=== PATIENT | male | born 1950 | race Caucasian/White ===

== ENCOUNTER → 2020-08-13 15:15 | Outpatient (BNVA) | payer MEDICARE, OTHER, SELFPAY | PROVIDERS: PCP Physician Assistant; Visit Provider Internal Medicine Cardiovascular Disease | DX: Z95.2 Presence of prosthetic heart valve (principal); Z79.01 Long term (current) use of anticoagulants; Z51.81 Encounter for therapeutic drug level monitoring | CPT/HCPCS: 85610; 99211 ==

== ENCOUNTER → 2020-08-27 15:54 | Outpatient (BNVA) | payer MEDICARE, OTHER, SELFPAY | PROVIDERS: PCP Physician Assistant; Referring Provider Physician Assistant; Visit Provider Internal Medicine | DX: Z95.2 Presence of prosthetic heart valve (principal); Z51.81 Encounter for therapeutic drug level monitoring; Z79.01 Long term (current) use of anticoagulants | CPT/HCPCS: 85610; 99211 ==

== ENCOUNTER → 2020-09-03 13:24 | Outpatient (BNVA) | payer MEDICARE, OTHER, SELFPAY | PROVIDERS: PCP Physician Assistant; Referring Provider Physician Assistant; Visit Provider Internal Medicine Cardiovascular Disease | DX: R06.02 Shortness of breath (principal); I25.10 Atherosclerotic heart disease of native coronary artery without angina pectoris; I10 Essential (primary) hypertension; E78.5 Hyperlipidemia, unspecified; E11.9 Type 2 diabetes mellitus without complications; Z95.1 Presence of aortocoronary bypass graft; Z95.2 Presence of prosthetic heart valve; F17.200 Nicotine dependence, unspecified, uncomplicated; Z79.82 Long term (current) use of aspirin; Z79.899 Other long term (current) drug therapy; Z71.6 Tobacco abuse counseling | CPT/HCPCS: 85610; 93005; 99214 ==

== ENCOUNTER → 2020-09-17 14:44 | Outpatient (BNVA) | payer MEDICARE, OTHER, SELFPAY | PROVIDERS: PCP Physician Assistant; Visit Provider Internal Medicine | DX: Z95.2 Presence of prosthetic heart valve (principal); Z51.81 Encounter for therapeutic drug level monitoring; Z79.01 Long term (current) use of anticoagulants | CPT/HCPCS: 85610; 99211 ==

== ENCOUNTER → 2020-09-18 14:37 | Outpatient (BNVA) | payer MEDICARE, OTHER, SELFPAY | PROVIDERS: PCP Physician Assistant; Referring Provider Physician Assistant; Visit Provider Family Medicine Adult Medicine | DX: M54.16 Radiculopathy, lumbar region (principal); Z79.891 Long term (current) use of opiate analgesic | CPT/HCPCS: 99212 ==

== ENCOUNTER → 2020-09-19 13:43 | Outpatient (BNVA) | payer MEDICARE, OTHER, SELFPAY | PROVIDERS: PCP Physician Assistant; Visit Provider Internal Medicine | DX: Z95.2 Presence of prosthetic heart valve (principal); Z51.81 Encounter for therapeutic drug level monitoring; Z79.01 Long term (current) use of anticoagulants | CPT/HCPCS: 85610; 99211 ==

== ENCOUNTER → 2020-10-03 13:50 | Outpatient (BNVA) | payer MEDICARE, OTHER, SELFPAY | PROVIDERS: PCP Physician Assistant; Referring Provider Physician Assistant; Visit Provider Internal Medicine | DX: Z95.2 Presence of prosthetic heart valve (principal); Z51.81 Encounter for therapeutic drug level monitoring; Z79.01 Long term (current) use of anticoagulants | CPT/HCPCS: 85610; 99211 ==

== ENCOUNTER → 2020-10-12 14:24 | Outpatient (BNVA) | payer MEDICARE, OTHER, SELFPAY | PROVIDERS: PCP Physician Assistant; Visit Provider Internal Medicine | DX: Z95.2 Presence of prosthetic heart valve (principal); Z51.81 Encounter for therapeutic drug level monitoring; Z79.01 Long term (current) use of anticoagulants | CPT/HCPCS: 85610; 99211 ==

== ENCOUNTER → 2020-10-16 13:46 | Outpatient (BNVA) | payer MEDICARE, OTHER, SELFPAY | PROVIDERS: PCP Physician Assistant; Visit Provider Family Medicine Adult Medicine | DX: M54.16 Radiculopathy, lumbar region (principal) | CPT/HCPCS: 99212 ==

== ENCOUNTER → 2020-10-22 13:42 | Outpatient (BNVA) | payer MEDICARE, OTHER, SELFPAY | PROVIDERS: PCP Physician Assistant; Visit Provider Internal Medicine | DX: Z95.2 Presence of prosthetic heart valve (principal); Z51.81 Encounter for therapeutic drug level monitoring; Z79.01 Long term (current) use of anticoagulants | CPT/HCPCS: 85610; 99211 ==

== ENCOUNTER → 2020-10-26 13:40 | Outpatient (BNVA) | payer MEDICARE, OTHER, SELFPAY | PROVIDERS: PCP Physician Assistant; Visit Provider Internal Medicine | DX: Z95.2 Presence of prosthetic heart valve (principal); Z51.81 Encounter for therapeutic drug level monitoring; Z79.01 Long term (current) use of anticoagulants | CPT/HCPCS: 85610; 99211 ==

== ENCOUNTER → 2020-11-12 14:32 | Outpatient (BNVA) | payer MEDICARE, OTHER, SELFPAY | PROVIDERS: PCP Physician Assistant; Visit Provider Internal Medicine | DX: Z95.2 Presence of prosthetic heart valve (principal); Z51.81 Encounter for therapeutic drug level monitoring; Z79.01 Long term (current) use of anticoagulants | CPT/HCPCS: 85610; 99211 ==

== ENCOUNTER → 2020-11-15 14:54 | Outpatient (BNVA) | payer MEDICARE, OTHER, SELFPAY | PROVIDERS: PCP Physician Assistant; Referring Provider Physician Assistant; Visit Provider Family Medicine Adult Medicine | DX: Z51.81 Encounter for therapeutic drug level monitoring (principal) | CPT/HCPCS: 99212 ==

== ENCOUNTER → 2020-12-03 14:41 | Outpatient (BNVA) | payer MEDICARE, OTHER, SELFPAY | PROVIDERS: PCP Physician Assistant; Visit Provider Internal Medicine | DX: Z95.2 Presence of prosthetic heart valve (principal); Z51.81 Encounter for therapeutic drug level monitoring; Z79.01 Long term (current) use of anticoagulants | CPT/HCPCS: 85610; 99211 ==

== ENCOUNTER → 2020-12-07 14:34 | Outpatient (BNVA) | payer MEDICARE, OTHER, SELFPAY | PROVIDERS: PCP Physician Assistant; Visit Provider Internal Medicine | DX: Z95.2 Presence of prosthetic heart valve (principal); Z51.81 Encounter for therapeutic drug level monitoring; Z79.01 Long term (current) use of anticoagulants | CPT/HCPCS: 85610; 99211 ==

== ENCOUNTER → 2020-12-12 15:47 | Outpatient (BNVA) | payer MEDICARE, OTHER, SELFPAY | PROVIDERS: PCP Physician Assistant; Visit Provider Anesthesiology | DX: M54.16 Radiculopathy, lumbar region (principal) | CPT/HCPCS: 99212 ==

== ENCOUNTER → 2020-12-21 13:51 | Outpatient (BNVA) | payer MEDICARE, OTHER, SELFPAY | PROVIDERS: PCP Physician Assistant; Visit Provider Internal Medicine | DX: Z95.2 Presence of prosthetic heart valve (principal); Z51.81 Encounter for therapeutic drug level monitoring; Z79.01 Long term (current) use of anticoagulants | CPT/HCPCS: 85610; 99211 ==

== ENCOUNTER → 2021-01-10 10:25 | Outpatient (BNVA) | payer MEDICARE, OTHER, SELFPAY | PROVIDERS: PCP Physician Assistant; Visit Provider Family Medicine Adult Medicine | DX: M54.16 Radiculopathy, lumbar region (principal); Z79.899 Other long term (current) drug therapy | CPT/HCPCS: Q3014 ==

== ENCOUNTER → 2021-01-11 13:47 | Outpatient (BNVA) | payer MEDICARE, OTHER, SELFPAY | PROVIDERS: PCP Physician Assistant; Visit Provider Internal Medicine | DX: Z95.2 Presence of prosthetic heart valve (principal); Z51.81 Encounter for therapeutic drug level monitoring; Z79.01 Long term (current) use of anticoagulants | CPT/HCPCS: 85610; 99211 ==

== ENCOUNTER → 2021-02-01 14:19 | Outpatient (BNVA) | payer MEDICARE, OTHER, SELFPAY | PROVIDERS: PCP Physician Assistant; Visit Provider Internal Medicine | DX: Z95.2 Presence of prosthetic heart valve (principal); Z51.81 Encounter for therapeutic drug level monitoring; Z79.01 Long term (current) use of anticoagulants | CPT/HCPCS: 85610; 99211 ==

== ENCOUNTER → 2021-02-07 13:17 | Outpatient (BNVA) | payer MEDICARE, OTHER, SELFPAY | PROVIDERS: PCP Physician Assistant; Visit Provider Family Medicine Adult Medicine | DX: Z13.89 Encounter for screening for other disorder (principal) | CPT/HCPCS: 99212 ==

== ENCOUNTER → 2021-02-12 08:01 | Outpatient (BNVA) | payer MEDICARE, OTHER, SELFPAY | PROVIDERS: PCP Physician Assistant; Visit Provider Family Medicine Adult Medicine | DX: Z51.81 Encounter for therapeutic drug level monitoring (principal) | CPT/HCPCS: 99212 ==

== ENCOUNTER → 2021-02-15 14:13 | Outpatient (BNVA) | payer MEDICARE, OTHER, SELFPAY | PROVIDERS: PCP Physician Assistant; Visit Provider Internal Medicine | DX: Z95.2 Presence of prosthetic heart valve (principal); Z79.01 Long term (current) use of anticoagulants; Z51.81 Encounter for therapeutic drug level monitoring | CPT/HCPCS: 85610; 99211 ==

== ENCOUNTER → 2021-02-26 11:21 | Outpatient (BNVA) | payer MEDICARE, OTHER, SELFPAY | PROVIDERS: PCP Physician Assistant; Visit Provider Family Medicine Adult Medicine | DX: M54.16 Radiculopathy, lumbar region (principal) | CPT/HCPCS: 99212 ==

== ENCOUNTER → 2021-03-07 10:45 | Outpatient (BNVA) | payer MEDICARE, OTHER, SELFPAY | PROVIDERS: PCP Physician Assistant; Visit Provider Family Medicine Adult Medicine | DX: M54.16 Radiculopathy, lumbar region (principal) | CPT/HCPCS: 99212 ==

== ENCOUNTER → 2021-03-15 14:26 | Outpatient (BNVA) | payer MEDICARE, OTHER, SELFPAY | PROVIDERS: PCP Physician Assistant; Visit Provider Internal Medicine | DX: Z95.2 Presence of prosthetic heart valve (principal); Z79.01 Long term (current) use of anticoagulants; Z51.81 Encounter for therapeutic drug level monitoring | CPT/HCPCS: 85610; 99211 ==

== ENCOUNTER → 2021-03-26 09:39 | Outpatient (BNVA) | payer MEDICARE, OTHER, SELFPAY | PROVIDERS: PCP Physician Assistant; Visit Provider Family Medicine Adult Medicine | DX: M54.16 Radiculopathy, lumbar region (principal) | CPT/HCPCS: Q3014 ==

== ENCOUNTER → 2021-04-23 10:14 | Outpatient (BNVA) | payer MEDICARE, OTHER, SELFPAY | PROVIDERS: PCP Physician Assistant; Visit Provider Internal Medicine | DX: M54.16 Radiculopathy, lumbar region (principal); E11.40 Type 2 diabetes mellitus with diabetic neuropathy, unspecified; Z95.2 Presence of prosthetic heart valve; Z51.81 Encounter for therapeutic drug level monitoring; Z79.01 Long term (current) use of anticoagulants | CPT/HCPCS: 85610; 99211; 99212 ==

== ENCOUNTER → 2021-05-14 14:21 | Outpatient (BNVA) | payer MEDICARE, OTHER, SELFPAY | PROVIDERS: PCP Physician Assistant; Visit Provider Internal Medicine | DX: Z95.2 Presence of prosthetic heart valve (principal); Z51.81 Encounter for therapeutic drug level monitoring; Z79.01 Long term (current) use of anticoagulants | CPT/HCPCS: 85610; 99211 ==

== ENCOUNTER → 2021-05-21 13:46 | Outpatient (BNVA) | payer MEDICARE, OTHER, SELFPAY | PROVIDERS: PCP Physician Assistant; Visit Provider Family Medicine Adult Medicine | DX: M54.16 Radiculopathy, lumbar region (principal); Z79.899 Other long term (current) drug therapy | CPT/HCPCS: 99212 ==

== ENCOUNTER → 2021-05-22 14:29 | Outpatient (BNVA) | payer MEDICARE, OTHER, SELFPAY | PROVIDERS: PCP Physician Assistant; Visit Provider Internal Medicine | DX: Z95.2 Presence of prosthetic heart valve (principal); Z51.81 Encounter for therapeutic drug level monitoring; Z79.01 Long term (current) use of anticoagulants | CPT/HCPCS: 85610; 99211 ==

== ENCOUNTER → 2021-06-18 13:45 | Outpatient (BNVA) | payer MEDICARE, OTHER, SELFPAY | PROVIDERS: PCP Physician Assistant; Visit Provider Family Medicine Adult Medicine | DX: M54.16 Radiculopathy, lumbar region (principal) | CPT/HCPCS: 99212 ==

== ENCOUNTER → 2021-07-16 15:20 | Outpatient (BNVA) | payer MEDICARE, OTHER, SELFPAY | PROVIDERS: PCP Physician Assistant; Visit Provider Nurse Practitioner Family | DX: Z51.81 Encounter for therapeutic drug level monitoring (principal); M54.16 Radiculopathy, lumbar region | CPT/HCPCS: 99212 ==

== ENCOUNTER → 2021-07-17 14:55 | Outpatient (BNVA) | payer MEDICARE, OTHER, SELFPAY | PROVIDERS: PCP Physician Assistant; Visit Provider Internal Medicine | DX: Z95.2 Presence of prosthetic heart valve (principal); Z51.81 Encounter for therapeutic drug level monitoring; Z79.01 Long term (current) use of anticoagulants | CPT/HCPCS: 85610; 99211 ==

== ENCOUNTER → 2021-08-07 14:42 | Outpatient (BNVA) | payer MEDICARE, OTHER, SELFPAY | PROVIDERS: PCP Physician Assistant; Visit Provider Internal Medicine | DX: Z95.2 Presence of prosthetic heart valve (principal); Z51.81 Encounter for therapeutic drug level monitoring; Z79.01 Long term (current) use of anticoagulants | CPT/HCPCS: 85610; 99211 ==

== ENCOUNTER → 2021-08-13 15:16 | Outpatient (BNVA) | payer MEDICARE, OTHER, SELFPAY | PROVIDERS: PCP Physician Assistant; Visit Provider Family Medicine Adult Medicine | DX: Z51.81 Encounter for therapeutic drug level monitoring (principal); M54.16 Radiculopathy, lumbar region | CPT/HCPCS: Q3014 ==

== ENCOUNTER → 2021-08-28 13:35 | Outpatient (BNVA) | payer MEDICARE, OTHER, SELFPAY | PROVIDERS: PCP Physician Assistant; Visit Provider Internal Medicine | DX: Z95.2 Presence of prosthetic heart valve (principal); Z51.81 Encounter for therapeutic drug level monitoring; Z79.01 Long term (current) use of anticoagulants | CPT/HCPCS: 85610; 99211 ==

== ENCOUNTER → 2021-09-12 11:03 | Outpatient (BNVA) | payer MEDICARE, OTHER, SELFPAY | PROVIDERS: PCP Physician Assistant; Visit Provider Family Medicine Adult Medicine | DX: Z51.81 Encounter for therapeutic drug level monitoring (principal); M54.16 Radiculopathy, lumbar region; E11.40 Type 2 diabetes mellitus with diabetic neuropathy, unspecified | CPT/HCPCS: 99212 ==

== ENCOUNTER → 2021-09-25 13:33 | Outpatient (BNVA) | payer MEDICARE, OTHER, SELFPAY | PROVIDERS: PCP Physician Assistant; Visit Provider Internal Medicine | DX: Z95.2 Presence of prosthetic heart valve (principal); Z51.81 Encounter for therapeutic drug level monitoring; Z79.01 Long term (current) use of anticoagulants | CPT/HCPCS: 85610 ==

== ENCOUNTER → 2021-10-17 13:08 | Outpatient (BNVA) | payer MEDICARE, OTHER, SELFPAY | PROVIDERS: PCP Physician Assistant; Visit Provider Family Medicine Adult Medicine | DX: Z51.81 Encounter for therapeutic drug level monitoring (principal); F11.20 Opioid dependence, uncomplicated | CPT/HCPCS: 99211 ==

== ENCOUNTER → 2021-11-18 13:36 | Outpatient (BNVA) | payer MEDICARE, OTHER, SELFPAY | PROVIDERS: PCP Physician Assistant; Visit Provider Anesthesiology | DX: Z51.81 Encounter for therapeutic drug level monitoring (principal); F11.20 Opioid dependence, uncomplicated; M54.16 Radiculopathy, lumbar region | CPT/HCPCS: 99212 ==

== ENCOUNTER → 2021-12-16 13:56 | Outpatient (BNVA) | payer MEDICARE, OTHER, SELFPAY | PROVIDERS: PCP Physician Assistant; Visit Provider Anesthesiology | DX: Z51.81 Encounter for therapeutic drug level monitoring (principal); F11.20 Opioid dependence, uncomplicated | CPT/HCPCS: 99212 ==

== ENCOUNTER → 2022-01-13 13:30 | Outpatient (BNVA) | payer MEDICARE, OTHER, SELFPAY | PROVIDERS: PCP Physician Assistant; Visit Provider Anesthesiology | DX: Z51.81 Encounter for therapeutic drug level monitoring (principal); F11.20 Opioid dependence, uncomplicated; M54.16 Radiculopathy, lumbar region; M47.816 Spondylosis without myelopathy or radiculopathy, lumbar region | CPT/HCPCS: 99212 ==

== ENCOUNTER 2022-01-17 15:43 | Outpatient (REF) | payer MEDICARE, OTHER, SELFPAY ==
--- NOTE | ~2022-01-17 | MR_ITS ---
EXAMINATION: MR LUMBAR SPINE WITHOUT CONTRAST CLINICAL INFORMATION: 71-year-old with radiculopathy, lumbar region. Complaints of low back pain and bilateral lower extremity symptoms. COMPARISON: 10/27/2019 x-rays. TECHNIQUE: MRI of the lumbar spine was obtained using routine sequences without contrast. FINDINGS: Coronal Alignment: Slight lower lumbar levocurvature noted. Sagittal Alignment: There is 4 to 5 mm of grade 1 degenerative spondylolisthesis at L4-L5, stable from previous x-rays. There is 2 mm of retrolisthesis at L3-L4, stable from previous x-rays and there is 3 mm of grade 1 degenerative spondylolisthesis at L5-S1, also unchanged. Lumbosacral Junction: Normal. 5 oyp-vna-bcjolfs lumbar vertebra. Vertebral Bodies: There is moderate loss of height of the T12 vertebral body asymmetric to the right which has progressed from the previous x-ray with a large Schmorl's node along its superior endplate consistent with a chronic compression fracture with progression of height loss since previous exam. Minimal marrow edema is noted within the T12 vertebral body, some of which may be related to type I degenerative marrow signal changes along the inferior end plate of T12 but it is difficult to exclude some degree of incomplete healing of this compression fracture. Additionally, there is band-like low T1 signal extending across the superior aspect of the L1 vertebral body with associated marrow edema suggesting a mild, nondisplaced superior endplate fracture of L1 without significant loss of height. No significant retropulsion. Remaining vertebral bodies are unremarkable. Disc Spaces and Endplates: Moderate loss of the intervertebral disc space height at L2-L3 and L3-L4 similar to previous x-rays with mild loss of height at L4-L5 and L5-S1. Severe loss of height of the T12-L1 intervertebral disc space is noted, probably progressed from previous x-ray. Schmorl's nodes at T11-T12 and T12-L1 are noted with probable intradiscal vacuum disc phenomenon at T12-L1. Anterior marginal spondylosis also noted at multiple levels throughout the thoracolumbar spine. Spinal Canal: Multilevel prominent dorsal epidural fat pads are noted. Bone Marrow: Type I degenerative marrow signal changes along the endplates at T12-L1 are suspected. Mild type I degenerative marrow signal changes along the endplates at L2-L3 and L3-L4. See above for discussion of T12 and L1. No suspicious marrow replacing process. Conus Medullaris: Terminates at L1-L2. Morphology and signal is normal. Intradural Nerve Roots: Crowding of the intradural nerve roots at L2-L3 consistent with spinal stenosis. L5-S1: Slight unroofing of the posterior disc margin with superimposed mild disc bulging and paravertebral disc osteophyte complex bilaterally with pnizmcve-lx-lhdfah bilateral facet arthropathy. No significant central spinal canal stenosis. There is mild bilateral subarticular and lateral recess stenosis with slight encroachment on the left S1 nerve root in the subarticular zone. There is moderate left-sided and severe right-sided neural foraminal stenosis, with bilateral L5 nerve root impingement, right more than left. L4-L5: Unroofing of the posterior disc margin noted consistent with spondylolisthesis. Superimposed left subarticular to foraminal disc herniation noted with severe bilateral facet arthrosis. Ligamentum flavum thickening noted with moderate central spinal canal stenosis. There is moderate left-sided and wwlxiuyd-fs-ywbfga right-sided neural foraminal stenosis, with bilateral L4 nerve root impingement, right more than left. L3-L4: Retrolisthesis is noted with diffuse disc bulging and flattening of the ventral dural sac with a prominent dorsal epidural fat pad. Superimposed right-sided foraminal/extra foraminal disc herniation. Ligamentum flavum thickening is noted with moderate bilateral facet arthrosis. There is moderate central spinal canal stenosis and there is marked bilateral subarticular recess stenosis with possible encroachment on the traversing L4 nerve roots. Bupygvyn-yz-yazzln right-sided and wjsm-id-pdynruri left-sided neural foraminal stenosis is noted with impingement on the exiting L3 nerve roots, right more than left. L2-L3: Diffuse disc bulging is noted, with a prominent dorsal epidural fat pad with flattening of the dural sac, ligamentum flavum thickening and mild facet arthrosis bilaterally. There is severe spinal canal stenosis with marked crowding of the intradural nerve roots and there is moderate right-sided and severe left-sided subarticular recess stenosis with probable encroachment on the traversing L3 nerve roots, left more than right. Mild right and udovzxkl-cj-gpkygc left-sided neural foraminal stenosis is noted, with impingement on the exiting left L2 nerve root. L1-L2: Minor posterolateral foraminal disc protrusion, left more than right, with minor facet arthrosis without significant canal stenosis. Mild foraminal narrowing bilaterally without neural impingement. T12-L1: Disc bulging, posterolateral disc osteophyte complex and a superimposed left paramedian to subarticular disc herniation with vxbtfexq-sb-scnrhy flattening of the dural sac asymmetric to the left and a prominent dorsal epidural fat pad. Ligamentum flavum thickening and mild facet arthropathy bilaterally noted with moderate central spinal canal stenosis and moderate left lateral recess stenosis. Severe right-sided and xjglwjwx-nd-tymsjm left-sided neural foraminal stenosis are also noted with impingement on the exiting right T12 nerve root. T11-T12: Small left and right paramedian disc protrusions are noted with mild indentation of the ventral thecal sac without cord impingement or canal stenosis. Minor facet arthrosis is noted with mild foraminal narrowing bilaterally without neural impingement. Paraspinal/Retroperitoneal: The paravertebral soft tissues are grossly unremarkable. Note is made of a 1.5 cm exophytic structure arising from the posterior cortex of the right kidney which is hyperintense on T1 and hypointense on T2, likely reflecting a hemorrhagic cyst. A similar sized and located structure is seen on a previous CT of the abdomen of 12/24/2013 and appears unchanged in size. However, this did not appear hemorrhagic on the previous study and therefore renal ultrasound may be of additional value. There is a 1.1 cm left adrenal nodule which is stable from previous CT. MR/MR lumbar spine wo con IMPRESSION: 1. Grade 1 degenerative spondylolisthesis at L4-L5 and L5-S1 and retrolisthesis at L3-L4 similar to previous x-rays. 2. Progression of height loss of the T12 compression fracture as described above which may not be completely healed and suspicion for a new superior endplate compression fracture of the L1 vertebral body without significant height loss at this point. 3. Extensive multilevel discogenic degenerative changes most severe at T12-L1 with multilevel spondylosis, disc bulging, disc osteophyte complexes and disc herniations as described by level above. Multilevel bilateral facet arthropathy and ligamentum flavum thickening also noted with multilevel prominent dorsal epidural fat pads. 4. Multilevel spinal canal stenosis at L4-L5, L3-L4, L2-L3 and T12-L1, most significant at T12-L1 and L2-L3 as described above. 5. Multilevel bilateral neural foraminal stenosis, with multilevel exiting nerve root impingement as detailed by level above. 6. Suggestion of hemorrhagic cyst in the right kidney since previous CT abdomen. Suggest follow-up ultrasound.
== END 2022-01-17 15:44 | disposition home or self-care (01) ==
LOC: HO.MRI 15:43
PROVIDERS: PCP Physician Assistant; Visit Provider Anesthesiology
DX: Z95.2 Presence of prosthetic heart valve (principal); M54.16 Radiculopathy, lumbar region; M47.816 Spondylosis without myelopathy or radiculopathy, lumbar region; Z51.81 Encounter for therapeutic drug level monitoring; Z79.01 Long term (current) use of anticoagulants
CPT/HCPCS: 72148; 85610; 99211

== ENCOUNTER → 2022-02-10 13:36 | Outpatient (BNVA) | payer MEDICARE, OTHER, SELFPAY | PROVIDERS: PCP Physician Assistant; Visit Provider Anesthesiology | DX: Z51.81 Encounter for therapeutic drug level monitoring (principal); F11.20 Opioid dependence, uncomplicated; Z79.01 Long term (current) use of anticoagulants; Z95.2 Presence of prosthetic heart valve | CPT/HCPCS: 85610; 99211 ==

== ENCOUNTER → 2022-02-17 13:34 | Outpatient (BNVA) | payer MEDICARE, OTHER, SELFPAY | PROVIDERS: PCP Physician Assistant; Visit Provider Internal Medicine | DX: Z95.2 Presence of prosthetic heart valve (principal); Z79.01 Long term (current) use of anticoagulants; Z51.81 Encounter for therapeutic drug level monitoring | CPT/HCPCS: 85610; 99211 ==

== ENCOUNTER → 2022-02-28 14:03 | Outpatient (BNVA) | payer MEDICARE, OTHER, SELFPAY | PROVIDERS: PCP Physician Assistant; Visit Provider Internal Medicine | DX: Z95.2 Presence of prosthetic heart valve (principal); Z79.01 Long term (current) use of anticoagulants; Z51.81 Encounter for therapeutic drug level monitoring | CPT/HCPCS: 85610; 99211 ==

== ENCOUNTER → 2022-03-12 15:17 | Outpatient (BNVA) | payer MEDICARE, OTHER, SELFPAY | PROVIDERS: PCP Physician Assistant; Visit Provider Nurse Practitioner Family | DX: Z51.81 Encounter for therapeutic drug level monitoring (principal); F11.20 Opioid dependence, uncomplicated; M54.16 Radiculopathy, lumbar region; M47.816 Spondylosis without myelopathy or radiculopathy, lumbar region | CPT/HCPCS: 99212 ==

== ENCOUNTER → 2022-03-21 13:48 | Outpatient (BNVA) | payer MEDICARE, OTHER, SELFPAY | PROVIDERS: PCP Physician Assistant; Visit Provider Internal Medicine | DX: Z95.2 Presence of prosthetic heart valve (principal); Z79.01 Long term (current) use of anticoagulants; Z51.81 Encounter for therapeutic drug level monitoring | CPT/HCPCS: 85610; 99211 ==

== ENCOUNTER → 2022-03-25 14:14 | Outpatient (BNVA) | payer MEDICARE, OTHER, SELFPAY | PROVIDERS: PCP Physician Assistant; Visit Provider Internal Medicine | DX: Z95.2 Presence of prosthetic heart valve (principal); Z79.01 Long term (current) use of anticoagulants; Z51.81 Encounter for therapeutic drug level monitoring | CPT/HCPCS: 85610; 99211 ==

== ENCOUNTER → 2022-04-09 12:38 | Outpatient (BNVA) | payer MEDICARE, OTHER, SELFPAY | PROVIDERS: PCP Physician Assistant; Visit Provider Nurse Practitioner Family | DX: M47.26 Other spondylosis with radiculopathy, lumbar region (principal); M48.061 Spinal stenosis, lumbar region without neurogenic claudication; Z79.891 Long term (current) use of opiate analgesic; Z95.2 Presence of prosthetic heart valve; Z51.81 Encounter for therapeutic drug level monitoring; Z79.01 Long term (current) use of anticoagulants | CPT/HCPCS: 85610; 99211; 99212 ==

== ENCOUNTER → 2022-04-30 13:56 | Outpatient (BNVA) | payer MEDICARE, OTHER, SELFPAY | PROVIDERS: PCP Physician Assistant; Visit Provider Internal Medicine | DX: Z95.2 Presence of prosthetic heart valve (principal); Z79.01 Long term (current) use of anticoagulants; Z51.81 Encounter for therapeutic drug level monitoring | CPT/HCPCS: 85610; 99211 ==

== ENCOUNTER → 2022-05-07 14:09 | Outpatient (BNVA) | payer MEDICARE, OTHER, SELFPAY | PROVIDERS: PCP Physician Assistant; Visit Provider Anesthesiology | DX: M47.26 Other spondylosis with radiculopathy, lumbar region (principal); M48.061 Spinal stenosis, lumbar region without neurogenic claudication; Z79.891 Long term (current) use of opiate analgesic; Z87.81 Personal history of (healed) traumatic fracture | CPT/HCPCS: 99212 ==

== ENCOUNTER → 2022-05-27 14:14 | Outpatient (BNVA) | payer MEDICARE, OTHER, SELFPAY | PROVIDERS: PCP Physician Assistant; Visit Provider Internal Medicine | DX: Z95.2 Presence of prosthetic heart valve (principal); Z79.01 Long term (current) use of anticoagulants; Z51.81 Encounter for therapeutic drug level monitoring | CPT/HCPCS: 85610; 99211 ==

== ENCOUNTER → 2022-06-04 14:43 | Outpatient (BNVA) | payer MEDICARE, OTHER, SELFPAY | PROVIDERS: PCP Physician Assistant; Visit Provider Anesthesiology | DX: Z51.81 Encounter for therapeutic drug level monitoring (principal); F11.20 Opioid dependence, uncomplicated; M54.16 Radiculopathy, lumbar region; M47.816 Spondylosis without myelopathy or radiculopathy, lumbar region; M48.061 Spinal stenosis, lumbar region without neurogenic claudication; Z87.81 Personal history of (healed) traumatic fracture | CPT/HCPCS: 99212 ==

== ENCOUNTER → 2022-06-24 14:15 | Outpatient (BNVA) | payer MEDICARE, OTHER, SELFPAY | PROVIDERS: PCP Physician Assistant; Visit Provider Internal Medicine | DX: Z95.2 Presence of prosthetic heart valve (principal); Z79.01 Long term (current) use of anticoagulants; Z51.81 Encounter for therapeutic drug level monitoring | CPT/HCPCS: 85610; 99211 ==

== ENCOUNTER → 2022-07-02 14:27 | Outpatient (BNVA) | payer MEDICARE, OTHER, SELFPAY | PROVIDERS: PCP Physician Assistant; Visit Provider Nurse Practitioner Family | DX: Z79.891 Long term (current) use of opiate analgesic (principal) | CPT/HCPCS: 99211 ==

== ENCOUNTER → 2022-07-22 14:14 | Outpatient (BNVA) | payer MEDICARE, OTHER, SELFPAY | PROVIDERS: PCP Physician Assistant; Visit Provider Internal Medicine | DX: Z95.2 Presence of prosthetic heart valve (principal); Z79.01 Long term (current) use of anticoagulants; Z51.81 Encounter for therapeutic drug level monitoring | CPT/HCPCS: 85610; 99211 ==

== ENCOUNTER → 2022-07-30 09:41 | Outpatient (BNVA) | payer MEDICARE, OTHER, SELFPAY | PROVIDERS: PCP Physician Assistant; Visit Provider Anesthesiology | DX: Z51.81 Encounter for therapeutic drug level monitoring (principal); F11.20 Opioid dependence, uncomplicated; M54.16 Radiculopathy, lumbar region; M47.816 Spondylosis without myelopathy or radiculopathy, lumbar region; M48.061 Spinal stenosis, lumbar region without neurogenic claudication; Z87.81 Personal history of (healed) traumatic fracture | CPT/HCPCS: 99212 ==

== ENCOUNTER → 2022-08-06 12:59 | Outpatient (BNVA) | payer MEDICARE, OTHER, SELFPAY | PROVIDERS: PCP Physician Assistant; Visit Provider Internal Medicine | DX: I25.10 Atherosclerotic heart disease of native coronary artery without angina pectoris (principal); Z95.2 Presence of prosthetic heart valve; Z51.81 Encounter for therapeutic drug level monitoring; Z79.01 Long term (current) use of anticoagulants | CPT/HCPCS: 85610; 93005; 99211; 99212 ==

== ENCOUNTER → 2022-08-19 09:16 | Outpatient (REF) | payer MEDICARE, OTHER, SELFPAY ==
--- NOTE | ~2022-08-19 | NM_ITS ---
Lexiscan Myocardial perfusion study Indication: Coronary artery disease, assess for ischemia Technique: The patient was brought in for a Lexiscan perfusion study on 08/19/2022 and was injected 0.4 mg of Lexiscan intravenously. Within a minute of this injection 30 mCi of sestamibi was given intravenously. Images were obtained using the SPECT gamma camera interlaced with the gating device. Images were obtained in supine position. Resting perfusion study was performed on 08/21/2022. Patient was administered 30 mCi of sestamibi intravenously at rest. Images were then obtained in supine position. Total DLP 129mGy-cm. Images were processed with the software and compared side to side in short axis, horizontal long axis and vertical long axis views. Findings: Raw acquisition reviewed. Arms by the patient's side. The stress perfusion study showed minimally reduced tracer uptake in the lateral wall. With CT attenuation corrected, there is improvement suggestive of soft tissue attenuation artifact. The gated study shows normal LV systolic function with calculated LVEF of 69%. LV cavity is normal in size. The gated study shows normal wall thickening and contraction of segments. Resting study shows diminished tracer uptake in the lateral wall more prominent than the stress acquisition and hence probably artifactual. There is also improvement with CT attenuation correction. Gating at rest reveals normal wall motion with ejection fraction at 73%. The findings are consistent with no clear reversible defects. Possible mild lateral fixed defect but could also be artifactual. NM/NM trevor perf SPECT rest & str Impression: 1. Myocardial perfusion imaging study shows no clear evidence of any ischemia. Mild lateral fixed defect, possibly artifactual but cannot exclude nontransmural infarct. 2. Gated LVEF is 69% during stress and 73% during rest. 3. Transient ischemic dilatation not present. EKG component of the test reported separately.
--- NOTE | 2022-08-19 09:18 | CA_ITS ---
Acquisition Time: 2022-08-19 09:32:13 Total Exercise Time: 00:02:00 Test Indications: AORTIC VALVE REPLACEMENT Medications: SEE CHART Protocol: LEXISCAN Max HR: 080 BPM 53% of Pred: 150 BPM Max BP: 112/066 mmHG Max Work Load: 1.0 METS Pharmacological stress test with Lexiscan injection, while sitting and kicking his legs, without anginal symptoms, with junctional beats noted in early recovery, with normotensive response to injection, with nondiagnostic EKG for ischemia. In recovery he was treated with Aminophylline 75mg IVP to reverse Lexiscan. Nuclear images pending. Test reviewed with Dr Stephen. Holter monitor ordered for further rhythm evaluation. Referred By: Nick Miller Overread By: THIERRY APONTE
== END ==
LOC: HO.CARD 09:16
PROVIDERS: PCP Physician Assistant; Visit Provider Internal Medicine Cardiovascular Disease
DX: I25.10 Atherosclerotic heart disease of native coronary artery without angina pectoris (principal)
CPT/HCPCS: 78452; 93017; A9500; A9503; J0280; J2785

== ENCOUNTER → 2022-08-21 14:05 | Outpatient (REF) | payer MEDICARE, OTHER, SELFPAY ==
--- NOTE | 2022-08-21 14:09 | HM_ITS ---
* Total monitoring time 3 days. * Underlying rhythm is sinus. Average rate 45/Min. Range 28 to 122/Min. * About 69% the time, rate less than 60/Min. * There were 4 pauses greater than 2.5 seconds. Longest 2.6 seconds at 08:48. * Evidence of Mobitz type 1 second-degree heart block noted. Additional areas where difficult to assess the degree of atrioventricular block but ventricular rate of 32/Min-during awake hours. Per automated calculation, second-degree heart block to a rate of 27/Min for over 17 minutes. * No relevant events in diary. MTDD
== END ==
LOC: HO.CARD 14:05
PROVIDERS: PCP Physician Assistant; Visit Provider Nurse Practitioner Family
DX: I44.0 Atrioventricular block, first degree (principal); I49.49 Other premature depolarization
CPT/HCPCS: 93242

== ENCOUNTER → 2022-09-17 13:34 | Outpatient (BNVA) | payer MEDICARE, OTHER, SELFPAY | PROVIDERS: PCP Physician Assistant; Visit Provider Internal Medicine | DX: Z95.2 Presence of prosthetic heart valve (principal); Z79.01 Long term (current) use of anticoagulants; Z51.81 Encounter for therapeutic drug level monitoring | CPT/HCPCS: 85610; 99211 ==

== ENCOUNTER → 2022-09-19 13:34 | Outpatient (BNVA) | payer MEDICARE, OTHER, SELFPAY | PROVIDERS: PCP Physician Assistant; Visit Provider Internal Medicine | DX: Z95.2 Presence of prosthetic heart valve (principal); Z79.01 Long term (current) use of anticoagulants; Z51.81 Encounter for therapeutic drug level monitoring | CPT/HCPCS: 85610; 99211 ==

== ENCOUNTER 2022-09-26 13:46 | Outpatient (REF) | payer MEDICARE, OTHER, SELFPAY | END 2022-09-26 13:47 | disposition home or self-care (01) | LOC: HO.LAB 13:46 | PROVIDERS: Visit Provider Internal Medicine | DX: Z95.2 Presence of prosthetic heart valve (principal); Z51.81 Encounter for therapeutic drug level monitoring; Z79.01 Long term (current) use of anticoagulants; I10 Essential (primary) hypertension; E11.65 Type 2 diabetes mellitus with hyperglycemia; Z79.4 Long term (current) use of insulin; Z12.5 Encounter for screening for malignant neoplasm of prostate | CPT/HCPCS: 36415; 80053; 80061; 82043; 83036; 84153; 85027; 85610; 99211 ==

== ENCOUNTER 2022-09-26 13:55 | Outpatient (REF) | payer MEDICARE, OTHER, SELFPAY ==
[2022-09-26 14:20] LABS: Hematocrit 36.5 % (42.0-52.0); Hemoglobin 12.4 g/dl (14.0-18.0); Mean Corpuscular Hemoglobin 31.2 pg (27.0-33.0); Mean Corpuscular Volume 91.9 fL (80.0-98.0); Mean Platelet Volume 9.7 fL (9.4-12.4); Platelet Count 187 X10*3/uL (160-400); Red Blood Count 3.97 X10*6/uL (4.60-5.80); Red Cell Distribution Width 12.7 % (11.0-16.0); White Blood Count 7.1 X10*3/uL (4.8-10.8)
[2022-09-26 14:26] LABS: INTERNATIONAL NORM RATIO 1.6 (0.9-1.1); Prothrombin Time 18.8 SEC (10.0-13.1)
[2022-09-26 14:38] LABS: Estimated Average Glucose 180 mg/dL; Hemoglobin A1c % 7.9 %
[2022-09-26 14:44] LABS: Creatinine Urine 133.99 mg/dL
[2022-09-26 14:55] LABS: Microalbum/Creatinine Ratio Ur 416.4 ug/mg cr
[2022-09-26 15:03] LABS: Alanine Aminotransferase 13 U/L (0-40); Albumin Level 3.9 g/dL (3.5-5.0); Alkaline Phosphatase 90 U/L (39-117); Anion Gap 13 (12-20); Aspartate Amino Transferase 15 U/L (5-37); Bilirubin Total 0.7 mg/dL (0.0-1.0); Blood Urea Nitrogen 16 mg/dL (9-16); Calcium 8.7 mg/dL (8.4-10.2); Carbon Dioxide 29 mmol/L (22-29); Chloride 107 mmol/L (96-108); Cholesterol 119 mg/dL; Estimated Glomerular Filt Rate > 60; Glucose Fasting 113 mg/dL (60-99); HDL Cholesterol 34 mg/dL; LDL Cholesterol Calculated 67 mg/dl; Sodium 145 mmol/L (135-145); Total Protein 6.3 g/dL (6.5-8.0); Triglycerides 93 mg/dL
== END 2022-09-26 13:56 | disposition home or self-care (01) ==
LOC: HO.LAB 13:55
PROVIDERS: Physician Assistant; Visit Provider Internal Medicine
DX: Z13.89 Encounter for screening for other disorder (principal)
CPT/HCPCS: 36415; 80053; 80061; 82043; 83036; 84153; 85027; 85610

== ENCOUNTER → 2022-09-29 14:28 | Outpatient (BNVA) | payer MEDICARE, OTHER, SELFPAY | PROVIDERS: PCP Physician Assistant; Visit Provider Internal Medicine | DX: Z95.2 Presence of prosthetic heart valve (principal); Z79.01 Long term (current) use of anticoagulants; Z51.81 Encounter for therapeutic drug level monitoring | CPT/HCPCS: 85610; 99211 ==

== ENCOUNTER → 2022-10-06 15:18 | Outpatient (BNVA) | payer MEDICARE, OTHER, SELFPAY | PROVIDERS: PCP Physician Assistant; Referring Provider Physician Assistant; Visit Provider Internal Medicine Cardiovascular Disease | DX: I44.1 Atrioventricular block, second degree (principal); I25.10 Atherosclerotic heart disease of native coronary artery without angina pectoris; Z95.2 Presence of prosthetic heart valve | CPT/HCPCS: 99212 ==

== ENCOUNTER → 2022-10-13 14:18 | Outpatient (BNVA) | payer MEDICARE, OTHER, SELFPAY | PROVIDERS: PCP Physician Assistant; Visit Provider Internal Medicine | DX: Z95.2 Presence of prosthetic heart valve (principal); Z79.01 Long term (current) use of anticoagulants; Z51.81 Encounter for therapeutic drug level monitoring | CPT/HCPCS: 85610; 99211 ==

== ENCOUNTER → 2022-10-29 14:24 | Outpatient (REF) | payer MEDICARE, OTHER, SELFPAY ==
--- NOTE | 2022-10-29 14:27 | HM_ITS ---
* Total monitoring time 3 days. * Underlying rhythm is sinus. Average ventricular rate 82/Min. Range 47 to 127/min. About 8% of the time, rate > 100/min. * There is evidence of Mobitz 1 Wenckebach type heart block. Seen during awake hours. * Frequent supraventricular ectopy. [place] of 5%. * Narrow complex tachycardia at 120/Min for about 3 minutes. Appears regular. Could be atrial tachycardia. Possible junctional origin.. Less likely atrial flutter/fibrillation. * Frequent PVCs with a burden of 1.3%. * Patient diary not submitted. MTDD
== END ==
LOC: HO.CARD 14:24
PROVIDERS: PCP Physician Assistant; Visit Provider Internal Medicine Cardiovascular Disease
DX: I44.1 Atrioventricular block, second degree (principal)
CPT/HCPCS: 85610; 93242; 99211

== ENCOUNTER → 2022-11-19 14:29 | Outpatient (BNVA) | payer MEDICARE, OTHER, SELFPAY | PROVIDERS: PCP Physician Assistant; Visit Provider Internal Medicine | DX: Z95.2 Presence of prosthetic heart valve (principal); Z79.01 Long term (current) use of anticoagulants; Z51.81 Encounter for therapeutic drug level monitoring | CPT/HCPCS: 85610; 99211 ==

== ENCOUNTER → 2022-12-03 14:25 | Outpatient (BNVA) | payer MEDICARE, OTHER, SELFPAY | PROVIDERS: PCP Physician Assistant; Visit Provider Internal Medicine | DX: Z95.2 Presence of prosthetic heart valve (principal); Z79.01 Long term (current) use of anticoagulants; Z51.81 Encounter for therapeutic drug level monitoring | CPT/HCPCS: 85610; 99211 ==

== ENCOUNTER 2022-12-23 15:43 | Outpatient (REF) | payer MEDICARE, OTHER, SELFPAY ==
--- NOTE | ~2022-12-23 | MR_ITS ---
EXAMINATION: MR LUMBAR SPINE WITHOUT CONTRAST CLINICAL INFORMATION: 72-year-old with radiculopathy, lumbar region. Self-reported low back and right leg pain. COMPARISON: 01/17/2022 MRI. TECHNIQUE: MRI of the lumbar spine was obtained using routine sequences without contrast. FINDINGS: Coronal Alignment: Trace lower lumbar levocurvature stable in appearance. Sagittal Alignment: Grade 1 spondylolisthesis at L4-L5 is minimally progressed and grade 1 spondylolisthesis at L5-S1 is stable in appearance. Grade 1 retrolisthesis at L3-L4 stable. Lordotic curvature is unchanged. Trace retrolisthesis at L2-L3 is also stable. Lumbosacral Junction: Normal. There are 5 pas-ozh-wbarsqd lumbar-type vertebral bodies. Vertebral Bodies: Redemonstrated is a chronic anterior wedge compression fracture deformity of T12, stable in appearance. Previously noted marrow edema within the T12 and T11 vertebral bodies has mostly resolved with some residual type I marrow signal changes noted adjacent to the endplates. Redemonstrated are T1 signal changes in the superior aspect of the L1 vertebral body which are stable from previous exam consistent with sequelae of a previous mild compression fracture with stable height at this level. Remaining vertebral body heights are well maintained stable in appearance. Disc Spaces and Endplates: Redemonstrated is multilevel DDD and spondylosis as described on the previous report largely unchanged in appearance with multilevel disc space height loss, disc desiccation, Schmorl's nodes and spondylosis largely unchanged and most severe at T12-L1. Probable intradiscal vacuum disc phenomenon at multiple levels is similar to previous study. Spinal Canal: No abnormal developmental findings. Mildly prominent epidural fat is again noted in the dorsal aspect of the canal unchanged. Bone Marrow: Type I degenerative marrow signal changes along the endplates at T12-L1, as described above. Improved marrow edema at T12 and L1 since previous exam. Minor type I degenerative marrow signal change again noted at the L2-L3 and L3-L4. No suspicious marrow replacing process. Heterogeneous marrow signal intensity noted throughout the osseous structures is largely similar to the previous study and is nonspecific. Conus Medullaris: Terminates at L1-L2. Morphology and signal is normal. Intradural Nerve Roots: Crowding of the intradural nerve roots again noted at L2-L3 consistent with spinal stenosis. Lesser crowding of the intradural nerve roots at L3-L4 consistent with spinal stenosis. Also some crowding of the intradural nerve roots at L4-L5 consistent with spinal stenosis is stable in appearance. L5-S1: Unroofing of the posterior disc margin again noted with superimposed minor disc bulging with bilateral paravertebral spondylosis stable in appearance. Marked bilateral facet arthropathy is largely unchanged with no significant central spinal canal stenosis. There is some crowding of the subarticular zones, left more than right stable in appearance with slight encroachment on the traversing left S1 nerve root unchanged in appearance. Moderate left-sided and severe right-sided neural foraminal stenosis are stable, with bilateral L5 nerve root impingement, right more than left unchanged in appearance. L4-L5: Unroofing of the posterior disc margin again noted consistent with spondylolisthesis with a superimposed left subarticular to foraminal disc herniation also again noted, with minimal progression of anterolisthesis. Marked bilateral facet arthropathy with ligamentum flavum thickening again noted, now with hfvjlmjv-vo-azjyhs central spinal canal stenosis and marked crowding of the intradural nerve roots slightly progressed. There is crowding of the subarticular zones, progressed, with probable encroachment on the traversing L5 nerve roots bilaterally on current study. Moderate left-sided and wjbpsrjn-gf-rcmnzr right-sided neural foraminal stenosis is again noted, stable in appearance, with impingement on the L4 nerve roots, right more than left, unchanged. L3-L4: Grade 1 retrolisthesis with the concentric disc bulging and flattening the ventral dural sac with a prominent dorsal epidural fat pad similar to previous exam. Ligamentum flavum thickening and bilateral facet arthropathy stable in appearance with drph-ka-lwehagua central spinal canal stenosis, stable in appearance and mild crowding of the intradural nerve roots. There is marked bilateral subarticular recess stenosis again noted with encroachment on the traversing L4 nerve roots bilaterally unchanged. Pizqhamz-yy-chikcm right-sided and kgvz-rm-vdctthgc left-sided neural foraminal stenosis is stable with impingement on the exiting L3 nerve roots, right more than left unchanged. L2-L3: Diffuse disc bulging again noted with flattening of the ventral dural sac and a prominent dorsal epidural fat pad similar to previous study. Ligamentum flavum thickening and bilateral facet arthropathy is largely unchanged. Severe central spinal canal stenosis and crowding of the intradural nerve roots is largely unchanged d. Bilateral subarticular recess stenosis, left more than right is stable with probable encroachment on the traversing L3 nerve roots bilaterally. Achwyfio-tw-ohxcka left-sided and mild right-sided neural foraminal stenosis, stable in appearance with impingement on the exiting left L2 nerve root, unchanged. L1-L2: Small left foraminal disc protrusion stable in appearance without neural impingement and mild facet arthropathy bilaterally, stable in appearance, with no significant canal stenosis. Mild neural foraminal narrowing noted on the left, unchanged. T12-L1: Disc bulging and bilateral posterolateral disc osteophyte complex with a superimposed central to left paramedian disc protrusion stable in appearance with flattening of the ventral dural sac without conus impingement. Prominent dorsal epidural fat pad with ligamentum flavum thickening and mild facet arthropathy is stable with moderate spinal canal stenosis, stable in appearance and vytg-qa-mrhryuyc left lateral recess stenosis unchanged. Moderate left-sided and severe right-sided neural foraminal stenosis is unchanged with impingement on the exiting right T12 nerve root unchanged. T11-T12: Small left and right paramedian disc protrusions with mild indentation of the ventral thecal sac without cord impingement stable in appearance and no significant spinal canal stenosis. Mild facet arthropathy is noted left more than right with mild foraminal narrowing on the left, unchanged. Paravertebral and Included Extraspinal Soft Tissues: There is multilevel interspinous ligament degeneration, stable in appearance. The paravertebral soft tissue structures are similar in appearance. Previously noted the high T1, low T2 exophytic structure arising from the posterior cortex of the right kidney is again noted measuring 1.5 cm mid maximum size, stable in appearance, likely hemorrhagic cyst. 1.1 cm left adrenal nodule is stable. MR/MR lumbar spine wo con IMPRESSION: 1. Stable grade 1 spondylolisthesis at L5-S1 and stable retrolisthesis at L3-L4 and L2-L3, with slight progression of spondylolisthesis at L4-L5. 2. Extensive multilevel DDD and spondylosis, with multilevel disc bulging, disc osteophyte complexes and disc herniations largely unchanged in appearance with multilevel bilateral facet arthropathy and ligamentum flavum thickening largely unchanged. There has been some progression of spondylolisthesis at L4-L5, now with moderate to severe spinal canal stenosis at this level, slightly progressed, stable severe spinal canal stenosis at L2-L3 and stable moderate spinal canal stenosis at T12-L1. 3. Multilevel bilateral neural foraminal stenosis largely stable in appearance with multilevel exiting nerve root impingement as detailed by level above. Progression of bilateral subarticular zone narrowing at L4-L5 with otherwise stable multilevel bilateral subarticular recess stenosis with corresponding encroachment on the traversing nerve roots. 4. Stable mild compression fracture deformities of L1 and T12. Improved marrow edema at T12 and L1 since previous exam, consistent with healing. 5. Stable probable hemorrhagic cyst right kidney and stable left adrenal nodule.
== END 2022-12-23 15:44 | disposition home or self-care (01) ==
LOC: HO.MRI 15:43
PROVIDERS: Visit Provider Internal Medicine
DX: Z95.2 Presence of prosthetic heart valve (principal); M54.16 Radiculopathy, lumbar region; Z51.81 Encounter for therapeutic drug level monitoring; Z79.01 Long term (current) use of anticoagulants
CPT/HCPCS: 72148; 85610; 99211

== ENCOUNTER → 2022-12-30 15:20 | Outpatient (BNVA) | payer MEDICARE, OTHER, SELFPAY | PROVIDERS: PCP Physician Assistant; Visit Provider Internal Medicine | DX: Z95.2 Presence of prosthetic heart valve (principal); Z79.01 Long term (current) use of anticoagulants; Z51.81 Encounter for therapeutic drug level monitoring | CPT/HCPCS: 85610; 99211 ==

== ENCOUNTER → 2023-01-07 14:54 | Outpatient (BNVA) | payer MEDICARE, OTHER, SELFPAY | PROVIDERS: PCP Physician Assistant; Visit Provider Internal Medicine | DX: Z95.2 Presence of prosthetic heart valve (principal); Z79.01 Long term (current) use of anticoagulants; Z51.81 Encounter for therapeutic drug level monitoring | CPT/HCPCS: 85610; 99211 ==

== ENCOUNTER → 2023-01-21 13:58 | Outpatient (BNVA) | payer MEDICARE, OTHER, SELFPAY | PROVIDERS: PCP Physician Assistant; Visit Provider Internal Medicine | DX: Z95.2 Presence of prosthetic heart valve (principal); Z79.01 Long term (current) use of anticoagulants; Z51.81 Encounter for therapeutic drug level monitoring | CPT/HCPCS: 85610; 99211 ==

== ENCOUNTER → 2023-02-06 14:05 | Outpatient (BNVA) | payer MEDICARE, OTHER, SELFPAY | PROVIDERS: PCP Physician Assistant; Visit Provider Internal Medicine | DX: Z95.2 Presence of prosthetic heart valve (principal); Z79.01 Long term (current) use of anticoagulants; Z51.81 Encounter for therapeutic drug level monitoring | CPT/HCPCS: 85610; 99211 ==

== ENCOUNTER → 2023-02-12 13:38 | Outpatient (BNVA) | payer MEDICARE, OTHER, SELFPAY | PROVIDERS: PCP Physician Assistant; Referring Provider Physician Assistant; Visit Provider Internal Medicine Cardiovascular Disease | DX: Z01.810 Encounter for preprocedural cardiovascular examination (principal); I25.10 Atherosclerotic heart disease of native coronary artery without angina pectoris; I44.0 Atrioventricular block, first degree; Z95.2 Presence of prosthetic heart valve | CPT/HCPCS: 93005; 99212 ==

== ENCOUNTER → 2023-02-20 13:46 | Outpatient (BNVA) | payer MEDICARE, OTHER, SELFPAY | PROVIDERS: PCP Physician Assistant; Visit Provider Internal Medicine | DX: Z95.2 Presence of prosthetic heart valve (principal); Z79.01 Long term (current) use of anticoagulants; Z51.81 Encounter for therapeutic drug level monitoring | CPT/HCPCS: 85610; 99211 ==

== ENCOUNTER 2023-02-24 13:38 | Outpatient (REF) | payer MEDICARE, OTHER, SELFPAY ==
[2023-02-24 14:52] LABS: Hemoglobin 14.6 g/dl (14.0-18.0); Mean Corpuscular HGB Conc 33.2 g/dl (31.0-36.0); Mean Corpuscular Hemoglobin 29.5 pg (27.0-33.0); Mean Corpuscular Volume 88.9 fL (80.0-98.0); Mean Platelet Volume 10.2 fL (9.4-12.4); Platelet Count 215 X10*3/uL (160-400); Red Blood Count 4.95 X10*6/uL (4.60-5.80); Red Cell Distribution Width 12.6 % (11.0-16.0); White Blood Count 7.7 X10*3/uL (4.8-10.8)
[2023-02-24 15:19] LABS: Estimated Average Glucose 249 mg/dL; Hemoglobin A1c % 10.3 %
[2023-02-24 15:24] LABS: Alanine Aminotransferase 22 U/L (0-40); Albumin Level 4.1 g/dL (3.5-5.0); Alkaline Phosphatase 143 U/L (39-117); Anion Gap 13 (12-20); Aspartate Amino Transferase 39 U/L (5-37); Bilirubin Total 0.4 mg/dL (0.0-1.0); Blood Urea Nitrogen 29 mg/dL (9-16); Calcium 9.4 mg/dL (8.4-10.2); Carbon Dioxide 24 mmol/L (22-29); Chloride 107 mmol/L (96-108); Cholesterol 143 mg/dL; Estimated Glomerular Filt Rate 53; Glucose Fasting 233 mg/dL (60-99); HDL Cholesterol 35 mg/dL; LDL Cholesterol Calculated 50 mg/dl; Potassium 4.4 mmol/L (3.3-5.1); Sodium 140 mmol/L (135-145); Total Protein 6.9 g/dL (6.5-8.0); Triglycerides 291 mg/dL
== END 2023-02-24 13:39 | disposition home or self-care (01) ==
LOC: HO.LAB 13:38
PROVIDERS: PCP Physician Assistant; Visit Provider Physician Assistant
DX: I10 Essential (primary) hypertension (principal); E11.65 Type 2 diabetes mellitus with hyperglycemia; Z79.4 Long term (current) use of insulin
CPT/HCPCS: 36415; 80053; 80061; 82043; 83036; 85027

== ENCOUNTER → 2023-03-20 15:02 | Outpatient (BNVA) | payer MEDICARE, OTHER, SELFPAY | PROVIDERS: PCP Physician Assistant; Visit Provider Internal Medicine | DX: Z95.2 Presence of prosthetic heart valve (principal); Z79.01 Long term (current) use of anticoagulants; Z51.81 Encounter for therapeutic drug level monitoring | CPT/HCPCS: 85610; 99211 ==

== ENCOUNTER → 2023-03-24 15:12 | Outpatient (BNVA) | payer MEDICARE, OTHER, SELFPAY | PROVIDERS: PCP Physician Assistant; Visit Provider Internal Medicine | DX: Z95.2 Presence of prosthetic heart valve (principal); Z79.01 Long term (current) use of anticoagulants; Z51.81 Encounter for therapeutic drug level monitoring | CPT/HCPCS: 85610; 99211 ==

== ENCOUNTER → 2023-04-07 14:22 | Outpatient (BNVA) | payer MEDICARE, OTHER, SELFPAY | PROVIDERS: PCP Physician Assistant; Visit Provider Internal Medicine | DX: Z95.2 Presence of prosthetic heart valve (principal); Z79.01 Long term (current) use of anticoagulants; Z51.81 Encounter for therapeutic drug level monitoring | CPT/HCPCS: 85610; 99211 ==

== ENCOUNTER → 2023-05-01 14:10 | Outpatient (BNVA) | payer MEDICARE, OTHER, SELFPAY | PROVIDERS: PCP Physician Assistant; Visit Provider Internal Medicine | DX: Z95.2 Presence of prosthetic heart valve (principal); Z79.01 Long term (current) use of anticoagulants; Z51.81 Encounter for therapeutic drug level monitoring | CPT/HCPCS: 85610; 99211 ==

== ENCOUNTER → 2023-05-15 14:14 | Outpatient (BNVA) | payer MEDICARE, OTHER, SELFPAY | PROVIDERS: PCP Physician Assistant; Visit Provider Internal Medicine | DX: Z95.2 Presence of prosthetic heart valve (principal); Z79.01 Long term (current) use of anticoagulants; Z51.81 Encounter for therapeutic drug level monitoring | CPT/HCPCS: 85610; 99211 ==

== ENCOUNTER 2023-06-05 14:13 | Outpatient (AMB) | payer MEDICARE, OTHER, SELFPAY ==
[2023-06-05 14:39] LABS: Prothrombin Time Whole Bld POC 40.4 sec (11.1-13.5); ~PT, ~INR - Anti Coag Clinic 3.4 (0.9-1.1)
--- NOTE | 2023-06-05 14:43 | MHC.OFFVISCO ---
Intake Intake Visit Reasons: Anticoagulation Allergies penicillin V Allergy (Unknown, Verified 06/05/23 14:33) hives, rash/tounge edema Vicodin Allergy (Unknown, Uncoded 06/05/23 14:33) dizziness Medication List - Last Reconciled 06/05/23 by Yaneth Montilla, RN albuterol sulfate 90 mcg/actuation 2 puffs inhalation Q6H PRN atorvastatin 40 mg PO DAILY back brace As directed blood sugar diagnostic (Molecular Imprintsuch Ultra Test strips) TEST 3 TIMES DAILY cetirizine 10 mg PO DAILY cyclobenzaprine 5 mg PO TID 7 days duloxetine 60 mg PO DAILY flash glucose scanning reader (OilAndGasRecruiterStyle [place] 2 [place]) 4 times per day flash glucose sensor (FreeStyle Reid 2 Sensor kit) test 4 times per day fluticasone propionate 50 mcg/actuation (Flonase Allergy Relief) 1 spray intranasal DAILY 30 days furosemide 20 mg PO BID 90 days hydrochlorothiazide 12.5 mg PO DAILY insulin aspart U-100 (Novolog FlexPen U-100 Insulin aspart) 7 units (0.07 mL) subcut TID 30 days insulin aspart U-100 subcut insulin degludec (Tresiba FlexTouch U-200 insulin) 120 units (0.6 mL) subcut DAILY 30 days losartan 100 mg PO DAILY 90 days miscellaneous medical supply (Blood Pressure Cuff) As directed omeprazole 20 mg PO DAILY potassium chloride ER 20 mEq PO DAILY 90 days warfarin 2 - 4 mg See Protocol PO DAILY Nursing Note Amb to ACS using cane, feeling ok Medications and supplements reviewed No changes in health, diet, medications, or supplements Denies any unusual signs and symptoms of bruising, bleeding Denies any new Chest pain, SOB, or clotting INR: 3.4 above therapeutic range, sts had a couple beers the other night Nutritional guidance given: ok for greens today then balance greens and reds in diet, be consistent Dose: decrease dose today to 2mg then resume usual dosing on Thursday; 4mg daily F/U INR: 2 weeks Patient verbalizes understanding of instructions given with accurate read back/ teach back of dosing Anti-Coag Initial Assessment Social Hx Patient Tobacco Use Status: Current everyday Tobacco user Coding Level of Care Code Est Patient Level 1 Diagnoses Current use of anticoagulant therapy Z79.01 Time Spent (min) 15 Assessment & Plan Assessment & Plan (1) Current use of anticoagulant therapy: Code(s): Z79.01 - shelter (current) use of anticoagulants Category: Medical
== END 2023-06-05 14:48 | disposition home or self-care (01) ==
LOC: HO.ACS 14:13
PROVIDERS: PCP Physician Assistant; Visit Provider Internal Medicine
DX: Z79.01 Long term (current) use of anticoagulants (principal)

== ENCOUNTER → 2023-06-05 14:13 | Outpatient (BNVA) | payer MEDICARE, OTHER, SELFPAY | PROVIDERS: PCP Physician Assistant; Visit Provider Internal Medicine | DX: Z95.2 Presence of prosthetic heart valve (principal); Z79.01 Long term (current) use of anticoagulants; Z51.81 Encounter for therapeutic drug level monitoring | CPT/HCPCS: 85610; 99211 ==

== ENCOUNTER 2023-06-22 14:26 | Outpatient (AMB) | payer MEDICARE, OTHER, SELFPAY ==
--- NOTE | 2023-06-22 14:42 | MHC.OFFVISCO ---
Intake Intake Visit Reasons: Anticoagulation Allergies penicillin V Allergy (Unknown, Verified 06/22/23 14:37) hives, rash/tounge edema Vicodin Allergy (Unknown, Uncoded 06/22/23 14:37) dizziness Medication List - Last Reconciled 06/22/23 by Veronica Fabian, RN albuterol sulfate 90 mcg/actuation 2 puffs inhalation Q6H PRN atorvastatin 40 mg PO DAILY back brace As directed blood sugar diagnostic (copygramuch Ultra Test strips) TEST 3 TIMES DAILY cetirizine 10 mg PO DAILY cyclobenzaprine 5 mg PO TID 7 days duloxetine 60 mg PO DAILY flash glucose scanning reader (Compliance ControlStyle Reid 2 [place]) 4 times per day flash glucose sensor (FreeStyle Reid 2 Sensor kit) test 4 times per day fluticasone propionate 50 mcg/actuation (Flonase Allergy Relief) 1 spray intranasal DAILY 30 days furosemide 20 mg PO BID 90 days hydrochlorothiazide 12.5 mg PO DAILY insulin aspart U-100 (Novolog FlexPen U-100 Insulin aspart) 7 units (0.07 mL) subcut TID 30 days insulin aspart U-100 subcut insulin degludec (Tresiba FlexTouch U-200 insulin) 120 units (0.6 mL) subcut DAILY 30 days losartan 100 mg PO DAILY 90 days miscellaneous medical supply (Blood Pressure Cuff) As directed omeprazole 20 mg PO DAILY potassium chloride ER 20 mEq PO DAILY 90 days warfarin 2 - 4 mg See Protocol PO DAILY Nursing Note INR 3.3-?? out of therapeutic range Medications and supplements reviewed Patient status: amb with cane, denies etoh Medications or supplements: no changes Diet: same Denies any signs and symptoms of bleeding or clotting or unusual bruising Bleeding, bruising, clotting discussed Nutritional guidance given: pt states does not eat many greens, no reds for 2 days Dose: 2mg today then reduce weekly dosing sl- 4mg x 6, 2mg x 1 per pt req F/U INR Date : 2 weeks?? Patient verbalizing understanding of instructions given. Anti-Coag Initial Assessment Social Hx Patient Tobacco Use Status: Current everyday Tobacco user Coding Level of Care Code Est Patient Level 1 Diagnoses Current use of anticoagulant therapy Z79.01 Assessment & Plan Assessment & Plan (1) Current use of anticoagulant therapy: Code(s): Z79.01 - residential (current) use of anticoagulants Category: Medical
[2023-06-22 14:43] LABS: Prothrombin Time Whole Bld POC 39.2 sec (11.1-13.5); ~PT, ~INR - Anti Coag Clinic 3.3 (0.9-1.1)
== END 2023-06-22 14:50 | disposition home or self-care (01) ==
LOC: HO.ACS 14:26
PROVIDERS: PCP Physician Assistant; Visit Provider Internal Medicine
DX: Z79.01 Long term (current) use of anticoagulants (principal)

== ENCOUNTER → 2023-06-22 14:26 | Outpatient (BNVA) | payer MEDICARE, OTHER, SELFPAY | PROVIDERS: PCP Physician Assistant; Visit Provider Internal Medicine | DX: Z95.2 Presence of prosthetic heart valve (principal); Z79.01 Long term (current) use of anticoagulants; Z51.81 Encounter for therapeutic drug level monitoring | CPT/HCPCS: 85610; 99211 ==

== ENCOUNTER 2023-07-06 14:15 | Outpatient (AMB) | payer MEDICARE, OTHER, SELFPAY ==
--- NOTE | 2023-07-06 14:23 | MHC.OFFVISCO ---
Intake Intake Visit Reasons: Anticoagulation Allergies penicillin V Allergy (Unknown, Verified 07/06/23 14:18) hives, rash/tounge edema Vicodin Allergy (Unknown, Uncoded 07/06/23 14:18) dizziness Medication List - Last Reconciled 07/06/23 by Veronica Fabian, RN albuterol sulfate 90 mcg/actuation 2 puffs inhalation Q6H PRN atorvastatin 40 mg PO DAILY back brace As directed blood sugar diagnostic (SenSageuch Ultra Test strips) TEST 3 TIMES DAILY cetirizine 10 mg PO DAILY cyclobenzaprine 5 mg PO TID 7 days duloxetine 60 mg PO DAILY flash glucose scanning reader (AnsiraStyle Reid 2 [place]) 4 times per day flash glucose sensor (FreeStyle Reid 2 Sensor kit) test 4 times per day fluticasone propionate 50 mcg/actuation (Flonase Allergy Relief) 1 spray intranasal DAILY 30 days furosemide 20 mg PO BID 90 days hydrochlorothiazide 12.5 mg PO DAILY insulin aspart U-100 (Novolog FlexPen U-100 Insulin aspart) 7 units (0.07 mL) subcut TID 30 days insulin aspart U-100 subcut insulin degludec (Tresiba FlexTouch U-200 insulin) 120 units (0.6 mL) subcut DAILY 30 days losartan 100 mg PO DAILY 90 days miscellaneous medical supply (Blood Pressure Cuff) As directed omeprazole 20 mg PO DAILY potassium chloride ER 20 mEq PO DAILY 90 days warfarin 2 - 4 mg See Protocol PO DAILY Nursing Note INR 1.9-? out of therapeutic range- denies missed dose Medications and supplements reviewed Patient status: pt with URI, going to urgent care, also c.o scattered rash right forearm- c.o itch Medications or supplements: no changes Diet: good Denies any signs and symptoms of bleeding or clotting or unusual bruising Bleeding, bruising, clotting discussed Nutritional guidance given: no greens for 2 days, eat a red today Dose: pt insists he has been taking 4mg daily F/U INR Date : 2 weeks Patient verbalizing understanding of instructions given. Anti-Coag Initial Assessment Social Hx Patient Tobacco Use Status: Current everyday Tobacco user Coding Level of Care Code Est Patient Level 1 Diagnoses Current use of anticoagulant therapy Z79.01 Assessment & Plan Assessment & Plan (1) Current use of anticoagulant therapy: Code(s): Z79.01 - residential (current) use of anticoagulants Category: Medical
[2023-07-06 14:25] LABS: Prothrombin Time Whole Bld POC 23.3 sec (11.1-13.5); ~PT, ~INR - Anti Coag Clinic 1.9 (0.9-1.1)
== END 2023-07-06 14:29 | disposition home or self-care (01) ==
LOC: HO.ACS 14:15
PROVIDERS: PCP Physician Assistant; Visit Provider Internal Medicine
DX: Z79.01 Long term (current) use of anticoagulants (principal)

== ENCOUNTER → 2023-07-06 14:15 | Outpatient (BNVA) | payer MEDICARE, OTHER, SELFPAY | PROVIDERS: PCP Physician Assistant; Visit Provider Internal Medicine | DX: Z95.2 Presence of prosthetic heart valve (principal); Z79.01 Long term (current) use of anticoagulants; Z51.81 Encounter for therapeutic drug level monitoring | CPT/HCPCS: 85610; 99211 ==

== ENCOUNTER 2023-07-20 13:57 | Outpatient (AMB) | payer MEDICARE, OTHER, SELFPAY ==
[2023-07-20 14:05] LABS: Prothrombin Time Whole Bld POC 32.1 sec (11.1-13.5); ~PT, ~INR - Anti Coag Clinic 2.7 (0.9-1.1)
--- NOTE | 2023-07-20 14:06 | MHC.OFFVISCO ---
Intake Intake Visit Reasons: Anticoagulation Allergies penicillin V Allergy (Unknown, Verified 07/20/23 14:00) hives, rash/tounge edema Vicodin Allergy (Unknown, Uncoded 07/20/23 14:00) dizziness Medication List - Last Reconciled 07/20/23 by Veronica Fabian, RN albuterol sulfate 90 mcg/actuation 2 puffs inhalation Q6H PRN atorvastatin 40 mg PO DAILY back brace As directed blood sugar diagnostic ([place] Ultra Test strips) TEST 3 TIMES DAILY cetirizine 10 mg PO DAILY cyclobenzaprine 5 mg PO TID 7 days duloxetine 60 mg PO DAILY flash glucose scanning reader (Raser TechnologiesStyle Reid 2 [place]) 4 times per day flash glucose sensor (FreeStyle Reid 2 Sensor kit) test 4 times per day fluticasone propionate 50 mcg/actuation (Flonase Allergy Relief) 1 spray intranasal DAILY 30 days furosemide 20 mg PO BID 90 days hydrochlorothiazide 12.5 mg PO DAILY insulin aspart U-100 (Novolog FlexPen U-100 Insulin aspart) 7 units (0.07 mL) subcut TID 30 days insulin aspart U-100 subcut insulin degludec (Tresiba FlexTouch U-200 insulin) 120 units (0.6 mL) subcut DAILY 30 days losartan 100 mg PO DAILY 90 days miscellaneous medical supply (Blood Pressure Cuff) As directed omeprazole 20 mg PO DAILY potassium chloride ER 20 mEq PO DAILY 90 days warfarin 2 - 4 mg See Protocol PO DAILY Nursing Note INR: 2.7- in therapeutic range Medications and supplements reviewed- no changes occ cannabis usage at - [facility] to increase greens. No changes in health, diet, medications, or supplements, Denies any signs and symptoms of bleeding or bruising or clotting. 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
== END 2023-07-20 14:18 | disposition home or self-care (01) ==
LOC: HO.ACS 13:57
PROVIDERS: PCP Physician Assistant; Visit Provider Internal Medicine
DX: Z79.01 Long term (current) use of anticoagulants (principal)

== ENCOUNTER → 2023-07-20 13:57 | Outpatient (BNVA) | payer MEDICARE, OTHER, SELFPAY | PROVIDERS: PCP Physician Assistant; Visit Provider Internal Medicine | DX: Z95.2 Presence of prosthetic heart valve (principal); Z79.01 Long term (current) use of anticoagulants; Z51.81 Encounter for therapeutic drug level monitoring | CPT/HCPCS: 85610; 99211 ==

== ENCOUNTER → 2023-08-03 13:35 | Outpatient (REF) | payer MEDICARE, OTHER, SELFPAY ==
--- NOTE | 2023-08-03 13:39 | CA_ITS ---
Transthoracic Echocardiogram Patient (Last, First, Middle): Benigno Adames C Gender: Male Date of : 1950 Age: 72 Procedure Date: 08/03/2023 Procedure Type: Transthoracic Echocardiogram Location: OP Height: 175.26 cm Weight: 117.94 kg BSA: 2.31 m2 Heart Rate: bpm BP: 168 / 82 mmHg Department Clerk: JULIO CÉSAR Referring MD: Nick Miller MD Account Review Specialist: Nick Miller MD Symptoms: Z95.2 - Presence of prosthetic heart valve Study Quality: Fair ECG Rhythm: Sinus Conclusions: - 1. Technically limited study despite use of contrast agent 2. Normal LV ejection fraction 60 65% with impaired relaxation filling pattern 3. Mechanical aortic valve present with mean gradient of 30 mmHg, within normal limits 4. 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 The quality of the study was technically difficult. The study quality is limited by patients body habitus. Left Ventricle Normal left ventricular size and systolic function. The visually estimated ejection fraction is between 60-65%. Spectral Doppler is indicative of an impaired relaxation filling pattern. Right Ventricle The right ventricle was not well visualized. Atria The left atrium was not well visualized. Interatrial shunt cannot be excluded. The right atrium was not well visualized. Aortic Valve A mechanical prosthetic aortic valve is present. The prosthetic aortic valve appears to be functioning normally. The mean gradient is 13 mmHg. Mitral Valve The mitral valve was not well visualized. There is trace mitral valve regurgitation. Pulmonic Valve The pulmonic valve was not well visualized. Tricuspid Valve The tricuspid valve was not well visualized. Tricuspid regurgitation envelope is inadequate for calculation of right ventricular systolic pressure. Normal right atrial pressure. Great Vessels The pulmonary artery was not well visualized. There is mild dilatation of the ascending aorta measuring 4.00 cm. Venous The inferior vena cava is normal in size and collapses greater than 50% with inspiration. Pericardium/Pleural The pericardium was not well visualized. Prior Study Comparison Changes noted compared to prior study dated: 07/12/2019. Ascending aorta is mildly dilated Measurements 2D Linear Measurements IVSd: 1.07 0.6-0.9/0.6-1.0 cm LA Diam: 3.60 2.7-3.8/3.0-4.0 cm LAIDs Index: 1.56 1.5-2.3 cm/m2 LVOT Diam: 2.20 3.0+(-)1.3 cm 2D Systolic Function EF 4C: 62.50 >55% Mitral Valve MV Pk E: 0.84 MV PK A: 1.08 MV Decel Time: 171.00 E/A: 0.80 PHT: 50.00 MVA PHT: 4.40 Decel [place]: 4.91 Aortic Valve AoV Pk Abhinav: 2.39 AoV Mn Abhinav: 1.67 AoV VTI: 0.37 AoV Pk Grad: 23.00 Aov Mn Grad: 13.00 JULIETA Cont.VTI: 2.21 LVOT LVOT Pk Abhinav: 1.10 LVOT Mn Abhinav: 0.86 LVOT VTI: 0.22 LVOT Pk Grad: 5.00 LVOT Mn Grad: 3.00 LVOT Diam: 2.20 LVOT Area: 3.80 Diastolic Function MV Pk E: 0.84 MV Pk A: 1.08 E/A: 0.80 Right Ventricle TVS' Abhinav: 5.00 Great Vessels Aorta Ao Asc: 4.00 2.1-3.4 cm Pulmonary Valve PV Pk Abhinav: 0.94 Peak PV Grad: 4.00 Updated in Other Vendor System with Status of Final Nick Miller MD electronically signed on 08/04/2023 11:46:49 AM with status of Final
--- NOTE | 2023-08-03 13:39 | HM_ITS ---
Conclusion: 1. Patient was monitored for total period of 1 day 2. Baseline was normal sinus rhythm with first-degree AV block with average heart of 82 beats per minute 3. No significant pauses noted but 1 episode of Mobitz type 1 second-degree AV block noted 4. Frequent PACs noted with total burden of 4% 5. No patient reported events MTDD
== END ==
LOC: HO.CARD 13:35
PROVIDERS: PCP Physician Assistant; Visit Provider Internal Medicine Cardiovascular Disease
DX: I44.0 Atrioventricular block, first degree (principal); Z95.2 Presence of prosthetic heart valve
CPT/HCPCS: 93242; 93306; Q9957

== ENCOUNTER → 2023-08-03 13:39 | Outpatient (BNV) | payer MEDICARE, OTHER, SELFPAY | PROVIDERS: PCP Physician Assistant; Visit Provider Internal Medicine Cardiovascular Disease | DX: I44.0 Atrioventricular block, first degree (principal) | CPT/HCPCS: 93227; 93306 ==

== ENCOUNTER 2023-08-06 13:28 | Outpatient (AMB) | payer MEDICARE, OTHER, SELFPAY ==
[2023-08-06 13:45] VITALS: BP 160/100; PULSE 105; RESP 17; O2SAT 98; BMI 37.4
--- NOTE | 2023-08-06 13:45 | A.OFFPC_ITS ---
Vital Signs 08/06/23 13:45 08/06/23 14:17 Height 5 ft 11 in Weight 268 lb 2 oz BMI 37.4 BP 160/100 H 130/84 Blood Pressure Location Lt brachial Position Sitting Respiration 17 Pulse 105 H Pulse Source Pulse Oximeter Pulse Oximetry (%) 98 Oxygen Delivery Method Room Air Intake Visit Reasons: Follow-up diabetes Intake Note: Pt is here for F/U on DM. Pt has been experience chest congestion and SOB for one month and pt feel he;s not getting better. Recent COVID test was negative. 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 Consumer Lending Manager Required: No Accompanied by: Self / Same As Patient Allergies penicillin V Allergy (Unknown, Verified 08/06/23 13:52) hives, rash/tounge edema Vicodin Allergy (Unknown, Uncoded 08/06/23 13:51) dizziness Medication List - Last Reconciled 08/06/23 by Connor Tesfaye PA-C albuterol sulfate 90 mcg/actuation 2 puffs inhalation Q6H PRN atorvastatin 40 mg PO DAILY back brace As directed blood sugar diagnostic (IPPLEXTouch Ultra Test strips) TEST 3 TIMES DAILY cetirizine 10 mg PO DAILY cyclobenzaprine 5 mg PO TID 7 days duloxetine 60 mg PO DAILY flash glucose scanning reader (iCabbiStyle Reid 2 [place]) 4 times per day flash glucose sensor (FreeStyle Reid 2 Sensor kit) test 4 times per day fluticasone propionate 50 mcg/actuation (Flonase Allergy Relief) 1 spray intranasal DAILY 30 days furosemide 20 mg PO BID 90 days hydrochlorothiazide 12.5 mg PO DAILY insulin aspart U-100 (Novolog FlexPen U-100 Insulin aspart) 7 units (0.07 mL) subcut TID 30 days insulin aspart U-100 subcut insulin degludec (Tresiba FlexTouch U-200 insulin) 120 units (0.6 mL) subcut DAILY 30 days losartan 100 mg PO DAILY 90 days miscellaneous medical supply (Blood Pressure Cuff) As directed omeprazole 20 mg PO DAILY potassium chloride ER 20 mEq PO DAILY 90 days warfarin 2 - 4 mg See Protocol PO DAILY Tobacco use date assessed: 12/04/22 Fall risk assessment: No Falls in past year Last assessed Fall Risk: 08/06/23 Dental Screening Dental Screen Date: 08/06/23 Did you have a dental visit in the last 12 months?: No Did you have a dental problem in the last 6 months where you did not have access to dental care?: No Was dental information given to patient?: Patient declined HPI Follow-up diabetes HPI Details Patient is a 72-year-old male here today for a follow-up visit. Patient's past medical history significant for type 2 diabetes, coronary artery disease, smoker, hypertension, chronic lumbar spine pain. --> concerns--> has multiple complaints today reports he has an upper respiratory infection and has been having a lot of joint pains. Also has been experiencing urinary frequency and odor to his urine. Lumbar disc disease: Report having worsening siatica? down right side.? Denies any acute injuries to his lower back.? Denies any falls.? He has recently got MRI showing severe lumbar disc disease and spinal stenosis, he is followed by neurosurgeon and anticipates getting surgery. He has been started on gabapentin 300 b.i.d. to which he has only been taking q.d. with minimal relief. He would like to stay on this medication as it does help somewhat of his pain. . HTN: Recently we have increased his dose of losartan to 100 mg and blood pressures have been much better controlled. He denies any chest discomfort, headaches, dizziness or shortness of breath as of late. .. 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 Was thought to need a pacemaker though since stopping his beta salma heart rates have been better.? .. ? Congestive heart failure/history of replaced heart valve: Patient continues on warfarin has been is stable with his INRs, no overt signs of bleeding. He continues on furosemide and supplemental potassium. He reports no further swelling in his lower extremities or shortness of breath. His recent echocardiogram essentially normal, ejection fraction acceptable ,did show some filling impairment ? .. ? DMII:? Today's A1c at 11 . He does admit to dietary indiscretion. He has been taking his insulin as prescribed. Needs to have his A1c below 8 to be candidate for back surgery. PLAN: Will start GLP1- for better blood sugar control and added benefit of weight loss. ? Unfortunately patient does have microalbuminuria. Also found to have slight anemia likely due to chronic disease. He is interested in starting to use to freestyle Reid her manage his blood sugars. Laboratory Tests 09/26/22 02/24/23 14:16 13:58 Hemoglobin A1c % 7.9 10.3 [facility] Medical History Spondylosis of lumbar spine Diabetic neuropathy Lumbar radiculopathy Obesity Hyperlipidemia LDL goal <70 Diabetes mellitus HTN (hypertension) CAD (coronary artery disease) Surgical History Hx of spinal surgery History of arthroscopy of knee Hx of coronary artery bypass graft History of mechanical aortic valve replacement Family History Father CVD (cardiovascular disease) Mother Diabetes Social History Housing: House Patient Tobacco Use Status: Current everyday Tobacco user Cigarettes Per Day: 8 e-Cigarette/Vaping Use: Never Used Current occupational status: retired Cognitive needs: Yes Hearing needs: No Vision needs: No Questionnaire Thrive Questionnaire Date Thrive assessed: 12/04/22 RACHEL-7 AMB Questionnaire RACHEL-7 Date RACHEL - 7 assessed: 02/02/23 Source: Developed by Drs. Julian Alatorre, Sully Healy, Nitish Moscoso and colleagues, with an educational paula from [employer]. Review of Systems Const Denies headache(s) Eyes Denies loss of vision ENT Denies vertigo, Denies dizziness, Denies headache(s) and Denies sore throat Card Denies chest pain, Denies leg edema and Denies lightheadedness Resp Denies cough, Denies hemoptysis and Denies wheezing GI Denies abdominal pain, Denies melena, Denies constipation, Denies diarrhea and Denies vomiting Denies dysuria, Denies urinary frequency and Denies urinary urgency Musc Denies arthralgias, Denies joint swelling, Denies numbness and Denies tingling Neuro Denies Abnormal speech present, Denies behavioral changes, Denies vertigo, Denies dizziness, Denies headache(s), Denies loss of vision, Denies memory loss, Denies numbness and Denies tingling Psych Denies anxiety, Denies behavioral changes, Denies depression, Denies memory loss and Denies panic attacks Jose/Lymph Denies easy bleeding and Denies easy bruising Aller/Immun Denies wheezing Physical exam (Primary Care) Vital Signs: Last Vital Signs Pulse 105 H 08/06/23 13:45 Resp 17 08/06/23 13:45 BP 160/100 H 08/06/23 13:45 Pulse Ox 98 08/06/23 13:45 Oxygen Delivery Method Room Air 08/06/23 13:45 BMI result Body Mass Index 37.4 Tobacco/Smoking Status: Tobacco use Status Tobacco use date assessed 12/04/22 08/06/23 13:52 Patient Tobacco Use Status Current everyday Tobacco 08/06/23 13:52 e-Cigarette/Vaping Use Never Used 08/06/23 13:52 Thrive Assessment: Date of Thrive Assessment Date Thrive assessed 12/04/22 08/06/23 13:52 Const General: healthy appearing, no acute distress, alert and awake Nutritional Appearance: well nourished Orientation/consciousness: oriented to person, oriented to place and oriented to time HENMT Ears: TM's normal bilaterally General nose exam: Normal nasal mucous membranes and turbinates present Eyes Conjunctivae: conjunctivae normal Sclerae: sclerae normal Pupils: Equal, round and reactive pupils present Neck Neck: Yes no lymphadenopathy and Yes no JVD Thyroid: Thyroid normal Carotids: no bruits Resp Effort & Inspection: normal respiratory effort and not tachypneic Auscultation: no crackles, no rales, no rhonchi and no wheezes Cardio Rate: regular rate Rhythm: regular rhythm Heart sounds: no murmurs and normal S1 and S2 GI Palpation (GI): Soft to palpation, nontender, no hepatomegaly and no splenomegaly Auscultation: normal bowel sounds Skin General skin exam: no rashes or lesions noted and dry skin Neuro General: oriented to person, oriented to place and oriented to time Cranial nerves: Yes Equal, round and reactive pupils present Speech: No Abnormal speech present Gait exam (Neuro): Normal gait present Motor exam (neuro): no tremor noted Extrem Right upper extremity: full ROM Left upper extremity: full ROM Right lower extremity: full ROM; no edema Left lower extremity: full ROM; no edema Psych Mental Status: mental status grossly normal Speech and movement: Normal speech and movement present Affect: normal affect Attitude: cooperative Thought process: Normal thought process present Results AMB Hemoglobin A1c AMB Hemoglobin A1c 11.0 % Last Edit by LUH Lemos on 08/06/23 13:54 Assessment and Plan Assessment & Plan (1) HTN (hypertension): Comment: See above. Continue current medical treatment. Code(s): I10 - Essential (primary) hypertension Qualifiers: Hypertension type: essential hypertension Qualified Code(s): I10 - Essential (primary) hypertension Plan: Blood pressure elevated today in office. Heart rate slightly elevated as well. Currently not feeling well. Will treat possible upper respiratory infection Will continue his current dose of antihypertensive medication with goal blood pressure to be below 140/90 (2) Diabetes mellitus: Comment: Under your care. Target goal hemoglobin A1c less than 7%. Code(s): E11.9 - Type 2 diabetes mellitus without complications Qualifiers: Diabetes mellitus type: type 2 Diabetes mellitus terminal make up operator insulin use: with terminal make up operator use Diabetes mellitus complication status: with hyperglycemia Qualified Code(s): E11.65 - Type 2 diabetes mellitus with hyperglycemia; Z79.4 - [facility] (current) use of insulin Plan: Patient continues daily use short-acting and long-acting insulins. Today's A1c at 11. He does admit to some dietary indiscretion. Will add on a G LP 1 to his diabetic regime Will get A1c at next lab draw with goal A1c to be below 7. (3) Tobacco dependence: Code(s): F17.200 - Nicotine dependence, unspecified, uncomplicated Plan: Patient does understand he needs to quit smoking, he refuses to use nicotine patches/ gum or medications. He will try to wean down and stop on his own. (4) Stenosis, spinal, lumbar: Code(s): M48.061 - Spinal stenosis, lumbar region without neurogenic claudication Qualifiers: Neurogenic claudication status: with neurogenic claudication Qualified Code(s): M48.062 - Spinal stenosis, lumbar region with neurogenic claudication Plan: As per HPI he is now followed by a neurosurgeon and recently got MRI of his lumbar spine showing severe disc disease and lumbar stenosis. He continues to be in pain in his lower back with radiculopathy down his lower extremities. He was formally on narcotic pain medication for his ADAN though now just managed with Tylenol / gabapentin, and duloxetine. He is looking for to having spinal surgery (5) CAD (coronary artery disease): Comment: Underwent 2 vessel coronary bypass grafting at the time of aortic valve replacement. No symptoms of angina at current time. Continue lifelong aspirin therapy as above. Blood pressure is well optimized on current therapy. Continue the same. Continue high-intensity statin therapy with target goal LDL less than 70 mg/dL. Advised lipid panel in near future. Complete smoking cessation was advised. Also recommend to continue to participate in aggressive lifestyle modification with weight loss as well as increase activity level. He understands and agrees. Will follow up in 1 year's time. Code(s): I25.10 - Atherosclerotic heart disease of [place] coronary artery without angina pectoris Qualifiers: Coronary Disease-Associated Artery/Lesion type: [place] artery [place] vs. transplanted heart: [place] heart Associated angina: without angina Qualified Code(s): I25.10 - Atherosclerotic heart disease of [place] coronary artery without angina pectoris Plan: Patient followed by Cardiology. Continues on aspirin and moderate-dose statin therapy. Advised on the need to quit smoking and patient does understand though has not willing to do so at this time. (6) Obesity: Code(s): E66.9 - Obesity, unspecified Qualifiers: Obesity type: due to excess calories Obesity classification: adult class 1 (BMI 30 - 34.9) Serious obesity comorbidity presence: with serious comorbidity Body mass index: BMI 33.0-33.9 Qualified Code(s): E66.09 - Other obesity due to excess calories; Z68.33 - Body mass index [BMI] 33.0-33.9, adult Plan: Patient does understand his BMI is well over 30, has difficulty with being physically active due to his back pain and multiple health issues. Advised on better eating habits to reduce his weight. (7) URI (upper respiratory infection): Code(s): J06.9 - Acute upper respiratory infection, unspecified Qualifiers: URI type: unspecified viral URI Qualified Code(s): J06.9 - Acute upper respiratory infection, unspecified Plan: Over the last several weeks having signs and symptoms upper respiratory infection. Could be related to his COPD as he is still smoking. Will send for chest x-ray to evaluate for pulmonary infiltrate. (8) Dysuria: Code(s): R30.0 - Dysuria Orders: Orders AMB Hemoglobin A1c Today E11.9 - Type 2 diabetes mellitus without complications UA CC w/rflx Micro + Cult Today R30.0 - Dysuria XR chest 2V Today J06.9 - Acute upper respiratory infection, unspecified Medications: New levofloxacin 500 mg PO DAILY 5 days 5 tabs 0RF J06.9 - Acute upper respiratory infection, unspecified semaglutide (Ozempic) 0.25 mg (0.368 mL) subcut QWEEK 6 weeks 3 mL 1RF E11.65 - Type 2 diabetes mellitus with hyperglycemia, Z79.4 - terminologist (current) use of insulin Coding Level of Care Code Est Pt Level 4 (48141) Diagnoses Essential hypertension I10 Hypertension type: essential hypertension Type 2 diabetes mellitus with hyperglycemia, with long-term current use of insulin E11.65; Z79.4 Diabetes mellitus type: type 2 Diabetes mellitus retirement insulin use: with retirement use Diabetes mellitus complication status: with hyperglycemia Tobacco dependence F17.200 Spinal stenosis of lumbar region with neurogenic claudication M48.062 Neurogenic claudication status: with neurogenic claudication Coronary artery disease involving [place] coronary artery of [place] heart without angina pectoris I25.10 Coronary Disease-Associated Artery/Lesion type: [place] artery [place] vs. transplanted heart: [place] heart Associated angina: without angina Class 1 obesity due to excess calories with serious comorbidity and body mass index (BMI) of 33.0 to 33.9 in adult E66.09; Z68.33 Obesity type: due to excess calories Obesity classification: adult class 1 (BMI 30 - 34.9) Serious obesity comorbidity presence: with serious comorbidity Body mass index: BMI 33.0-33.9 Viral upper respiratory tract infection J06.9 URI type: unspecified viral URI Dysuria R30.0
[2023-08-06 14:17] VITALS: BP 130/84
== END 2023-08-06 14:21 | disposition home or self-care (01) ==
PROVIDERS: PCP Physician Assistant; Visit Provider Physician Assistant
DX: E11.65 Type 2 diabetes mellitus with hyperglycemia (principal); Z79.4 Long term (current) use of insulin; I10 Essential (primary) hypertension; F17.210 Nicotine dependence, cigarettes, uncomplicated; M48.062 Spinal stenosis, lumbar region with neurogenic claudication; I25.10 Atherosclerotic heart disease of native coronary artery without angina pectoris; E66.09 Other obesity due to excess calories; Z68.33 Body mass index [BMI] 33.0-33.9, adult; J06.9 Acute upper respiratory infection, unspecified; R30.0 Dysuria
CPT/HCPCS: 83036; 99214

== ENCOUNTER 2023-08-06 14:36 | Outpatient (AMB) | payer MEDICARE, OTHER, SELFPAY ==
[2023-08-06 14:38] VITALS: BP 120/80; PULSE 112; BMI 37.5
--- NOTE | 2023-08-06 14:38 | A.OFFVIS_ITS ---
Intake Vital Signs 08/06/23 14:38 Height 5 ft 11 in Weight 268 lb 15.423 oz BMI 37.5 BP 120/80 Blood Pressure Location Lt brachial Position Sitting Pulse 112 H Intake Visit Reasons: 1 year follow up Intake Note: Follow-up echo but is still has holter on c/o fatigue Flavor Room Worker Required: No Allergies penicillin V Allergy (Unknown, Verified 08/06/23 13:52) hives, rash/tounge edema Vicodin Allergy (Unknown, Uncoded 08/06/23 13:51) dizziness Medication List - Last Reconciled 08/06/23 by Nick Miller MD albuterol sulfate 90 mcg/actuation 2 puffs inhalation Q6H PRN atorvastatin 40 mg PO DAILY back brace As directed blood sugar diagnostic (Mapiliary Ultra Test strips) TEST 3 TIMES DAILY cetirizine 10 mg PO DAILY cyclobenzaprine 5 mg PO TID 7 days duloxetine 60 mg PO DAILY flash glucose scanning reader (Kuaidi DacheStyle Reid 2 [place]) 4 times per day flash glucose sensor (Kuaidi DacheStyle Reid 2 Sensor kit) test 4 times per day fluticasone propionate 50 mcg/actuation (Flonase Allergy Relief) 1 spray intranasal DAILY 30 days furosemide 20 mg PO BID 90 days hydrochlorothiazide 12.5 mg PO DAILY insulin aspart U-100 (Novolog FlexPen U-100 Insulin aspart) 7 units (0.07 mL) subcut TID 30 days insulin aspart U-100 subcut insulin degludec (Tresiba FlexTouch U-200 insulin) 120 units (0.6 mL) subcut DAILY 30 days levofloxacin 500 mg PO DAILY losartan 100 mg PO DAILY 90 days miscellaneous medical supply (Blood Pressure Cuff) As directed omeprazole 20 mg PO DAILY potassium chloride ER 20 mEq PO DAILY 90 days semaglutide (Ozempic) 0.25 mg (0.368 mL) subcut QWEEK 6 weeks warfarin 2 - 4 mg See Protocol PO DAILY HPI HPI Comments History of Present Illness Details Benigno comes for follow-up. He is currently suffering from upper respiratory tract infection. His heart rate going fast, EKG consistent with sinus tachycardia with first-degree AV block. Patient denies any orthopnea, PND. Recent echocardiogram shows normally functioning mechanical aortic prosthesis with normal LV systolic function. No anginal symptoms. Has not been able to get lumbar spine surgery due to his Coumadin levels as well as uncontrolled diabetes. Denies any palpitations. Denies any lightheadedness, syncope. [facility] Medical History Spondylosis of lumbar spine Diabetic neuropathy Lumbar radiculopathy Obesity Hyperlipidemia LDL goal <70 Diabetes mellitus HTN (hypertension) CAD (coronary artery disease) Surgical History Hx of spinal surgery History of arthroscopy of knee Hx of coronary artery bypass graft History of mechanical aortic valve replacement Family History Father CVD (cardiovascular disease) Mother Diabetes Social History Housing: House Patient Tobacco Use Status: Current everyday Tobacco user Cigarettes Per Day: 8 e-Cigarette/Vaping Use: Never Used Current occupational status: retired Cognitive needs: Yes Hearing needs: No Vision needs: No Review of Systems Const Denies chills, Denies fatigue, Denies fever(s), Denies frequent falls, Denies weakness, Denies weight gain and Denies weight loss ENT Denies dizziness Card Denies chest pain, Denies leg edema, Denies lightheadedness, Denies palpitations, Denies dyspnea, Denies dyspnea on exertion, Denies orthopnea and Denies other (loss of consciousness) Resp Denies cough, Denies dyspnea and Denies dyspnea on exertion GI Denies hematochezia and Denies change in stool character Musc Denies abnormal gait, Denies muscle weakness, Denies numbness, Denies radiating pain into limb and Denies tingling Neuro Denies abnormal gait, Denies dizziness, Denies frequent falls, Denies numbness, Denies tingling and Denies weakness Endo Denies fatigue and Denies palpitations Physical Exam Vital Signs: Last Vital Signs Pulse 112 H 08/06/23 14:38 BP 120/80 08/06/23 14:38 BMI result Body Mass Index 37.5 Const General: cooperative, no acute distress, alert, awake and tired appearing Nutritional Appearance: overweight Orientation/consciousness: patient oriented x3 HEENT Head: Yes normal to inspection, Yes normocephalic and Yes atraumatic Eyes General: appearance normal, both eyes and all related structures Neck Neck: Yes full ROM, Yes trachea midline and Yes no JVD Chest Chest palpation & inspection: normal inspection of the chest Resp Auscultation: wheezes expiratory wheezes and throughout Cardio Jugular venous distension: no JVD Palpation: normal PMI Rate: tachycardic Rhythm: regular rhythm Heart sounds: S1 normal heart sound present and Other heart sounds present ( [place] closing click of [place] aortic valve) Peripheral pulses: Peripheral pulses 2+ throughout GI Inspection: Yes normal to inspection Auscultation: normal bowel sounds Skin General skin exam: no rashes or lesions noted and turgor normal Neuro General: patient oriented x3 and no focal motor deficits Extrem General: Yes no clubbing, cyanosis or edema Psych Appearance: disheveled Mental Status: mental status grossly normal Affect: Sad affect present Insight: Good insight present (Psych) Office Procedures EKG Details: EKG shows sinus tachycardia with first-degree AV block with right bundle-branch block with suggestion of LVH with Q-waves in inferior leads [id number], Complete Results AMB Hemoglobin A1c AMB Hemoglobin A1c 11.0 % Last Edit by LUH Lemos on 08/06/23 13:54 Assessment & Plan Assessment & Plan (1) History of mechanical aortic valve replacement: Comment: 23 mm [place] aortic valve. 2010. for critical aortic stenosis, symptomatic Code(s): Z95.2 - Presence of prosthetic heart valve Plan: Status post [place] aortic valve replacement with 23 mm valve with recent echocardiogram showing normal function. Continue warfarin therapy with target INR between 2 and 3. Continue aggressive vascular risk factor modification. SBE prophylaxis as per ACC/[place] guidelines. (2) CAD (coronary artery disease): Comment: Underwent 2 vessel coronary bypass grafting at the time of aortic valve replacement. No symptoms of angina at current time. Continue lifelong aspirin therapy as above. Blood pressure is well optimized on current therapy. Continue the same. Continue high-intensity statin therapy with target goal LDL less than 70 mg/dL. Advised lipid panel in near future. Complete smoking cessation was advised. Also recommend to continue to participate in aggressive lifestyle modification with weight loss as well as increase activity level. He understands and agrees. Will follow up in 1 year's time. Code(s): I25.10 - Atherosclerotic heart disease of [place] coronary artery without angina pectoris Qualifiers: Coronary Disease-Associated Artery/Lesion type: [place] artery [place] vs. transplanted heart: [place] heart Associated angina: without angina Qualified Code(s): I25.10 - Atherosclerotic heart disease of [place] coronary artery without angina pectoris Plan: CAD status post 2 vessel coronary bypass grafting. No symptoms of angina. Con tinue aggressive medical therapy. No need for concomitant aspirin therapy. This is to reduce bleeding risk. Continue warfarin therapy. Blood pressure is currently well optimized continue the same. Continue aggressive management diabetes goal hemoglobin A1c less than 7%. Continue high-intensity statin therapy with target goal LDL less than 70 mg/dL. Continue participate in physical activity as tolerated. Follow up in the clinic in 1 year's time, sooner p.r.n.. Thank you for allowing me to partake in his care Medications: Changed From cetirizine 10 mg PO DAILY 90 tabs 2RF To cetirizine 10 mg PO DAILY From levofloxacin 500 mg PO DAILY 5 days 5 tabs 0RF J06.9 - Acute upper respiratory infection, unspecified To levofloxacin 500 mg PO DAILY J06.9 - Acute upper respiratory infection, unspecified Coding Level of Care Code Est Pt Level 4 (34283) Diagnoses History of mechanical aortic valve replacement Z95.2 Coronary artery disease involving [place] coronary artery of [place] heart without angina pectoris I25.10 Coronary Disease-Associated Artery/Lesion type: [place] artery [place] vs. transplanted heart: [place] heart Associated angina: without angina CPT Codes EKG - CPT: 61800-[id number], Complete ([id number])
== END 2023-08-06 15:10 | disposition home or self-care (01) ==
PROVIDERS: PCP Physician Assistant; Visit Provider Internal Medicine Cardiovascular Disease
DX: Z95.2 Presence of prosthetic heart valve (principal); I25.10 Atherosclerotic heart disease of native coronary artery without angina pectoris
CPT/HCPCS: 93010; 99214

== ENCOUNTER → 2023-08-06 14:36 | Outpatient (BNVA) | payer MEDICARE, OTHER, SELFPAY | PROVIDERS: PCP Physician Assistant; Visit Provider Internal Medicine Cardiovascular Disease | DX: I25.10 Atherosclerotic heart disease of native coronary artery without angina pectoris (principal); Z95.2 Presence of prosthetic heart valve; Z79.01 Long term (current) use of anticoagulants; Z79.82 Long term (current) use of aspirin; Z79.899 Other long term (current) drug therapy | CPT/HCPCS: 93005; 99212 ==

== ENCOUNTER 2023-08-10 13:56 | Outpatient (REF) | payer MEDICARE, OTHER, SELFPAY ==
--- NOTE | ~2023-08-10 | XR_ITS ---
EXAMINATION: XR CHEST CLINICAL INFORMATION: Acute upper respiratory tract infection COMPARISON: None available. TECHNIQUE: 2 views of the chest were obtained. FINDINGS: The cardiac silhouette does not appear enlarged. Postsurgical changes with mediastinal clips and question of heart valve ring. The thoracic aorta is slightly tortuous. The lungs are clear. No pleural effusion or pneumothorax. Degenerative changes of the thoracic spine. Median sternotomy wires. Postsurgical changes to the lower cervical spine. XR/XR chest 2V IMPRESSION: Postsurgical changes. No evidence for acute disease in the chest.
[2023-08-10 16:38] LABS: Appearance Urine Clear; Color Urine Yellow; Glucose Urine UA 500 mg/dL (Negative); Leukocyte Esterase Urine Negative (Negative); Nitrite Urine Negative (Negative); UMIC TRIGGER UACC YES; Urine Blood Negative (Negative); Urine Ketones Negative (Negative); Urine Protein 30 (1+) mg/dL (Neg-Trace)
[2023-08-10 16:46] LABS: Bacteria Urine None Seen (None Seen); Hyaline Casts Urine 0-2 /LPF (0-2); RBC Urine 0-2 /HPF (0-2); Squamous Epithelial Cell Urine 0-2 /HPF (0-2); WBC Urine 0-5 /HPF (0-5)
== END 2023-08-10 13:57 | disposition home or self-care (01) ==
LOC: HO.XRAY 13:56
PROVIDERS: PCP Physician Assistant; Visit Provider Physician Assistant
DX: J06.9 Acute upper respiratory infection, unspecified (principal); R30.0 Dysuria; Z95.2 Presence of prosthetic heart valve; Z51.81 Encounter for therapeutic drug level monitoring; Z79.01 Long term (current) use of anticoagulants
CPT/HCPCS: 71046; 81001; 85610; 99211

== ENCOUNTER 2023-08-10 14:01 | Outpatient (AMB) | payer MEDICARE, OTHER, SELFPAY ==
[2023-08-10 14:18] LABS: Prothrombin Time Whole Bld POC 43.4 sec (11.1-13.5); ~PT, ~INR - Anti Coag Clinic 3.6 (0.9-1.1)
--- NOTE | 2023-08-10 14:29 | MHC.OFFVISCO ---
Intake Intake Visit Reasons: Anticoagulation Allergies penicillin V Allergy (Unknown, Verified 08/10/23 14:02) hives, rash/tounge edema Vicodin Allergy (Unknown, Uncoded 08/10/23 14:02) dizziness Medication List - Last Reconciled 08/10/23 by Carol Obrien RN albuterol sulfate 90 mcg/actuation 2 puffs inhalation Q6H PRN atorvastatin 40 mg PO DAILY back brace As directed blood sugar diagnostic ([employer] Ultra Test strips) TEST 3 TIMES DAILY cetirizine 10 mg PO DAILY cyclobenzaprine 5 mg PO TID 7 days duloxetine 60 mg PO DAILY flash glucose scanning reader ([employer]Style Reid 2 [place]) 4 times per day flash glucose sensor ([employer]ur[employer]Style Reid 2 Sensor kit) test 4 times per day fluticasone propionate 50 mcg/actuation (Flonase Allergy Relief) 1 spray intranasal DAILY 30 days furosemide 20 mg PO BID 90 days hydrochlorothiazide 12.5 mg PO DAILY insulin aspart U-100 (Novolog FlexPen U-100 Insulin aspart) 7 units (0.07 mL) subcut TID 30 days insulin aspart U-100 subcut insulin degludec (Tresiba FlexTouch U-200 insulin) 120 units (0.6 mL) subcut DAILY 30 days levofloxacin 500 mg PO DAILY losartan 100 mg PO DAILY 90 days losartan-hydrochlorothiazide 100-25 mg 1 tab PO DAILY miscellaneous medical supply (Blood Pressure Cuff) As directed omeprazole 20 mg PO DAILY potassium chloride ER 20 mEq PO DAILY 90 days semaglutide (Ozempic) 0.25 mg (0.368 mL) subcut QWEEK 6 weeks warfarin 2 - 4 mg See Protocol PO DAILY Nursing Note INR 3.6?Out of therapeutic range Medications and supplements reviewed Patient status: PT ON ANTBX FOR PNEUMONIA AND UTI, STATES HE IS STARTING TO FEEL BETTER, HAS 2 MORE DAYS ON ANTBX Medications or supplements: ALSO TO START OZEMPIC IN 2 DAYS, IT IS UNCLEAR IF IT COULD RAISE OR LOWER HIS INR Diet: GOOD Denies any signs and symptoms of bleeding or clotting or unusual bruising Bleeding, bruising, clotting discussed Nutritional guidance given: MAY START EATING [place]URKRAUT FEW DAYS WEEK FOR VITK AND PROBIOTIC EFFECTS AFTER COMPLETING THE ANTBX Dose: DECREASE 2MG TODAY AND TOMORROW THEN DECREASE WEEKLY DOSE TO 2MG X 1 DAY/ 4MG X 6 DAYS F/U INR Date : 11 08/21/23?? Patient verbalizing understanding of instructions given. 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
== END 2023-08-10 14:41 | disposition home or self-care (01) ==
LOC: HO.ACS 14:01
PROVIDERS: PCP Physician Assistant; Visit Provider Internal Medicine
DX: Z79.01 Long term (current) use of anticoagulants (principal)

== ENCOUNTER 2023-08-20 14:02 | Outpatient (AMB) | payer MEDICARE, OTHER, SELFPAY ==
[2023-08-20 14:11] LABS: Prothrombin Time Whole Bld POC 30.5 sec (11.1-13.5); ~PT, ~INR - Anti Coag Clinic 2.5 (0.9-1.1)
--- NOTE | 2023-08-20 14:17 | MHC.OFFVISCO ---
Intake Intake Visit Reasons: Anticoagulation Allergies penicillin V Allergy (Unknown, Verified 08/20/23 14:03) hives, rash/tounge edema Vicodin Allergy (Unknown, Uncoded 08/20/23 14:03) dizziness Medication List - Last Reconciled 08/20/23 by Carol Obrien, RN albuterol sulfate 90 mcg/actuation 2 puffs inhalation Q6H PRN atorvastatin 40 mg PO DAILY back brace As directed blood sugar diagnostic ([employer] Ultra Test strips) TEST 3 TIMES DAILY cetirizine 10 mg PO DAILY cyclobenzaprine 5 mg PO TID 7 days duloxetine 60 mg PO DAILY flash glucose scanning reader ([employer]tyle Reid 2 [place]) 4 times per day flash glucose sensor ([employer]tyle Reid 2 Sensor kit) test 4 times per day fluticasone propionate 50 mcg/actuation (Flonase Allergy Relief) 1 spray intranasal DAILY 30 days furosemide 20 mg PO BID 90 days hydrochlorothiazide 12.5 mg PO DAILY insulin aspart U-100 (Novolog FlexPen U-100 Insulin aspart) 7 units (0.07 mL) subcut TID 30 days insulin aspart U-100 subcut insulin degludec (Tresiba FlexTouch U-200 insulin) 120 units (0.6 mL) subcut DAILY 30 days levofloxacin 500 mg PO DAILY losartan 100 mg PO DAILY 90 days losartan-hydrochlorothiazide 100-25 mg 1 tab PO DAILY miscellaneous medical supply (Blood Pressure Cuff) As directed omeprazole 20 mg PO DAILY potassium chloride ER 20 mEq PO DAILY 90 days semaglutide (Ozempic) 0.25 mg (0.368 mL) subcut QWEEK 6 weeks warfarin 2 - 4 mg See Protocol PO DAILY Nursing Note INR: 2.5 in therapeutic range Medications and supplements reviewed completed antbx 08/12/23 - feeling better - still has a cough - which is lessening No changes in health, diet, medications, or supplements, Denies any signs and symptoms of bleeding or bruising or clotting. 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
== END 2023-08-20 14:20 | disposition home or self-care (01) ==
LOC: HO.ACS 14:02
PROVIDERS: PCP Physician Assistant; Visit Provider Internal Medicine
DX: Z79.01 Long term (current) use of anticoagulants (principal)

== ENCOUNTER → 2023-08-20 14:02 | Outpatient (BNVA) | payer MEDICARE, OTHER, SELFPAY | PROVIDERS: PCP Physician Assistant; Visit Provider Internal Medicine | DX: Z95.2 Presence of prosthetic heart valve (principal); Z79.01 Long term (current) use of anticoagulants; Z51.81 Encounter for therapeutic drug level monitoring | CPT/HCPCS: 85610; 99211 ==

== ENCOUNTER 2023-09-14 11:08 | Outpatient (AMB) | payer MEDICARE, OTHER, SELFPAY ==
--- NOTE | 2023-09-14 11:48 | MHC.OFFVISCO ---
Intake Intake Visit Reasons: Anticoagulation Allergies penicillin V Allergy (Unknown, Verified 09/14/23 11:28) hives, rash/tounge edema Vicodin Allergy (Unknown, Uncoded 09/14/23 11:28) dizziness Medication List - Last Reconciled 09/14/23 by Carol Obrien RN albuterol sulfate 90 mcg/actuation 2 puffs inhalation Q6H PRN atorvastatin 40 mg PO DAILY back brace As directed blood sugar diagnostic ([employer] Ultra Test strips) TEST 3 TIMES DAILY cetirizine 10 mg PO DAILY cyclobenzaprine 5 mg PO TID 7 days duloxetine 60 mg PO DAILY flash glucose scanning reader ([employer] Services[employer] Reid 2 [place]) 4 times per day flash glucose sensor ([employer] Health ServicesStyle Reid 2 Sensor kit) test 4 times per day fluticasone propionate 50 mcg/actuation (Flonase Allergy Relief) 1 spray intranasal DAILY 30 days furosemide 20 mg PO BID 90 days gabapentin 300 mg PO DAILY PRN 90 days hydrochlorothiazide 12.5 mg PO DAILY insulin aspart U-100 (Novolog FlexPen U-100 Insulin aspart) 7 units (0.07 mL) subcut TID 30 days insulin aspart U-100 subcut insulin degludec (Tresiba FlexTouch U-200 insulin) 120 units (0.6 mL) subcut DAILY 30 days losartan 100 mg PO DAILY 90 days losartan-hydrochlorothiazide 100-25 mg 1 tab PO DAILY miscellaneous medical supply (Blood Pressure Cuff) As directed omeprazole 20 mg PO DAILY potassium chloride ER 20 mEq PO DAILY 90 days semaglutide (Ozempic) 0.25 mg (0.368 mL) subcut QWEEK 6 weeks warfarin 2 - 4 mg See Protocol PO DAILY Nursing Note INR: 2.8 in therapeutic range Medications and supplements reviewed PT STARTED OZEMPIC ABOUT 3 WEEKS AGO- HAS NOT LOST WEIGHT OF YET , NO EFFECT ON INR OF YET, PT TAKING GABAPENTIN FOR SCIATIC PAIN - HE STATES IT TAKES THE EDGE OFF Denies any signs and symptoms of bleeding or bruising or clotting. Bleeding, bruising, clotting discussed Nutritional guidance given - PT LIKES CABBAGE ENC TO HAVE SOME WEEKLY Dose: KEEP SAME DOSE 2MG X 1 DAY/ 4MG X 6 DAYS F/U INR: 3 WEEKS PER PT REQUEST Patient verbalizes understanding of instructions given Anti-Coag Initial Assessment Social Hx Patient Tobacco Use Status: Current everyday Tobacco user Coding Level of Care Code Est Patient Level 1 Diagnoses Current use of anticoagulant therapy Z79.01 Results AMB INR Fingerstick AMB INR Fingerstick 2.8 Last Edit by Carol Obrien RN on 09/14/23 11:43 MANUAL ENTRY Assessment & Plan Assessment & Plan (1) Current use of anticoagulant therapy: Code(s): Z79.01 - long-term (current) use of anticoagulants Category: Medical
[2023-09-14 20:37] LABS: Prothrombin Time Whole Bld POC 33.7 sec (11.1-13.5); ~PT, ~INR - Anti Coag Clinic 2.8 (0.9-1.1)
== END 2023-09-14 11:54 | disposition home or self-care (01) ==
LOC: HO.ACS 11:08
PROVIDERS: PCP Physician Assistant; Visit Provider Internal Medicine
DX: Z79.01 Long term (current) use of anticoagulants (principal)

== ENCOUNTER → 2023-09-14 11:08 | Outpatient (BNVA) | payer MEDICARE, OTHER, SELFPAY | PROVIDERS: PCP Physician Assistant; Visit Provider Internal Medicine | DX: Z95.2 Presence of prosthetic heart valve (principal); Z79.01 Long term (current) use of anticoagulants; Z51.81 Encounter for therapeutic drug level monitoring | CPT/HCPCS: 85610; 99211 ==

== ENCOUNTER 2023-10-13 13:25 | Outpatient (AMB) | payer MEDICARE, OTHER, SELFPAY ==
--- NOTE | 2023-10-13 13:54 | MHC.OFFVISCO ---
Intake Intake Visit Reasons: Anticoagulation Allergies penicillin V Allergy (Unknown, Verified 10/13/23 13:37) hives, rash/tounge edema Vicodin Allergy (Unknown, Uncoded 10/13/23 13:37) dizziness Medication List - Last Reconciled 10/13/23 by Carol Obrien RN albuterol sulfate 90 mcg/actuation 2 puffs inhalation Q6H PRN atorvastatin 40 mg PO DAILY back brace As directed blood sugar diagnostic ([employer]uch Ultra Test strips) TEST 3 TIMES DAILY cetirizine 10 mg PO DAILY cyclobenzaprine 5 mg PO TID 7 days duloxetine 60 mg PO DAILY flash glucose scanning reader ([employer]tyle Reid 2 [place]) 4 times per day flash glucose sensor ([employer]tyle Reid 2 Sensor kit) test 4 times per day fluticasone propionate 50 mcg/actuation (Flonase Allergy Relief) 1 spray intranasal DAILY 30 days furosemide 20 mg PO BID 90 days gabapentin 300 mg PO DAILY PRN 90 days hydrochlorothiazide 12.5 mg PO DAILY insulin aspart U-100 (Novolog FlexPen U-100 Insulin aspart) 7 units (0.07 mL) subcut TID 30 days insulin aspart U-100 subcut insulin degludec (Tresiba FlexTouch U-200 insulin) 120 units (0.6 mL) subcut DAILY 30 days losartan 100 mg PO DAILY 90 days losartan-hydrochlorothiazide 100-25 mg 1 tab PO DAILY miscellaneous medical supply (Blood Pressure Cuff) As directed omeprazole 20 mg PO DAILY potassium chloride ER 20 mEq PO DAILY 90 days semaglutide (Ozempic) 0.25 mg (0.368 mL) subcut QWEEK 6 weeks warfarin 2 - 4 mg See Protocol PO DAILY Nursing Note INR: 3.0 in therapeutic range- TAKING MORE TYLENOL FOR ARTHRALGIAS Medications and supplements reviewed No changes in health, diet, medications, or supplements, Denies any signs and symptoms of bleeding or bruising or clotting. 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
[2023-10-14 11:05] LABS: Prothrombin Time Whole Bld POC 36.3 sec (11.1-13.5)
== END 2023-10-13 14:03 | disposition home or self-care (01) ==
LOC: HO.ACS 13:25
PROVIDERS: PCP Physician Assistant; Visit Provider Internal Medicine
DX: Z79.01 Long term (current) use of anticoagulants (principal)

== ENCOUNTER → 2023-10-13 13:25 | Outpatient (BNVA) | payer MEDICARE, OTHER, SELFPAY | PROVIDERS: PCP Physician Assistant; Visit Provider Internal Medicine | DX: Z95.2 Presence of prosthetic heart valve (principal); Z79.01 Long term (current) use of anticoagulants; Z51.81 Encounter for therapeutic drug level monitoring | CPT/HCPCS: 85610; 99211 ==

== ENCOUNTER 2023-10-23 13:56 | Outpatient (AMB) | payer MEDICARE, OTHER, SELFPAY ==
[2023-10-23 14:04] LABS: Prothrombin Time Whole Bld POC 35.2 sec (11.1-13.5); ~PT, ~INR - Anti Coag Clinic 2.9 (0.9-1.1)
--- NOTE | 2023-10-23 14:06 | MHC.OFFVISCO ---
Intake Intake Visit Reasons: Anticoagulation Allergies penicillin V Allergy (Unknown, Verified 10/23/23 13:56) hives, rash/tounge edema Vicodin Allergy (Unknown, Uncoded 10/23/23 13:56) dizziness Medication List - Last Reconciled 10/23/23 by Yaneth Montilla, RN albuterol sulfate 90 mcg/actuation 2 puffs inhalation Q6H PRN atorvastatin 40 mg PO DAILY back brace As directed blood sugar diagnostic ([employer]uch Ultra Test strips) TEST 3 TIMES DAILY cetirizine 10 mg PO DAILY cyclobenzaprine 5 mg PO TID 7 days duloxetine 60 mg PO DAILY flash glucose scanning reader ([employer] Reid 2 [place]) 4 times per day flash glucose sensor (FreeStyle Reid 2 Sensor kit) test 4 times per day fluticasone propionate 50 mcg/actuation (Flonase Allergy Relief) 1 spray intranasal DAILY 30 days furosemide 20 mg PO BID 90 days gabapentin 300 mg PO DAILY PRN 90 days hydrochlorothiazide 12.5 mg PO DAILY insulin aspart U-100 (Novolog FlexPen U-100 Insulin aspart) 7 units (0.07 mL) subcut TID 30 days insulin aspart U-100 subcut insulin degludec (Tresiba FlexTouch U-200 insulin) 120 units (0.6 mL) subcut DAILY 30 days losartan 100 mg PO DAILY 90 days losartan-hydrochlorothiazide 100-25 mg 1 tab PO DAILY miscellaneous medical supply (Blood Pressure Cuff) As directed omeprazole 20 mg PO DAILY potassium chloride ER 20 mEq PO DAILY 90 days warfarin 2 - 4 mg See Protocol PO DAILY Nursing Note Amb to [facility] using cane feeling ok Medications and supplements reviewed, sts he only took the Ozempic for a few weeks didn't like the way I felt so I stopped it has not told PCP will compose note re Ozempic No other changes in health, diet, medications, or supplements Denies any unusual signs and symptoms of bruising, bleeding Denies any new Chest pain, SOB, or clotting INR: 2.4 in therapeutic range Nutritional guidance given: balance greens and reds in diet Dose: continue usual dosing; 2mg x 1 day and 4mg x 6 days F/U INR: 3 weeks Patient verbalizes understanding of instructions given with accurate read back/ teach back of dosing Anti-Coag Initial Assessment Social Hx Patient Tobacco Use Status: Current everyday Tobacco user Questionnaires HAS-BLED Does the patient had uncontrolled Hypertension?: No Does the patient have renal disease?: No Does the patient have liver disease?: No Does the patient have a history of stroke?: No Has the patient had major bleeding or predisposition to bleeding?: No Does the patient have labile INRs?: Yes Is the patient over 65 years of age?: Yes Is the patient on medications that gives them a predisposition to bleeding?: Yes Does the patient use alcohol?: No HAS-BLED Score: 3 CHADSVASC Age: 66-74 Gender: Male Does the patient have a history of CHF?: No Does the patient have a history of Hypertension?: Yes Does the patient have a history of Stroke/TIA/Thromboembolism?: No Does the patient have a history of Vascular Disease (prior HI, PAD or aortic plaque)?: Yes Does the patient have a history of Diabetes?: Yes CHADS VACS Score: 4 Madelaine Prediction Score Rsk VTE Active Cancer: No Previous VTE, excluding superficial vein thrombosis: No Reduced mobility: No Already known Thrombophilic Condition: Yes With-in last month Trauma and/or Surgery: No Elderly 70 year or older: Yes Heart and/or Respiratory Failure: Yes Acute Myocardial infarction and/or Ischemic Stroke: No Acute Infection and/or Rheumatologic Disorder: No Obesity (BMI 30 or greater): Yes Ongoing Hormonal Treatment: No Score: 6 Madelaine Score less than 4; Low Risk of VTE Madelaine Score 4 or greater; High Risk of VTE Coding Level of Care Code Est Patient Level 1 Diagnoses Current use of anticoagulant therapy Z79.01 Time Spent (min) 15 Assessment & Plan Assessment & Plan (1) Current use of anticoagulant therapy: Code(s): Z79.01 - custodial (current) use of anticoagulants Category: Medical
== END 2023-10-23 14:18 | disposition home or self-care (01) ==
LOC: HO.ACS 13:56
PROVIDERS: PCP Physician Assistant; Visit Provider Internal Medicine
DX: Z79.01 Long term (current) use of anticoagulants (principal)

== ENCOUNTER → 2023-10-23 13:56 | Outpatient (BNVA) | payer MEDICARE, OTHER, SELFPAY | PROVIDERS: PCP Physician Assistant; Visit Provider Internal Medicine | DX: Z95.2 Presence of prosthetic heart valve (principal); Z79.01 Long term (current) use of anticoagulants; Z51.81 Encounter for therapeutic drug level monitoring | CPT/HCPCS: 85610; 99211 ==

== ENCOUNTER 2023-12-03 13:45 | Outpatient (AMB) | payer MEDICARE, OTHER, SELFPAY ==
--- NOTE | 2023-12-03 14:01 | MHC.OFFVISCO ---
Intake Intake Visit Reasons: Anticoagulation Allergies penicillin V Allergy (Unknown, Verified 12/03/23 13:58) hives, rash/tounge edema Vicodin Allergy (Unknown, Uncoded 12/03/23 13:58) dizziness Medication List - Last Reconciled 12/03/23 by Veronica Fabian, RN albuterol sulfate 90 mcg/actuation 2 puffs inhalation Q6H PRN atorvastatin 40 mg PO DAILY back brace As directed benzonatate 200 mg PO TID 5 days blood sugar diagnostic ([employer] Ultra Test strips) TEST 3 TIMES DAILY cetirizine 10 mg PO DAILY cyclobenzaprine 5 mg PO TID 7 days duloxetine 60 mg PO DAILY flash glucose scanning reader ([employer] Reid 2 [place]) 4 times per day flash glucose sensor ([employer] Reid 2 Sensor kit) test 4 times per day fluticasone propionate 50 mcg/actuation (Flonase Allergy Relief) 1 spray intranasal DAILY 30 days furosemide 20 mg PO BID 90 days gabapentin 300 mg PO DAILY PRN 90 days hydrochlorothiazide 12.5 mg PO DAILY insulin aspart U-100 (Novolog FlexPen U-100 Insulin aspart) 7 units (0.07 mL) subcut TID 30 days insulin aspart U-100 subcut insulin degludec (Tresiba FlexTouch U-200 insulin) 120 units (0.6 mL) subcut DAILY 30 days losartan 100 mg PO DAILY 90 days losartan-hydrochlorothiazide 100-25 mg 1 tab PO DAILY miscellaneous medical supply (Blood Pressure Cuff) As directed omeprazole 20 mg PO DAILY potassium chloride ER 20 mEq PO DAILY 90 days warfarin 2 - 4 mg See Protocol PO DAILY Nursing Note INR: 2.3- in therapeutic range of 2-3 Medications and supplements reviewed- no changes No changes in health, diet, medications, or supplements, Denies any signs and symptoms of bleeding or bruising or clotting. Bleeding, bruising, clotting discussed Nutritional guidance given Dose: 4mg x 6, 2mg x 1 F/U INR: 4 weeks Patient verbalizes understanding of instructions given pt states he fell on thursday- denies hit head, aware of risks with hitting head, denies bruising or injuries enc to notify pcp Anti-Coag Initial Assessment Social Hx Patient Tobacco Use Status: Current everyday Tobacco user Coding Level of Care Code Est Patient Level 1 Diagnoses Current use of anticoagulant therapy Z79.01 Results AMB INR Fingerstick AMB INR Fingerstick 2.3 Last Edit by Veronica Fabian RN on 12/03/23 14:03 Assessment & Plan Assessment & Plan (1) Current use of anticoagulant therapy: Code(s): 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
[2023-12-03 14:02] LABS: Prothrombin Time Whole Bld POC 27.6 sec (11.1-13.5); ~PT, ~INR - Anti Coag Clinic 2.3 (0.9-1.1)
== END 2023-12-03 14:13 | disposition home or self-care (01) ==
LOC: HO.ACS 13:45
PROVIDERS: PCP Physician Assistant; Visit Provider Internal Medicine
DX: Z79.01 Long term (current) use of anticoagulants (principal)

== ENCOUNTER → 2023-12-03 13:45 | Outpatient (BNVA) | payer MEDICARE, OTHER, SELFPAY | PROVIDERS: PCP Physician Assistant; Visit Provider Internal Medicine | DX: Z95.2 Presence of prosthetic heart valve (principal); Z79.01 Long term (current) use of anticoagulants; Z51.81 Encounter for therapeutic drug level monitoring | CPT/HCPCS: 85610; 99211 ==

== ENCOUNTER 2024-01-07 14:22 | Emergency (ER) | payer MEDICARE, OTHER, SELFPAY ==
--- NOTE | ~2024-01-07 | CT_ITS ---
EXAMINATION: CT HEAD WITHOUT CONTRAST CT FACE WITHOUT CONTRAST CT CERVICAL SPINE WITHOUT CONTRAST CLINICAL INFORMATION: Fall. Head strike. Pain. COMPARISON: CT cervical spine 02/24/2008. TECHNIQUE: Student Financial Services Counselor images were obtained. CT imaging of the head, face, and cervical spine was performed without contrast. Data was reformatted into multiplanar images at the acquisition workstation. This CT examination was performed using dose optimization techniques as appropriate, including one or more of the following: Automated exposure control, iterative reconstruction, and adjustment of technique factors (mA and/or kVp) according to patient size (this includes techniques or standardized protocols for targeted exams where dose is matched to indication/reason for exam). Fleischner Society criteria for the followup of incidental pulmonary nodules was implemented if appropriate. DLP: 2147 mGy-cm. FINDINGS: Head: There is swelling of the left frontal scalp. The underlying calvarium is intact. No acute intracranial hemorrhage or abnormal extra-axial collection. No intracranial mass effect or midline shift. Lateral and third ventricles are normal. No hydrocephalus. There are scattered nonspecific foci of hypoattenuation within the periventricular white matter. Zhang-white matter differentiation is otherwise preserved and there is no evidence of acute territorial infarct. No acute skull base fracture. Mastoid air cells and middle ear cavities are well aerated. Face: Nasal bones, zygomatic arches, and pterygoid processes are intact. There is no acute mandibular fracture. There are multiple missing or carious teeth. Globes and extraocular muscles are symmetric. No abnormal retrobulbar inflammation or hematoma. Lamina papyracea and orbital floors are intact and there is no evidence of acute orbital blowout fracture. Orbital apices are unremarkable. There is no active paranasal sinus disease. All of the major paranasal sinus regions pathways are patent. The nasal septum deviates to the right and there is a prominent rightward projecting nasal septal spur. Cervical spine: There is an acute type II fracture of the odontoid process with approximately 0.2 cm retrosubluxation of the odontoid fragment. There is associated prevertebral soft tissue swelling at the site of the fracture. Slight anterolisthesis of C3 on C4 related to advanced facet degenerative changes at this level. Canal patency is not well assessed on this examination due to inherent limitations of CT without intrathecal contrast and due to the extent of streak artifact related to an anterior plate and screw hardware construct extending from C5 to C7. Visualized lung apices are clear. Heavily calcified atheromatous plaque involves both carotid bifurcations. CT/CT head/brain wo IV con IMPRESSION: Head and face: There is swelling of the left frontal scalp. The underlying calvarium is intact. No acute intracranial hemorrhage. No acute facial fracture. Cervical spine: There is an acute type II odontoid fracture with approximately 0.2 cm retrosubluxation of the odontoid fragment. Canal patency is not well assessed on this examination due to inherent limitations of CT without intrathecal contrast and due to the extent of streak artifact related to an anterior plate and screw hardware construct extending from C5 to C7.
[2024-01-07 14:29] VITALS: BP 139/69; PULSE 96; O2SAT 95
[2024-01-07 14:30] VITALS: BP 133/71; PULSE 85; RESP 19; TEMP 36.6; O2SAT 95; BMI 37.3
[2024-01-07 14:38] VITALS: PULSE 82; RESP 17; O2SAT 97
--- NOTE | 2024-01-07 15:54 | ED_ITS ---
HPI - Fall General Chief Complaint: Fall Stated Complaint: FALL NO LOC ON BLOOD THINNER CSPINE PREC Time Seen by Provider: 01/07/24 15:53 Source: patient Mode of arrival: EMS Limitations: no limitations History of Present Illness HPI Narrative: 73-year-old male with a history of spondylosis of the lumbar spine, diabetes, diabetic neuropathy, lumbar radiculopathy, CD, hyperlipidemia, hypertension, coronary artery disease, CABG x2 vessels 2010, mechanical aortic valve 2010 secondary to stenosis on warfarin who presents emergency department for evaluation of injuries from a fall. Patient states that he was caring his groceries into his house when he tripped and fell on his asphalt driveway, landing face 1st. He denied any loss of consciousness. He states that had difficulty getting off the ground. Ambulance transported the patient to the emergency department and C-collar. Patient is currently complaining of pain in his face, nose, hands bilaterally and knees secondary to abrasions. He also states he is having pain in his neck and upper back. He denied any numbness or weakness. Surveying Crew Stake Runner point of care glucose was 503. Patient does not know when his last tetanus shot was given. Patient denied being ill prior to falling. He denied fever, chills, rhinorrhea, sore throat, cough, chest pain, shortness of breath. Related Data Home Medications Medication Instructions Recorded Confirmed insulin aspart U-100 100 unit/mL subcut 12/21/20 10/13/23 subcutaneous solution cetirizine 10 mg tablet 10 mg PO DAILY 08/06/23 10/13/23 losartan 100 1 tab PO DAILY 08/10/23 10/13/23 mg-hydrochlorothiazide 25 mg tablet Previous Rx's Medication Instructions Recorded back brace #1 ea 04/09/22 insulin aspart U-100 100 unit/mL 7 unit (0.07 mL) subcut TID 30 09/22/22 (3 mL) subcutaneous pen (NovoTestObject days #15 mL FlexPen U-100 Insulin aspart) miscellaneous medical supply #1 ea 09/22/22 (Blood Pressure Cuff) duloxetine 60 mg capsule,delayed 60 mg PO DAILY #90 caps 02/02/23 release flash glucose scanning reader #1 ea 03/02/23 (FreeStyle Reid 2 Remington) flash glucose sensor (FreeStyle #1 ea 03/02/23 Reid 2 Sensor kit) atorvastatin 40 mg tablet 40 mg PO DAILY #90 tabs 04/07/23 hydrochlorothiazide 12.5 mg tablet 12.5 mg PO DAILY #90 tabs 07/09/23 losartan 100 mg tablet 100 mg PO DAILY 90 days #90 tabs 07/29/23 potassium chloride 20 mEq 20 meq PO DAILY 90 days #90 tabs 08/12/23 tablet,extended release(part/cryst) insulin degludec 200 unit/mL (3 120 unit (0.6 mL) subcut DAILY 30 08/31/23 mL) subcutaneous pen (Tresi days #9 mL FlexTouch U-200 insulin) gabapentin 300 mg capsule 300 mg PO DAILY PRN pain 90 days 09/03/23 #90 caps fluticasone propionate 50 1 spray intranasal DAILY 30 days 09/24/23 mcg/actuation nasal #16 grams spray,suspension (Flonase Allergy Relief) blood sugar diagnostic (Connect Media InteractiveTouch #100 strips 10/04/23 Ultra Test strips) omeprazole 20 mg capsule,delayed 20 mg PO DAILY #90 caps 10/04/23 release furosemide 20 mg tablet 20 mg PO BID 90 days #180 tabs 11/03/23 warfarin 2 mg tablet 2 - 4 mg PO DAILY #180 tabs 11/03/23 albuterol sulfate 90 mcg/actuation 2 puff inhalation Q6H PRN for 11/05/23 aerosol inhaler wheezing #8.5 ea benzonatate 200 mg capsule 200 mg PO TID 5 days #15 caps 11/10/23 cyclobenzaprine 5 mg tablet 5 mg PO TID 7 days #21 tabs 11/10/23 Allergies Allergy/AdvReac Type Severity Reaction Status Date / Time penicillin V Allergy Unknown hives, Verified 01/07/24 14:30 rash/tounge edema Vicodin Allergy Unknown dizziness Uncoded 01/07/24 14:30 Review of Systems 2 Review of Systems: Yes all other systems are reviewed and are negative [facility] Past Medical History [facility] Narrative: Cigarettes. He denies tobacco and alcohol use. Medical History Spondylosis of lumbar spine Diabetic neuropathy Lumbar radiculopathy Obesity Hyperlipidemia LDL goal <70 Diabetes mellitus HTN (hypertension) CAD (coronary artery disease) Surgical History Hx of spinal surgery History of arthroscopy of knee Hx of coronary artery bypass graft History of mechanical aortic valve replacement Family History Family History Father CVD (cardiovascular disease) Mother Diabetes Social History Social History Housing: House Patient Tobacco Use Status: Current everyday Tobacco user Cigarettes Per Day: 8 Smoked in Last 30 Days: Yes e-Cigarette/Vaping Use: Never Used Use of substances other than those prescribed or required for medical reasons: No Advance Directives: No Advance Directives Information Provided: No Current occupational status: retired Cognitive needs: Yes Hearing needs: No Vision needs: No Physical Exam 2 Vital Signs: Vital Signs: Last Vital Signs Temp 98 F 01/07/24 14:30 Pulse 82 01/07/24 14:38 Resp 17 01/07/24 14:38 BP 133/71 01/07/24 14:30 Pulse Ox 97 01/07/24 14:38 O2 Del Method Room Air 01/07/24 14:30 BMI result Body Mass Index 37.3 Vital signs were normal Exam: General: Awake, alert in no distress, weight 218 kg, BMI 37.3 kg per m2 Head: Patient has an abrasion with a 1 cm laceration to his left forehead with no hematoma, the area is tender to palpation. Patient also has an abrasion to his nose EENT: PERRL, Lids normal, sclera normal, conjunctiva normal, nose-abrasion to the bridge otherwise normal , ears normal, throat without erythema or exudates Neck: C-spine tender Lung: breath sounds symmetric, no wheezing, rales or rhonchi Chest: symmetric movement, nontender Heart: regular rate and rhythm, normal S1, S2 no murmurs or rubs Abdomen: soft, obese non-tender, nondistended, normal bowel sounds Back: no vertebral tenderness, no CVAT Extremities: Abrasions to the patient's hands, elbows and knees bilateral Neuro: Awake, alert, oriented, normal speech, cranial nerves intact, moves all extremities symmetrically Psych: Pleasant, cooperative Medications Administered Discontinued Medications Generic Name Dose Route Start Last Admin Trade Name Freq PRN Reason Stop Dose Admin Diphtheria/Tetanus/Acell Pertussis 0.5 ml 01/07/24 16:44 01/07/24 17:10 Diphth,Pertus(Acell),Tet Adult 0.5 Ml Syringe IM 01/07/24 16:45 0.5 ml .ONCE ONE Administration Morphine Sulfate 4 mg 01/07/24 16:13 01/07/24 17:11 Morphine Sulfate 4 Mg/Ml Cartridge IVPUSH 01/07/24 16:14 4 mg ONCE STA Administration Protocol Medical Decision Making Medical Decision Making MDM Narrative: 73-year-old male with a history of spondylosis of the lumbar spine, diabetes, diabetic neuropathy, lumbar radiculopathy, CD, hyperlipidemia, hypertension, coronary artery disease, CABG x2 vessels 2010, mechanical aortic valve 2010 secondary to stenosis on warfarin who presents emergency department for evaluation of injuries from trip and fall on his asphalt fall driveway while carrying groceries into his house. Patient transported to emergency department by EMS and rigid cervical collar. Patient complained pain in his forehead, nose, neck and upper back, laterally. Vital signs were normal. Exam did reveal abrasions on his forehead with a small less than 1 cm laceration, bridge of his nose, hands and knees bilaterally. Patient did have cervical spine tenderness with a normal neurologic exam. Point of care glucose by paramedics was 103. Differential diagnosis: ?Includes but is not limited to small fracture, intracranial bleed, cervical fracture, cervical sprain, multiple abrasions, electrolyte abnormalities, anemia Following evaluation was ordered: Patient was initially treated with the following:Tdap IM, morphine 4 mg IV, lactated Ringer's 1000 L IV Course: CBC, CMP, PT/INR, PTT, ethanol, COVID-19, CT scan of the head and cervical spine, facial bones without contrast 17:[address] scan of the cervical spine revealed following abnormality: There is an acute type II fracture of the odontoid process with approximately 0.2 cm retrosubluxation of the odontoid fragment. No other acute findings on the CT scans Patient was in a cervical collar placed by EMS which was changed out for larger collar in the emergency department I did discuss transfer with the [facility] transfer line. My interpretation patient's laboratory evaluation is as follows: WBC elevated 11,100, H&H was normal 14.9 and 40.7, platelet count was normal 192,000./INR were therapeutic at 26.4 and 2.2. PTT was normal 35.3. Sodium low 129, bicarb low 20 this is most likely delusional secondary to elevated glucose of 566. BUN and creatinine were elevated 34 and 1.74 or of 39. Alkaline phosphatase was elevated 138. Ethanol was below detectable limits. COVID-19 was negative Given the patient's elevated glucose he was ordered to get insulin 5 units IV, will repeat a point of care glucose 1 hour the patient is still in the emergency department. I did discuss the patient with the emergency department attending physician at [facility], Dr. Pedro Landry and he did accept the patient is an ED to ED transfer pain. Lab Data 01/07/24 16:51 01/07/24 16:51 Labs: Lab Results 01/07/24 Range/Units 16:51 WBC 11.1 H (4.8-10.8) X10*3/uL RBC 4.96 (4.60-5.80) X10*6/uL Hgb 14.9 (14.0-18.0) g/dl Hct 40.7 L (42.0-52.0) % MCV 82.1 (80.0-98.0) fL MCH 30.0 (27.0-33.0) pg MCHC 36.6 H (31.0-36.0) g/dl RDW 12.2 (11.0-16.0) % Plt Count 192 (160-400) X10*3/uL MPV 10.3 (9.4-12.4) fL Immature Gran % (Auto) 0.5 H (0.0-0.4) % Neut % (Auto) 80.4 H (45-73) % Lymph % (Auto) 12.4 L (20-40) % [place] % (Auto) 6.1 (2-11) % Eos % (Auto) 0.3 (0-4) % Baso % (Auto) 0.3 (0-2) % Lymph # (Auto) 1.4 (1.2-4.9) X10*3/uL [place] # (Auto) 0.7 (0.1-1.2) X10*3/uL Eos # (Auto) 0.0 (0.0-0.4) X10*3/uL Baso # (Auto) 0.0 (0.0-0.2) X10*3/uL Abs Immat Gran (auto) 0.06 H (0.00-0.03) X10*3/uL Absolute Neuts (auto) 8.9 H (2.0-8.3) x10*3/uL Absolute Nucleated RBC 0.000 (0.0-0.012) X10*3/uL Nucleated RBC % (auto) 0.0 (0.0-0.2) /100WBC PT 26.4 H (11.1-13.3) SEC INR 2.2 H (0.9-1.1) APTT 35.3 (26.0-36.8) SEC Sodium 129 L (135-145) mmol/L Potassium 4.8 (3.3-5.1) mmol/L Chloride 96 (96-108) mmol/L Carbon Dioxide 20 L (22-29) mmol/L Anion Gap 18 (12-20) BUN 34 H (9-16) mg/dL Creatinine 1.74 H (0.5-1.4) mg/dL Estim Creat Clear Calc 49.3 Estimated GFR 39 Random Glucose 566 H* (60-115) mg/dL Calcium 9.2 (8.4-10.2) mg/dL Total Bilirubin 0.5 (0.0-1.0) mg/dL AST 21 (5-37) U/L ALT 16 (0-40) U/L Alkaline Phosphatase 138 H (39-117) U/L Total Protein 7.0 (6.5-8.0) g/dL Albumin 3.8 (3.5-5.0) g/dL Ethyl Alcohol < 10 mg/dL COVID-19 ([facility]) Negative (Negative) COVID-19 Clin Com See Note Radiology Impression Discussion of test interpretation with radiology: I have reviewed the radiologist's reading. Radiologist Impression: EXAMINATION: CT HEAD WITHOUT CONTRAST CT FACE WITHOUT CONTRAST CT CERVICAL SPINE WITHOUT CONTRAST CLINICAL INFORMATION: Fall. Head strike. Pain. COMPARISON: CT cervical spine 02/24/2008. FINDINGS: Head: There is swelling of the left frontal scalp. The underlying calvarium is intact. No acute intracranial hemorrhage or abnormal extra-axial collection. No intracranial mass effect or midline shift. Lateral and third ventricles are normal. No hydrocephalus. There are scattered nonspecific foci of hypoattenuation within the periventricular white matter. Zhang-white matter differentiation is otherwise preserved and there is no evidence of acute territorial infarct. No acute skull base fracture. Mastoid air cells and middle ear cavities are well aerated. Face: Nasal bones, zygomatic arches, and pterygoid processes are intact. There is no acute mandibular fracture. There are multiple missing or carious teeth. Globes and extraocular muscles are symmetric. No abnormal retrobulbar inflammation or hematoma. Lamina papyracea and orbital floors are intact and there is no evidence of acute orbital blowout fracture. Orbital apices are unremarkable. There is no active paranasal sinus disease. All of the major paranasal sinus regions pathways are patent. The nasal septum deviates to the right and there is a prominent rightward projecting nasal septal spur. Cervical spine: There is an acute type II fracture of the odontoid process with approximately 0.2 cm retrosubluxation of the odontoid fragment. There is associated prevertebral soft tissue swelling at the site of the fracture. Slight anterolisthesis of C3 on C4 related to advanced facet degenerative changes at this level. Canal patency is not well assessed on this examination due to inherent limitations of CT without intrathecal contrast and due to the extent of streak artifact related to an anterior plate and screw hardware construct extending from C5 to C7. Visualized lung apices are clear. Heavily calcified atheromatous plaque involves both carotid bifurcations. CT/CT cervical spine wo IV con IMPRESSION: Head and face: There is swelling of the left frontal scalp. The underlying calvarium is intact. No acute intracranial hemorrhage. No acute facial fracture. Cervical spine: There is an acute type II odontoid fracture with approximately 0.2 cm retrosubluxation of the odontoid fragment. Canal patency is not well assessed on this examination due to inherent limitations of CT without intrathecal contrast and due to the extent of streak artifact related to an anterior plate and screw hardware construct extending from C5 to C7. Dictated By: Julian Frances MD Critical Care Time Critical Care Time Critical Care Time: Yes Total Critical Care Time: 45 Attestation: Critical Care: The patient was critically ill with a high probability of imminent or life threatening deterioration. I spent greater than 30 minutes of discontinuous time evaluating the patient,delivering critical care at the bedside, discussing and evaluating pertinent data with consultants. Critical care time does not include time spent performing separately billable procedures or teaching. Total time spent performing critical care was 45 minutes. Discharge Plan Discharge Clinical Impression: Abrasion, multiple sites, Acute hyperglycemia Fall Qualifiers: Encounter type: initial encounter Qualified Code(s): W19.XXXA - Unspecified fall, initial encounter Odontoid fracture with type II morphology Qualifiers: Encounter type: initial encounter Fracture type: closed Fracture alignment: p osteriorly displaced Qualified Code(s): S12.111A - Posterior displaced Type II dens fracture, initial encounter for closed fracture Patient Disposition: [facility] Transfer Details: [facility] ED to ED transfer Prescriptions: No Action (DME) FreeStyle Reid 2 Remington Misc See Rx Instructions .Route Qty: 1 0RF Rx Instructions: 4 times per day (DME) FreeStyle Reid 2 Sensor Kit See Rx Instructions .Route Qty: 1 0RF Rx Instructions: test 4 times per day atorvastatin 40 mg tablet 40 mg PO DAILY Qty: 90 2RF hydrochlorothiazide 12.5 mg tablet 12.5 mg PO DAILY Qty: 90 1RF losartan 100 mg tablet 100 mg PO DAILY 90 Days Qty: 90 1RF potassium chloride 20 mEq tablet,ER particles/crystals 20 meq PO DAILY 90 Days Qty: 90 1RF Tresiba FlexTouch U-200 200 unit/mL (3 mL) insulin pen 120 unit subcut DAILY 30 Days Qty: 9 5RF gabapentin 300 mg capsule 300 mg PO DAILY PRN (Reason: pain) 90 Days Qty: 90 1RF fluticasone propionate [Flonase Allergy Relief] 50 mcg/actuation spray,suspension 1 spray intranasal DAILY 30 Days Qty: 16 3RF Rx Instructions: administer into each nostril omeprazole 20 mg capsule,delayed release(DR/EC) 20 mg PO DAILY Qty: 90 2RF (DME) OneTouch Ultra Test Strip See Rx Instructions .ROUTE .COMPLEX Qty: 100 3RF Dose Instruction: TEST 3 TIMES DAILY Rx Instructions: TEST 3 TIMES DAILY furosemide 20 mg tablet 20 mg PO BID 90 Days Qty: 180 1RF warfarin 2 mg tablet 2 - 4 mg PO DAILY Qty: 180 3RF Protocol: Dose Management Condition: Thursday (Week One) Dose/Route: 4 mg Instruction: 2 x 2 mg tablets Condition: Thursday Dose/Route: 2 mg Instruction: 1 x 2 mg tablet Condition: Thursday Dose/Route: 4 mg Instruction: 2 x 2 mg tablets Condition: Thursday Dose/Route: 4 mg Instruction: 2 x 2 mg tablets Condition: Dose/Route: 4 mg Instruction: 2 x 2 mg tablets Condition: Thursday Dose/Route: 4 mg Instruction: 2 x 2 mg tablets Condition: Thursday Dose/Route: 4 mg Instruction: 2 x 2 mg tablets Condition: Thursday (Week Two) Dose/Route: 4 mg Instruction: 2 x 2 mg tablets Condition: Thursday Dose/Route: 2 mg Instruction: 1 x 2 mg tablet Condition: Thursday Dose/Route: 4 mg Instruction: 2 x 2 mg tablets Condition: Thursday Dose/Route: 4 mg Instruction: 2 x 2 mg tablets Condition: Dose/Route: 4 mg Instruction: 2 x 2 mg tablets Condition: Thursday Dose/Route: 4 mg Instruction: 2 x 2 mg tablets Condition: Thursday Dose/Route: 4 mg Instruction: 2 x 2 mg tablets Protocol Text: Adjustment Start Date: 12/03/23 INR Value: 2.3 INR Date: 12/03/23 Recheck Date: 12/31/23 Additional Instructions: cont same dosing call with any changes in medications albuterol sulfate 90 mcg/actuation HFA aerosol inhaler 2 puff inhalation Q6H PRN (Reason: for wheezing) Qty: 8.5 3RF cyclobenzaprine 5 mg tablet 5 mg PO TID 7 Days Qty: 21 1RF benzonatate 200 mg capsule 200 mg PO TID 5 Days Qty: 15 0RF duloxetine 60 mg capsule,delayed release(DR/EC) 60 mg PO DAILY Qty: 90 3RF (DME) Blood Pressure Cuff Misc See Rx Instructions .ROUTE .MEDSUPPLY Qty: 1 0RF Rx Instructions: As directed insulin aspart U-100 [Novolog FlexPen U-100 Insulin] 100 unit/mL (3 mL) insulin pen 7 unit subcut TID 30 Days Qty: 15 6RF insulin aspart U-100 100 unit/mL solution subcut (DME) back brace Misc See Rx Instructions .Route Qty: 1 0RF Rx Instructions: As directed cetirizine 10 mg tablet 10 mg PO DAILY losartan-hydrochlorothiazide 100-25 mg tablet 1 tab PO DAILY
[2024-01-07 16:55] LABS: MANUAL DIFF FLAG NO
[2024-01-07 16:57] LABS: Basophils Percent Auto 0.3 % (0-2); Eosinophils Percent Auto 0.3 % (0-4); Hematocrit 40.7 % (42.0-52.0); Hemoglobin 14.9 g/dl (14.0-18.0); Imm Gran Abs Auto 0.06 X10*3/uL (0.00-0.03); Imm Gran Pct Auto 0.5 % (0.0-0.4); Lymphocytes Absolute Auto 1.4 X10*3/uL (1.2-4.9); Lymphocytes Percent Auto 12.4 % (20-40); Mean Corpuscular HGB Conc 36.6 g/dl (31.0-36.0); Mean Corpuscular Volume 82.1 fL (80.0-98.0); Mean Platelet Volume 10.3 fL (9.4-12.4); Monocytes Absolute Auto 0.7 X10*3/uL (0.1-1.2); Monocytes Percent Auto 6.1 % (2-11); Neutrophils Absolute Auto 8.9 x10*3/uL (2.0-8.3); Neutrophils Percent Auto 80.4 % (45-73); Platelet Count 192 X10*3/uL (160-400); Red Blood Count 4.96 X10*6/uL (4.60-5.80); Red Cell Distribution Width 12.2 % (11.0-16.0); White Blood Count 11.1 X10*3/uL (4.8-10.8)
[2024-01-07] MEDS: Diphth,Pertus(ACell),Tet Adult 0.5 ML SYRINGE IM (17:10)
[2024-01-07] MEDS: Morphine Sulfate 4 MG/ML CARTRIDGE IVPUSH (17:11)
[2024-01-07 17:13] LABS: Ethanol < 10 mg/dL
[2024-01-07 17:14] LABS: INTERNATIONAL NORM RATIO 2.2 (0.9-1.1); Prothrombin Time 26.4 SEC (11.1-13.3)
[2024-01-07 17:16] LABS: COVID-19 Test Negative (Negative); IDNOW Serial# 55D5AD1C
[2024-01-07 17:17] LABS: Partial Thromboplastin Time 35.3 SEC (26.0-36.8)
[2024-01-07 17:20] LABS: Alanine Aminotransferase 16 U/L (0-40); Albumin Level 3.8 g/dL (3.5-5.0); Alkaline Phosphatase 138 U/L (39-117); Anion Gap 18 (12-20); Aspartate Amino Transferase 21 U/L (5-37); Bilirubin Total 0.5 mg/dL (0.0-1.0); Blood Urea Nitrogen 34 mg/dL (9-16); Calcium 9.2 mg/dL (8.4-10.2); Carbon Dioxide 20 mmol/L (22-29); Chloride 96 mmol/L (96-108); Creatinine Clr Calc Pharmacy 49.3; Estimated Glomerular Filt Rate 39; Glucose Random 566 mg/dL (60-115); Potassium 4.8 mmol/L (3.3-5.1); Sodium 129 mmol/L (135-145)
[2024-01-07] MEDS: Insulin Regular, Human 100 UNIT/ML 3 ML VIAL IVPUSH (17:45)
[2024-01-07] MEDS: Lactated Ringers 1,000 ML 999 ML IV (17:46)
[2024-01-07] MEDS: Morphine Sulfate Immed Release 15 MG TABLET PO (18:01)
--- NOTE | 2024-01-07 18:23 | PC.NURSE ---
nurse to nurse given to CALEB Costa at [facility]
== END 2024-01-07 18:24 | disposition short-term general hospital (02) ==
PROVIDERS: Emergency Provider Emergency Medicine Emergency Medical Services; PCP Physician Assistant
DX: S80.211A Abrasion, right knee, initial encounter (principal); S80.212A Abrasion, left knee, initial encounter; I25.10 Atherosclerotic heart disease of native coronary artery without angina pectoris; M54.2 Cervicalgia; R51.9 Headache, unspecified; W01.0XXA Fall on same level from slipping, tripping and stumbling without subsequent striking against object, initial encounter; Y93.9 Activity, unspecified; Y92.9 Unspecified place or not applicable; Y99.8 Other external cause status; Z79.01 Long term (current) use of anticoagulants; Z23 Encounter for immunization; Z11.52 Encounter for screening for COVID-19; Z79.899 Other long term (current) drug therapy
CPT/HCPCS: 36415; 70450; 70486; 72125; 80053; 80307; 85025; 85610; 85730; 87635; 90471; 90715; 96374; 96375; 99284; 99285; J2270; J7120

== ENCOUNTER 2024-02-02 08:18 | Outpatient (AMB) | payer MEDICARE, OTHER, SELFPAY ==
[2024-02-02 08:40] VITALS: BP 136/60; PULSE 68; O2SAT 98; BMI 37.9
--- NOTE | 2024-02-02 08:40 | MHC.PC.OV ---
Vital Signs 02/02/24 08:40 Height 5 ft 10 in Weight 264 lb BMI 37.9 BP 136/60 Blood Pressure Location Lt brachial Position Sitting Pulse 68 Pulse Source Pulse Oximeter Pulse Oximetry (%) 98 Oxygen Delivery Method Room Air Intake Visit Reasons: [facility]/C2 fracture C.O.D. Clerk Required: No Javascript Programmer: Not Required per policy Accompanied by: Self / Same As Patient Allergies penicillin V Allergy (Unknown, Verified 02/02/24 09:59) hives, rash/tounge edema Vicodin Allergy (Unknown, Uncoded 02/02/24 09:59) dizziness Medication List - Last Reconciled 02/02/24 by Connor Tesfaye PA-C albuterol sulfate 90 mcg/actuation 2 puffs inhalation Q6H PRN atorvastatin 40 mg PO DAILY back brace As directed blood sugar diagnostic (Companion Canine Ultra Test strips) TEST 3 TIMES DAILY wmvtaebqjq-lfmhwhakbajhh-kugk 50-325-40 mg 2 tabs PO Q6H PRN cetirizine 10 mg PO DAILY clonidine HCl 0.1 mg PO BID cyclobenzaprine 5 mg PO TID 7 days duloxetine 60 mg PO DAILY flash glucose scanning reader ([employer] Reid 2 [place]) 4 times per day flash glucose sensor (ThreatTrack SecurityStyle Reid 2 Sensor kit) test 4 times per day fluticasone propionate 50 mcg/actuation (Flonase Allergy Relief) 1 spray intranasal DAILY 30 days furosemide 20 mg PO BID 90 days gabapentin 300 mg PO DAILY PRN 90 days hydrochlorothiazide 12.5 mg PO DAILY insulin aspart U-100 (Novolog FlexPen U-100 Insulin aspart) 7 units (0.07 mL) subcut TID 30 days insulin aspart U-100 subcut insulin degludec (Tresiba FlexTouch U-200 insulin) 120 units (0.6 mL) subcut DAILY 30 days insulin glargine (Lantus U-100 Insulin) units subcut insulin lispro (Admelog SoloStar U-100 Insulin lispro) subcut losartan 100 mg PO DAILY 90 days losartan 25 mg PO DAILY miscellaneous medical supply (Blood Pressure Cuff) As directed omeprazole 20 mg PO DAILY oxycodone mg PO potassium chloride ER 20 mEq PO DAILY 90 days warfarin 2 - 4 mg See Protocol PO DAILY Tobacco use date assessed: 02/02/24 Fall risk assessment: No Falls in past year Last assessed Fall Risk: 02/02/24 Dental Screening Dental Screen Date: 02/02/24 Did you have a dental visit in the last 12 months?: Yes Did you have a dental problem in the last 6 months where you did not have access to dental care?: No Was dental information given to patient?: Patient has dentist HPI [facility]/C2 fracture HPI Details Patient is a 73-year-old male here today for a rehab discharge follow-up. Patient has a past medical history significant for coronary artery disease, hypertension, hyperlipidemia, aortic stenosis status post valve replacement on warfarin and type 2 diabetes. He unfortunately suffered a fall in December in his driveway. He was diagnosed with a C2 fracture and was transferred to [facility]. He did have some lower extremity swelling and pain though no fracture noted. He was seen by neurosurgery who recommended the use of an [place] collar at all times for 8 weeks. He spent a few weeks and short-term rehab which she enjoyed and has regained some strength. He has not interested in any home physical therapy or nursing at this time. He is still does have quite a bit of pain as he has been having to sleep in a recliner due to needing to wear his [place] cervical collar. He does report feeling somewhat out of it at times and attributes this to a postconcussion syndrome as he did suffer head trauma during his fall. CT after the fall without any evidence of intracranial hemorrhage. [facility] Medical History Spondylosis of lumbar spine Diabetic neuropathy Lumbar radiculopathy Obesity Hyperlipidemia LDL goal <70 Diabetes mellitus HTN (hypertension) CAD (coronary artery disease) Surgical History Hx of spinal surgery History of arthroscopy of knee Hx of coronary artery bypass graft History of mechanical aortic valve replacement Family History Father CVD (cardiovascular disease) Mother Diabetes Social History Housing: House Patient Tobacco Use Status: Current everyday Tobacco user Cigarettes Per Day: 8 e-Cigarette/Vaping Use: Never Used Current occupational status: retired Cognitive needs: Yes Hearing needs: No Vision needs: No Questionnaire PHQ-9 Over the last 2 weeks, how often have you been bothered by any of the following problems? 1. Little interest or pleasure in doing things: not at all 2. Feeling down, depressed, or hopeless: not at all 3. Trouble falling or staying asleep, or sleeping too much: nearly every day 4. Feeling tired or having little energy: nearly every day 5. Poor appetite or overeating: nearly every day 6. Feeling bad about yourself - or that you are a failure or have let yourself or your family down: nearly every day 7. Trouble concentrating on things, such as reading the newspaper or watching television: several days 8. Moving or speaking so slowly that other people could have noticed. Or the opposite - being so fidgety or restless that you have been moving around a lot more than usual: not at all 9. Thoughts that you would be better off or of hurting yourself in some way: not at all Total score: 13 Depression Screening Interpretation: Positive Depression Screening Done: Yes [id number] - PHQ-9 Billing: Yes Source: Developed by Drs. Julian Alatorre, Sully Healy, Nitish Moscoso and colleagues, with an educational paula from [employer]. Thrive Questionnaire Date Thrive assessed: 02/02/24 I am a: Patient What is your living situation today?: I have a steady place to live Within the past 12 months, did the food you bought not last and you didn't have the money to get more?: Never true Within the past 12 months, did you worry whether your food would run out before you got money to buy more?: Never true Do you have trouble paying for medicines?: No Do you have trouble getting transportation to medical appointments?: No Do you have trouble paying your heating and electricity bill?: No Do you have trouble taking care of your child, family member or friend?: No Do you have trouble with day-to-day activities such as bathing, preparing meals, shopping, managing finances, etc.?: No Are you currently unemployed and looking for a job?: No Are you interested in more education?: No Please select the resources that you would like help with: None THRIVE Score: 0 AUDIT C Alcohol Use Questionnaire (AUDIT-C) 1. How often do you have a drink containing alcohol?: Never 3. How often do you have six or more drinks on one occasion?: Never Total Score: 0 RACHEL-7 AMB Questionnaire RACHEL-7 Date RACHEL - 7 assessed: 02/02/24 Feeling nervous, anxious, or on edge: 0 = Not at all Not being able to stop or control worryin = Not at all Worrying too much about different things: 0 = Not at all Trouble relaxin = Not at all Being so restless that it is hard to sit still: 0 = Not at all Becoming easily annoyed or irritable: 0 = Not at all Feeling afraid as if something awful might happen: 0 = Not at all Total RACHEL-7 score (0-4 normal; 5-9 mild; 10-14 moderate; 15-21 severe): 0 Source: Developed by Drs. Julian Alatorre, Sully Healy, Nitish Moscoso and colleagues, with an educational paula from [employer]. Review of Systems Const Denies headache(s) Eyes Denies loss of vision ENT Denies vertigo, Denies dizziness, Denies headache(s) and Denies sore throat Card Denies chest pain, Denies leg edema and Denies lightheadedness Resp Denies cough, Denies hemoptysis and Denies wheezing GI Denies abdominal pain, Denies melena, Denies constipation, Denies diarrhea and Denies vomiting Denies dysuria, Denies urinary frequency and Denies urinary urgency Musc Denies arthralgias, Denies joint swelling, Denies numbness and Denies tingling Neuro Denies Abnormal speech present, Denies behavioral changes, Denies vertigo, Denies dizziness, Denies headache(s), Denies loss of vision, Denies memory loss, Denies numbness and Denies tingling Psych Denies anxiety, Denies behavioral changes, Denies depression, Denies memory loss and Denies panic attacks Jose/Lymph Denies easy bleeding and Denies easy bruising Aller/Immun Denies wheezing Physical exam (Primary Care) Vital Signs: Last Vital Signs Pulse 68 02/02/24 08:40 BP 136/60 02/02/24 08:40 Pulse Ox 98 02/02/24 08:40 Oxygen Delivery Method Room Air 03/26/24 08:40 BMI result Body Mass Index 37.9 Tobacco/Smoking Status: Tobacco use Status Tobacco use date assessed 02/02/24 02/02/24 08:45 Patient Tobacco Use Status Current everyday Tobacco 02/02/24 08:45 e-Cigarette/Vaping Use Never Used 02/02/24 08:45 PHQ-9: PHQ-9 Score PHQ-9: Total score 13 02/02/24 09:08 Depression Screening Interpretation: Positive Thrive Assessment: Date of Thrive Assessment Date Thrive assessed 02/02/24 02/02/24 08:45 Const General: healthy appearing, no acute distress, alert and awake Nutritional Appearance: well nourished Orientation/consciousness: oriented to person, oriented to place and oriented to time HENMT Ears: TM's normal bilaterally General nose exam: Normal nasal mucous membranes and turbinates present Eyes Conjunctivae: conjunctivae normal Sclerae: sclerae normal Pupils: Equal, round and reactive pupils present Neck Other: CURRENTLY IN CERVICAL SPINE COLLAR Neck: Yes no lymphadenopathy and Yes no JVD Thyroid: Thyroid normal Carotids: no bruits Resp Effort & Inspection: normal respiratory effort and not tachypneic Auscultation: no crackles, no rales, no rhonchi and no wheezes Cardio Rate: regular rate Rhythm: regular rhythm Heart sounds: no murmurs and normal S1 and S2 GI Palpation (GI): Soft to palpation, nontender, no hepatomegaly and no splenomegaly Auscultation: normal bowel sounds Skin General skin exam: no rashes or lesions noted and dry skin Neuro General: oriented to person, oriented to place and oriented to time Cranial nerves: Yes Equal, round and reactive pupils present Speech: No Abnormal speech present Gait exam (Neuro): Normal gait present Motor exam (neuro): no tremor noted Extrem Right upper extremity: full ROM Left upper extremity: full ROM Right lower extremity: full ROM; no edema Left lower extremity: full ROM; no edema Psych Mental Status: mental status grossly normal Speech and movement: Normal speech and movement present Affect: normal affect Attitude: cooperative Thought process: Normal thought process present Assessment and Plan Assessment & Plan (1) Hospital discharge follow-up: Code(s): Z09 - Encounter for follow-up examination after completed treatment for conditions other than malignant neoplasm (2) Closed C2 fracture: Code(s): S12.100A - Unspecified displaced fracture of second cervical vertebra, initial encounter for closed fracture Qualifiers: Encounter type: subsequent encounter Fracture alignment: nondisplaced Fracture healing: with routine healing Fracture morphology: unspecified fracture morphology Qualified Code(s): S12.101D - Unspecified nondisplaced fracture of second cervical vertebra, subsequent encounter for fracture with routine healing Plan: As per HPI patient currently in cervical spine collar. Will be following up with neurosurgeon on March 08. Continues to be in some fair amount of pain having to sleep in a recliner and having limited motion of his neck. Does have comorbid lumbar spine stenosis. Will supply patient with short-term script oxycodone to use on a p.r.n. basis for his pain (3) Post concussion syndrome: Code(s): F07.81 - Postconcussional syndrome Plan: Patient likely suffering with a postconcussion syndrome. Advised on cognitive rest. Does report using Fioricet which has helped him with his frontal headache. It did discuss with him the rebound headache phenomena that can happen with his medication and patient does understand and agrees to use this on a p.r.n. basis. Orders: Orders Lipid Panel Today I25.10 - Atherosclerotic heart disease of [place] coronary artery without angina pectoris Comprehensive Joy. Panel Fast Today I25.10 - Atherosclerotic heart disease of [place] coronary artery without angina pectoris Microalbumin, Random (w Creat) Today I10 - Essential (primary) hypertension Complete Blood Count no Diff Today E11.65 - Type 2 diabetes mellitus with hyperglycemia, Z79.4 - half-way (current) use of insulin Medications: New insulin lispro (Admelog SoloStar U-100 Insulin lispro) 15 units (0.15 mL) subcut TID 30 days 15 mL 3RF E11.9 - Type 2 diabetes mellitus without complications nqpgfyglzl-yphiuvgkcyqus-mjsa 50-325-40 mg 2 caps PO BEDTIME 5 days PRN 10 caps 0RF pain F07.81 - Postconcussional syndrome oxycodone 5 mg PO Q6H 7 days PRN 28 tabs 0RF pain S12.101D - Unspecified nondisplaced fracture of second cervical vertebra, subsequent encounter for fracture with routine healing Discontinued insulin aspart U-100 (Novolog FlexPen U-100 Insulin aspart) Discontinued Reason: Doctor's Order 7 units (0.07 mL) subcut TID 30 days 15 mL 6RF E11.65 - Type 2 diabetes mellitus with hyperglycemia, Z79.4 - half-way (current) use of insulin Coding Level of Care Code Est Pt Level 4 (35109) Diagnoses Hospital discharge follow-up Z09 Closed nondisplaced fracture of second cervical vertebra with routine healing, unspecified fracture morphology, subsequent encounter S12.101D Encounter type: subsequent encounter Fracture alignment: nondisplaced Fracture healing: with routine healing Fracture morphology: unspecified fracture morphology Post concussion syndrome F07.81
== END 2024-02-02 09:38 | disposition home or self-care (01) ==
PROVIDERS: PCP Physician Assistant; Visit Provider Physician Assistant
DX: S12.101A Unspecified nondisplaced fracture of second cervical vertebra, initial encounter for closed fracture (principal); F07.81 Postconcussional syndrome; Z09 Encounter for follow-up examination after completed treatment for conditions other than malignant neoplasm
CPT/HCPCS: 99214

== ENCOUNTER 2024-02-02 09:49 | Outpatient (AMB) | payer MEDICARE, OTHER, SELFPAY ==
[2024-02-02 10:04] LABS: Prothrombin Time Whole Bld POC 20.2 sec (11.1-13.5); ~PT, ~INR - Anti Coag Clinic 1.7 (0.9-1.1)
--- NOTE | 2024-02-02 10:11 | MHC.OFFVISCO ---
Intake Intake Visit Reasons: Anticoagulation Allergies penicillin V Allergy (Unknown, Verified 02/02/24 09:59) hives, rash/tounge edema Vicodin Allergy (Unknown, Uncoded 02/02/24 09:59) dizziness Medication List - Last Reconciled 02/02/24 by Yaneth Baugh, RN albuterol sulfate 90 mcg/actuation 2 puffs inhalation Q6H PRN atorvastatin 40 mg PO DAILY back brace As directed blood sugar diagnostic ([employer]ouch Ultra Test strips) TEST 3 TIMES DAILY boysrofswi-nzuzpaapzdhxu-wkdh 50-325-40 mg 2 caps PO BEDTIME PRN 5 days cetirizine 10 mg PO DAILY clonidine HCl 0.1 mg PO BID cyclobenzaprine 5 mg PO TID 7 days duloxetine 60 mg PO DAILY flash glucose scanning reader ([employer]. [employer] Reid 2 [place]) 4 times per day flash glucose sensor (FreeStyle Reid 2 Sensor kit) test 4 times per day fluticasone propionate 50 mcg/actuation (Flonase Allergy Relief) 1 spray intranasal DAILY 30 days furosemide 20 mg PO BID 90 days gabapentin 300 mg PO DAILY PRN 90 days hydrochlorothiazide 12.5 mg PO DAILY insulin aspart U-100 subcut insulin degludec (Tresiba FlexTouch U-200 insulin) 120 units (0.6 mL) subcut DAILY 30 days insulin glargine (Lantus U-100 Insulin) units subcut insulin lispro (Admelog SoloStar U-100 Insulin lispro) 15 units (0.15 mL) subcut TID 30 days losartan 100 mg PO DAILY 90 days losartan 25 mg PO DAILY miscellaneous medical supply (Blood Pressure Cuff) As directed omeprazole 20 mg PO DAILY oxycodone 5 mg PO Q6H PRN 7 days potassium chloride ER 20 mEq PO DAILY 90 days warfarin 2 - 4 mg See Protocol PO DAILY Nursing Note INR: 1.7 out of therapeutic range of 2-3 Has not been to ACS since 12/03/23. Pt wearing cervical collar S/P fall on with facial lacs and bruises and fx of C2. States he was at [facility] then to rehab. Medications and supplements reviewed. Taking oxycodone and fioricet for pain. No changes in health, diet, medications, or supplements, Denies any signs and symptoms of bleeding or bruising or clotting. Bleeding, bruising, clotting discussed. Facial injuries healed. Nutritional guidance given to balance reds and greens. Dose: increase today's dose to 6 mg and 4 mg all other days. Pt states in rehab he was getting 4 mg daily F/U INR: 2 weeks Patient verbalizes understanding of instructions given Anti-Coag Initial Assessment Social Hx Patient Tobacco Use Status: Current everyday Tobacco user Coding Level of Care Code Est Patient Level 1 Diagnoses Current use of anticoagulant therapy Z79.01 Assessment & Plan Assessment & Plan (1) Current use of anticoagulant therapy: Code(s): Z79.01 - manager terminal (current) use of anticoagulants Category: Medical
== END 2024-02-02 10:28 | disposition home or self-care (01) ==
LOC: HO.ACS 09:49
PROVIDERS: PCP Physician Assistant; Visit Provider Internal Medicine
DX: Z79.01 Long term (current) use of anticoagulants (principal)

== ENCOUNTER → 2024-02-02 09:49 | Outpatient (BNVA) | payer MEDICARE, OTHER, SELFPAY | PROVIDERS: PCP Physician Assistant; Visit Provider Internal Medicine | DX: Z95.2 Presence of prosthetic heart valve (principal); Z79.01 Long term (current) use of anticoagulants; Z51.81 Encounter for therapeutic drug level monitoring | CPT/HCPCS: 85610; 99211 ==

== ENCOUNTER 2024-02-17 12:24 | Outpatient (AMB) | payer MEDICARE, OTHER, SELFPAY ==
[2024-02-17 12:29] LABS: Prothrombin Time Whole Bld POC 18.2 sec (11.1-13.5); ~PT, ~INR - Anti Coag Clinic 1.5 (0.9-1.1)
--- NOTE | 2024-02-17 13:16 | MHC.OFFVISCO ---
Intake Intake Visit Reasons: Anticoagulation Allergies penicillin V Allergy (Unknown, Verified 02/17/24 12:25) hives, rash/tounge edema Vicodin Allergy (Unknown, Uncoded 02/17/24 12:25) dizziness Medication List - Last Reconciled 02/17/24 by Carol Obrien RN albuterol sulfate 90 mcg/actuation 2 puffs inhalation Q6H PRN atorvastatin 40 mg PO DAILY back brace As directed blood sugar diagnostic (Dog Digitaluch Ultra Test strips) TEST 3 TIMES DAILY vduhmafoeb-irszwmxcdzixr-qhmi 50-325-40 mg 2 caps PO BEDTIME PRN 5 days cetirizine 10 mg PO DAILY clonidine HCl 0.1 mg PO BID cyclobenzaprine 5 mg PO TID 7 days duloxetine 60 mg PO DAILY flash glucose scanning reader (Magneto-Inertial Fusion [employer]yle Reid 2 [place]) 4 times per day flash glucose sensor (FreeStyle Reid 2 Sensor kit) test 4 times per day fluticasone propionate 50 mcg/actuation (Flonase Allergy Relief) 1 spray intranasal DAILY 30 days furosemide 20 mg PO BID 90 days hydrochlorothiazide 12.5 mg PO DAILY insulin aspart U-100 subcut insulin degludec (Tresiba FlexTouch U-200 insulin) 120 units (0.6 mL) subcut DAILY 30 days insulin glargine (Lantus U-100 Insulin) units subcut insulin lispro (Admelog SoloStar U-100 Insulin lispro) 15 units (0.15 mL) subcut TID 30 days losartan 100 mg PO DAILY 90 days losartan 25 mg PO DAILY miscellaneous medical supply (Blood Pressure Cuff) As directed omeprazole 20 mg PO DAILY oxycodone 5 mg PO Q6H PRN 7 days potassium chloride ER 20 mEq PO DAILY 90 days warfarin 2 - 4 mg See Protocol PO DAILY Nursing Note INR 1.5 out of therapeutic range Medications and supplements reviewed Patient status: Recovering from neck fracture, wearing neck brace and ambulating with walker, he missed part of a dose on thursday took 2mg instead of 4mg may need increase in warfarin weekly dose Medications or supplements: he stopped gabapentin because it was making him too tiered Diet: good Denies any signs and symptoms of bleeding or clotting or unusual bruising Bleeding, bruising, clotting discussed Nutritional guidance given: avoid greens x 3 days, eat foods to help raise the INR Dose: 6mg today and tomorrow then 4mg daily F/U INR Date: 02/23/24 ?? Patient verbalizing understanding of instructions given. t/c to PCP to report low INR spoke with Henry Walters to convey msg to PCP - this msg will also be sent to PCP Anti-Coag Initial Assessment Social Hx Patient Tobacco Use Status: Current everyday Tobacco user Coding Level of Care Code Est Patient Level 1 Diagnoses Current use of anticoagulant therapy Z79.01 Results AMB INR Fingerstick AMB INR Fingerstick 1.5 Last Edit by Carol Obrien RN on 02/17/24 12:30 MANUAL ENTRY Assessment & Plan Assessment & Plan (1) Current use of anticoagulant therapy: Code(s): Z79.01 - director long term care (current) use of anticoagulants Category: Medical
== END 2024-02-17 13:25 | disposition home or self-care (01) ==
LOC: HO.ACS 12:24
PROVIDERS: PCP Physician Assistant; Visit Provider Internal Medicine
DX: Z79.01 Long term (current) use of anticoagulants (principal)

== ENCOUNTER → 2024-02-17 12:24 | Outpatient (BNVA) | payer MEDICARE, OTHER, SELFPAY | PROVIDERS: PCP Physician Assistant; Visit Provider Internal Medicine | DX: Z95.2 Presence of prosthetic heart valve (principal); Z79.01 Long term (current) use of anticoagulants; Z51.81 Encounter for therapeutic drug level monitoring | CPT/HCPCS: 85610; 99211 ==

== ENCOUNTER 2024-02-23 13:31 | Outpatient (AMB) | payer MEDICARE, OTHER, SELFPAY ==
[2024-02-23 13:55] LABS: Prothrombin Time Whole Bld POC 36.4 sec (11.1-13.5)
--- NOTE | 2024-02-23 14:00 | MHC.OFFVISCO ---
Intake Intake Visit Reasons: Anticoagulation Allergies penicillin V Allergy (Unknown, Verified 02/23/24 13:48) hives, rash/tounge edema Vicodin Allergy (Unknown, Uncoded 02/23/24 13:48) dizziness Medication List - Last Reconciled 02/23/24 by Yaneth Baugh, RN albuterol sulfate 90 mcg/actuation 2 puffs inhalation Q6H PRN atorvastatin 40 mg PO DAILY back brace As directed blood sugar diagnostic (Debteyeuch Ultra Test strips) TEST 3 TIMES DAILY dnyoyjgtch-wfqozwyeosmfb-dmec 50-325-40 mg 2 caps PO BEDTIME PRN 5 days cetirizine 10 mg PO DAILY clonidine HCl 0.1 mg PO BID cyclobenzaprine 5 mg PO TID 7 days duloxetine 60 mg PO DAILY flash glucose scanning reader (SwayStyle Reid 2 [place]) 4 times per day flash glucose sensor (FreeStyle Reid 2 Sensor kit) test 4 times per day fluticasone propionate 50 mcg/actuation (Flonase Allergy Relief) 1 spray intranasal DAILY 30 days furosemide 20 mg PO BID 90 days hydrochlorothiazide 12.5 mg PO DAILY insulin aspart U-100 subcut insulin degludec (Tresiba FlexTouch U-200 insulin) 120 units (0.6 mL) subcut DAILY 30 days insulin glargine (Lantus U-100 Insulin) units subcut insulin lispro (Admelog SoloStar U-100 Insulin lispro) 15 units (0.15 mL) subcut TID 30 days losartan 100 mg PO DAILY 90 days losartan 25 mg PO DAILY miscellaneous medical supply (Blood Pressure Cuff) As directed omeprazole 20 mg PO DAILY oxycodone 5 mg PO Q6H PRN 7 days potassium chloride ER 20 mEq PO DAILY 90 days warfarin 2 - 4 mg See Protocol PO DAILY Nursing Note Pt to [facility] with use of walker and wearing a neck brace States he takes tylenol 2X/day INR: 3.0 in therapeutic range of 2-3 Medications and supplements reviewed: Tylenol No changes in health, diet, medications, or supplements, Denies any signs and symptoms of bleeding or bruising or clotting. Bleeding, bruising, clotting discussed Nutritional guidance given to increase greens while taking tylenol daily Dose: 4mg daily F/U INR: recommended 1 week but pt wants 3 weeks Patient verbalizes understanding of instructions given Anti-Coag Initial Assessment Social Hx Patient Tobacco Use Status: Current everyday Tobacco user Coding Level of Care Code Est Patient Level 1 Diagnoses Current use of anticoagulant therapy Z79.01 Assessment & Plan Assessment & Plan (1) Current use of anticoagulant therapy: Code(s): Z79.01 - manager terminal (current) use of anticoagulants Category: Medical
== END 2024-02-23 14:05 | disposition home or self-care (01) ==
LOC: HO.ACS 13:31
PROVIDERS: PCP Physician Assistant; Visit Provider Internal Medicine
DX: Z79.01 Long term (current) use of anticoagulants (principal)

== ENCOUNTER → 2024-02-23 13:31 | Outpatient (BNVA) | payer MEDICARE, OTHER, SELFPAY | PROVIDERS: PCP Physician Assistant; Visit Provider Internal Medicine | DX: Z95.2 Presence of prosthetic heart valve (principal); Z79.01 Long term (current) use of anticoagulants; Z51.81 Encounter for therapeutic drug level monitoring | CPT/HCPCS: 85610; 99211 ==

== ENCOUNTER 2024-05-20 13:55 | Outpatient (AMB) | payer MEDICARE, OTHER, SELFPAY ==
--- NOTE | 2024-05-20 14:18 | MHC.OFFVISCO ---
Intake Intake Visit Reasons: Anticoagulation Allergies penicillin V Allergy (Unknown, Verified 05/20/24 13:58) hives, rash/tounge edema Vicodin Allergy (Unknown, Uncoded 05/20/24 13:58) dizziness Medication List - Last Reconciled 05/20/24 by Carol Obrien RN albuterol sulfate 90 mcg/actuation 2 puffs inhalation Q6H PRN atorvastatin 40 mg PO DAILY back brace As directed blood sugar diagnostic (CalastoneTouch Ultra Test strips) TEST 3 TIMES DAILY cetirizine 10 mg PO DAILY duloxetine 60 mg PO DAILY flash glucose scanning reader ([employer] Reid 2 [place]) 4 times per day flash glucose sensor (FreeStyle Reid 2 Sensor kit) test 4 times per day fluticasone propionate 50 mcg/actuation (Flonase Allergy Relief) 1 spray intranasal DAILY 30 days furosemide 20 mg PO BID 90 days hydrochlorothiazide 12.5 mg PO DAILY insulin aspart U-100 subcut insulin degludec (Tresiba FlexTouch U-200 insulin) 120 units (0.6 mL) subcut DAILY 30 days insulin glargine (Lantus U-100 Insulin) units subcut insulin lispro (Admelog SoloStar U-100 Insulin lispro) 15 units (0.15 mL) subcut TID 30 days losartan 25 mg PO DAILY 90 days miscellaneous medical supply (Blood Pressure Cuff) As directed omeprazole 20 mg PO DAILY oxycodone 5 mg PO Q6H PRN 7 days potassium chloride ER 20 mEq PO DAILY 90 days warfarin 2 - 4 mg See Protocol PO DAILY Nursing Note INR: 3.5 almost therapeutic range Medications and supplements reviewed taking tylenol BID for neck and back pain which can raise the INR, gait steady with walker, pt states I feel like my memory is going, he also stated that he wishes his time has come to go ( to ) - he states he has been through so much, he also talks positively about grandchildren doing well Denies any signs and symptoms of bleeding or bruising or clotting. Bleeding, bruising, clotting discussed Nutritional guidance given- eat a mix of fruits and vegetables Dose: 2mg x 1 day/ 4mg x 6 days F/U INR: 3 weeks per pt request due to decreased mobility Patient verbalizes understanding of instructions given Anti-Coag Initial Assessment Social Hx Patient Tobacco Use Status: Current everyday Tobacco user Coding Level of Care Code Est Patient Level 1 Diagnoses Current use of anticoagulant therapy Z79.01 Results AMB INR Fingerstick AMB INR Fingerstick 3.5 Last Edit by Carol Obrien RN on 05/20/24 14:10 MANUAL ENTRY Assessment & Plan Assessment & Plan (1) Current use of anticoagulant therapy: Code(s): Z79.01 - skilled nursing (current) use of anticoagulants Category: Medical
[2024-05-20 14:20] LABS: Prothrombin Time Whole Bld POC 41.8 sec (11.1-13.5); ~PT, ~INR - Anti Coag Clinic 3.5 (0.9-1.1)
== END 2024-05-20 14:27 | disposition home or self-care (01) ==
LOC: HO.ACS 13:55
PROVIDERS: PCP Physician Assistant; Visit Provider Internal Medicine
DX: Z79.01 Long term (current) use of anticoagulants (principal)

== ENCOUNTER → 2024-05-20 13:55 | Outpatient (BNVA) | payer MEDICARE, OTHER, SELFPAY | PROVIDERS: PCP Physician Assistant; Visit Provider Internal Medicine | DX: Z95.2 Presence of prosthetic heart valve (principal); Z79.01 Long term (current) use of anticoagulants; Z51.81 Encounter for therapeutic drug level monitoring | CPT/HCPCS: 85610; 99211 ==

== ENCOUNTER 2024-06-14 14:05 | Outpatient (AMB) | payer MEDICARE, OTHER, SELFPAY ==
--- NOTE | 2024-06-14 14:22 | MHC.PC.OV ---
Vital Signs 06/14/24 14:23 Height 5 ft 10 in Weight 261 lb 2 oz BMI 37.5 BP 158/90 H Blood Pressure Location Lt brachial Position Sitting Pulse 104 H Pulse Source Pulse Oximeter Pulse Oximetry (%) 97 Oxygen Delivery Method Room Air Intake Visit Reasons: f/u DMII Intake Note: Pt is here for DMII F/U, pt requesting two referrals ENT and inclusion specialist. Hand Turner Required: No Accompanied by: Self / Same As Patient Allergies penicillin V Allergy (Unknown, Verified 06/14/24 15:21) hives, rash/tounge edema Vicodin Allergy (Unknown, Uncoded 06/14/24 15:21) dizziness Medication List - Last Reconciled 06/14/24 by Connor Tesfaye PA-C albuterol sulfate 90 mcg/actuation 2 puffs inhalation Q6H PRN atorvastatin 40 mg PO DAILY back brace As directed blood sugar diagnostic (Sava TransmediaTouch Ultra Test strips) TEST 3 TIMES DAILY cetirizine 10 mg PO DAILY duloxetine 60 mg PO DAILY flash glucose scanning reader (Hitsbookyle Reid 2 [place]) 4 times per day flash glucose sensor (CloudFactoryStyle Reid 2 Sensor kit) test 4 times per day fluticasone propionate 50 mcg/actuation (Flonase Allergy Relief) 1 spray intranasal DAILY 30 days furosemide 20 mg PO BID 90 days hydrochlorothiazide 12.5 mg PO DAILY insulin aspart U-100 subcut insulin degludec (Tresiba FlexTouch U-200 insulin) 120 units (0.6 mL) subcut DAILY 30 days insulin glargine (Lantus U-100 Insulin) units subcut insulin lispro (Admelog SoloStar U-100 Insulin lispro) 15 units (0.15 mL) subcut TID 30 days losartan 25 mg PO DAILY 90 days miscellaneous medical supply (Blood Pressure Cuff) As directed omeprazole 20 mg PO DAILY oxycodone 5 mg PO Q6H PRN 7 days potassium chloride ER 20 mEq PO DAILY 90 days warfarin 2 - 4 mg See Protocol PO DAILY Tobacco use date assessed: 02/02/24 Dental Screening Dental Screen Date: 02/02/24 HPI f/u DMII HPI Details Patient is a 73-year-old male here today for a follow-up visit. Patient's past medical history significant for type 2 diabetes, coronary artery disease, smoker, hypertension, chronic lumbar spine pain. --> concerns--> reports having a cough and some chest congestion over the last several weeks. He is interested in antibiotic to help him clear the congestion. Unfortunately still smoking cigarettes on a daily basis. Lumbar disc disease: Report having worsening siatica? down right side.? Denies any acute injuries to his lower back.? Denies any falls.? He has recently got MRI showing severe lumbar disc disease and spinal stenosis, he is followed by neurosurgeon and anticipates getting surgery. He has been started on gabapentin 300 b.i.d. to which he has only been taking q.d. with minimal relief. He would like to stay on this medication as it does help somewhat of his pain. . HTN: Blood pressure slightly elevated today in office. He reports his losartan was decreased to 25 mg for some reason. Unclear if this was done at recent hospitalization. PLAN: Will return his losartan dose to 100 mg .. Major depressive disorder: Reports he has been very depressed lately, not wanting to leave home or due any activity sees to like to do. He continues on duloxetine which helps a bit though still has breakthrough depression. He is willing to add on Wellbutrin to help his depression. He is not interested in cognitive behavioral therapy at this time. .. ? .. ? Congestive heart failure/history of replaced heart valve: Patient continues on warfarin has been is stable with his INRs, no overt signs of bleeding. He continues on furosemide and supplemental potassium. He continues to have bilateral edema in his lower extremities. Admits to dietary indiscretion and has not been taking care of his diabetes at all because of his depression. His recent echocardiogram essentially normal, ejection fraction acceptable ,did show some filling impairment ? .. ? DMII:? Today's A1c at 14 from 11 . He does admit to dietary indiscretion. He reports being noncompliant with his long-acting and short-acting insulins. Again reports he has not been taking care of his diabetes because of his depression. PLAN: Will start GLP1- for better blood sugar control and added benefit of weight loss. ? Unfortunately patient does have microalbuminuria. Also found to have slight anemia likely due to chronic disease. He is interested in starting to use to [email or web address] her manage his blood sugars [facility] Medical History Spondylosis of lumbar spine Diabetic neuropathy Lumbar radiculopathy Obesity Hyperlipidemia LDL goal <70 Diabetes mellitus HTN (hypertension) CAD (coronary artery disease) Surgical History Hx of spinal surgery History of arthroscopy of knee Hx of coronary artery bypass graft History of mechanical aortic valve replacement Family History Father CVD (cardiovascular disease) Mother Diabetes Social History Housing: House Patient Tobacco Use Status: Current everyday Tobacco user Cigarettes Per Day: 8 e-Cigarette/Vaping Use: Never Used Current occupational status: retired Cognitive needs: Yes Hearing needs: No Vision needs: No Questionnaire Thrive Questionnaire Date Thrive assessed: 02/02/24 RACHEL-7 AMB Questionnaire RACHEL-7 Date RACHEL - 7 assessed: 02/02/24 Source: Developed by Drs. Julian Alatorre, Sully Healy, Nitish Moscoso and colleagues, with an educational paula from [employer]. Review of Systems Const Denies headache(s) Eyes Denies loss of vision ENT Denies vertigo, Denies dizziness, Denies headache(s) and Denies sore throat Card Denies chest pain, Denies leg edema and Denies lightheadedness Resp Denies cough, Denies hemoptysis and Denies wheezing GI Denies abdominal pain, Denies melena, Denies constipation, Denies diarrhea and Denies vomiting Denies dysuria, Denies urinary frequency and Denies urinary urgency Musc Denies arthralgias, Denies joint swelling, Denies numbness and Denies tingling Neuro Denies Abnormal speech present, Denies behavioral changes, Denies vertigo, Denies dizziness, Denies headache(s), Denies loss of vision, Denies memory loss, Denies numbness and Denies tingling Psych Denies anxiety, Denies behavioral changes, Denies depression, Denies memory loss and Denies panic attacks Jose/Lymph Denies easy bleeding and Denies easy bruising Aller/Immun Denies wheezing Physical exam (Primary Care) Vital Signs: Last Vital Signs Pulse 104 H 06/14/24 14:23 BP 158/90 H 06/14/24 14:23 Pulse Ox 97 06/14/24 14:23 Oxygen Delivery Method Room Air 06/14/24 14:23 BMI result Body Mass Index 37.5 Tobacco/Smoking Status: Tobacco use Status Tobacco use date assessed 02/02/24 06/14/24 14:25 Patient Tobacco Use Status Current everyday Tobacco 06/14/24 14:25 e-Cigarette/Vaping Use Never Used 06/14/24 14:25 Thrive Assessment: Date of Thrive Assessment Date Thrive assessed 02/02/24 06/14/24 14:25 Const General: healthy appearing, no acute distress, alert and awake Nutritional Appearance: well nourished Orientation/consciousness: oriented to person, oriented to place and oriented to time HENMT Ears: TM's normal bilaterally General nose exam: Normal nasal mucous membranes and turbinates present Eyes Conjunctivae: conjunctivae normal Sclerae: sclerae normal Pupils: Equal, round and reactive pupils present Neck Neck: Yes no lymphadenopathy and Yes no JVD Thyroid: Thyroid normal Carotids: no bruits Resp Effort & Inspection: normal respiratory effort and not tachypneic Auscultation: no crackles, no rales, no rhonchi and no wheezes Cardio Rate: regular rate Rhythm: regular rhythm Heart sounds: no murmurs and normal S1 and S2 GI Palpation (GI): Soft to palpation, nontender, no hepatomegaly and no splenomegaly Auscultation: normal bowel sounds Skin General skin exam: no rashes or lesions noted and dry skin Neuro General: oriented to person, oriented to place and oriented to time Cranial nerves: Yes Equal, round and reactive pupils present Speech: No Abnormal speech present Gait exam (Neuro): Normal gait present Motor exam (neuro): no tremor noted Extrem Right upper extremity: full ROM Left upper extremity: full ROM Right lower extremity: full ROM; no edema Left lower extremity: full ROM; no edema Psych Mental Status: mental status grossly normal Speech and movement: Normal speech and movement present Affect: normal affect Attitude: cooperative Thought process: Normal thought process present Results AMB Hemoglobin A1c AMB Hemoglobin A1c 14.0 % Last Edit by LUH Lemos on 06/14/24 14:30 Results Reviewed Results Reviewed: Laboratory Last Values Hgb A1c (Clinic) 14.0 % (4.0-6.0) H 06/14/24 14:15 Assessment and Plan Assessment & Plan (1) Diabetes mellitus: Comment: Under your care. Target goal hemoglobin A1c less than 7%. Code(s): E11.9 - Type 2 diabetes mellitus without complications Qualifiers: Diabetes mellitus complication status: with hyperglycemia Diabetes mellitus custodial insulin use: with custodial use Diabetes mellitus type: type 2 Qualified Code(s): E11.65 - Type 2 diabetes mellitus with hyperglycemia; Z79.4 - ad terminal makeup operator (current) use of insulin Plan: Patient continues daily use short-acting and long-acting insulins. Today's A1c at 14 from 11. He admits not taking his insulin or short-acting insulin or Ozempic. He has been depressed which has been barrier to him. He does admit to some dietary indiscretion. He is interested in starting Ozempic and restarting his insulin for better control of his sugars. Will get A1c at next lab draw with goal A1c to be below 7. (2) Closed C2 fracture: Code(s): S12.100A - Unspecified displaced fracture of second cervical vertebra, initial encounter for closed fracture Qualifiers: Encounter type: subsequent encounter Fracture alignment: nondisplaced Fracture healing: with routine healing Fracture morphology: unspecified fracture morphology Qualified Code(s): S12.101D - Unspecified nondisplaced fracture of second cervical vertebra, subsequent encounter for fracture with routine healing Plan: Has followed up with neurosurgeon now has been able to take off his C-collar. He still has stiffness in his neck that he uses Tylenol for though still reports pain. Will supply patient with tramadol 50 mg to use on a p.r.n. basis for his pain. (3) HTN (hypertension): Comment: See above. Continue current medical treatment. Code(s): I10 - Essential (primary) hypertension Qualifiers: Hypertension type: essential hypertension Qualified Code(s): I10 - Essential (primary) hypertension Plan: Blood pressure elevated today in office. He was previously on losartan 100 mg though has been reduced to 25 mg for some unclear reason. Will return to using losartan 100 mg for better blood pressure control. Goal blood pressures to be below 140/90 (4) Tobacco dependence: Code(s): F17.200 - Nicotine dependence, unspecified, uncomplicated Plan: Patient does understand he needs to quit smoking, he refuses to use nicotine patches/ gum or medications. He will try to wean down and stop on his own. Will try Wellbutrin in hopes to help him cut down smoking. (5) Stenosis, spinal, lumbar: Code(s): M48.061 - Spinal stenosis, lumbar region without neurogenic claudication Qualifiers: Neurogenic claudication status: with neurogenic claudication Qualified Code(s): M48.062 - Spinal stenosis, lumbar region with neurogenic claudication Plan: As per HPI he is now followed by a neurosurgeon and recently got MRI of his lumbar spine showing severe disc disease and lumbar stenosis. He continues to be in pain in his lower back with radiculopathy down his lower extremities. He was formally on narcotic pain medication for his ADAN though now just managed with Tylenol / gabapentin, and duloxetine. Will add on the tramadol 50 mg as needed for his back pain. At this point he is not a candidate for back surgery due to his uncontrolled type 2 diabetes (6) CAD (coronary artery disease): Comment: Underwent 2 vessel coronary bypass grafting at the time of aortic valve replacement. No symptoms of angina at current time. Continue lifelong aspirin therapy as above. Blood pressure is well optimized on current therapy. Continue the same. Continue high-intensity statin therapy with target goal LDL less than 70 mg/dL. Advised lipid panel in near future. Complete smoking cessation was advised. Also recommend to continue to participate in aggressive lifestyle modification with weight loss as well as increase activity level. He understands and agrees. Will follow up in 1 year's time. Code(s): I25.10 - Atherosclerotic heart disease of [place] coronary artery without angina pectoris Qualifiers: Associated angina: without angina Coronary Disease-Associated Artery/Lesion type: [place] artery [place] vs. transplanted heart: [place] heart Qualified Code(s): I25.10 - Atherosclerotic heart disease of [place] coronary artery without angina pectoris Plan: Patient followed by Cardiology. Continues on aspirin and moderate-dose statin therapy. Advised on the need to quit smoking and patient does understand though has not willing to do so at this time. Orders: Orders AMB Hemoglobin A1c 06/14/24 E11.65 - Type 2 diabetes mellitus with hyperglycemia, Z79.4 - half-way (current) use of insulin Referrals Podiatry Referral E11.65 - Type 2 diabetes mellitus with hyperglycemia, Z79.4 - half-way (current) use of insulin Medications: New doxycycline monohydrate 100 mg PO BID 7 days 14 caps 0RF J06.9 - Acute upper respiratory infection, unspecified tramadol 50 mg PO BID 7 days PRN 14 tabs 0RF pain M47.816 - Spondylosis without myelopathy or radiculopathy, lumbar region bupropion HCl SR (Wellbutrin SR) 100 mg PO DAILY 30 days 30 tabs 1RF F33.1 - Major depressive disorder, recurrent, moderate losartan 100 mg PO DAILY 90 days 90 tabs 1RF I10 - Essential (primary) hypertension Refilled duloxetine 60 mg PO DAILY 90 caps 3RF Discontinued losartan Discontinued Reason: Doctor's Order 25 mg PO DAILY 90 days 90 tabs 1RF I10 - Essential (primary) hypertension oxycodone Discontinued Reason: Doctor's Order 5 mg PO Q6H 7 days PRN 28 tabs 0RF pain S12.101D - Unspecified nondisplaced fracture of second cervical vertebra, subsequent encounter for fracture with routine healing Patient Instructions: Goal: A1c to be below 7.0, LDL to be below 100 will blood pressure to be below 140/90 Barriers: Adherence to medication, and healthy eating habits Coding Level of Care Code Est Pt Level 4 (72346) Diagnoses Type 2 diabetes mellitus with hyperglycemia, with long-term current use of insulin E11.65; Z79.4 Diabetes mellitus complication status: with hyperglycemia Diabetes mellitus terminal worker insulin use: with terminal worker use Diabetes mellitus type: type 2 Closed nondisplaced fracture of second cervical vertebra with routine healing, unspecified fracture morphology, subsequent encounter S12.101D Encounter type: subsequent encounter Fracture alignment: nondisplaced Fracture healing: with routine healing Fracture morphology: unspecified fracture morphology Essential hypertension I10 Hypertension type: essential hypertension Tobacco dependence F17.200 Spinal stenosis of lumbar region with neurogenic claudication M48.062 Neurogenic claudication status: with neurogenic claudication Coronary artery disease involving [place] coronary artery of [place] heart without angina pectoris I25.10 Associated angina: without angina Coronary Disease-Associated Artery/Lesion type: [place] artery [place] vs. transplanted heart: [place] heart
[2024-06-14 14:23] VITALS: BP 158/90; PULSE 104; O2SAT 97; BMI 37.5
== END 2024-06-14 15:02 | disposition home or self-care (01) ==
PROVIDERS: PCP Physician Assistant; Visit Provider Physician Assistant
DX: E11.65 Type 2 diabetes mellitus with hyperglycemia (principal); Z79.4 Long term (current) use of insulin
CPT/HCPCS: 83036; 99214

== ENCOUNTER 2024-06-14 15:20 | Outpatient (AMB) | payer MEDICARE, OTHER, SELFPAY ==
--- NOTE | 2024-06-14 15:31 | MHC.OFFVISCO ---
Intake Intake Visit Reasons: Anticoagulation Allergies penicillin V Allergy (Unknown, Verified 06/14/24 15:21) hives, rash/tounge edema Vicodin Allergy (Unknown, Uncoded 06/14/24 15:21) dizziness Medication List - Last Reconciled 06/14/24 by Veronica Fabian, RN albuterol sulfate 90 mcg/actuation 2 puffs inhalation Q6H PRN atorvastatin 40 mg PO DAILY back brace As directed blood sugar diagnostic (American Civics ExchangeTouch Ultra Test strips) TEST 3 TIMES DAILY bupropion HCl SR (Wellbutrin SR) 100 mg PO DAILY 30 days cetirizine 10 mg PO DAILY doxycycline monohydrate 100 mg PO BID 7 days duloxetine 60 mg PO DAILY flash glucose scanning reader (Inverted EdgeStyle Reid 2 [place]) 4 times per day flash glucose sensor (FreeStyle Reid 2 Sensor kit) test 4 times per day fluticasone propionate 50 mcg/actuation (Flonase Allergy Relief) 1 spray intranasal DAILY 30 days furosemide 20 mg PO BID 90 days hydrochlorothiazide 12.5 mg PO DAILY insulin aspart U-100 subcut insulin degludec (Tresiba FlexTouch U-200 insulin) 120 units (0.6 mL) subcut DAILY 30 days insulin glargine (Lantus U-100 Insulin) units subcut insulin lispro (Admelog SoloStar U-100 Insulin lispro) 15 units (0.15 mL) subcut TID 30 days losartan 25 mg PO DAILY 90 days miscellaneous medical supply (Blood Pressure Cuff) As directed omeprazole 20 mg PO DAILY potassium chloride ER 20 mEq PO DAILY 90 days tramadol 50 mg PO BID PRN 7 days warfarin 2 - 4 mg See Protocol PO DAILY Nursing Note INR: 2.0- in therapeutic range of 2-3 Medications and supplements reviewed- wellbutrinin SR, doxycycline and tramadol No changes in health, diet, medications, or supplements, Denies any signs and symptoms of bleeding or bruising or clotting. Bleeding, bruising, clotting discussed Nutritional guidance given Dose: 2mg x 1. 4mg x 6- pt insists taking 2mg on mondays F/U INR: 2 weeks Patient verbalizes understanding of instructions given pt saw pcp today- started on wellbutrinin SR- no interaction with warfarin per micromedex, also to start doxycycline for resp issues, pt states not sure when he will start this- aware it will raise inr and instructed to let acs know when he is starting also, tramadol prn for pain- cont to c.o neck pain as well as back pain- amb with walker Anti-Coag Initial Assessment Social Hx Patient Tobacco Use Status: Current everyday Tobacco user Coding Level of Care Code Est Patient Level 1 Diagnoses Current use of anticoagulant therapy Z79.01 Results AMB Hemoglobin A1c AMB Hemoglobin A1c 14.0 % Last Edit by LUH Lemos on 06/14/24 14:30 Assessment & Plan Assessment & Plan (1) Current use of anticoagulant therapy: Code(s): Z79.01 - ocean transportation intermediary (current) use of anticoagulants Category: Medical
[2024-06-14 15:33] LABS: Prothrombin Time Whole Bld POC 24.1 sec (11.1-13.5)
== END 2024-06-14 15:40 | disposition home or self-care (01) ==
LOC: HO.ACS 15:20
PROVIDERS: PCP Physician Assistant; Visit Provider Internal Medicine
DX: Z79.01 Long term (current) use of anticoagulants (principal)

== ENCOUNTER → 2024-06-14 15:20 | Outpatient (BNVA) | payer MEDICARE, OTHER, SELFPAY | PROVIDERS: PCP Physician Assistant; Visit Provider Internal Medicine | DX: Z95.2 Presence of prosthetic heart valve (principal); Z79.01 Long term (current) use of anticoagulants; Z51.81 Encounter for therapeutic drug level monitoring | CPT/HCPCS: 85610; 99211 ==

== ENCOUNTER 2024-06-28 14:17 | Outpatient (AMB) | payer MEDICARE, OTHER, SELFPAY ==
--- NOTE | 2024-06-28 14:47 | MHC.OFFVISCO ---
Intake Intake Visit Reasons: Anticoagulation Allergies penicillin V Allergy (Unknown, Verified 06/28/24 14:42) hives, rash/tounge edema Vicodin Allergy (Unknown, Uncoded 06/28/24 14:42) dizziness Medication List - Last Reconciled 06/28/24 by Veronica Fabian RN albuterol sulfate 90 mcg/actuation 2 puffs inhalation Q6H PRN atorvastatin 40 mg PO DAILY back brace As directed blood sugar diagnostic (Blue Gold [employer] Ultra Test strips) TEST 3 TIMES DAILY bupropion HCl SR (Wellbutrin SR) 100 mg PO DAILY 30 days cetirizine 10 mg PO DAILY duloxetine 60 mg PO DAILY flash glucose scanning reader ([employer] Reid 2 [place]) 4 times per day flash glucose sensor (BahouiStyle Reid 2 Sensor kit) test 4 times per day fluticasone propionate 50 mcg/actuation (Flonase Allergy Relief) 1 spray intranasal DAILY 30 days furosemide 20 mg PO BID 90 days hydrochlorothiazide 12.5 mg PO DAILY insulin aspart U-100 subcut insulin degludec (Tresiba FlexTouch U-200 insulin) 120 units (0.6 mL) subcut DAILY 30 days insulin glargine (Lantus U-100 Insulin) units subcut insulin lispro (Admelog SoloStar U-100 Insulin lispro) 15 units (0.15 mL) subcut TID 30 days losartan 100 mg PO DAILY 90 days miscellaneous medical supply (Blood Pressure Cuff) As directed omeprazole 20 mg PO DAILY potassium chloride ER 20 mEq PO DAILY 90 days tramadol 50 mg PO BID PRN 7 days warfarin 2 - 4 mg See Protocol PO DAILY Nursing Note INR 1.8-?? out of therapeutic range of 2-3 Medications and supplements reviewed Patient status: pt states completed doxycycline bid for 5 days one week ago pt denies missed dose Medications or supplements: no changes Diet: good Denies any signs and symptoms of bleeding or clotting or unusual bruising Bleeding, bruising, clotting discussed Nutritional guidance given: no greens for 2 days, eat a red today Dose: 6mg today then 4mg x 6, 2mg x 1 F/U INR Date : 10days Patient verbalizing understanding of instructions given. Anti-Coag Initial Assessment Social Hx Patient Tobacco Use Status: Current everyday Tobacco user Coding Level of Care Code Est Patient Level 1 Diagnoses Current use of anticoagulant therapy Z79.01 Results AMB INR Fingerstick AMB INR Fingerstick 1.8 Last Edit by Veronica Fabian RN on 06/28/24 14:48 interface delay Assessment & Plan Assessment & Plan (1) Current use of anticoagulant therapy: Code(s): Z79.01 - correction (current) use of anticoagulants Category: Medical
[2024-06-28 14:49] LABS: Prothrombin Time Whole Bld POC 22.1 sec (11.1-13.5); ~PT, ~INR - Anti Coag Clinic 1.8 (0.9-1.1)
== END 2024-06-28 15:12 | disposition home or self-care (01) ==
LOC: HO.ACS 14:17
PROVIDERS: PCP Physician Assistant; Visit Provider Internal Medicine
DX: Z79.01 Long term (current) use of anticoagulants (principal)

== ENCOUNTER → 2024-06-28 14:17 | Outpatient (BNVA) | payer MEDICARE, OTHER, SELFPAY | PROVIDERS: PCP Physician Assistant; Visit Provider Internal Medicine | DX: Z95.2 Presence of prosthetic heart valve (principal); Z79.01 Long term (current) use of anticoagulants; Z51.81 Encounter for therapeutic drug level monitoring | CPT/HCPCS: 85610; 99211 ==

== ENCOUNTER 2024-07-08 14:00 | Outpatient (AMB) | payer MEDICARE, OTHER, SELFPAY ==
--- NOTE | 2024-07-08 14:45 | MHC.OFFVISCO ---
Intake Intake Visit Reasons: Anticoagulation Allergies penicillin V Allergy (Unknown, Verified 07/08/24 14:27) hives, rash/tounge edema Vicodin Allergy (Unknown, Uncoded 07/08/24 14:27) dizziness Medication List - Last Reconciled 07/08/24 by Carol Obrien RN acetaminophen 1,000 mg PO .q hs PRN albuterol sulfate 90 mcg/actuation 2 puffs inhalation Q6H PRN atorvastatin 40 mg PO DAILY back brace As directed blood sugar diagnostic (Digital OceanTouch Ultra Test strips) TEST 3 TIMES DAILY bupropion HCl SR (Wellbutrin SR) 100 mg PO DAILY 30 days cetirizine 10 mg PO DAILY duloxetine 60 mg PO DAILY flash glucose scanning reader (SportyBirdStyle Reid 2 [place]) 4 times per day flash glucose sensor (SportyBirdStyle Reid 2 Sensor kit) test 4 times per day fluticasone propionate 50 mcg/actuation (Flonase Allergy Relief) 1 spray intranasal DAILY 30 days furosemide 20 mg PO BID 90 days hydrochlorothiazide 12.5 mg PO DAILY insulin aspart U-100 subcut insulin degludec (Tresiba FlexTouch U-200 insulin) 120 units (0.6 mL) subcut DAILY 30 days insulin glargine (Lantus U-100 Insulin) units subcut insulin lispro (Admelog SoloStar U-100 Insulin lispro) 15 units (0.15 mL) subcut TID 30 days losartan 100 mg PO DAILY 90 days miscellaneous medical supply (Blood Pressure Cuff) As directed omeprazole 20 mg PO DAILY potassium chloride ER 20 mEq PO DAILY 90 days warfarin 2 - 4 mg See Protocol PO DAILY Nursing Note INR: 2.0 in therapeutic range Medications and supplements reviewed- completed antbx over 2 weeks ago, not taking tramadol, using tyelnol at hs No changes in health, diet, medications, or supplements, Denies any signs and symptoms of bleeding or bruising or clotting. Bleeding, bruising, clotting discussed Nutritional guidance given Dose: increase 4 mg daily F/U INR:3 weeks Patient verbalizes understanding of instructions given Anti-Coag Initial Assessment Social Hx Patient Tobacco Use Status: Current everyday Tobacco user Coding Level of Care Code Est Patient Level 1 Diagnoses Current use of anticoagulant therapy Z79.01 Results AMB INR Fingerstick AMB INR Fingerstick 2.0 Last Edit by Carol Obrien RN on 07/08/24 14:37 manual entry Assessment & Plan Assessment & Plan (1) Current use of anticoagulant therapy: Code(s): Z79.01 - half-way (current) use of anticoagulants Category: Medical Medications: New acetaminophen 1,000 mg PO .q hs PRN
== END 2024-07-08 14:48 | disposition home or self-care (01) ==
LOC: HO.ACS 14:00
PROVIDERS: PCP Physician Assistant; Visit Provider Internal Medicine
DX: Z79.01 Long term (current) use of anticoagulants (principal)

== ENCOUNTER → 2024-07-08 14:00 | Outpatient (BNVA) | payer MEDICARE, OTHER, SELFPAY | PROVIDERS: PCP Physician Assistant; Visit Provider Internal Medicine | DX: Z95.2 Presence of prosthetic heart valve (principal); Z79.01 Long term (current) use of anticoagulants; Z51.81 Encounter for therapeutic drug level monitoring | CPT/HCPCS: 85610; 99211 ==

== ENCOUNTER 2024-07-11 11:36 | Emergency (ER) | payer MEDICARE, OTHER, SELFPAY ==
--- NOTE | ~2024-07-11 | XR_ITS ---
EXAMINATION: XR TOES, RIGHT CLINICAL INFORMATION: Retained foreign body in right great toe COMPARISON: None available. TECHNIQUE: 3 views of the right toes were obtained. FINDINGS: No retained radiopaque foreign body as clinically queried. Diffuse degenerative changes, most pronounced at the first metatarsophalangeal joint. XR/XR toe RT min 2V IMPRESSION: No retained radiopaque foreign body as clinically queried. Electronically signed by: Hay Chavez MD 07/11/2024 01:13 PM EDT
[2024-07-11 12:11] VITALS: BP 116/63; PULSE 91; RESP 18; TEMP 36.3; O2SAT 97; BMI 38.1
--- NOTE | 2024-07-11 12:47 | ED.WOUNDLAC ---
HPI - Wound/Laceration General Chief Complaint: Wound/Laceration Stated Complaint: R foot wound plastic still in foot Time Seen by Provider: 07/11/24 15:02 Source: patient Mode of arrival: ambulatory Limitations: no limitations History of Present Illness ED Provider: Thom ZELAYA HPI narrative: 73 year old M with pmh second degree AV block, first degree AV block, spinal stenosis, r. renal cyst, COPD, aortic valve replacement, CAD, HTN, Diabetes mellitus presenting with concerns after cutting the plantar pad of his right hallux on a small piece of plastic. He has been having numbness and tingling to the area. Patient states he visited urgent care this morning where they removed the foreign material, gave a tetanus shot, and performed x-rays. They recommended that the pt goes to the ED because they were unable to r/o FB material that was left behind. Pt does take blood thinners. Denies chest pain, shortness of breath, fatigue, fevers, chills. Related Data Home Medications ?Medication ?Instructions ?Recorded ?Confirmed insulin aspart U-100 100 unit/mL subcut 12/21/20 07/08/24 subcutaneous solution insulin glargine 100 unit/mL unit subcut 02/02/24 07/08/24 subcutaneous solution (Lantus U-100 Insulin) acetaminophen 500 mg capsule 1,000 mg PO .q hs PRN 07/08/24 07/08/24 Previous Rx's ?Medication ?Instructions ?Recorded back brace #1 ea 04/09/22 miscellaneous medical supply #1 ea 09/22/22 (Blood Pressure Cuff) flash glucose scanning reader #1 ea 03/02/23 (FreeStyle Reid 2 [place]) flash glucose sensor (FreeStyle #1 ea 03/02/23 Reid 2 Sensor kit) blood sugar diagnostic (OneTouch #100 strips 10/04/23 Ultra Test strips) omeprazole 20 mg capsule,delayed 20 mg PO DAILY #90 caps 10/04/23 release warfarin 2 mg tablet 2 - 4 mg PO DAILY #180 tabs 11/03/23 albuterol sulfate 90 mcg/actuation 2 puff inhalation Q6H PRN for 11/05/23 aerosol inhaler wheezing #8.5 ea atorvastatin 40 mg tablet 40 mg PO DAILY #90 tabs 01/22/24 cetirizine 10 mg tablet 10 mg PO DAILY #90 tabs 02/01/24 hydrochlorothiazide 12.5 mg tablet 12.5 mg PO DAILY #90 tabs 02/01/24 potassium chloride 20 mEq 20 meq PO DAILY 90 days #90 tabs 02/01/24 tablet,extended release(part/cryst) fluticasone propionate 50 1 spray intranasal DAILY 30 days 02/02/24 mcg/actuation nasal #16 grams spray,suspension (Flonase Allergy Relief) insulin lispro 100 unit/mL 15 unit (0.15 mL) subcut TID 30 02/02/24 subcutaneous pen (Admelog SoloStar days #15 mL U-100 Insulin lispro) insulin degludec 200 unit/mL (3 120 unit (0.6 mL) subcut DAILY 30 02/15/24 mL) subcutaneous pen (Tresiba days #9 mL FlexTouch U-200 insulin) furosemide 20 mg tablet 20 mg PO BID 90 days #180 tabs 04/30/24 bupropion HCl 100 mg tablet,12 hr 100 mg PO DAILY 30 days #30 tabs 06/14/24 sustained-release (Wellbutrin SR) duloxetine 60 mg capsule,delayed 60 mg PO DAILY #90 caps 06/14/24 release losartan 100 mg tablet 100 mg PO DAILY 90 days #90 tabs 06/15/24 doxycycline hyclate 100 mg capsule 100 mg PO BID 10 days #20 caps 07/11/24 Allergies Allergy/AdvReac Type Severity Reaction Status Date / Time penicillin V Allergy Unknown hives, Verified 07/11/24 12:18 rash/tounge edema Vicodin Allergy Unknown dizziness Uncoded 07/08/24 14:27 Review of Systems Review of Systems: Yes all other systems are reviewed and are negative [facility] Past Medical History Attestation statement: The following information was validated with the patient. Medical History Spondylosis of lumbar spine Diabetic neuropathy Lumbar radiculopathy Obesity Hyperlipidemia LDL goal <70 Diabetes mellitus HTN (hypertension) CAD (coronary artery disease) Surgical History Hx of spinal surgery History of arthroscopy of knee Hx of coronary artery bypass graft History of mechanical aortic valve replacement Family History Family History Father CVD (cardiovascular disease) Mother Diabetes Social History Social History Housing: House Patient Tobacco Use Status: Current everyday Tobacco user Cigarettes Per Day: 8 e-Cigarette/Vaping Use: Never Used Advance Directives: No Advance Directives Information Provided: No Do you have a plan to hurt others: No Plan Current occupational status: retired Cognitive needs: Yes Hearing needs: No Vision needs: No Physical Exam Vital Signs: Vital Signs: Last Vital Signs Temp 97.3 F 07/11/24 12:11 Pulse 91 07/11/24 12:11 Resp 18 07/11/24 12:11 BP 116/63 07/11/24 12:11 Pulse Ox 97 07/11/24 12:11 O2 Del Method Room Air 07/11/24 12:11 BMI result Body Mass Index 38.1 VSS Appearance: Alert.? Oriented X3.? No acute distress.? Head: Normocephalic, atraumatic, no step-offs or deformities Eyes: Pupils equal, round and reactive to light.? Neck: Normal inspection.? Neck supple.? CVS: Normal heart rate and rhythm.? Pulses normal.? Respiratory: No respiratory distress.? Breath sounds normal.? Abdomen: Soft and nontender.? Skin: Skin warm and dry.? Normal skin color.? Normal skin turgor.? Extremities: No lower extremity edema.? No calf ttp. 5/5 strength to bilateral upper and lower extremities; + small 2 cm laceration to plantar pad of R. hallux Neuro: Oriented X 3.? No motor deficit.? No sensory deficit. CN 2-12 intact Course Course Course Narrative: This is a Rapid Medical Examination (RME) performed by Jeramy Stephens PA-C in triage. Full HPI, ROS, assessment and treatment plan per primary provider in the Main ED. 73 yo male hx CAD, HTN, T2DM, HDL, neuropathy here from for suspected retained foreign body in right great toe. Reports stepping on something in his home on Thursday. Noted laceration with bleeding that he was able to control. Woke up today with increased bleeding to the toe. Patient is anticoagulated with warfarin. Presenting to urgent care. Had x-rays done. They were able to remove plastic from the pad of the his right great toe however was advised to come to the ED for further evaluation, question retained foreign body. + area not examined in triage Plan: Repeat x-ray, lac evaluation in ED bed Reevaluation(s) Reevaluation #1: CBC unremarkable appears to be around patient's baseline. Chemistry with IRASEMA again around patient's baseline, ordered IV fluids for hydration to help improve this however patient refusing. Patient's blood glucose 465, repeat 443 then 512 after insulin. I explained to patient he may need more insulin and saline however he is refusing he states he will drink fluids and take care of himself at home. I explained to him that high glucose levels lead to poor wound healing. I also explained to him that because he is a diabetic I will not open up his foot to look for a possible retained foreign body as urgent care already took out the majority of it. I educated on warm water soaks to help this plastic come out. He did get a tetanus shot earlier today. Will have him follow up with General surgery if this becomes an issue. Patient will be leaving against medical advice as he is refusing fluids, further insulin, possible admission and/or further treatment if needed. I do not suspect acute DKA at this time. Patient to his sign out against medical advice. Patient has anaphylactic reaction to penicillins will start on doxycycline for wound. Time: 16:44 Medications Administered Generic Name Dose Route Start Last Admin Trade Name Freq PRN Reason Stop Dose Admin Sodium Chloride 1,000 mls @ 999 mls/hr 07/11/24 16:00 07/11/24 16:24 Ns IV 07/11/24 17:00 Not Given .Q1H1M KALEY Discontinued Medications Generic Name Dose Route Start Last Admin Trade Name Freq PRN Reason Stop Dose Admin Insulin Human Lispro 10 unit 07/11/24 15:02 07/11/24 15:17 Insulin Lispro 100 Unit/Ml 3 Ml Vial SUBCUT 07/11/24 15:03 10 unit ONCE ONE Administration Medical Decision Making Medical Decision Making [facility] Narrative: 73 year old M presenting with concerns after cutting the plantar pad of his right hallux on a small piece of plastic. PE - R. plantar pad of hallux small 2 cm laceration with hemostasis achieved Hx and pe concerning for retained FB material vs infection vs laceration. Unlikely fracture, osteomyelitis, diabetic ulcer. Plan - imaging, labs Differential Diagnosis Differential Diagnoses: The differential diagnosis associated with the presentation includes Hx and pe concerning for retained FB material vs infection vs laceration. Unlikely fracture, osteomyelitis, diabetic ulcer. Lab Data 07/11/24 13:07 07/11/24 13:07 Labs: Lab Results 07/11/24 07/11/24 07/11/24 Range/Units 13:07 15:04 15:41 WBC 9.1 (4.8-10.8) X10*3/uL RBC 4.41 L (4.60-5.80) X10*6/uL Hgb 12.9 L (14.0-18.0) g/dl Hct 38.0 L (42.0-52.0) % MCV 86.2 (80.0-98.0) fL MCH 29.3 (27.0-33.0) pg MCHC 33.9 (31.0-36.0) g/dl RDW 12.4 (11.0-16.0) % Plt Count 176 (160-400) X10*3/uL MPV 10.3 (9.4-12.4) fL Immature Gran % (Auto) 0.3 (0.0-0.4) % Neut % (Auto) 72.9 (45-73) % Lymph % (Auto) 18.1 L (20-40) % Barnes % (Auto) 7.5 (2-11) % Eos % (Auto) 0.8 (0-4) % Baso % (Auto) 0.4 (0-2) % Lymph # (Auto) 1.6 (1.2-4.9) X10*3/uL Barnes # (Auto) 0.7 (0.1-1.2) X10*3/uL Eos # (Auto) 0.1 (0.0-0.4) X10*3/uL Baso # (Auto) 0.0 (0.0-0.2) X10*3/uL Abs Immat Gran (auto) 0.03 (0.00-0.03) X10*3/uL Absolute Neuts (auto) 6.6 (2.0-8.3) x10*3/uL Absolute Nucleated RBC 0.000 (0.0-0.012) X10*3/uL Nucleated RBC % (auto) 0.0 (0.0-0.2) /100WBC PT 29.9 H (11.1-13.3) SEC INR 2.5 H (0.9-1.1) Sodium 136 (135-145) mmol/L Potassium 4.1 (3.3-5.1) mmol/L Chloride 106 (96-108) mmol/L Carbon Dioxide 22 (22-29) mmol/L Anion Gap 12 (12-20) BUN 25 H (9-16) mg/dL Creatinine 1.66 H (0.5-1.4) mg/dL Estim Creat Clear Calc 52.3 Estimated GFR 41 POC Glucose 443 H* 512 H* (60-115) mg/dL Random Glucose 465 H* (60-115) mg/dL Calcium 9.4 (8.4-10.2) mg/dL Total Bilirubin 0.4 (0.0-1.0) mg/dL AST 10 (5-37) U/L ALT 12 (0-40) U/L Alkaline Phosphatase 128 H (39-117) U/L Total Protein 6.9 (6.5-8.0) g/dL Albumin 3.8 (3.5-5.0) g/dL Discharge Plan Discharge Clinical Impression: Retained foreign body, Hyperglycemia, Left against medical advice, IRASEMA (acute kidney injury) Patient Disposition: Home, Self-Care Instructions: Against Medical Advice (ED), Diabetic Hyperglycemia (ED) Additional Instructions: Take your medications as prescribed. If you were prescribed antibiotics today, it is important that you take your medication to their entirety, do not skip any doses, do not finish them early. Follow-up with your primary care provider this week. Return to the emergency department with new or worsening symptoms. Such as fevers, chills, chest pain, shortness of breath, nausea, vomiting, dizziness, headache, vision changes, lethargy In case of emergency call 911 Patient decided to leave against medical advice. I took the time to go over risks of leaving against medical advice including . Patient verbalizes understanding of this. Advised them to come back if they change their mind. XR/XR toe RT min 2V IMPRESSION: No retained radiopaque foreign body as clinically queried. You can soak her foot in warm water or Epsom salt bath. Prescriptions: New doxycycline hyclate 100 mg capsule 100 mg PO BID 10 Days Qty: 20 0RF No Action (DME) FreeStyle Reid 2 Brimson Misc See Rx Instructions .Route Qty: 1 0RF Rx Instructions: 4 times per day (DME) FreeStyle Reid 2 Sensor Kit See Rx Instructions .Route Qty: 1 0RF Rx Instructions: test 4 times per day omeprazole 20 mg capsule,delayed release(DR/EC) 20 mg PO DAILY Qty: 90 2RF (DME) OneTouch Ultra Test Strip See Rx Instructions .ROUTE .COMPLEX Qty: 100 3RF Dose Instruction: TEST 3 TIMES DAILY Rx Instructions: TEST 3 TIMES DAILY warfarin 2 mg tablet 2 - 4 mg PO DAILY Qty: 180 3RF Protocol: Dose Management Condition: Thursday (Week One) Dose/Route: 4 mg Instruction: 2 x 2 mg tablets Condition: Thursday Dose/Route: 2 mg Instruction: 1 x 2 mg tablet Condition: Thursday Dose/Route: 4 mg Instruction: 2 x 2 mg tablets Condition: Thursday Dose/Route: 4 mg Instruction: 2 x 2 mg tablets Condition: Dose/Route: 4 mg Instruction: 2 x 2 mg tablets Condition: Thursday Dose/Route: 4 mg Instruction: 2 x 2 mg tablets Condition: Thursday Dose/Route: 4 mg Instruction: 2 x 2 mg tablets Condition: Thursday (Week Two) Dose/Route: 4 mg Instruction: 2 x 2 mg tablets Condition: Thursday Dose/Route: 4 mg Instruction: 2 x 2 mg tablets Condition: Thursday Dose/Route: 4 mg Instruction: 2 x 2 mg tablets Condition: Thursday Dose/Route: 4 mg Instruction: 2 x 2 mg tablets Condition: Dose/Route: 4 mg Instruction: 2 x 2 mg tablets Condition: Thursday Dose/Route: 4 mg Instruction: 2 x 2 mg tablets Condition: Thursday Dose/Route: 4 mg Instruction: 2 x 2 mg tablets Protocol Text: Adjustment Start Date: Thursday07/08/24 INR Value: 2.0 INR Date: 07/08/24 Recheck Date: 07/29/24 albuterol sulfate 90 mcg/actuation HFA aerosol inhaler 2 puff inhalation Q6H PRN (Reason: for wheezing) Qty: 8.5 3RF atorvastatin 40 mg tablet 40 mg PO DAILY Qty: 90 2RF cetirizine 10 mg tablet 10 mg PO DAILY Qty: 90 1RF hydrochlorothiazide 12.5 mg tablet 12.5 mg PO DAILY Qty: 90 1RF potassium chloride 20 mEq tablet,ER particles/crystals 20 meq PO DAILY 90 Days Qty: 90 1RF fluticasone propionate [Flonase Allergy Relief] 50 mcg/actuation spray,suspension 1 spray intranasal DAILY 30 Days Qty: 16 3RF Rx Instructions: administer into each nostril Tresiba FlexTouch U-200 200 unit/mL (3 mL) insulin pen 120 unit subcut DAILY 30 Days Qty: 9 5RF furosemide 20 mg tablet 20 mg PO BID 90 Days Qty: 180 1RF insulin glargine [Lantus U-100 Insulin] 100 unit/mL solution subcut insulin lispro [Admelog SoloStar U-100 Insulin] 100 unit/mL insulin pen 15 unit subcut TID 30 Days Qty: 15 3RF (DME) Blood Pressure Cuff Misc See Rx Instructions .ROUTE .MEDSUPPLY Qty: 1 0RF Rx Instructions: As directed duloxetine 60 mg capsule,delayed release(DR/EC) 60 mg PO DAILY Qty: 90 3RF bupropion HCl [Wellbutrin SR] 100 mg tablet sustained-release 12 hr 100 mg PO DAILY 30 Days Qty: 30 1RF losartan 100 mg tablet 100 mg PO DAILY 90 Days Qty: 90 1RF insulin aspart U-100 100 unit/mL solution subcut (DME) back brace Misc See Rx Instructions .Route Qty: 1 0RF Rx Instructions: As directed acetaminophen 500 mg capsule 1,000 mg PO .q hs PRN Referrals: [facility] [Provider Group] - 2 weeks Connor Tesfaye PA-C [Primary Care Provider] - 1 day Stand Alone Forms: Against Medical Advice Print Language: Singaporean
[2024-07-11 13:11] LABS: MANUAL DIFF FLAG NO
[2024-07-11 13:14] LABS: Basophils Percent Auto 0.4 % (0-2); Eosinophils Absolute Auto 0.1 X10*3/uL (0.0-0.4); Eosinophils Percent Auto 0.8 % (0-4); Hemoglobin 12.9 g/dl (14.0-18.0); Imm Gran Abs Auto 0.03 X10*3/uL (0.00-0.03); Imm Gran Pct Auto 0.3 % (0.0-0.4); Lymphocytes Absolute Auto 1.6 X10*3/uL (1.2-4.9); Lymphocytes Percent Auto 18.1 % (20-40); Mean Corpuscular HGB Conc 33.9 g/dl (31.0-36.0); Mean Corpuscular Hemoglobin 29.3 pg (27.0-33.0); Mean Corpuscular Volume 86.2 fL (80.0-98.0); Mean Platelet Volume 10.3 fL (9.4-12.4); Monocytes Absolute Auto 0.7 X10*3/uL (0.1-1.2); Monocytes Percent Auto 7.5 % (2-11); Neutrophils Absolute Auto 6.6 x10*3/uL (2.0-8.3); Neutrophils Percent Auto 72.9 % (45-73); Platelet Count 176 X10*3/uL (160-400); Red Blood Count 4.41 X10*6/uL (4.60-5.80); Red Cell Distribution Width 12.4 % (11.0-16.0); White Blood Count 9.1 X10*3/uL (4.8-10.8)
[2024-07-11 13:19] LABS: INTERNATIONAL NORM RATIO 2.5 (0.9-1.1); Prothrombin Time 29.9 SEC (11.1-13.3)
[2024-07-11 13:37] LABS: Alanine Aminotransferase 12 U/L (0-40); Albumin Level 3.8 g/dL (3.5-5.0); Alkaline Phosphatase 128 U/L (39-117); Anion Gap 12 (12-20); Aspartate Amino Transferase 10 U/L (5-37); Bilirubin Total 0.4 mg/dL (0.0-1.0); Blood Urea Nitrogen 25 mg/dL (9-16); Calcium 9.4 mg/dL (8.4-10.2); Carbon Dioxide 22 mmol/L (22-29); Chloride 106 mmol/L (96-108); Creatinine Clr Calc Pharmacy 52.3; Estimated Glomerular Filt Rate 41; Glucose Random 465 mg/dL (60-115); Potassium 4.1 mmol/L (3.3-5.1); Sodium 136 mmol/L (135-145); Total Protein 6.9 g/dL (6.5-8.0)
[2024-07-11 15:08] LABS: Glucose, Whole Blood 443 mg/dL (60-115)
[2024-07-11] MEDS: Insulin Lispro 100 UNIT/ML 3 ML VIAL 10 UNIT SUBCUT (15:17)
[2024-07-11 15:45] LABS: Glucose, Whole Blood 512 mg/dL (60-115)
--- NOTE | 2024-07-11 16:24 | PC.NURSE ---
Pt reports he is not interested in IV fluids, says he can hydrate at home. provider aware
[2024-07-11 16:59] VITALS: BP 124/76; PULSE 80; RESP 18; TEMP 36.6; O2SAT 97
== END 2024-07-11 17:01 | disposition home or self-care (01) ==
PROVIDERS: Physician Assistant Medical; Emergency Provider Emergency Medicine; PCP Physician Assistant
DX: M79.5 Residual foreign body in soft tissue (principal); E11.65 Type 2 diabetes mellitus with hyperglycemia; N17.9 Acute kidney failure, unspecified; S91.311A Laceration without foreign body, right foot, initial encounter; W45.8XXA Other foreign body or object entering through skin, initial encounter; W26.8XXA Contact with other sharp object(s), not elsewhere classified, initial encounter; Y93.9 Activity, unspecified; Y92.9 Unspecified place or not applicable; Y99.9 Unspecified external cause status; I10 Essential (primary) hypertension; Z53.29 Procedure and treatment not carried out because of patient's decision for other reasons; R20.2 Paresthesia of skin
CPT/HCPCS: 36415; 73660; 80053; 82947; 85025; 85610; 99282; 99283

== ENCOUNTER → 2024-07-12 15:35 | Outpatient (BNVA) | payer MEDICARE, OTHER, SELFPAY | PROVIDERS: PCP Physician Assistant; Visit Provider Internal Medicine ==

== ENCOUNTER 2024-07-18 13:02 | Outpatient (AMB) | payer MEDICARE, OTHER, SELFPAY ==
[2024-07-18 13:14] LABS: Prothrombin Time Whole Bld POC 40.1 sec (11.1-13.5); ~PT, ~INR - Anti Coag Clinic 3.3 (0.9-1.1)
--- NOTE | 2024-07-18 13:29 | MHC.OFFVISCO ---
Intake Intake Visit Reasons: Anticoagulation Allergies penicillin V Allergy (Unknown, Verified 07/18/24 13:04) hives, rash/tounge edema Vicodin Allergy (Unknown, Uncoded 07/18/24 13:04) dizziness Nursing Note INR 3.3?out of therapeutic range of 2-3 Medications and supplements reviewed Pt on doxycycline for past 1 week for a cut on rt foot. He stepped on a piece of plastic that had to be removed from foot. Right foot inspected and is healed. No redness or edema. Patient status: feels well Medications or supplements: no changes other than above Diet: usual diet for pt Denies any signs and symptoms of bleeding or clotting or unusual bruising Bleeding, bruising, clotting discussed Nutritional guidance given: to increase greens in his diet. Food list reviewed and given to pt. 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 also on 08/02/24 Patient verbalizing understanding of instructions given. Anti-Coag Initial Assessment Social Hx Patient Tobacco Use Status: Current everyday Tobacco user Coding Level of Care Code Est Patient Level 2 Diagnoses Current use of anticoagulant therapy Z79.01 Time Spent (min) 30 Comment teaching: antibx/ food list to lower INR. Wound assessed right foot. Assessment & Plan Assessment & Plan (1) Current use of anticoagulant therapy: Code(s): Z79.01 - [facility] (current) use of anticoagulants Category: Medical
== END 2024-07-18 13:53 | disposition home or self-care (01) ==
LOC: HO.ACS 13:02
PROVIDERS: PCP Physician Assistant; Visit Provider Internal Medicine
DX: Z79.01 Long term (current) use of anticoagulants (principal)

== ENCOUNTER → 2024-07-18 13:02 | Outpatient (BNVA) | payer MEDICARE, OTHER, SELFPAY | PROVIDERS: PCP Physician Assistant; Visit Provider Internal Medicine | DX: Z95.2 Presence of prosthetic heart valve (principal); Z79.01 Long term (current) use of anticoagulants; Z51.81 Encounter for therapeutic drug level monitoring | CPT/HCPCS: 85610; 99212 ==

== ENCOUNTER → 2024-07-21 13:37 | Outpatient (REF) | payer MEDICARE, OTHER, SELFPAY ==
--- NOTE | 2024-07-21 13:39 | CA_ITS ---
Transthoracic Echocardiogram Patient (Last, First, Middle): Benigno Adames C Gender: Male Date of : 1950 Age: 73 Procedure Date: 07/21/2024 Procedure Type: Transthoracic Echocardiogram Location: OP Height: 177.8 cm Weight: 115.67 kg BSA: 2.31 m2 Heart Rate: 83 bpm BP: 132 / 78 mmHg Unemployment Examiner: SB Referring MD: Nick Miller MD Client Support Associate: Nick Miller MD Symptoms: Z95.2 - Presence of prosthetic heart valve Study Quality: Technically Difficult ECG Rhythm: Sinus Conclusions: - 1. Technically limited study despite use of contrast agent 2. Normal LV ejection fraction of 60-65% with suggestion of increased LVEDP 3. Normally functioning mechanical valve at aortic position with mean gradient of 13 mmHg 4. 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 The quality of the study was technically difficult. The study quality is limited by patients body habitus and lung artifact. Left Ventricle The left ventricle was not well visualized. Normal left ventricular cavity size. There is normal left ventricular wall thickness. The left ventricular systolic function is normal. The visually estimated ejection fraction is between 60-65%. Diastolic function is indeterminate on the basis of available data. Elevated left ventricular end diastolic pressure. There is mild septal asymmetric hypertrophy. Right Ventricle The right ventricle was not well visualized. There is moderately decreased right ventricular systolic function. Atria The left atrium was not well visualized. Interatrial shunt cannot be excluded. The right atrium was not well visualized. Aortic Valve A mechanical prosthetic aortic valve is present. The prosthetic aortic valve appears to be functioning normally. The mean gradient is 13 mmHg. There is no aortic valve regurgitation. Mitral Valve The mitral valve was not well visualized. There is no mitral valve regurgitation. There is no mitral valve stenosis. Pulmonic Valve The pulmonic valve was not well visualized. Tricuspid Valve The tricuspid valve was not well visualized. Tricuspid regurgitation envelope is inadequate for calculation of right ventricular systolic pressure. Normal right atrial pressure. Great Vessels The aorta was not well visualized. The pulmonary artery was not well visualized. There is mild dilatation of the ascending aorta measuring 4.00 cm. Venous The inferior vena cava is normal in size. Pericardium/Pleural The pericardium was not well visualized. Prior Study Comparison No significant change compared to prior study dated: 08/03/2023. Measurements 2D Linear Measurements IVSd: 1.41 0.6-0.9/0.6-1.0 cm LVIDd: 5.24 3.9-5.3/4.2-5.9 cm LVIDd Index: 2.27 2.4-3.2/2.2-3.1 cm/m2 LVPWd: 0.91 0.7-1.1 cm LV Mass: 298.84 67-162/88-224 g LV Mass Index: 129.37 43-95/49-115 g/m2 LVOT Diam: 2.10 3.0+(-)1.3 cm 2D Systolic Function EF 4C: 67.90 >55% EF 2C: 60.80 >55% EF BiP: 65.90 >55% Mitral Valve MV Pk E: 1.00 MV PK A: 1.09 MV Decel Time: 315.00 E/A: 0.90 E'Lateral: 11.00 E/E' Lat: 9.10 PHT: 92.00 MVA PHT: 2.39 Decel Baker: 3.17 Aortic Valve AoV Pk Abhinav: 2.47 AoV Mn Abhinav: 1.65 AoV VTI: 0.43 AoV Pk Grad: 24.00 Aov Mn Grad: 13.00 JULIETA Cont.VTI: 1.35 LVOT LVOT Pk Abhinav: 0.87 LVOT Mn Abhinav: 0.65 LVOT VTI: 0.17 LVOT Pk Grad: 3.00 LVOT Mn Grad: 2.00 LVOT Diam: 2.10 LVOT Area: 3.46 Diastolic Function MV Pk E: 1.00 MV Pk A: 1.09 E/A: 0.90 E' Laterial: 11.00 E/E' Lat: 9.10 Right Ventricle TAPSE (mm): 10.80 TVS' Abhinav: 6.00 Tricuspid Valve RA Press: 3.00 Great Vessels Aorta Sinus of Valsalva: 3.50 2.0-3.5 cm Ao Asc: 4.00 2.1-3.4 cm Pulmonary Valve PV Pk Abhinav: 1.01 Peak PV Grad: 4.00 Updated in Other Vendor System with Status of Final Nick Miller MD electronically signed on 07/21/2024 4:13:22 PM with status of Final
== END ==
LOC: HO.CARD 13:37
PROVIDERS: PCP Physician Assistant; Visit Provider Internal Medicine Cardiovascular Disease
DX: Z95.2 Presence of prosthetic heart valve (principal)
CPT/HCPCS: 93306; Q9957

== ENCOUNTER → 2024-07-21 13:39 | Outpatient (BNV) | payer MEDICARE, OTHER, SELFPAY | PROVIDERS: PCP Physician Assistant; Visit Provider Internal Medicine Cardiovascular Disease | DX: I42.2 Other hypertrophic cardiomyopathy (principal); Z95.2 Presence of prosthetic heart valve | CPT/HCPCS: 93306 ==

== ENCOUNTER 2024-08-02 09:59 | Outpatient (AMB) | payer MEDICARE, OTHER, SELFPAY ==
[2024-08-02 10:08] LABS: Prothrombin Time Whole Bld POC 28.8 sec (11.1-13.5); ~PT, ~INR - Anti Coag Clinic 2.4 (0.9-1.1)
--- NOTE | 2024-08-02 10:14 | MHC.OFFVISCO ---
Intake Intake Visit Reasons: Anticoagulation Allergies penicillin V Allergy (Unknown, Verified 08/02/24 10:03) hives, rash/tounge edema Vicodin Allergy (Unknown, Uncoded 08/02/24 10:03) dizziness Medication List - Last Reconciled 08/02/24 by Yaneth Baugh, RN acetaminophen 1,000 mg PO .q hs PRN albuterol sulfate 90 mcg/actuation 2 puffs inhalation Q6H PRN atorvastatin 40 mg PO DAILY back brace As directed blood sugar diagnostic ([employer]aven [employer] FinanceTouch Ultra Test strips) TEST 3 TIMES DAILY bupropion HCl SR (Wellbutrin SR) 100 mg PO DAILY 30 days cetirizine 10 mg PO DAILY doxycycline hyclate 100 mg PO BID 10 days duloxetine 60 mg PO DAILY flash glucose scanning reader (DSG TechnologiesStyle Reid 2 [place]) 4 times per day flash glucose sensor (FreeStyle Reid 2 Sensor kit) test 4 times per day fluticasone propionate 50 mcg/actuation (Flonase Allergy Relief) 1 spray intranasal DAILY 30 days furosemide 20 mg PO BID 90 days hydrochlorothiazide 12.5 mg PO DAILY insulin aspart U-100 subcut insulin degludec (Tresiba FlexTouch U-200 insulin) 120 units (0.6 mL) subcut DAILY 30 days insulin glargine (Lantus U-100 Insulin) units subcut insulin lispro (Admelog SoloStar U-100 Insulin lispro) 15 units (0.15 mL) subcut TID 30 days losartan 100 mg PO DAILY 90 days miscellaneous medical supply (Blood Pressure Cuff) As directed omeprazole 20 mg PO DAILY potassium chloride ER 20 mEq PO DAILY 90 days warfarin 2 - 4 mg See Protocol PO DAILY Nursing Note INR: 2.4 in therapeutic range of 2-3 Medications and supplements reviewed No changes in health, diet, medications, or supplements, Denies any signs and symptoms of bleeding or bruising or clotting. Bleeding, bruising, clotting discussed Nutritional guidance given Dose: continue same dose of 4mg X 6 days and 2mg X 1 day F/U INR: 3 weeks Patient verbalizes understanding of instructions given Anti-Coag Initial Assessment Social Hx Patient Tobacco Use Status: Current everyday Tobacco user Coding Level of Care Code Est Patient Level 1 Diagnoses Current use of anticoagulant therapy Z79.01 Results AMB INR Fingerstick AMB INR Fingerstick 2.4 Last Edit by Yaneth Baugh RN on 08/02/24 10:11 interface delay Assessment & Plan Assessment & Plan (1) Current use of anticoagulant therapy: Code(s): Z79.01 - [facility] (current) use of anticoagulants Category: Medical
== END 2024-08-02 10:16 | disposition home or self-care (01) ==
LOC: HO.ACS 09:59
PROVIDERS: PCP Physician Assistant; Visit Provider Internal Medicine
DX: Z79.01 Long term (current) use of anticoagulants (principal)

== ENCOUNTER → 2024-08-02 09:59 | Outpatient (BNVA) | payer MEDICARE, OTHER, SELFPAY | PROVIDERS: PCP Physician Assistant; Visit Provider Internal Medicine | DX: I25.10 Atherosclerotic heart disease of native coronary artery without angina pectoris (principal); I10 Essential (primary) hypertension; Z95.2 Presence of prosthetic heart valve; Z79.01 Long term (current) use of anticoagulants; Z51.81 Encounter for therapeutic drug level monitoring | CPT/HCPCS: 85610; 93005; 99211; 99212 ==

== ENCOUNTER 2024-08-02 14:04 | Outpatient (AMB) | payer MEDICARE, OTHER, SELFPAY ==
[2024-08-02 14:27] VITALS: BP 124/72; PULSE 89; BMI 38.2
--- NOTE | 2024-08-02 14:27 | MHC.OFFVIS ---
Vital Signs 08/02/24 14:27 Height 5 ft 10 in Weight 266 lb 5.094 oz BMI 38.2 BP 124/72 Blood Pressure Location Lt brachial Position Sitting Pulse 89 Pulse Source Monitor Intake Visit Reasons: 1 year follow up Investigator Narcotics Required: No Accompanied by: Self / Same As Patient Allergies penicillin V Allergy (Unknown, Verified 08/02/24 10:03) hives, rash/tounge edema Vicodin Allergy (Unknown, Uncoded 08/02/24 10:03) dizziness Medication List - Last Reconciled 08/02/24 by Nick Miller MD acetaminophen 1,000 mg PO .q hs PRN albuterol sulfate 90 mcg/actuation 2 puffs inhalation Q6H PRN atorvastatin 40 mg PO DAILY back brace As directed blood sugar diagnostic (Loop App Ultra Test strips) TEST 3 TIMES DAILY bupropion HCl SR (Wellbutrin SR) 100 mg PO DAILY 30 days cetirizine 10 mg PO DAILY doxycycline hyclate 100 mg PO BID 10 days duloxetine 60 mg PO DAILY flash glucose scanning reader ([employer] Reid 2 [place]) 4 times per day flash glucose sensor (SlingjotStyle Reid 2 Sensor kit) test 4 times per day fluticasone propionate 50 mcg/actuation (Flonase Allergy Relief) 1 spray intranasal DAILY 30 days furosemide 20 mg PO BID 90 days hydrochlorothiazide 12.5 mg PO DAILY insulin aspart U-100 subcut insulin degludec (Tresiba FlexTouch U-200 insulin) 120 units (0.6 mL) subcut DAILY 30 days insulin glargine (Lantus U-100 Insulin) units subcut insulin lispro (Admelog SoloStar U-100 Insulin lispro) 15 units (0.15 mL) subcut TID 30 days losartan 100 mg PO DAILY 90 days miscellaneous medical supply (Blood Pressure Cuff) As directed omeprazole 20 mg PO DAILY potassium chloride ER 20 mEq PO DAILY 90 days warfarin 2 - 4 mg See Protocol PO DAILY HPI Comments Details: Benigno comes for follow-up. He has been doing very well from cardiac perspective although unfortunately had a fall and had significant cervical spine injury and concussion. Was managed by Neurosurgery. Since then he has been walking with a walker. He said he still has imbalance issues. He denies any cardiac symptoms. No exertional chest pain or shortness of breath. No orthopnea, PND, leg edema. No bleeding issues or neurologic events. Recent echocardiogram showed normal LV ejection fraction with normally functioning mechanical prosthetic aortic valve as well as mildly dilated ascending aorta, stable [facility] Medical History Spondylosis of lumbar spine Diabetic neuropathy Lumbar radiculopathy Obesity Hyperlipidemia LDL goal <70 Diabetes mellitus HTN (hypertension) CAD (coronary artery disease) Surgical History Hx of spinal surgery History of arthroscopy of knee Hx of coronary artery bypass graft History of mechanical aortic valve replacement Family History Father CVD (cardiovascular disease) Mother Diabetes Social History Housing: House Patient Tobacco Use Status: Current everyday Tobacco user Cigarettes Per Day: 8 e-Cigarette/Vaping Use: Never Used Current occupational status: retired Cognitive needs: Yes Hearing needs: No Vision needs: No Review of Systems Const Denies chills, Denies fatigue, Denies fever(s), Denies frequent falls, Denies weakness, Denies weight gain and Denies weight loss ENT Denies dizziness Card Denies chest pain, Denies leg edema, Denies lightheadedness, Denies palpitations, Denies dyspnea and Denies dyspnea on exertion Resp Denies cough, Denies dyspnea and Denies dyspnea on exertion GI Denies hematochezia Musc Denies abnormal gait, Denies muscle weakness, Denies numbness, Denies radiating pain into limb and Denies tingling Neuro Denies abnormal gait, Denies dizziness, Denies frequent falls, Denies numbness, Denies tingling and Denies weakness Endo Denies fatigue and Denies palpitations Physical Exam Vital Signs: Last Vital Signs Pulse 89 08/02/24 14:27 BP 124/72 08/02/24 14:27 BMI result Body Mass Index 38.2 Const General: cooperative, no acute distress, alert, awake and tired appearing Nutritional Appearance: overweight Orientation/consciousness: patient oriented x3 HEENT Head: Yes normal to inspection, Yes normocephalic and Yes atraumatic Eyes General: appearance normal, both eyes and all related structures Neck Neck: Yes full ROM, Yes trachea midline and Yes no JVD Chest Chest palpation & inspection: normal inspection of the chest Resp Auscultation: wheezes expiratory wheezes and throughout Cardio Jugular venous distension: no JVD Palpation: normal PMI Rate: tachycardic Rhythm: regular rhythm Heart sounds: S1 normal heart sound present and Other heart sounds present ( [place] closing click of [place] aortic valve) Peripheral pulses: Peripheral pulses 2+ throughout GI Inspection: Yes normal to inspection Auscultation: normal bowel sounds Skin General skin exam: no rashes or lesions noted and turgor normal Neuro General: patient oriented x3 and no focal motor deficits Extrem General: Yes no clubbing, cyanosis or edema Psych Appearance: disheveled Mental Status: mental status grossly normal Affect: Sad affect present Insight: Good insight present (Psych) Office Procedures EKG Details: EKG shows normal sinus rhythm with first-degree AV block with left axis deviation and prolonged QT. Unchanged from before [id number], Complete Results AMB INR Fingerstick AMB INR Fingerstick 2.4 Last Edit by Yaneth Baugh RN on 08/02/24 10:11 interface delay Assessment & Plan Assessment & Plan (1) CAD (coronary artery disease): Comment: Underwent 2 vessel coronary bypass grafting at the time of aortic valve replacement. No symptoms of angina at current time. Continue lifelong aspirin therapy as above. Blood pressure is well optimized on current therapy. Continue the same. Continue high-intensity statin therapy with target goal LDL less than 70 mg/dL. Advised lipid panel in near future. Complete smoking cessation was advised. Also recommend to continue to participate in aggressive lifestyle modification with weight loss as well as increase activity level. He understands and agrees. Will follow up in 1 year's time. Code(s): I25.10 - Atherosclerotic heart disease of [place] coronary artery without angina pectoris Category: Medical Qualifiers: Associated angina: without angina Coronary Disease-Associated Artery/Lesion type: [place] artery [place] vs. transplanted heart: [place] heart Qualified Code(s): I25.10 - Atherosclerotic heart disease of [place] coronary artery without angina pectoris Plan: CAD with remote coronary artery bypass grafting without any significant symptoms of angina at current point time. His CAD may be asymptomatic at this point time due to reduced functional capacity although he is currently not having any symptoms. Continue aggressive risk factor modification. Currently on warfarin therapy and would therefore avoid aspirin therapy to reduce bleeding risk. Continue aggressive risk factor modification with LDL goal closer to 60 mg/dL. Advise annual lipid panel. Blood pressure is currently well optimized. Continue current therapy. Continue aggressive diabetes management goal hemoglobin A1c less than 7%. Complete smoking cessation is advised. (2) History of mechanical aortic valve replacement: Comment: 23 mm [place] aortic valve. 2010. for critical aortic stenosis, symptomatic Code(s): Z95.2 - Presence of prosthetic heart valve Category: Surgical Plan: Status post [place] aortic valve replacement which is working well clinically as well as by recent echocardiogram. Continue to monitor clinically. Follow-up echocardiogram in 1 year's time. Currently on warfarin therapy being followed by [facility]. Maintain target INR between 2 and 3. SBE prophylaxis as per ACC/[place] guidelines. (3) HTN (hypertension): Comment: See above. Continue current medical treatment. Code(s): I10 - Essential (primary) hypertension Category: Medical Qualifiers: Hypertension type: essential hypertension Qualified Code(s): I10 - Essential (primary) hypertension Plan: Hypertension which is currently well optimized advised to monitor blood pressure at home maintain a log. Goal blood pressure less than 130/84. Low-salt diet was discussed. Advised to continue participate in weight loss program. Follow up in the clinic in 1 year's time, sooner p.r.n.. Thank you for allowing me to partake in his care Orders: Orders CA echo transthoracic complete 1 Year Z95.2 - Presence of prosthetic heart valve Coding Level of Care Code Est Pt Level 4 (22299) Diagnoses Coronary artery disease involving [place] coronary artery of [place] heart without angina pectoris I25.10 Associated angina: without angina Coronary Disease-Associated Artery/Lesion type: [place] artery [place] vs. transplanted heart: [place] heart History of mechanical aortic valve replacement Z95.2 Essential hypertension I10 Hypertension type: essential hypertension CPT Codes EKG - CPT: 11020-[id number], Complete ([id number])
== END 2024-08-02 14:54 | disposition home or self-care (01) ==
PROVIDERS: PCP Physician Assistant; Visit Provider Internal Medicine Cardiovascular Disease
DX: I25.10 Atherosclerotic heart disease of native coronary artery without angina pectoris (principal); Z95.2 Presence of prosthetic heart valve; I10 Essential (primary) hypertension
CPT/HCPCS: 93010; 99214

== ENCOUNTER 2024-08-23 14:06 | Outpatient (AMB) | payer MEDICARE, OTHER, SELFPAY ==
[2024-08-23 14:17] LABS: Prothrombin Time Whole Bld POC 38.6 sec (11.1-13.5); ~PT, ~INR - Anti Coag Clinic 3.2 (0.9-1.1)
--- NOTE | 2024-08-23 14:34 | MHC.OFFVISCO ---
Intake Intake Visit Reasons: Anticoagulation Allergies penicillin V Allergy (Unknown, Verified 08/23/24 14:11) hives, rash/tounge edema Vicodin Allergy (Unknown, Uncoded 08/23/24 14:11) dizziness Medication List - Last Reconciled 08/23/24 by Yaneth Baugh, RN acetaminophen 1,000 mg PO .q hs PRN albuterol sulfate 90 mcg/actuation 2 puffs inhalation Q6H PRN atorvastatin 40 mg PO DAILY back brace As directed blood sugar diagnostic ([employer] Cut[employer]Touch Ultra Test strips) TEST 3 TIMES DAILY bupropion HCl SR (Wellbutrin SR) 100 mg PO DAILY 30 days cetirizine 10 mg PO DAILY doxycycline hyclate 100 mg PO BID 10 days duloxetine 60 mg PO DAILY flash glucose scanning reader ([employer]Style Reid 2 [place]) 4 times per day flash glucose sensor (FreeStyle Reid 2 Sensor kit) test 4 times per day fluticasone propionate 50 mcg/actuation (Flonase Allergy Relief) 1 spray intranasal DAILY 30 days furosemide 20 mg PO BID 90 days hydrochlorothiazide 12.5 mg PO DAILY insulin aspart U-100 subcut insulin degludec (Tresiba FlexTouch U-200 insulin) 120 units (0.6 mL) subcut DAILY 30 days insulin glargine (Lantus U-100 Insulin) units subcut insulin lispro (Admelog SoloStar U-100 Insulin lispro) 15 units (0.15 mL) subcut TID 30 days losartan 100 mg PO DAILY 90 days miscellaneous medical supply (Blood Pressure Cuff) As directed omeprazole 20 mg PO DAILY potassium chloride ER 20 mEq PO DAILY 90 days warfarin 2 - 4 mg See Protocol PO DAILY Nursing Note INR: 3.2out of therapeutic range of 2-3 Medications and supplements reviewed No changes in health, diet, medications, or supplements, Denies any signs and symptoms of bleeding or bruising or clotting. Bleeding, bruising, clotting discussed Nutritional guidance given to have a serving of food from the list that lowers the INR. Dose: since pt does not like greens, will lower today's dose to 2mg (4mg) and then to resume usual dose of 4mg X 6 days and 2 mg X 1 day (Mon) F/U INR: 2 weeks Patient verbalizes understanding of instructions given Anti-Coag Initial Assessment Social Hx Patient Tobacco Use Status: Current everyday Tobacco user Coding Level of Care Code Est Patient Level 1 Diagnoses Current use of anticoagulant therapy Z79.01 Assessment & Plan Assessment & Plan (1) Current use of anticoagulant therapy: Code(s): Z79.01 - USP (current) use of anticoagulants Category: Medical
== END 2024-08-23 14:37 | disposition home or self-care (01) ==
LOC: HO.ACS 14:06
PROVIDERS: PCP Physician Assistant; Visit Provider Internal Medicine
DX: Z79.01 Long term (current) use of anticoagulants (principal)

== ENCOUNTER → 2024-08-23 14:06 | Outpatient (BNVA) | payer MEDICARE, OTHER, SELFPAY | PROVIDERS: PCP Physician Assistant; Visit Provider Internal Medicine | DX: Z95.2 Presence of prosthetic heart valve (principal); Z79.01 Long term (current) use of anticoagulants; Z51.81 Encounter for therapeutic drug level monitoring | CPT/HCPCS: 85610; 99211 ==

== ENCOUNTER 2024-09-06 13:39 | Outpatient (AMB) | payer MEDICARE, OTHER, SELFPAY ==
[2024-09-06 13:48] LABS: Prothrombin Time Whole Bld POC 34.5 sec (11.1-13.5); ~PT, ~INR - Anti Coag Clinic 2.9 (0.9-1.1)
--- NOTE | 2024-09-06 13:55 | MHC.OFFVISCO ---
Intake Intake Visit Reasons: Anticoagulation Allergies penicillin V Allergy (Unknown, Verified 09/06/24 13:43) hives, rash/tounge edema Vicodin Allergy (Unknown, Uncoded 09/06/24 13:43) dizziness Medication List - Last Reconciled 09/06/24 by Yaneth Baugh, RN acetaminophen 1,000 mg PO .q hs PRN albuterol sulfate 90 mcg/actuation 2 puffs inhalation Q6H PRN atorvastatin 40 mg PO DAILY back brace As directed blood sugar diagnostic (InviragenTouch Ultra Test strips) TEST 3 TIMES DAILY bupropion HCl SR (Wellbutrin SR) 100 mg PO DAILY 30 days cetirizine 10 mg PO DAILY doxycycline hyclate 100 mg PO BID 10 days duloxetine 60 mg PO DAILY flash glucose scanning reader ([employer] Reid 2 [place]) 4 times per day flash glucose sensor (FreeStyle Reid 2 Sensor kit) test 4 times per day fluticasone propionate 50 mcg/actuation (Flonase Allergy Relief) 1 spray intranasal DAILY 30 days furosemide 20 mg PO BID 90 days hydrochlorothiazide 12.5 mg PO DAILY insulin aspart U-100 subcut insulin degludec (Tresiba FlexTouch U-200 insulin) 120 units (0.6 mL) subcut DAILY 30 days insulin glargine (Lantus U-100 Insulin) units subcut insulin lispro (Admelog SoloStar U-100 Insulin lispro) 15 units (0.15 mL) subcut TID 30 days losartan 100 mg PO DAILY 90 days miscellaneous medical supply (Blood Pressure Cuff) As directed omeprazole 20 mg PO DAILY potassium chloride ER 20 mEq PO DAILY 90 days warfarin 2 - 4 mg See Protocol PO DAILY Nursing Note INR: 2.9 in therapeutic range of 2-3 Medications and supplements reviewed No changes in health, diet, medications, or supplements, Denies any signs and symptoms of bleeding or bruising or clotting. Bleeding, bruising, clotting discussed Nutritional guidance given Dose: 4mg X 5 days and 2mg X 2 days F/U INR: 3 weeks Patient verbalizes understanding of instructions given Anti-Coag Initial Assessment Social Hx Patient Tobacco Use Status: Current everyday Tobacco user Coding Level of Care Code Est Patient Level 1 Diagnoses Current use of anticoagulant therapy Z79.01 Assessment & Plan Assessment & Plan (1) Current use of anticoagulant therapy: Code(s): Z79.01 - FPC (current) use of anticoagulants Category: Medical
== END 2024-09-06 13:57 | disposition home or self-care (01) ==
LOC: HO.ACS 13:39
PROVIDERS: PCP Physician Assistant; Visit Provider Internal Medicine
DX: Z79.01 Long term (current) use of anticoagulants (principal)

== ENCOUNTER → 2024-09-06 13:39 | Outpatient (BNVA) | payer MEDICARE, OTHER, SELFPAY | PROVIDERS: PCP Physician Assistant; Visit Provider Internal Medicine | DX: Z95.2 Presence of prosthetic heart valve (principal); Z79.01 Long term (current) use of anticoagulants; Z51.81 Encounter for therapeutic drug level monitoring | CPT/HCPCS: 85610; 99211 ==

== ENCOUNTER 2024-10-27 07:57 | Outpatient (AMB) | payer MEDICARE, OTHER, SELFPAY ==
[2024-10-27 08:03] VITALS: BP 138/86; PULSE 98; O2SAT 98; BMI 37.6
--- NOTE | 2024-10-27 08:03 | A.OFFPC_ITS ---
Vital Signs 10/27/24 08:03 Height 5 ft 10 in Weight 262 lb BMI 37.6 BP 138/86 Blood Pressure Location Lt brachial Position Sitting Pulse 98 Pulse Source Pulse Oximeter Pulse Oximetry (%) 98 Oxygen Delivery Method Room Air Intake Visit Reasons: follow up DMII Environmental Sampling Technician Required: No Accompanied by: Self / Same As Patient Allergies penicillin V Allergy (Unknown, Verified 10/27/24 08:26) hives, rash/tounge edema bupropion [From Wellbutrin] Adverse Reaction (Intermediate, Verified 10/27/24 08:33) GI upset Vicodin Allergy (Unknown, Uncoded 10/27/24 08:26) dizziness Medication List - Last Reconciled 10/27/24 by Connor Tesfaye PA-C acetaminophen 1,000 mg PO .q hs PRN albuterol sulfate 90 mcg/actuation 2 puffs inhalation Q6H PRN atorvastatin 40 mg PO DAILY back brace As directed blood sugar diagnostic ([employer] Ultra Test strips) TEST 3 TIMES DAILY bupropion HCl SR (Wellbutrin SR) 100 mg PO DAILY 30 days cetirizine 10 mg PO DAILY doxycycline hyclate 100 mg PO BID 10 days flash glucose scanning reader ([employer] Reid 2 [place]) 4 times per day flash glucose sensor (FreeStyle Reid 2 Sensor kit) test 4 times per day fluticasone propionate 50 mcg/actuation (Flonase Allergy Relief) 1 spray intranasal DAILY 30 days furosemide 20 mg PO BID 90 days hydrochlorothiazide 12.5 mg PO DAILY insulin aspart U-100 subcut insulin degludec (Tresiba FlexTouch U-200 insulin) 120 units (0.6 mL) subcut DAILY 30 days insulin glargine (Lantus U-100 Insulin) units subcut insulin lispro (Admelog SoloStar U-100 Insulin lispro) 15 units (0.15 mL) subcut TID 30 days losartan 100 mg PO DAILY 90 days miscellaneous medical supply (Blood Pressure Cuff) As directed omeprazole 20 mg PO DAILY potassium chloride ER 20 mEq PO DAILY 90 days warfarin 2 - 4 mg See Protocol PO DAILY Tobacco use date assessed: 10/27/24 Fall risk assessment: 1 Fall in past year Last assessed Fall Risk: 10/27/24 Dental Screening Dental Screen Date: 10/27/24 Did you have a dental visit in the last 12 months?: No Did you have a dental problem in the last 6 months where you did not have access to dental care?: No Was dental information given to patient?: No HPI follow up DMII HPI Details Patient is a 74-year-old male here today for a follow-up visit. Patient's past medical history significant for type 2 diabetes, coronary artery disease, smoker, hypertension, chronic lumbar spine pain. --> concerns--> Lumbar disc disease: Report having worsening siatica? down right side.? Denies any acute injuries to his lower back.? Denies any falls.? He has recently got MRI showing severe lumbar disc disease and spinal stenosis, he is followed by keisha centeno and anticipates getting surgery. . HTN: Patient's blood pressure acceptable today in office. Continues on losartan 100 mg with good effect on his blood pressure. .. Major depressive disorder: Continues to be fairly depressed. Did use Wellbutrin though felt GI side effects. He is interested in increasing his duloxetine for both his depression and helping him with his diabetic neuropathy pain. He is not interested cognitive behavioral therapy .. ? .. ? Congestive heart failure/history of replaced aortic valve: Patient continues on warfarin has been is stable with his INRs, no overt signs of bleeding. He continues on furosemide and supplemental potassium. He continues to have bilateral edema in his lower extremities. Admits to dietary indiscretion and has not been taking care of his diabetes at all because of his depression. His recent echocardiogram essentially normal, ejection fraction acceptable ,did show some filling impairment ? .. ? DMII:? Today's A1c at 13.1 from 14 . He does admit to dietary indiscretion. Admits to not really monitoring his blood sugars. He reports being noncompliant with his short-acting insulins. Again reports he has not been taking care of his diabetes because of his depression. He continues to have pretty bad neuropathic diabetic pain. Gabapentin was not effective for him.. Will try to increase his duloxetine to 120 mg daily to help him with his pain . ? Unfortunately patient does have microalbuminuria. Also found to have slight anemia likely due to chronic disease. He is interested in restarting freestyle Reid to monitor his blood sugars [facility] Medical History Spondylosis of lumbar spine Diabetic neuropathy Lumbar radiculopathy Obesity Hyperlipidemia LDL goal <70 Diabetes mellitus HTN (hypertension) CAD (coronary artery disease) Surgical History Hx of spinal surgery History of arthroscopy of knee Hx of coronary artery bypass graft History of mechanical aortic valve replacement Family History Father CVD (cardiovascular disease) Mother Diabetes Social History Housing: House Patient Tobacco Use Status: Current everyday Tobacco user Cigarettes Per Day: 8 e-Cigarette/Vaping Use: Never Used service: No Current occupational status: retired Current occupational exposures/hazards: No Cognitive needs: Yes Hearing needs: No Vision needs: No Questionnaire PHQ-9 Over the last 2 weeks, how often have you been bothered by any of the following problems? 1. Little interest or pleasure in doing things: not at all 2. Feeling down, depressed, or hopeless: not at all 3. Trouble falling or staying asleep, or sleeping too much: nearly every day 4. Feeling tired or having little energy: nearly every day 5. Poor appetite or overeating: nearly every day 6. Feeling bad about yourself - or that you are a failure or have let yourself or your family down: nearly every day 7. Trouble concentrating on things, such as reading the newspaper or watching television: several days 8. Moving or speaking so slowly that other people could have noticed. Or the opposite - being so fidgety or restless that you have been moving around a lot more than usual: not at all 9. Thoughts that you would be better off or of hurting yourself in some way: not at all Total score: 13 Depression Screening Interpretation: Positive Depression Screening Done: Yes 04326 - PHQ-9 Billing: Yes Source: Developed by Drs. Julian Alatorre, Sully Healy, Nitish Moscoso and colleagues, with an educational paula from [employer] Study Course. Thrive Questionnaire Date Thrive assessed: 10/27/24 I am a: Patient What is your living situation today?: I have a steady place to live Within the past 12 months, did the food you bought not last and you didn't have the money to get more?: Never true Within the past 12 months, did you worry whether your food would run out before you got money to buy more?: Never true Do you have trouble paying for medicines?: No Do you have trouble getting transportation to medical appointments?: No Do you have trouble paying your heating and electricity bill?: No Do you have trouble taking care of your child, family member or friend?: No Do you have trouble with day-to-day activities such as bathing, preparing meals, shopping, managing finances, etc.?: No Are you currently unemployed and looking for a job?: No Are you interested in more education?: No Please select the resources that you would like help with: None Currently or been in a relationship where the following occur: No concerns reported THRIVE Score: 0 AUDIT C Alcohol Use Questionnaire (AUDIT-C) 1. How often do you have a drink containing alcohol?: Never 3. How often do you have six or more drinks on one occasion?: Never Total Score: 0 RACHEL-7 AMB Questionnaire RACHEL-7 Date RACHEL - 7 assessed: 10/27/24 Feeling nervous, anxious, or on edge: 0 = Not at all Not being able to stop or control worryin = Not at all Worrying too much about different things: 0 = Not at all Trouble relaxin = Not at all Being so restless that it is hard to sit still: 0 = Not at all Becoming easily annoyed or irritable: 0 = Not at all Feeling afraid as if something awful might happen: 0 = Not at all Total RACHEL-7 score (0-4 normal; 5-9 mild; 10-14 moderate; 15-21 severe): 0 Source: Developed by Drs. Julian Alatorre, Sully Healy, Nitish Moscoso and colleagues, with an educational paula from [employer] Study Course. Physical exam (Primary Care) Vital Signs: Last Vital Signs Pulse 98 10/27/24 08:03 BP 138/86 10/27/24 08:03 Pulse Ox 98 10/27/24 08:03 Oxygen Delivery Method Room Air 10/27/24 08:03 BMI result Body Mass Index 37.6 Tobacco/Smoking Status: Tobacco use Status Tobacco use date assessed 10/27/24 10/27/24 08:05 Patient Tobacco Use Status Current everyday Tobacco 10/27/24 08:05 e-Cigarette/Vaping Use Never Used 10/27/24 08:05 PHQ-9: PHQ-9 Score PHQ-9: Total score 13 10/27/24 08:19 Depression Screening Interpretation: Positive Thrive Assessment: Date of Thrive Assessment Date Thrive assessed 10/27/24 10/27/24 08:05 Currently or been in a relationship where the following occur: No concerns reported Results AMB Hemoglobin A1c AMB Hemoglobin A1c 13.1 % Last Edit by THOM Zaldivar on 10/27/24 08:19 Results Reviewed Results Reviewed: Laboratory Last Values Hgb A1c (Clinic) 13.1 % (4.0-6.0) H 10/27/24 08:06 Coding Diagnoses Diabetic neuropathic arthropathy E11.610 Additional Codes PHQ-9 - 21753 - PHQ-9 Billing: Yes ([id number]) Assessment & Plan Assessment & Plan (1) Diabetic neuropathic arthropathy: Code(s): E11.610 - Type 2 diabetes mellitus with diabetic neuropathic arthropathy Category: Medical Orders: Orders AMB Hemoglobin A1c Today Z13.9 - Encounter for screening, unspecified Referrals Podiatry Referral E11.40 - Type 2 diabetes mellitus with diabetic neuropathy, unspecified Medications: New duloxetine 120 mg (2 x 60 mg) PO DAILY 30 days 60 caps 6RF E11.610 - Type 2 diabetes mellitus with diabetic neuropathic arthropathy, F33.1 - Major depressive disorder, recurrent, moderate Refilled insulin lispro (Admelog SoloStar U-100 Insulin lispro) 15 units (0.15 mL) subcut TID 30 days 15 mL 3RF E11.9 - Type 2 diabetes mellitus without complications flash glucose sensor (FreeStyle Reid 2 Sensor kit) test 4 times per day 1 ea 6RF E11.65 - Type 2 diabetes mellitus with hyperglycemia, Z79.4 - buttermaker helper (current) use of insulin Discontinued doxycycline hyclate Discontinued Reason: Doctor's Order 100 mg PO BID 10 days 20 caps 0RF bupropion HCl SR (Wellbutrin SR) Discontinued Reason: Doctor's Order 100 mg PO DAILY 30 days 30 tabs 3RF F33.1 - Major depressive disorder, recurrent, moderate
== END 2024-10-27 08:53 | disposition home or self-care (01) ==
PROVIDERS: PCP Physician Assistant; Visit Provider Physician Assistant
DX: Z13.9 Encounter for screening, unspecified (principal)

== ENCOUNTER 2024-10-27 07:57 | Outpatient (REF) | payer MEDICARE, OTHER, SELFPAY ==
[2024-10-27 11:13] LABS: Hematocrit 42.5 % (42.0-52.0); Hemoglobin 14.8 g/dl (14.0-18.0); Mean Corpuscular HGB Conc 34.8 g/dl (31.0-36.0); Mean Corpuscular Hemoglobin 28.9 pg (27.0-33.0); Mean Platelet Volume 10.3 fL (9.4-12.4); Platelet Count 212 X10*3/uL (160-400); Red Blood Count 5.12 X10*6/uL (4.60-5.80); Red Cell Distribution Width 12.9 % (11.0-16.0); White Blood Count 9.9 X10*3/uL (4.8-10.8)
[2024-10-27 11:21] LABS: INTERNATIONAL NORM RATIO 2.7 (0.9-1.1); Prothrombin Time 31.3 SEC (10.9-12.4)
[2024-10-27 12:00] LABS: Alanine Aminotransferase 16 U/L (0-40); Albumin Level 4.1 g/dL (3.5-5.0); Alkaline Phosphatase 143 U/L (39-117); Anion Gap 13 (12-20); Aspartate Amino Transferase 19 U/L (5-37); Bilirubin Total 0.5 mg/dL (0.0-1.0); Blood Urea Nitrogen 30 mg/dL (9-16); Calcium 9.5 mg/dL (8.4-10.2); Carbon Dioxide 24 mmol/L (22-29); Chloride 105 mmol/L (96-108); Cholesterol 138 mg/dL (<200); Estimated Glomerular Filt Rate 40; Glucose Fasting 194 mg/dL (60-99); HDL Cholesterol 34 mg/dL (>40); LDL Cholesterol Calculated 69 mg/dL (<100); Potassium 4.6 mmol/L (3.3-5.1); Sodium 137 mmol/L (135-145); Total Protein 7.6 g/dL (6.5-8.0); Triglycerides 177 mg/dL (<150)
[2024-10-27 13:53] LABS: Microalbum/Creatinine Ratio Ur 870.3 ug/mg cr (<30)
== END 2024-10-27 07:58 | disposition home or self-care (01) ==
LOC: HO.LAB 07:57
PROVIDERS: PCP Physician Assistant; Visit Provider Physician Assistant
DX: E11.22 Type 2 diabetes mellitus with diabetic chronic kidney disease (principal); I12.9 Hypertensive chronic kidney disease with stage 1 through stage 4 chronic kidney disease, or unspecified chronic kidney disease; N18.32 Chronic kidney disease, stage 3b; E11.610 Type 2 diabetes mellitus with diabetic neuropathic arthropathy; E11.65 Type 2 diabetes mellitus with hyperglycemia; I25.10 Atherosclerotic heart disease of native coronary artery without angina pectoris; E78.5 Hyperlipidemia, unspecified; F33.1 Major depressive disorder, recurrent, moderate; M48.062 Spinal stenosis, lumbar region with neurogenic claudication; F17.200 Nicotine dependence, unspecified, uncomplicated; Z79.4 Long term (current) use of insulin; Z95.2 Presence of prosthetic heart valve; Z51.81 Encounter for therapeutic drug level monitoring; Z79.01 Long term (current) use of anticoagulants
CPT/HCPCS: 36415; 80053; 80061; 82043; 82570; 83036; 85027; 85610; 96127; 99211; 99212

== ENCOUNTER 2024-10-27 09:33 | Outpatient (AMB) | payer MEDICARE, OTHER, SELFPAY ==
[2024-10-27 09:41] LABS: Prothrombin Time Whole Bld POC 35.3 sec (11.1-13.5); ~PT, ~INR - Anti Coag Clinic 2.9 (0.9-1.1)
--- NOTE | 2024-10-27 09:47 | MHC.OFFVISCO ---
Intake Intake Visit Reasons: Anticoagulation Allergies penicillin V Allergy (Unknown, Verified 10/27/24 09:34) hives, rash/tounge edema bupropion [From Wellbutrin] Adverse Reaction (Intermediate, Verified 10/27/24 09:34) GI upset Vicodin Allergy (Unknown, Uncoded 10/27/24 09:34) dizziness Medication List - Last Reconciled 10/27/24 by Yaneth Montilla RN acetaminophen 1,000 mg PO .q hs PRN albuterol sulfate 90 mcg/actuation 2 puffs inhalation Q6H PRN atorvastatin 40 mg PO DAILY back brace As directed blood sugar diagnostic (Resolve Therapeuticsuch Ultra Test strips) TEST 3 TIMES DAILY cetirizine 10 mg PO DAILY duloxetine 120 mg (2 x 60 mg) PO DAILY 30 days flash glucose scanning reader (organgir.amStyle Reid 2 [place]) 4 times per day flash glucose sensor (FreeStyle Reid 2 Sensor kit) test 4 times per day fluticasone propionate 50 mcg/actuation (Flonase Allergy Relief) 1 spray intranasal DAILY 30 days furosemide 20 mg PO BID 90 days hydrochlorothiazide 12.5 mg PO DAILY insulin aspart U-100 subcut insulin degludec (Tresiba FlexTouch U-200 insulin) 120 units (0.6 mL) subcut DAILY 30 days insulin glargine (Lantus U-100 Insulin) units subcut insulin lispro (Admelog SoloStar U-100 Insulin lispro) 15 units (0.15 mL) subcut TID 30 days losartan 100 mg PO DAILY 90 days miscellaneous medical supply (Blood Pressure Cuff) As directed omeprazole 20 mg PO DAILY potassium chloride ER 20 mEq PO DAILY 90 days warfarin 2 - 4 mg See Protocol PO DAILY Nursing Note Amb to ACS using walker pt last seen at [facility] 09/06/24 Medications and supplements reviewed, pt has been taking warfarin 4mg x 6 days and 2mg x 1 day vs dosing from our records (2mg x 2 days and 4mg x 5 days) has appointment today with PCP, meds Dc'D include Duloxetine (which is an INR raiser, should decrease INR now that he is off), wellbutrin (no warfarin interaction but has been listed as an adverse reaction) and doxycycline however not sure when pt was on this No other changes in health, diet, medications, or supplements, Denies any signs and symptoms of bleeding, bruising, or clotting. Bleeding, bruising, clotting discussed INR 2.9 in therapeutic range Dose: continue his usual dosing 2mg on tuesdays and 4mg all other days try to add greens into diet 2-3 times per week, food list reviewed and pt likes coleslaw, occassional salad- but not the dark green kinds F/U INR: 3 week Patient verbalizes understanding of instructions given Anti-Coag Initial Assessment Social Hx Patient Tobacco Use Status: Current everyday Tobacco user Questionnaires HAS-BLED Does the patient had uncontrolled Hypertension?: No Does the patient have renal disease?: No Does the patient have liver disease?: No Does the patient have a history of stroke?: No Has the patient had major bleeding or predisposition to bleeding?: No Does the patient have labile INRs?: Yes Is the patient over 65 years of age?: Yes Is the patient on medications that gives them a predisposition to bleeding?: Yes Does the patient use alcohol?: Yes HAS-BLED Score: 4 CHADSVASC Age: 66-74 Gender: Male Does the patient have a history of CHF?: No Does the patient have a history of Hypertension?: Yes Does the patient have a history of Stroke/TIA/Thromboembolism?: No Does the patient have a history of Vascular Disease (prior SC, PAD or aortic plaque)?: Yes Does the patient have a history of Diabetes?: Yes CHADS VACS Score: 4 Madelaine Prediction Score Rsk VTE Active Cancer: No Previous VTE, excluding superficial vein thrombosis: No Reduced mobility: Yes Already known Thrombophilic Condition: Yes With-in last month Trauma and/or Surgery: No Elderly 70 year or older: Yes Acute Myocardial infarction and/or Ischemic Stroke: No Acute Infection and/or Rheumatologic Disorder: No Obesity (BMI 30 or greater): Yes Ongoing Hormonal Treatment: No Score: 8 Madelaine Score less than 4; Low Risk of VTE Madelaine Score 4 or greater; High Risk of VTE Coding Level of Care Code Est Patient Level 1 Diagnoses Current use of anticoagulant therapy Z79.01 Time Spent (min) 20 Results AMB Hemoglobin A1c AMB Hemoglobin A1c 13.1 % Last Edit by THOM Zaldivar on 10/27/24 08:19 Assessment & Plan Assessment & Plan (1) Current use of anticoagulant therapy: Code(s): Z79.01 - senior care (current) use of anticoagulants Category: Medical
== END 2024-10-27 10:04 | disposition home or self-care (01) ==
LOC: HO.ACS 09:33
PROVIDERS: PCP Physician Assistant; Visit Provider Internal Medicine
DX: Z79.01 Long term (current) use of anticoagulants (principal)

== ENCOUNTER 2024-11-17 14:24 | Outpatient (AMB) | payer MEDICARE, OTHER, SELFPAY ==
--- NOTE | 2024-11-17 14:53 | MHC.OFFVISCO ---
Intake Intake Visit Reasons: Anticoagulation Allergies penicillin V Allergy (Unknown, Verified 11/17/24 14:28) hives, rash/tounge edema bupropion [From Wellbutrin] Adverse Reaction (Intermediate, Verified 11/17/24 14:28) GI upset Vicodin Allergy (Unknown, Uncoded 11/17/24 14:28) dizziness Medication List - Last Reconciled 11/17/24 by Carol Obrien RN acetaminophen 1,000 mg PO .q hs PRN albuterol sulfate 90 mcg/actuation 2 puffs inhalation Q6H PRN atorvastatin 40 mg PO DAILY back brace As directed blood sugar diagnostic (AwayFinduch Ultra Test strips) TEST 3 TIMES DAILY cetirizine 10 mg PO DAILY duloxetine 120 mg (2 x 60 mg) PO DAILY 30 days flash glucose scanning reader (CatchFreeStyle Reid 2 [place]) 4 times per day flash glucose sensor (FreeStyle Reid 2 Sensor kit) test 4 times per day fluticasone propionate 50 mcg/actuation (Flonase Allergy Relief) 1 spray intranasal DAILY 30 days furosemide 20 mg PO BID 90 days hydrochlorothiazide 12.5 mg PO DAILY insulin aspart U-100 subcut insulin degludec (Tresiba FlexTouch U-200 insulin) 120 units (0.6 mL) subcut DAILY 30 days insulin glargine (Lantus U-100 Insulin) units subcut insulin lispro (Admelog SoloStar U-100 Insulin lispro) 15 units (0.15 mL) subcut TID 30 days losartan 100 mg PO DAILY 90 days miscellaneous medical supply (Blood Pressure Cuff) As directed omeprazole 20 mg PO DAILY potassium chloride ER 20 mEq PO DAILY 90 days warfarin 2 - 4 mg See Protocol PO DAILY Nursing Note INR 3.5 out of therapeutic range Medications changes Patient status: his duloxetine was increased which can raise the INR, to have renal appt 11/21/2023 Medications or supplements: all other meds remain the same Diet: good Denies any signs and symptoms of bleeding or clotting or unusual bruising Bleeding, bruising, clotting discussed Nutritional guidance given: greens today or tomorrow Dose: decrease weekly dose 2mg x 2 days/ 4mg x 5 days F/U INR Date: 2 weeks ?? Patient verbalizing understanding of instructions given. Anti-Coag Initial Assessment Social Hx Patient Tobacco Use Status: Current everyday Tobacco user Coding Level of Care Code Est Patient Level 1 Diagnoses Current use of anticoagulant therapy Z79.01 Results AMB INR Fingerstick AMB INR Fingerstick 3.5 Last Edit by Carol Obrien RN on 11/17/24 14:41 manual entry Assessment & Plan Assessment & Plan (1) Current use of anticoagulant therapy: Code(s): Z79.01 - intermediate card tender (current) use of anticoagulants Category: Medical
[2024-11-17 15:21] LABS: Prothrombin Time Whole Bld POC 42.2 sec (11.1-13.5); ~PT, ~INR - Anti Coag Clinic 3.5 (0.9-1.1)
== END 2024-11-17 14:59 | disposition home or self-care (01) ==
LOC: HO.ACS 14:24
PROVIDERS: PCP Physician Assistant; Visit Provider Internal Medicine
DX: Z79.01 Long term (current) use of anticoagulants (principal)

== ENCOUNTER → 2024-11-17 14:24 | Outpatient (BNVA) | payer MEDICARE, OTHER, SELFPAY | PROVIDERS: PCP Physician Assistant; Visit Provider Internal Medicine | DX: Z95.2 Presence of prosthetic heart valve (principal); Z79.01 Long term (current) use of anticoagulants; Z51.81 Encounter for therapeutic drug level monitoring | CPT/HCPCS: 85610; 99211 ==

== ENCOUNTER 2024-11-21 12:44 | Outpatient (AMB) | payer MEDICARE, OTHER, SELFPAY ==
[2024-11-21 13:32] VITALS: BP 128/76; PULSE 103; O2SAT 97; BMI 37.0
--- NOTE | 2024-11-21 13:32 | HO.NEPHOV_ITS ---
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 Assistant Counsel Required: No Accompanied by: Self / Same As Patient Allergies penicillin V Allergy (Unknown, Verified 11/21/24 13:38) hives, rash/tounge edema bupropion [From Wellbutrin] Adverse Reaction (Intermediate, Verified 11/21/24 13:38) GI upset Vicodin Allergy (Unknown, Uncoded 11/17/24 14:28) dizziness Medication List - Last Reconciled 11/21/24 by Dae Paez MD acetaminophen 1,000 mg PO .q hs PRN albuterol sulfate 90 mcg/actuation 2 puffs inhalation Q6H PRN atorvastatin 40 mg PO DAILY back brace As directed blood sugar diagnostic (Cityblisuch Ultra Test strips) TEST 3 TIMES DAILY cetirizine 10 mg PO DAILY duloxetine 120 mg (2 x 60 mg) PO DAILY 30 days flash glucose scanning reader (ShopKeep POSStyle Reid 2 [place]) 4 times per day flash glucose sensor (FreeStyle Reid 2 Sensor kit) test 4 times per day fluticasone propionate 50 mcg/actuation (Flonase Allergy Relief) 1 spray intranasal DAILY 30 days furosemide 20 mg PO BID PRN hydrochlorothiazide 12.5 mg PO DAILY insulin aspart U-100 subcut insulin degludec (Tresiba FlexTouch U-200 insulin) 120 units (0.6 mL) subcut DAILY 30 days insulin glargine (Lantus U-100 Insulin) units subcut DAILY insulin lispro (Admelog SoloStar U-100 Insulin lispro) 15 units (0.15 mL) subcut TID 30 days losartan 100 mg PO DAILY 90 days miscellaneous medical supply (Blood Pressure Cuff) As directed omeprazole 20 mg PO DAILY warfarin 2 - 4 mg See Protocol PO DAILY HPI Comments Details: German is a pleasant 74-year-old man with a history of longstanding diabetes mellitus and hypertension. He was found to have mild chronic kidney disease. Has a history of COPD and history of chronic smoking. [facility]LY [facility] Medical History Spondylosis of lumbar spine Diabetic neuropathy Lumbar radiculopathy Obesity Hyperlipidemia LDL goal <70 Diabetes mellitus HTN (hypertension) CAD (coronary artery disease) Surgical History Hx of spinal surgery History of arthroscopy of knee Hx of coronary artery bypass graft History of mechanical aortic valve replacement Family History Father CVD (cardiovascular disease) Mother Diabetes Social History Housing: House Patient Tobacco Use Status: Current everyday Tobacco user Cigarettes Per Day: 8 e-Cigarette/Vaping Use: Never Used service: No Current occupational status: retired Current occupational exposures/hazards: No Cognitive needs: Yes Hearing needs: No Vision needs: No Review of Systems Const Denies fever(s) and Denies weight loss Card Denies chest pain Resp Denies cough and Denies hemoptysis GI Denies abdominal pain, Denies diarrhea and Denies nausea Musc Denies back pain Neuro Denies focal weakness Physical Exam Vital Signs: Last Vital Signs Pulse 103 H 11/21/24 13:32 BP 128/76 11/21/24 13:32 Pulse Ox 97 11/21/24 13:32 Oxygen Delivery Method Room Air 11/21/24 13:32 BMI result Body Mass Index 37.0 Comfortable Neck supple no JVD. Lungs entry equal no rales. Heart S1-S2 heard no gallop or rub. Abdomen soft nontender. Neuro alert awake oriented. No asterixis. Extremities no edema. Results Reviewed Nephrology Results: Hgb 14.8 g/dl (14.0-18.0) 10/27/24 WBC 9.9 X10*3/uL (4.8-10.8) 10/27/24 Plt Count 212 X10*3/uL (160-400) 10/27/24 Sodium 137 mmol/L (135-145) 10/27/24 Potassium 4.6 mmol/L (3.3-5.1) 10/27/24 Chloride 105 mmol/L (96-108) 10/27/24 Carbon Dioxide 24 mmol/L (22-29) 10/27/24 BUN 30 mg/dL (9-16) H 10/27/24 Creatinine 1.68 mg/dL (0.5-1.4) H 10/27/24 Calcium 9.5 mg/dL (8.4-10.2) 10/27/24 Urine Creatinine 146.50 mg/dL 10/27/24 Assessment & Plan Assessment & Plan (1) CKD (chronic kidney disease): Code(s): N18.9 - Chronic kidney disease, unspecified Category: Medical Plan 74-year-old man is free of longstanding hypertension diabetes mellitus with CKD. Chronic kidney disease most likely due to hypertensive diabetic kidney disease. Nondiabetic causes should be considered. Obstructive uropathy seems less likely nevertheless needs to be ruled out. There could be a component of hypoperfusion leading to acute kidney injury. With your permission I will decrease losartan down to 50 mg a day instead of 100 mg due to low blood pressure. I have initiated a workup for CKD as outlined below. The meantime encouraged him to stand low-sodium diet He should quit smoking. Maintain blood pressure less than 130/80. Continue to avoid nephrotoxic agents including NSAIDs. Orders: Orders Basic Metabolic Panel 2 Weeks Dae Paez MD E11.21 - Type 2 diabetes mellitus with diabetic nephropathy Complete Blood Count no Diff 2 Weeks Dae Paez MD E11.21 - Type 2 diabetes mellitus with diabetic nephropathy Creatinine Urine 2 Weeks Dae Paez MD E11.21 - Type 2 diabetes mellitus with diabetic nephropathy US renal BI Today Dae Paez MD N18.9 - Chronic kidney disease, unspecified, N28.1 - Cyst of kidney, acquired UA and rflx microscopic 2 Weeks Dae Paez MD E11.21 - Type 2 diabetes mellitus with diabetic nephropathy Total Protein Urine Random 2 Weeks Dae Paez MD E11.21 - Type 2 diabetes mellitus with diabetic nephropathy Medications: Changed From furosemide 20 mg PO BID 90 days 180 tabs 1RF I25.10 - Atherosclerotic heart disease of [place] coronary artery without angina pectoris To furosemide 20 mg PO BID PRN I25.10 - Atherosclerotic heart disease of [place] coronary artery without angina pectoris Connor Tesfaye PA-C From losartan 100 mg PO DAILY 90 days 90 tabs 1RF I10 - Essential (primary) hypertension To losartan 50 mg PO DAILY 90 tabs 1RF 90 days I10 - Essential (primary) hypertension Dae Paez MD Discontinued potassium chloride ER Discontinued Reason: Patient no longer taking 20 mEq PO DAILY 90 days 90 tabs 1RF Coding Level of Care Code New Pt Level 5 (13215) Diagnoses CKD (chronic kidney disease) N18.9
== END 2024-11-21 14:03 | disposition home or self-care (01) ==
PROVIDERS: PCP Physician Assistant; Referring Provider Physician Assistant; Visit Provider Internal Medicine Hypertension Specialist
DX: I12.9 Hypertensive chronic kidney disease with stage 1 through stage 4 chronic kidney disease, or unspecified chronic kidney disease (principal); E11.22 Type 2 diabetes mellitus with diabetic chronic kidney disease; N18.9 Chronic kidney disease, unspecified
CPT/HCPCS: 99204

== ENCOUNTER → 2024-11-21 12:44 | Outpatient (BNVA) | payer MEDICARE, OTHER, SELFPAY | PROVIDERS: PCP Physician Assistant; Referring Provider Physician Assistant; Visit Provider Internal Medicine Hypertension Specialist | DX: N18.9 Chronic kidney disease, unspecified (principal) | CPT/HCPCS: 99202 ==

== ENCOUNTER 2024-12-01 14:05 | Outpatient (AMB) | payer MEDICARE, OTHER, SELFPAY ==
[2024-12-01 14:22] LABS: Prothrombin Time Whole Bld POC 37.1 sec (11.1-13.5); ~PT, ~INR - Anti Coag Clinic 3.1 (0.9-1.1)
--- NOTE | 2024-12-01 14:32 | MHC.OFFVISCO ---
Intake Intake Visit Reasons: Anticoagulation Allergies penicillin V Allergy (Unknown, Verified 12/01/24 14:10) hives, rash/tounge edema bupropion [From Wellbutrin] Adverse Reaction (Intermediate, Verified 12/01/24 14:10) GI upset Vicodin Allergy (Unknown, Uncoded 12/01/24 14:10) dizziness Medication List - Last Reconciled 12/01/24 by Carol Obrien RN acetaminophen 1,000 mg PO .q hs PRN albuterol sulfate 90 mcg/actuation 2 puffs inhalation Q6H PRN atorvastatin 40 mg PO DAILY back brace As directed blood sugar diagnostic (docBeatuch Ultra Test strips) TEST 3 TIMES DAILY cetirizine 10 mg PO DAILY duloxetine 120 mg (2 x 60 mg) PO DAILY 30 days flash glucose scanning reader (Diet4LifeStyle Reid 2 [place]) 4 times per day flash glucose sensor (FreeStyle Reid 2 Sensor kit) test 4 times per day fluticasone propionate 50 mcg/actuation (Flonase Allergy Relief) 1 spray intranasal DAILY 30 days furosemide 20 mg PO BID PRN hydrochlorothiazide 12.5 mg PO DAILY insulin aspart U-100 subcut insulin degludec (Tresiba FlexTouch U-200 insulin) 120 units (0.6 mL) subcut DAILY 30 days insulin glargine (Lantus U-100 Insulin) units subcut DAILY insulin lispro (Admelog SoloStar U-100 Insulin lispro) 15 units (0.15 mL) subcut TID 30 days losartan 50 mg PO DAILY 90 days miscellaneous medical supply (Blood Pressure Cuff) As directed omeprazole 20 mg PO DAILY warfarin 2 - 4 mg See Protocol PO DAILY Nursing Note pt came to clinic ambulating with walker, appearing well for him. INR 3.1? out of therapeutic range Medications and supplements reviewed- COPY OF MED list given for him to review and compare to what he has at home and to bring med list back updated Patient status: currently has sinus congestions /cold took otc med not sure of name,going for renal ultrasound know to assess renal cyst, Medications or supplements: no known changes but to update med list Diet: good Denies any signs and symptoms of bleeding or clotting or unusual bruising Bleeding, bruising, clotting discussed Nutritional guidance given: try to eat greens weekly at least 1 salad or peas and broccoli Dose: 2mg x 2 days/ 4mg x 5 x 5 days F/U INR Date: 2 1/2 weeks so he can come back same day as he has to labs for MD ?? Patient verbalizing understanding of instructions given with read back. Anti-Coag Initial Assessment Social Hx Patient Tobacco Use Status: Current everyday Tobacco user Coding Level of Care Code Est Patient Level 1 Diagnoses Current use of anticoagulant therapy Z79.01 Assessment & Plan Assessment & Plan (1) Current use of anticoagulant therapy: Code(s): Z79.01 - half-way (current) use of anticoagulants Category: Medical
== END 2024-12-01 14:38 | disposition home or self-care (01) ==
LOC: HO.ACS 14:05
PROVIDERS: PCP Physician Assistant; Visit Provider Internal Medicine
DX: Z79.01 Long term (current) use of anticoagulants (principal)

== ENCOUNTER 2024-12-01 14:35 | Outpatient (REF) | payer MEDICARE, OTHER, SELFPAY ==
--- NOTE | ~2024-12-01 | US_ITS ---
EXAMINATION: US KIDNEY BILATERAL HISTORY: N18.9 - Chronic kidney disease, unspecified TECHNIQUE: Real-time grayscale ultrasound imaging of the kidneys was performed and images were reviewed. COMPARISON: Correlation is made with an abdominal ultrasound dated 02/18/2013. FINDINGS: Right kidney: The right kidney measures 10.8 x 5.6 x 4.8 cm. Renal parenchymal echotexture and thickness are normal. There is an upper pole cyst measuring 1.5 x 1.5 x 1.6 cm. There is no hydronephrosis or renal calculi. Left Kidney: The left kidney measures 11.4 x 4.6 x 4.0 cm. Renal parenchymal echotexture and thickness are normal. There are no masses. There is no hydronephrosis or renal calculi. US/US renal BI IMPRESSION: 1.6 cm right renal cyst. Otherwise unremarkable renal ultrasound. Electronically signed by: Julian Banks MD 12/01/2024 03:23 PM KARTHIK
== END 2024-12-01 14:36 | disposition home or self-care (01) ==
LOC: HO.US 14:35
PROVIDERS: PCP Physician Assistant; Visit Provider Internal Medicine Hypertension Specialist
DX: N18.9 Chronic kidney disease, unspecified (principal); N28.1 Cyst of kidney, acquired
CPT/HCPCS: 76775; 85610; 99211

== ENCOUNTER → 2024-12-01 14:37 | Outpatient (BNV) | payer MEDICARE, OTHER, SELFPAY | PROVIDERS: PCP Physician Assistant; Visit Provider Radiology Diagnostic Radiology | DX: N28.1 Cyst of kidney, acquired (principal) | CPT/HCPCS: 76775 ==

== ENCOUNTER 2025-01-09 10:17 | Outpatient (REF) | payer MEDICARE, OTHER, SELFPAY ==
--- OUTSIDE RECORDS SUMMARY | 2025-01-09 11:51 | XMS_ITS | Clinical Summary ---
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
--- OUTSIDE RECORDS SUMMARY | 2025-01-09 11:51 | XMS_ITS | Clinical Summary ---
Author Organization 175 [facility] Address [address] [place] [address] Phone Care Team Providers Care Flight Hostess Name Role Phone Connor Tesfaye Primary Care Provider [phone] Allergies Active Allergy Reactions Criticality Noted Date Comments Other Dizziness 01/08/2023 Kdc:Guaifenesin+Hydrocodone+Polyethyl brittny Glycol+Propylene Glycol+... Penicillin V 01/08/2023 Other Reaction(s): Hives/Urticaria, Rash/Dermatitis Medications albuterol sulfate (ProAir RespiClick) 90 mcg/actuation aerosol powdr breath activated Inhale by mouth. Act sadi atorvastatin (LIPITOR) 40 mg tablet Take 1 tablet (40 mg total) by mouth 1 (one) time each day. Active cetirizine (ZyrTEC) 10 mg tablet Take 1 tablet (10 mg total) by mouth 1 (one) time each day. Active cloNIDine (CATAPRES) 0.1 mg tablet Take 1 tablet (0.1 mg total) by mouth 2 (two) times a day. Active DULoxetine (CYMBALTA) [address] capsule Take 1 capsule (60 mg total) by mouth 1 (one) time each day. Active FLUTICASONE PROPIONATE INHL Inhale by mouth. Fluticasone Propionate, Inhal, 50 MCG/ACT AEROSOL POWDER,BREATH ACTIVATED Active furosemide (LASIX) 20 mg tablet Take 1 tablet (20 mg total) by mouth 1 (one) time each day. Active hydroCHLOROthia zide 12.5 mg tablet Take 1 tablet (12.5 mg total) by mouth 1 (one) time each day. Active losartan (COZAAR) 50 mg tablet Take 1 tablet (50 mg total) by mouth 1 (one) time each day. Active omeprazole (PriLOSEC) [address] capsule Take 1 capsule (20 mg total) by mouth 1 (one) time each day. Active potassium chloride 20 mEq tablet extended release Take by mouth. Activ e warfarin (COUMADIN) 2 mg tablet Take 1 Tablet by mouth See Admin Instructions. May cause heavy bleeding. Take at same time every day. Do not change dietary habits. Active Active Problems Problem Noted Date Diagnosed Date Spondylosis of lumbar spine 11/22/2024 Overview (11/22/2024): Last Assessment & Plan: Dmitriy returns to discuss his ongoing lower back pain mainly on the right side radiating down his lateral leg and calf. This bothers him while sitting, while transitioning from sit to stand and with any activity. He is concerned about the risks of surgery since he had open heart surgery for aortic valve replacement 9 to 10 years ago, he is on Coumadin and does bridge with Lovenox whenever he needs to hold it. He has known diabetes with neuropathy and underwent a left knee arthroscopy 6 to 7 years ago immediately after which he developed an infection requiring 3 months of antibiotics. He believes his most recent A1c was 7 but he is scheduled to have new blood test done this week. On exam, seated SLR is positive bilaterally at 90 degrees right worse than left. Strength is 5/5, sensation to light touch is diminished on the dorsum of the right foot particularly the great toe, gait is steady with a cane. We reviewed the surgical plan which is a right L4-5 MIS decompression and a right L5-S1 foraminotomy. We reviewed the details, risks, benefits and anticipated postoperative course including the preoperative Hibiclens wash, and following up on his current A1c and requesting cardiac clearance at his upcoming appointment with Dr. Miller on . All questions were answered and he wishes to proceed. Encounters Date Type Department Care Team Description 01/03/2025 3:00 PM EST Consult Orthopedic Surgery - [address] [address] Leonardo Solo, DPEvgeny Type 2 diabetes mellitus with diabetic neuropathy, with long-term current use of insulin (CMS/HCC) (Primary Dx); Arthritis of both feet; Difficulty walking; Ulcer of midfoot, right, with necrosis of muscle (CMS/HCC); Ulcer of left heel, with fat layer exposed (CMS/HCC) from Last 3 Months Immunizations Name Administration Dates Next Due Influenza trivalent, 0.5mL ( Fluzone High-dose) 65yo and older 10/15/2020,08/25/2018 Influenza trivalent, with pr eservative (Fluzone; Afluria) 6mo and older 10/09/2022 Pneumococcal polysaccharide 23 valent (Pneumovax 23) 2yo and older 02/25/2016 Surgical History Surgery Date Site/Laterality Comments OTHER SURGICAL HISTORY 2010 PROCEDURE: HISTORY OTHER; COMMENT: left knee arthroscopic surgery with postop infection, [facility] AORTIC VALVE REPLACEMENT PROCEDURE: HISTORICAL AORTIC VALVE REPL; COMMENT: on coumadin OTHER SURGICAL HISTORY 2002 PROCEDURE: AL ARTHRD ANT INTERDY CERVCL BELW C2 EA ADDL NTRSPC; COMMENT: [facility] Medical History Medical History Date Comments CAD (coronary artery disease) DX :CAD (coronary artery disease) HTN (hypertension) DX:HTN (hyper tension) Type 2 diabetes mellitus wit hout complications (CMS/HCC) DX:Type 2 diabetes mellitus without complications (HCC) Mixed hyperlipidemia DX:Mixed hy perlipidemia Lumbar radiculopathy DX:Lumbar r adiculopathy Obesity DX:Obesity Spondylosis of lumbar spine DX:S pondylosis of lumbar spine Family History Medical History Relation Name Comments Other: Other Father Diabetes Mother Relation Name Status Comments Father Mother Social History Tobacco Use Types Packs/Day Years Used Date Smoking Tobacco: Every Day Cigarettes Smokeless Tobacco: Never Sex and Gender Information Value Date Recorded Sex Assigned at Not on file Legal Sex Male 3:10 AM EST Gender Identity Not on file Sexual Orientation Not on file Obstetrics History Last Filed Vital Signs Vital Sign Reading Time Taken Comments Blood Pressure - - Pulse - - Temperature - - Respiratory Rate - - Oxygen Saturation - - Inhaled Oxygen Concentration - - Weight 104 kg (230 lb) 01/03/2025 1:50 PM EST Height 177.8 cm (5' 10 ) 01/03/2025 1:50 PM EST Body Mass Index 33 01/03/2025 1:50 PM EST Plan of Treatment Upcoming Encounters Date Type Department Care Team (Late st Contact Info) Description 01/11/2025 2:30 PM EST Office Visit Orthopedic Surgery - [address] [phone] Leonardo Solo, DPEvgeny [address] [facility] [address] [place] [address] Health Maintenance Due Date Last Done Comments Diabetes: Annual GFR (Glomerular Filtration Rate) 1951 Diabetes: Annual Foot Exam 1961 Diabetes: Annual Retina Eye Exam 1961 Zoster Vaccines (1 of 2) 2001 RSV Immunization Patients 60+ Years Old (1 - Risk 60-74 years 1-dose series) 2011 Pneumococcal Vaccine: 50+ Years (2 of 2 - PCV) 02/24/2017 02/25/2016, 10/29/2011 Abdominal Aortic Aneurysm (AAA) Screen 12/09/2023 Cholesterol Screening (Lipid Panel) 12/09/2023 Colorectal Cancer Screening: Colonoscopy 12/09/2023 Depression Screening 12/09/2023 Falls Risk Assessment 12/09/2023 Hepatitis C Screening 12/09/2023 Medicare Annual Wellness Visit 12/09/2023 Social Influencers of Health Screening 12/09/2023 COVID-19 Vaccine ( season) 2024 11/20/2021, 05/08/2021, 04/09/2021 Influenza Vaccine (#1) 2024 , 10/15/2020, 08/25/2018, Additional history exists Diabetes: Annual Urine Albumin-Creatinine Ratio (uACR) 11/14/2024 Diabetes: Blood Sugar Control Test (HGBA1C) 11/14/2024 DTaP,Tdap,and Td Vaccines (4 - Td or Tdap) 07/11/2034 07/11/2024, 01/07/2024, 11/05/2014 HIB Vaccines Aged Out No longer eligi ble based on patient's age to complete this topic HPV Vaccines Aged Out No longer eligi ble based on patient's age to complete this topic Hepatitis A Vaccines Aged Out No long er eligible based on patient's age to complete this topic Hepatitis B Vaccines Aged Out No long er eligible based on patient's age to complete this topic IPV Vaccines Aged Out No longer eligi ble based on patient's age to complete this topic MMR Vaccines Aged Out No longer eligi ble based on patient's age to complete this topic Meningococcal ACWY Vaccine Aged Out N o longer eligible based on patient's age to complete this topic Meningococcal B Vacine Aged Out No lo nger eligible based on patient's age to complete this topic RSV Immunization Patients Under 20 months Aged Out No longer eligible based on patient's age to complete this topic Varicella Vaccines Aged Out No longer eligible based on patient's age to complete this topic Insurance MEDICARE [facility] Care Teams Flight Hostess Relationship Specialty Start Date End Date Connor Tesfaye PA [address] [place] [address] PCP - General 01/23/23
--- OUTSIDE RECORDS SUMMARY | 2025-01-09 11:51 | XMS_ITS | Encounter Summary ---
Author Organization [facility] Address [address] [place] [phone] Care Team Providers Care Uniform Designer Name Role Phone Connor Tesfaye Primary Care Provider [phone] Reason for Visit * Reason Comments Foot Pain DM Foot Care * Consultation (Routine) - Closed Specialty Diagnoses / Procedures Referred By Phoebe levy Referred To Contact Podiatry / Orthopaedic Surgery Diagnoses Type 2 diabetes mellitus with diabetic neuropathy, unspecified (CMS/HCC) Connor Tesfaye PA Phone: tel: fax: Leonardo Solo DPM [address] [address] Phone: tel: fax: Referral ID Status Reason Start Date Expiration Date V isits Requested Visits Authorized [id number] Closed Specialty Services Required 11/14/2024 11/14/2025 1 1 Encounter Details Date Type Department Care Team (Late st Contact Info) Description 01/03/2025 3:00 PM EST Consult Orthopedic Surgery - [place] [id number] [phone] Leonardo Solo DPM [address] [address] Type 2 diabetes mellitus with diabetic neuropathy, with long-term current use of insulin (CMS/HCC) (Primary Dx); Arthritis of both feet; Difficulty walking; Ulcer of midfoot, right, with necrosis of muscle (CMS/HCC); Ulcer of left heel, with fat layer exposed (CMS/HCC) Social History Tobacco Use Types Packs/Day Years Used Date Smoking Tobacco: Every Day Cigarettes Smokeless Tobacco: Never Sex and Gender Information Value Date Recorded Sex Assigned at Not on file Legal Sex Male 3:10 AM EST Gender Identity Not on file Sexual Orientation Not on file documented as of this encounter Last Filed Vital Signs Vital Sign Reading Time Taken Comments Blood Pressure - - Pulse - - Temperature - - Respiratory Rate - - Oxygen Saturation - - Inhaled Oxygen Concentration - - Weight 104 kg (230 lb) 01/03/2025 1:50 PM EST Height 177.8 cm (5' 10 ) 01/03/2025 1:50 PM EST Body Mass Index 33 01/03/2025 1:50 PM EST documented in this encounter Progress Notes * Leonardo A Edil, ASHLYN - 01/03/2025 3:00 PM EST Referring MD: Connor Tesfaye PA Last PCP visit: 12/01/2024 IDENTIFIER: @TITLE@ Zacarias is a 74 y.o. year old male who presents for consultation. CC: Bilateral foot wounds HPI: 74-year-old male diabetic patient with an A1c of 13.1 presents office for chief complaint of bilateral foot wounds. Patient notes that he has increased sensitivity in his feet and tingling numbness from time to time. Patient notes that he has a history of lower back pathology. Patient notes that hedid not recall when he started having openings to the bottoms of the feet but does use compression diabetic shoes daily for ambulatory purposes. Patient does not use them in his house while barefoot in his house. Patient denies fever nausea vomit shortness of breath ROS: GENERAL: Pt denies nausea, fever, vomiting, chills, or shortness of breath. Pt in NAD. CARDIOLOGY: pt denies chest pain, palpitations LUNGS: pt denies shortness of breath MUSCULOSKELETAL: See HPI, otherwise no joint pain or swelling, back pain, or muscle pain. SKIN: see HPI, otherwise no lesions, rash or itching NEURO: No persistent headache, weakness or numbness The remainder of the review of systems is noncontributory PAST MEDICAL HISTORY: Patient Active Problem List Diagnosis Spondylosis of lumbar spine SOCIAL HISTORY: Social History Tobacco Use Smoking status: Every Day Current packs/day: 0.50 Types: Cigarettes Smokeless tobacco: Never Substance Use Topics Alcohol use: Not on file ACTIVE MEDICATIONS: No outpatient medications have been marked as taking for the 01/03/25 encounter (Consult) with Leonardo Solo DPM. ALLERGIES: @ALL@ PHYSICAL EXAM: Height 1.778 m (70 ), weight 104 kg (230 lb). PODIATRIC EXAMINATION: GENERAL: Patient appears well nourished, with NAD. VASCULAR: Dorsalis pedis pulses are 1/4 bilaterally and Posterior tibial pulses are 1/4 bilaterally. Capillary filling time within normal limits the digits. No pallor on elevation or rubor on dependency. Positive hair growth. Many varicosities. Denies rest pain or claudication pain. NEUROLOGICAL: Sharp/dull sensation diminished, protective sensation diminished on [place]. Peripheral neuropathy throughout the feet bilaterally ORTHOPEDIC: Good muscle strength 5/5 of all flexors and extensors. Dorsi flexion of ankle ,10 degrees, plantar flexion WNL. No muscle atrophy. Flexible flatfoot deformity bilaterally. Increased arthritic changes to the midfoot. Contractures of digits 2 through 5. Decreased range of motion of the first MPJ. DERMATOLOGICAL:.Ulceration to the plantar aspect of the left foot underneath the submetatarsal 1 position with a regular hyperkeratotic rim. Wound is 1 cm in diameter with fibrogranular base and foulodor. There is some oil material in the wound bed. Notable undermining about the wound area. More extensive ulceration to the plantar aspect of the right foot extending 2 cm in diameter extending into capsular tissue of the first metatarsal phalangeal joint. Undermining without deep trackingto bone. No malodor or purulence. Periwound erythema. Outer rim showing hematoma formation. BIOMECHANICS: STJ ROM wnl, MTJ ROM wnl, 1st MPJ ROM wnl. IMPRESSION: 1. Type 2 diabetes mellitus with diabetic neuropathy, unspecified (CMS/HCC) 2. Arthritis of both feet 3. Difficulty walking 4. Ulcer of midfoot, right, with necrosis of muscle (CMS/HCC) 5. Ulcer of left heel, with fat layer exposed (CMS/HCC) PLAN: Pt was seen and examined, history reviewed. Patient was first educated that his A1c is too high he needs to focus on bringing his sugar levels down in order to allow for his body to heal the ulcerations to the plantar aspect of the foot. Patient noted that he has difficulty remembering to take his medications but will focus on being more cons istent Patient was educated on the different ulcerations to the bilateral feet. Patient understands that the right foot has a deeper ulceration and has a higher potential for infection. Patient required debridement as described below. Patient's left foot had increased amount of soil material. Patient was e ncouraged to keep the area dressed daily to both feet. Patient was fit with an offloading pad and instructed to use the offloading pad for all ambulatory activity. Patient has difficulty ambulating without an assistive device. Patient notes that he has knee pain which makes it difficult for him to get around and get to the pharmacy. Patient was encouraged to use a cane or walker in order to decrease potential chances for falls Patient was instructed to change his bandage every other day to the bilateral feet. A form for [employer] was filled out and faxed so that he had supplies to do so. Patient was shown how to do the bandaging and should have robotic understanding Open wound selective debridement of devitalized soft tissue, fibrin, epidermis, dermis, thru skin and subcutaneous tissue and capsular tissue, first 20 sq cm or less, using sterile sharp dissection #15 scalpel blade of the right foot wound. Pt. deferred anesthesia. . Devitalized tissue was not sentto pathology. Open wound selective debridement of devitalized soft tissue, fibrin, epidermis, dermis, thru skin and subcutaneous tissue, first 20 sq cm or less, using sterile sharp dissection #15 scalpel blade of the left foot wound. Pt. deferred anesthesia. . Devitalized tissue was not sent to pathology. Leonardo Solo DPM cc: Connor Tesfaye PA documented in this encounter Plan of Treatment Upcoming Encounters Date Type Department Care Team (Late st Contact Info) Description 01/11/2025 2:30 PM EST Office Visit Orthopedic Surgery - [place] [address] [facility] [address] [place] [phone] Leonardo Solo DPM 175 [facility] [address] [place] [address] documented as of this encounter Visit Diagnoses Diagnosis Type 2 diabetes mellitus with diabetic neuropathy, with long-term current use of insulin (CMS/HCC)- Primary Arthritis of both feet Difficulty walking Difficulty in walking Ulcer of midfoot, right, with necrosis of muscle (CMS/HCC) Ulcer of left heel, with fat layer exposed (CMS/HCC) documented in this encounter Orders Outpatient Referral Count Last Ordered Date Fir st Ordered Date AMB REFERRAL TO PODIATRY 1 01/03/2025 documented in this encounter Care Teams Uniform Designer Relationship Specialty Start Date End Date Connor Tesfaye PA [address] [place] [phone] PCP - General 01/23/23 documented as of this encounter
[2025-01-09 11:54] LABS: Hematocrit 42.8 % (42.0-52.0); Hemoglobin 15.3 g/dl (14.0-18.0); Mean Corpuscular HGB Conc 35.7 g/dl (31.0-36.0); Mean Corpuscular Hemoglobin 29.5 pg (27.0-33.0); Mean Corpuscular Volume 82.6 fL (80.0-98.0); Mean Platelet Volume 10.8 fL (9.4-12.4); Platelet Count 223 X10*3/uL (160-400); Red Blood Count 5.18 X10*6/uL (4.60-5.80); Red Cell Distribution Width 12.6 % (11.0-16.0); White Blood Count 8.7 X10*3/uL (4.8-10.8)
[2025-01-09 11:59] LABS: Appearance Urine Clear; Color Urine Yellow; Glucose Urine UA >=1000 mg/dL (Negative); Leukocyte Esterase Urine Negative (Negative); Nitrite Urine Negative (Negative); Specific Gravity - Urine >= 1.030 (1.005-1.025); UMIC TRIGGER UA YES; Urine Blood Negative (Negative); Urine Ketones Negative (Negative); Urine Protein 100 (2+) mg/dL (Neg-Trace)
[2025-01-09 12:05] LABS: Bacteria Urine None Seen (None Seen); Hyaline Casts Urine 0-2 /LPF (0-2); RBC Urine 0-2 /HPF (0-2); Squamous Epithelial Cell Urine 0-2 /HPF (0-2); WBC Urine 0-5 /HPF (0-5)
[2025-01-09 12:31] LABS: Creatinine Urine 61.07 mg/dL; Total Protein Urine Random 45 mg/dL (<12)
[2025-01-09 12:48] LABS: Anion Gap 17 (12-20); Blood Urea Nitrogen 30 mg/dL (9-16); Carbon Dioxide 22 mmol/L (22-29); Chloride 92 mmol/L (96-108); Estimated Glomerular Filt Rate 35; Potassium 4.8 mmol/L (3.3-5.1); Sodium 126 mmol/L (135-145)
[2025-01-09 13:42] LABS: Glucose Random 673 mg/dL (60-115)
== END 2025-01-09 10:18 | disposition home or self-care (01) ==
LOC: HO.LAB 10:17
PROVIDERS: PCP Physician Assistant; Visit Provider Internal Medicine Hypertension Specialist
DX: E11.21 Type 2 diabetes mellitus with diabetic nephropathy (principal); Z79.01 Long term (current) use of anticoagulants
CPT/HCPCS: 36415; 80048; 81001; 81003; 82570; 84156; 85027; 85610; 99211

== ENCOUNTER 2025-01-09 10:22 | Outpatient (AMB) | payer MEDICARE, OTHER, SELFPAY ==
[2025-01-09 10:39] LABS: ~PT, ~INR - Anti Coag Clinic 3.1 (0.9-1.1)
--- NOTE | 2025-01-09 10:51 | MHC.OFFVISCO ---
Intake Intake Visit Reasons: Anticoagulation Allergies penicillin V Allergy (Unknown, Verified 01/09/25 10:33) hives, rash/tounge edema bupropion [From Wellbutrin] Adverse Reaction (Intermediate, Verified 01/09/25 10:33) GI upset Vicodin Allergy (Unknown, Uncoded 01/09/25 10:33) dizziness Medication List - Last Reconciled 01/09/25 by Carol Obrien RN acetaminophen 1,000 mg PO .q hs PRN albuterol sulfate 90 mcg/actuation 2 puffs inhalation Q6H PRN atorvastatin 40 mg PO DAILY back brace As directed blood sugar diagnostic (EasyLinkTouch Ultra Test strips) TEST 3 TIMES DAILY cetirizine 10 mg PO DAILY duloxetine 120 mg (2 x 60 mg) PO DAILY 30 days flash glucose scanning reader (LaComunityStyle Reid 2 [place]) 4 times per day flash glucose sensor (FreeStyle Reid 2 Sensor kit) test 4 times per day fluticasone propionate 50 mcg/actuation (Flonase Allergy Relief) 1 spray intranasal DAILY 30 days furosemide 20 mg PO BID PRN hydrochlorothiazide 12.5 mg PO DAILY insulin aspart U-100 subcut insulin degludec (Tresiba FlexTouch U-200 insulin) 120 units (0.6 mL) subcut DAILY 30 days insulin glargine (Lantus U-100 Insulin) units subcut DAILY insulin lispro (Admelog SoloStar U-100 Insulin lispro) 15 units (0.15 mL) subcut TID 30 days losartan 50 mg PO DAILY 90 days miscellaneous medical supply (Blood Pressure Cuff) As directed omeprazole 20 mg PO DAILY warfarin 2 - 4 mg See Protocol PO DAILY Nursing Note Arrival: Patient arrives to [facility] walking with cane, by self, has pain in kilg[place] feet. Status: Had bilat foot ulcer debridement to help prevent osteomylitis, taking tyelnol po bid and prn wound treatement Denies symptoms of bleeding, bruising or clotting. INR: 3.1 Therapeutic Range: 2.0-3.0 Dose: decrease dose slightly to 2mg mwf/ 4mg x 4 days Nutritional Guidance: Review food list weekly, especially during the holidays, seasonal changes and celebrations. Continue to eat a consistent and balanced diet to keep INR in therapeutic range. Enc healthy eating for wound healing Follow-up Appointment: 2 weeks same day as PCP appt 01/26/2025 Patient verbalizes understanding of instructions given regarding dosing, diet and next follow-up appointment with read back and will call with any health or medication chagnes. Anti-Coag Initial Assessment Social Hx Patient Tobacco Use Status: Current everyday Tobacco user Coding Level of Care Code Est Patient Level 1 Diagnoses Current use of anticoagulant therapy Z79.01 Results AMB INR Fingerstick AMB INR Fingerstick 3.1 Last Edit by Carol Obrien RN on 01/09/25 10:43 MANUAL ENTRY Assessment & Plan Assessment & Plan (1) Current use of anticoagulant therapy: Code(s): Z79.01 - superintendent terminal (current) use of anticoagulants Category: Medical
== END 2025-01-09 10:57 | disposition home or self-care (01) ==
LOC: HO.ACS 10:22
PROVIDERS: PCP Physician Assistant; Visit Provider Internal Medicine
DX: Z79.01 Long term (current) use of anticoagulants (principal)

== ENCOUNTER 2025-01-26 15:22 | Outpatient (AMB) | payer MEDICARE, OTHER, SELFPAY ==
[2025-01-26 15:31] LABS: Prothrombin Time Whole Bld POC 37.3 sec (11.1-13.5); ~PT, ~INR - Anti Coag Clinic 3.1 (0.9-1.1)
--- NOTE | 2025-01-26 15:38 | MHC.OFFVISCO ---
Intake Intake Visit Reasons: Anticoagulation Allergies penicillin V Allergy (Unknown, Verified 01/26/25 15:23) hives, rash/tounge edema bupropion [From Wellbutrin] Adverse Reaction (Intermediate, Verified 01/26/25 15:23) GI upset Vicodin Allergy (Unknown, Uncoded 01/26/25 15:23) dizziness Medication List - Last Reconciled 01/26/25 by Carol Obrien RN acetaminophen 1,000 mg PO .q hs PRN albuterol sulfate 90 mcg/actuation 2 puffs inhalation Q6H PRN atorvastatin 40 mg PO DAILY back brace As directed blood sugar diagnostic (NeuWave MedicalTouch Ultra Test strips) TEST 3 TIMES DAILY cetirizine 10 mg PO DAILY duloxetine 120 mg (2 x 60 mg) PO DAILY 30 days flash glucose scanning reader (Uniteam CommunicationStyle Reid 2 [place]) 4 times per day flash glucose sensor (FreeStyle Reid 2 Sensor kit) test 4 times per day fluticasone propionate 50 mcg/actuation (Flonase Allergy Relief) 1 spray intranasal DAILY 30 days furosemide 20 mg PO BID PRN hydrochlorothiazide 12.5 mg PO DAILY insulin aspart U-100 subcut insulin degludec (Tresiba FlexTouch U-200 insulin) 120 units (0.6 mL) subcut DAILY 30 days insulin glargine (Lantus U-100 Insulin) units subcut DAILY insulin lispro (Admelog SoloStar U-100 Insulin lispro) 15 units (0.15 mL) subcut TID 30 days losartan 50 mg PO DAILY 90 days miscellaneous medical supply (Blood Pressure Cuff) As directed omeprazole 20 mg PO DAILY warfarin 2 - 4 mg See Protocol PO DAILY Nursing Note INR: 3.1 in therapeutic range Medications and supplements reviewed- taking less tylenol now - none x 1 week going to wound clinic for bilat feet debridement -Dr Boone office - healing and patient is feeling much better Denies any signs and symptoms of bleeding or bruising or clotting. Bleeding, bruising, clotting discussed Nutritional guidance given - weekly greens Dose: dose decreased 2 weeks ago - Cont same dose for now 2mg x 3 days/ 4mg x 4 days F/U INR: 2 weeks Patient verbalizes understanding of instructions given Anti-Coag Initial Assessment Social Hx Patient Tobacco Use Status: Current everyday Tobacco user Coding Level of Care Code Est Patient Level 1 Diagnoses Current use of anticoagulant therapy Z79.01 Results AMB INR Fingerstick AMB INR Fingerstick 3.1 Last Edit by Carol Obrien RN on 01/26/25 15:31 MANUAL ENTRY Assessment & Plan Assessment & Plan (1) Current use of anticoagulant therapy: Code(s): Z79.01 - MCC (current) use of anticoagulants Category: Medical
--- OUTSIDE RECORDS SUMMARY | 2025-01-26 17:46 | XMS_ITS | Encounter Summary ---
Author Organization [facility] Address [address] [place] [phone] Care Team Providers Care Ice Cutter Name Role Phone Connor Tesfaye Primary Care Provider [phone] Reason for Visit * Reason Comments Foot Pain DM Foot Care * Consultation (Routine) - Closed Specialty Diagnoses / Procedures Referred By Phoebe levy Referred To Contact Podiatry / Orthopaedic Surgery Diagnoses Type 2 diabetes mellitus with diabetic neuropathy, unspecified (CMS/HCC) Connor Tesfaye PA Phone: tel: fax: Leonardo Solo DPM [address] [address] Phone: tel: fax: Referral ID Status Reason Start Date Expiration Date V isits Requested Visits Authorized [id number] Closed Specialty Services Required 11/14/2024 11/14/2025 1 1 Encounter Details Date Type Department Care Team (Late st Contact Info) Description 01/03/2025 3:00 PM EST Consult Orthopedic Surgery - [place] [address] [phone] Leonardo Solo DPM [address] [address] Type 2 diabetes mellitus with diabetic neuropathy, [...] Sharp/dull sensation diminished, protective sensation diminished on [place]. Peripheral neuropathy throughout the feet bilaterally ORTHOPEDIC: [...] to the bilateral feet. A form for [employer] was filled out and faxed so that [...] Care Team (Late st Contact Info) Description 01/31/2025 2:00 PM EDT Office Visit Orthopedic Surgery - [place] [address] [facility] [address] [place] [phone] Leonardo Solo DPM 175 [facility] [address] [place] [phone] documented as of this encounter Visit Diagnoses [...] 01/03/2025 documented in this encounter Care Teams Ice Cutter Relationship Specialty Start Date End Date Connor Tesfaye PA [address] [place] [phone] PCP - General 01/23/23 documented as of this encounter
--- OUTSIDE RECORDS SUMMARY | 2025-01-26 17:46 | XMS_ITS | Encounter Summary ---
Author Organization [facility] Address [address] [place] [phone] Care Team Providers Care Health And Safety Specialist Name Role Phone Connor Tesfaye Primary Care Provider [phone] Reason for Visit * Reason Comments DM Foot Care * Consultation (Routine) - Closed Specialty Diagnoses / Procedures Referred By Phoebe levy Referred To Contact Podiatry / Orthopaedic Surgery Diagnoses Type 2 diabetes mellitus with diabetic neuropathy, unspecified (CMS/HCC) Connor Tesfaye PA Phone: tel: fax: Leonardo Solo DPM [address] [address] Phone: tel: fax: Referral ID Status Reason Start Date Expiration Date V isits Requested Visits Authorized [id number] Closed Specialty Services Required 11/14/2024 11/14/2025 1 1 Encounter Details Date Type Department Care Team (Late st Contact Info) Description 01/11/2025 2:30 PM EST Office Visit Orthopedic Surgery - [place] [phone] [address] Leonardo Solo DPM [address] [address] Type 2 diabetes mellitus with diabetic neuropathy, with long-term current use of insulin (CMS/HCC) (Primary Dx); Difficulty walking; Ulcer of left heel, with fat layer [...] - - Weight 104 kg (230 lb) 01/11/2025 1:57 PM EST Height 177.8 cm (5' 10 ) 01/11/2025 1:57 PM EST Body Mass Index 33 01/11/2025 1:57 PM EST documented in this encounter Progress Notes * Leonardo A Edil, ASHLYN - 01/11/2025 2:30 PM EST Referring MD: Connor Tesfaye PA [...] denies fever nausea vomit shortness of breath 01/11/2025: 74-year-old diabetic male returns office for bilateral foot wounds. Patient has been using the offloading pad and the Betadine DSD. Patient notes he has been working on controlling his sugar better. Patient denies fever nausea vomiting shortness of breath ROS: GENERAL: Pt denies [...] Alcohol use: Not on file ACTIVE MEDICATIONS: Outpatient Medications Marked as Taking for the 01/11/25 encounter (Office Visit) with Leonardo Solo DPM Medication Sig Dispense Refill albuterol sulfate (ProAir RespiClick) 90 mcg/actuation aerosol powdr breath activated Inhale by mouth. atorvastatin (LIPITOR) 40 mg tablet Take 1 tablet (40 mg total) by mouth 1 (one) time each day. cetirizine (ZyrTEC) 10 mg tablet Take 1 tablet (10 mg total) by mouth 1 (one) time each day. cloNIDine (CATAPRES) 0.1 mg tablet Take 1 tablet (0.1 mg total) by mouth 2 (two) times a day. DULoxetine (CYMBALTA) [address] capsule Take 1 capsule (60 mg total) by mouth 1 (one) time each day. FLUTICASONE PROPIONATE INHL Inhale by mouth. Fluticasone Propionate, Inhal, 50 MCG/ACT AEROSOL POWDER,BREATH ACTIVATED furosemide (LASIX) 20 mg tablet Take 1 tablet (20 mg total) by mouth 1 (one) time each day. hydroCHLOROthiazide 12.5 mg tablet Take 1 tablet (12.5 mg total) by mouth 1 (one) time each day. losartan (COZAAR) 50 mg tablet Take 1 tablet (50 mg total) by mouth 1 (one) time each day. omeprazole (PriLOSEC) [address] capsule Take 1 capsule (20 mg total) by mouth 1 (one) time each day. potassium chloride 20 mEq tablet extended release Take by mouth. warfarin (COUMADIN) 2 mg tablet Take 1 Tablet by mouth See Admin Instructions. May cause heavy bleeding. Take at same time every day. Do not change dietary habits. ALLERGIES: @ALL@ PHYSICAL EXAM: Height 1.778 m [...] Sharp/dull sensation diminished, protective sensation diminished on [place]. Peripheral neuropathy throughout the feet bilaterally ORTHOPEDIC: Good muscle strength 5/5 of all flexors and extensors. Dorsi flexion of ankle ,10 degrees, plantar flexion WNL. No muscle atrophy. Flexible flatfoot deformity bilaterally. Increased arthritic changes to the midfoot. Contractures of digits 2 through 5. Decreased range of motion of the first MPJ. DERMATOLOGICAL:.Ulceration to the plantar aspect the left foot has decreased to 0.5 cm in diameter with a fibrogranular base and hyperkeratotic rim. Serous drainage without purulence malodor or deep tracking. No bony involvement Ulceration to the right foot plantar aspect is decreased to 1 cm x 1 mm with a fibrogranular base. No periwound erythema or streaking cellulitis. No malodor BIOMECHANICS: STJ ROM wnl, MTJ ROM wnl, 1st MPJ ROM wnl. IMPRESSION: 1. Type 2 diabetes mellitus with diabetic neuropathy, with long-term current use of insulin ([facility]) 2. Difficulty walking 3. Ulcer of left heel, with fat layer exposed ([facility]) PLAN: Pt was seen and examined, history reviewed. Patient is once again encouraged to continue keeping his sugar well-controlled as his wounds are healing well due to his steady decrease in elevated sugar Patient understands the importance of offloading the areas to the plantar metatarsal area in order to allow for proper healing. Patient was encouraged as he is healing his been tremendous over the past week. Patient instructed to continue with current dressing plan. Patient was instructed to change his bandage every other day to the bilateral feet. A form for [employer] was filled out and faxed so that he had supplies to do so. Patient was shown how to do the bandaging and should have robotic understanding Open wound selective debridement of devitalized soft tissue, fibrin, epidermis, dermis, thru skin and subcutaneous tissue, first 20 sq cm or less, using sterile sharp dissection #15 scalpel blade of the left and right foot wound. Pt. deferred anesthesia. . Devitalized tissue was not sent to pathology. Leonardo Solo DPM documented in this encounter Plan of Treatment Upcoming Encounters Date Type Department Care Team (Late st Contact Info) Description 01/31/2025 2:00 PM EDT Office Visit Orthopedic Surgery - [place] [address] 175 [facility] 250 [place] [phone] Leonardo Solo, ASHLYN 175 [facility] [address] [place] [address] documented as of this encounter Visit Diagnoses Diagnosis Type 2 diabetes mellitus with diabetic neuropathy, with long-term current use of insulin (CMS/HCC)- Primary Difficulty walking Difficulty in walking Ulcer of left heel, with fat layer exposed (CMS/[facility]) documented in this encounter Care Teams Health And Safety Specialist Relationship Specialty Start Date End Date Connor Tesfaye PA [address] [place] [phone] PCP - General 01/23/23 documented as of this encounter
--- OUTSIDE RECORDS SUMMARY | 2025-01-26 17:46 | XMS_ITS | Clinical Summary ---
Author Organization 175 [facility] Address 175 [place] [address] Phone Care Team Providers Care Tieing Machine Operator Name Role Phone Connor Tesfaye Primary Care Provider [phone] Allergies Active Allergy Reactions Criticality Noted Date [...] Encounters Date Type Department Care Team Description 01/17/2025 1:30 PM EDT Office Visit Orthopedic Surgery - [address] [phone] Leonardo Solo DPM Controlled type 2 diabetes mellitus with diabetic polyneuropathy, without long-term current use of insulin (CMS/HCC); Ulcer of right heel, with fat layer exposed (CMS/HCC); Neuropathy; Callus; Localized edema; Onychomycosis 01/11/2025 2:30 PM EST Office Visit Orthopedic Surgery - [place] [address] [address] Leonardo Solo DPM Type 2 diabetes mellitus with diabetic neuropathy, with long-term current use of insulin (CMS/HCC) (Primary Dx); Difficulty walking; Ulcer of left heel, with fat layer exposed (CMS/HCC) 01/03/2025 3:00 PM EST Consult Orthopedic Surgery - [place] [address] [phone] Leonardo Solo DPM Type 2 diabetes mellitus with diabetic neuropathy, [...] left knee arthroscopic surgery with postop infection, [facility] AORTIC VALVE REPLACEMENT PROCEDURE: HISTORICAL AORTIC VALVE REPL; COMMENT: on coumadin OTHER SURGICAL HISTORY 2002 PROCEDURE: RI ARTHRD ANT INTERDY CERVCL BELW C2 EA ADDL NTRSPC; COMMENT: [facility] Medical History Medical History Date Comments CAD (coronary artery disease) DX :CAD (coronary artery disease) HTN (hypertension) DX:HTN (hyper tension) Type 2 diabetes mellitus wit hout complications DX:Type 2 diabetes mellitus without complications (HCC) [...] Mass Index 33 01/11/2025 1:57 PM EST Plan of Treatment Upcoming Encounters Date Type Department Care Team (Late st Contact Info) Description 01/31/2025 2:00 PM EDT Office Visit Orthopedic Surgery - [place] [phone] [phone] Leonardo Solo, ASHLYN [address] [address] Health Maintenance Due Date Last Done Comments [...] 11/20/2021, 05/08/2021, 04/09/2021 Influenza Vaccine (#1) 2024 2, 10/15/2020, 08/25/2018, Additional history exists Diabetes: Annual [...] age to complete this topic Insurance MEDICARE [facility] Care Teams Tieing Machine Operator Relationship Specialty Start Date End Date Connor Tesfaye PA [address] [place] [address] PCP - General 01/23/23
--- OUTSIDE RECORDS SUMMARY | 2025-01-26 17:46 | XMS_ITS | Clinical Summary ---
Author Organization [facility] Address [address] [place] [address] Care Team Providers Care Cruise Director Name Role Phone Unavailable Primary Care Provider Unavailabl e Social History Tobacco Use Types Packs/Day Years Used Date Smoking Tobacco: Never Assessed Sex and Gender Information Value Date Recorded Sex Assigned at Not on file Gender Identity Not on file Sexual Orientation Not on file Plan of Treatment Not on file
--- OUTSIDE RECORDS SUMMARY | 2025-01-26 17:46 | XMS_ITS | Encounter Summary ---
Author Organization [facility] Address [address] [place] [phone] Care Team Providers Care [place] Name Role Phone Connor Tesfaye Primary Care Provider [phone] Reason for Visit * Reason Comments DM Foot Care Foot Ulcer * Consultation (Routine) - Closed Specialty Diagnoses / Procedures Referred By Phoebe levy Referred To Contact Podiatry / Orthopaedic Surgery Diagnoses Type 2 diabetes mellitus with diabetic neuropathy, unspecified (CMS/HCC) Connor Tesfaye PA Phone: tel: fax: Leonardo Solo DPM [address] [address] Phone: tel: fax: Referral ID Status Reason Start Date Expiration Date V isits Requested Visits Authorized [id number] Closed Specialty Services Required 11/14/2024 11/14/2025 1 1 Encounter Details Date Type Department Care Team (Late st Contact Info) Description 01/17/2025 1:30 PM EDT Office Visit Orthopedic Surgery - [place] [address] [phone] Leonardo Solo DPM [address] [address] Controlled type 2 diabetes mellitus with diabetic polyneuropathy, without long-term current use of insulin (CMS/HCC); Ulcer of right heel, with fat layer exposed (CMS/HCC); Neuropathy; Callus; Localized edema; Onychomycosis Social History Tobacco Use Types Packs/Day Years Used Date Smoking Tobacco: Every Day Cigarettes Smokeless Tobacco: Never Sex and Gender Information Value Date Recorded Sex Assigned at Not on file Legal Sex Male 3:10 AM EST Gender Identity Not on file Sexual Orientation Not on file documented as of this encounter Progress Notes * Leonardo Skelton Edil, ASHLYN - 01/17/2025 1:30 PM EDT Referring MD: Connor Tesfaye PA Last PCP [...] denies fever nausea vomiting shortness of breath 01/17/2025: 74-year-old male presents office for bilateral foot wounds. Patient notes he has been using the dressing that was applied last time and has not changed it. Patient notes that he has diabetic shoes but is not wearing them today. Patient relates that they are worn out. ROS: GENERAL: Pt denies nausea, fever, vomiting, [...] have been marked as taking for the 01/17/25 encounter (Office Visit) with Leonardo Solo DPM. ALLERGIES: @ALL@ PHYSICAL EXAM: There were no vitals taken for this visit. PODIATRIC EXAMINATION: GENERAL: Patient appears well nourished, with NAD. VASCULAR: Dorsalis pedis pulses are 1/4 bilaterally and Posterior tibial pulses are 1/4 bilaterally. Capillary filling time within normal limits the digits. No pallor on elevation or rubor on dependency. Positive hair growth. Many varicosities. Denies rest pain or claudication pain. NEUROLOGICAL: Sharp/dull sensation diminished, protective sensation diminished on [place]. Peripheral neuropathy throughout the feet bilaterally ORTHOPEDIC: Good muscle strength 5/5 of all flexors and extensors. Dorsi flexion of ankle ,10 degrees, plantar flexion WNL. No muscle atrophy. Flexible flatfoot deformity bilaterally. Increased arthritic changes to the midfoot. Contractures of digits 2 through 5. Decreased range of motion of the first MPJ. DERMATOLOGICAL:.Ulceration to the plantar aspect the left foot continues to be0.5 cm in diameter with a fibrogranular base and hyperkeratotic rim. Serous drainage without purulence malodor or deep tracking. No bony involvement Ulceration to the right foot plantar aspect is decreased to 3 mm x 1 mm with a fibrogranular base. No periwound erythema or streaking cellulitis. No malodor Callus tissue to the submetatarsal 5 position on the left foot BIOMECHANICS: STJ ROM wnl, MTJ ROM wnl, 1st MPJ ROM wnl. IMPRESSION: 1. Controlled type 2 diabetes mellitus with diabetic polyneuropathy, without long-term current use of insulin ([facility]) 2. Ulcer of right heel, with fat layer exposed ([facility]) 3. Neuropathy 4. Callus 5. Localized edema 6. Onychomycosis PLAN: Pt was seen and examined, history reviewed. Patient understands that sugar plays an important role in his ability to heal. Patient encouraged to keep tight glucose control during this time Patient understands the importance of offloading the areas to the plantar metatarsal area in order to allow for proper healing. Patient was encouraged as he is healing his been tremendous over the past week. Patient instructed to continue with current dressing plan. Patient was encouraged to continue with dressing changes to the left foot using offloading pads. Patient understands that once the wound closed to the bottom of the foot he does not require continueddressings Open wound selective debridement of devitalized soft tissue, fibrin, epidermis, dermis, thru skin and subcutaneous tissue, first 20 sq cm or less, using sterile sharp dissection #15 scalpel blade of the left foot wound. Pt. deferred anesthesia. . Devitalized tissue was not sent to pathology. Patient was given a prescription for diabetic shoes with 3 sets of custom Plastizote inserts to allow for proper and safe ambulation and decrease chances of future ulceration Leonardo Solo DPM documented in this encounter Plan of Treatment Upcoming Encounters Date Type Department Care Team (Late st Contact Info) Description 01/31/2025 2:00 PM EDT Office Visit Orthopedic Surgery - [place] [address] [phone] Leonardo Solo DPM [address] [address] documented as of this encounter Visit Diagnoses Diagnosis Controlled type 2 diabetes mellitus with diabetic polyneuropathy, without long- term current use of insulin (CMS/HCC) Ulcer of right heel, with fat layer exposed (CMS/HCC) Neuropathy Mononeuritis of unspecified site Callus Corns and callosities Localized edema Edema Onychomycosis Dermatophytosis of nail documented in this encounter Orders General Supply Count Last Ordered Date First Or dered Date DIABETIC CUSTOM MOLDED SHOE WITH INSERTS 1 01/17/2025 documented in this encounter Care Teams [place] Relationship Specialty Start Date End Date Connor Tesfaye PA [address] [place] [phone] PCP - General 01/23/23 documented as of this encounter
== END 2025-01-26 15:45 | disposition home or self-care (01) ==
LOC: HO.ACS 15:22
PROVIDERS: PCP Physician Assistant; Visit Provider Internal Medicine Medical Oncology
DX: Z79.01 Long term (current) use of anticoagulants (principal)

== ENCOUNTER → 2025-01-26 15:22 | Outpatient (BNVA) | payer MEDICARE, OTHER, SELFPAY | PROVIDERS: PCP Physician Assistant; Visit Provider Internal Medicine Medical Oncology | DX: Z95.2 Presence of prosthetic heart valve (principal); Z51.81 Encounter for therapeutic drug level monitoring; Z79.01 Long term (current) use of anticoagulants | CPT/HCPCS: 85610; 99211 ==

== ENCOUNTER 2025-02-09 14:45 | Outpatient (AMB) | payer MEDICARE, OTHER, SELFPAY ==
[2025-02-09 14:54] LABS: Prothrombin Time Whole Bld POC 29.1 sec (11.1-13.5); ~PT, ~INR - Anti Coag Clinic 2.4 (0.9-1.1)
--- NOTE | 2025-02-09 15:01 | MHC.OFFVISCO ---
Intake Intake Visit Reasons: Anticoagulation Allergies penicillin V Allergy (Unknown, Verified 02/09/25 14:50) hives, rash/tounge edema bupropion [From Wellbutrin] Adverse Reaction (Intermediate, Verified 02/09/25 14:50) GI upset Vicodin Allergy (Unknown, Uncoded 02/09/25 14:50) dizziness Medication List - Last Reconciled 02/09/25 by Yaneth Baugh RN acetaminophen 1,000 mg PO .q hs PRN albuterol sulfate 90 mcg/actuation 2 puffs inhalation Q6H PRN atorvastatin 40 mg PO DAILY back brace As directed blood sugar diagnostic (ClipboardTouch Ultra Test strips) TEST 3 TIMES DAILY cetirizine 10 mg PO DAILY duloxetine 120 mg (2 x 60 mg) PO DAILY 30 days flash glucose scanning reader (DS Digitale SeitenStyle Reid 2 Sophia) 4 times per day flash glucose sensor (FreeStyle Reid 2 Sensor kit) test 4 times per day fluticasone propionate 50 mcg/actuation (Flonase Allergy Relief) 1 spray intranasal DAILY 30 days furosemide 20 mg PO BID PRN hydrochlorothiazide 12.5 mg PO DAILY insulin aspart U-100 subcut insulin degludec (Tresiba FlexTouch U-200 insulin) 120 units (0.6 mL) subcut DAILY 30 days insulin glargine (Lantus U-100 Insulin) units subcut DAILY insulin lispro (Admelog SoloStar U-100 Insulin lispro) 15 units (0.15 mL) subcut TID 30 days losartan 50 mg PO DAILY 90 days miscellaneous medical supply (Blood Pressure Cuff) As directed omeprazole 20 mg PO DAILY warfarin 2 - 4 mg See Protocol PO DAILY Nursing Note INR: 2.4 in therapeutic range of 2-3 Pt states he's healing well s/p bilat foot debridement. Goes to wound clinic. States he has no pain but did have pain prior to debridement Medications and supplements reviewed No changes in health, diet, medications, or supplements, Denies any signs and symptoms of bleeding or bruising or clotting. Bleeding, bruising, clotting discussed Nutritional guidance given Dose: 4mg X 4 days and 3mg X 3 days (M/W/F) F/U INR: 3 weeks Patient verbalizes understanding of instructions given Anti-Coag Initial Assessment Social Hx Patient Tobacco Use Status: Current everyday Tobacco user Coding Level of Care Code Est Patient Level 1 Diagnoses Current use of anticoagulant therapy Z79.01 Results AMB INR Fingerstick AMB INR Fingerstick 2.4 Last Edit by Yaneth Baugh RN on 02/09/25 15:01 interface delay Assessment & Plan Assessment & Plan (1) Current use of anticoagulant therapy: Code(s): Z79.01 - intermediate frame tender (current) use of anticoagulants Category: Medical
--- OUTSIDE RECORDS SUMMARY | 2025-02-09 16:13 | XMS_ITS | Clinical Summary ---
Author Organization [facility] Address [address] [place] [address] Care Team Providers Care Load Dropper Name Role Phone Unavailable Primary Care Provider Unavailabl e Social History Tobacco Use Types Packs/Day Years Used Date Smoking Tobacco: Never Assessed Sex and Gender Information Value Date Recorded Sex Assigned at Not on file Gender Identity Not on file Sexual Orientation Not on file Plan of Treatment Not on file
--- OUTSIDE RECORDS SUMMARY | 2025-02-09 16:13 | XMS_ITS | Clinical Summary ---
Author Organization 175 [facility] Address [address] [place] [address] Phone Care Team Providers Care Chief Of Production Name Role Phone Connor Tesfaye Primary Care Provider [phone] Allergies Active Allergy Reactions Criticality Noted Date [...] PM EDT Office Visit Orthopedic Surgery - [address] [phone] Leonardo Solo, ASHLYN Controlled type 2 diabetes mellitus with diabetic polyneuropathy, without long-term current use of insulin (CMS/HCC); Ulcer of right heel, with fat layer exposed (CMS/HCC); Neuropathy; Callus; Localized edema; Onychomycosis 01/11/2025 2:30 PM EST Office Visit Orthopedic Surgery - [place] [address] [phone] Leonardo Solo DPM Type 2 diabetes mellitus with diabetic neuropathy, with long-term current use of insulin (CMS/HCC) (Primary Dx); Difficulty walking; Ulcer of left heel, with fat layer exposed (CMS/HCC) 01/03/2025 3:00 PM EST Consult Orthopedic Surgery - [place] [address] [phone] Leonardo Solo DPM Type 2 diabetes mellitus [...] left knee arthroscopic surgery with postop infection, [facility] AORTIC VALVE REPLACEMENT PROCEDURE: HISTORICAL AORTIC VALVE REPL; COMMENT: on coumadin OTHER SURGICAL HISTORY 2002 PROCEDURE: [place] ARTHRD ANT INTERDY CERVCL BELW C2 EA ADDL NTRSPC; COMMENT: [facility] Medical History Medical History Date Comments CAD [...] 01/11/2025 1:57 PM EST Plan of Treatment Health Maintenance Due Date Last Done Comments Diabetes: Annual GFR (Glomerular Filtration Rate) 1951 Diabetes: Annual Foot Exam 1961 Diabetes: Annual Retina Eye Exam 1961 Zoster Vaccines (1 of 2) 2001 RSV Immunization Adult Patients (1 - Risk 60-74 years 1-dose series) [...] Vaccine ( season) 2024 11/20/2021, 05/08/2021, 04/09/2021 Diabetes: Annual Urine Albumin-Creatinine Ratio (uACR) 11/14/2024 Diabetes: Blood Sugar Control Test (HGBA1C) 11/14/2024 Influenza Vaccine (Season Ended) 2025 10/09/2022, 10/15/2020, 08/25/2018, Additional history exists DTaP,Tdap,and Td Vaccines (4 - Td or [...] age to complete this topic Insurance MEDICARE [facility] Care Teams Chief Of Production Relationship Specialty Start Date End Date Connor Tesfaye PA [facility] - General 01/23/23
== END 2025-02-09 15:04 | disposition home or self-care (01) ==
LOC: HO.ACS 14:45
PROVIDERS: PCP Physician Assistant; Visit Provider Internal Medicine Medical Oncology
DX: Z79.01 Long term (current) use of anticoagulants (principal)

== ENCOUNTER → 2025-02-09 14:45 | Outpatient (BNVA) | payer MEDICARE, OTHER, SELFPAY | PROVIDERS: PCP Physician Assistant; Visit Provider Internal Medicine Medical Oncology | DX: Z86.73 Personal history of transient ischemic attack (TIA), and cerebral infarction without residual deficits (principal); Z51.81 Encounter for therapeutic drug level monitoring; Z79.01 Long term (current) use of anticoagulants | CPT/HCPCS: 85610; 99211 ==

== ENCOUNTER 2025-03-02 14:29 | Outpatient (AMB) | payer MEDICARE, OTHER, SELFPAY ==
[2025-03-02 14:52] LABS: Prothrombin Time Whole Bld POC 17.7 sec (11.1-13.5); ~PT, ~INR - Anti Coag Clinic 1.5 (0.9-1.1)
--- NOTE | 2025-03-02 15:08 | MHC.OFFVISCO ---
Intake Intake Visit Reasons: Anticoagulation Allergies penicillin V Allergy (Unknown, Verified 03/02/25 14:44) hives, rash/tounge edema bupropion [From Wellbutrin] Adverse Reaction (Intermediate, Verified 03/02/25 14:44) GI upset Vicodin Allergy (Unknown, Uncoded 02/09/25 14:50) dizziness Medication List - Last Reconciled 03/02/25 by Meghan Bueno RN acetaminophen 1,000 mg PO .q hs PRN albuterol sulfate 90 mcg/actuation 2 puffs inhalation Q6H PRN atorvastatin 40 mg PO DAILY back brace As directed blood sugar diagnostic ([employer] Ultra Test strips) TEST 3 TIMES DAILY cetirizine 10 mg PO DAILY duloxetine 120 mg (2 x 60 mg) PO DAILY 30 days flash glucose scanning reader (Hoyos CorporationStyle Reid 2 [place]) 4 times per day flash glucose sensor (FreeStyle Reid 2 Sensor kit) test 4 times per day fluticasone propionate 50 mcg/actuation (Flonase Allergy Relief) 1 spray intranasal DAILY 30 days furosemide 20 mg PO BID PRN hydrochlorothiazide 12.5 mg PO DAILY insulin aspart U-100 subcut insulin degludec (Tresiba FlexTouch U-200 insulin) 120 units (0.6 mL) subcut DAILY 30 days insulin glargine (Lantus U-100 Insulin) units subcut DAILY insulin lispro (Admelog SoloStar U-100 Insulin lispro) 15 units (0.15 mL) subcut TID 30 days losartan 50 mg PO DAILY 90 days miscellaneous medical supply (Blood Pressure Cuff) As directed omeprazole 20 mg PO DAILY warfarin 2 - 4 mg See Protocol PO DAILY Nursing Note PT.MISSED 1 DOSE OF WARFARIN THIS WEEK. HE HAS HAD NO CP,SOB OR SX OF BLEEDING. NO MED OR DIET CHANGES. BOOST TO 6MGM WARFARIN TODAY AND TOMORROW AND FOLLOW-UP HERE ON 03/06/25. NO GREENS IN MEANTIME. PT.VERB.GOOD UNDERSTANDING OF DOSING INSTR. CRITICAL NOTE TO PCP VIA MESSAGING WITH INR,PLAN OF CARE AND ? OF LOVENOX. Anti-Coag Initial Assessment Social Hx Patient Tobacco Use Status: Current everyday Tobacco user Coding Level of Care Code Est Patient Level 1 Diagnoses Current use of anticoagulant therapy Z79.01 Assessment & Plan Assessment & Plan (1) Current use of anticoagulant therapy: Code(s): Z79.01 - termite exterminator (current) use of anticoagulants Category: Medical
--- OUTSIDE RECORDS SUMMARY | 2025-03-02 17:03 | XMS_ITS | Clinical Summary ---
Author Organization 175 [facility] Address [address] [place] [address] Phone Care Team Providers Care Graphics Artist Name Role Phone Connor Tesfaye Primary Care Provider +1- [phone] Allergies Active Allergy Reactions Criticality Noted Date [...] PM EDT Office Visit Orthopedic Surgery - [address] [phone] Leonardo Solo, ASHLYN Controlled type 2 diabetes mellitus with diabetic polyneuropathy, without long-term current use of insulin ([facility] V24, [facility] V28); Ulcer of right heel, with fat layer exposed ([facility] V24, [facility] V28); Neuropathy; Callus; Localized edema; Onychomycosis 01/11/2025 2:30 PM EST Office Visit Orthopedic Surgery [place] [phone] [phone] Leonardo Solo DPM Type 2 diabetes mellitus with diabetic neuropathy, with long-term current use of insulin ([facility] V24, [facility] V28) (Primary Dx); Difficulty walking; Ulcer of left heel, with fat layer exposed ([facility] V24, [facility] V28) 01/03/2025 3:00 PM EST Consult Orthopedic Surgery [facility] [address] [phone] Leonardo Solo DPM Type 2 diabetes mellitus with diabetic neuropathy, with long-term current use of insulin ([facility] V24, [facility] V28) (Primary Dx); Arthritis of both feet; Difficulty walking; Ulcer of midfoot, right, with necrosis of muscle ([facility] V24, [facility] V28); Ulcer of left heel, with fat layer exposed ([facility] V24, [facility] V28) from Last 3 Months Immunizations Name Administration Dates Next Due Influenza trivalent, 0.5mL ( Fluzone High-dose) 65yo and older 10/15/2020,08/25/2018 Influenza trivalent, with pr eservative (Fluzone; Afluria) 6mo and older 10/09/2022 Pneumococcal polysaccharide 23 valent (Pneumovax 23) 2yo and older 02/25/2016 Surgical History Surgery Date Site/Laterality Comments OTHER SURGICAL HISTORY 2010 PROCEDURE: HISTORY OTHER; COMMENT: left knee arthroscopic surgery with postop infection, [facility] AORTIC VALVE REPLACEMENT PROCEDURE: HISTORICAL AORTIC VALVE REPL; COMMENT: on coumadin OTHER SURGICAL HISTORY 2002 PROCEDURE: [place] ARTHRD ANT INTERDY CERVCL BELW C2 EA ADDL NTRSPC; COMMENT: [facility] Medical History Medical History Date Comments CAD (coronary artery disease) DX :CAD (coronary artery disease) HTN (hypertension) DX:HTN (hyper tension) Type 2 diabetes mellitus wit hout complications ([facility] V24, [facility] V28) DX:Type 2 ally betes mellitus without complications (HCC) Mixed hyperlipidemia DX:Mixed [...] age to complete this topic Meningococcal B Vaccine Aged Out No l onger eligible based on patient's age to complete this topic RSV Immunization Patients Under 20 months Aged Out No longer eligible based on patient's age to complete this topic Varicella Vaccines Aged Out No longer eligible based on patient's age to complete this topic Insurance MEDICARE [facility] Care Teams Graphics Artist Relationship Specialty Start Date End Date Connor Tesfaye PA PCP - General 01/23/23
--- OUTSIDE RECORDS SUMMARY | 2025-03-02 17:03 | XMS_ITS | Clinical Summary ---
Author Organization [facility] Address [address] [place] [address] Care Team Providers Care Database Software Technician Name Role Phone Unavailable Primary Care Provider Unavailabl e Social History Tobacco Use Types Packs/Day Years Used Date Smoking Tobacco: Never Assessed Sex and Gender Information Value Date Recorded Sex Assigned at Not on file Gender Identity Not on file Sexual Orientation Not on file Plan of Treatment Not on file
== END 2025-03-02 15:15 | disposition home or self-care (01) ==
LOC: HO.ACS 14:29
PROVIDERS: PCP Physician Assistant; Visit Provider Internal Medicine Medical Oncology
DX: Z79.01 Long term (current) use of anticoagulants (principal)

== ENCOUNTER → 2025-03-02 14:29 | Outpatient (BNVA) | payer MEDICARE, OTHER, SELFPAY | PROVIDERS: PCP Physician Assistant; Visit Provider Internal Medicine Medical Oncology | DX: Z95.2 Presence of prosthetic heart valve (principal); Z79.01 Long term (current) use of anticoagulants; Z51.81 Encounter for therapeutic drug level monitoring | CPT/HCPCS: 85610; 99211 ==

== ENCOUNTER 2025-03-06 14:24 | Outpatient (AMB) | payer MEDICARE, OTHER, SELFPAY ==
[2025-03-06 14:57] LABS: Prothrombin Time Whole Bld POC 17.5 sec (11.1-13.5); ~PT, ~INR - Anti Coag Clinic 1.5 (0.9-1.1)
--- NOTE | 2025-03-06 15:42 | MHC.OFFVISCO ---
Intake Intake Visit Reasons: Anticoagulation Allergies penicillin V Allergy (Unknown, Verified 03/02/25 14:44) hives, rash/tounge edema bupropion [From Wellbutrin] Adverse Reaction (Intermediate, Verified 03/02/25 14:44) GI upset Vicodin Allergy (Unknown, Uncoded 02/09/25 14:50) dizziness Medication List - Last Reconciled 03/06/25 by Yaneth Baugh RN acetaminophen 1,000 mg PO .q hs PRN albuterol sulfate 90 mcg/actuation 2 puffs inhalation Q6H PRN atorvastatin 40 mg PO DAILY back brace As directed blood sugar diagnostic (Fusionone Electronic HealthcareTouch Ultra Test strips) TEST 3 TIMES DAILY cetirizine 10 mg PO DAILY duloxetine 120 mg (2 x 60 mg) PO DAILY 30 days flash glucose scanning reader (Axiom EducationStyle Reid 2 [place]) 4 times per day flash glucose sensor (FreeStyle Reid 2 Sensor kit) test 4 times per day fluticasone propionate 50 mcg/actuation (Flonase Allergy Relief) 1 spray intranasal DAILY 30 days furosemide 20 mg PO BID PRN hydrochlorothiazide 12.5 mg PO DAILY insulin aspart U-100 subcut insulin degludec (Tresiba FlexTouch U-200 insulin) 120 units (0.6 mL) subcut DAILY 30 days insulin glargine (Lantus U-100 Insulin) units subcut DAILY insulin lispro (Admelog SoloStar U-100 Insulin lispro) 15 units (0.15 mL) subcut TID 30 days losartan 50 mg PO DAILY 90 days miscellaneous medical supply (Blood Pressure Cuff) As directed omeprazole 20 mg PO DAILY warfarin 2 - 4 mg See Protocol PO DAILY Nursing Note INR: 1.5 out of therapeutic range of 2-3 Previous INR 1.5 on 03/02/25. Pt states he took the increased dose of 6mg X 2 days on 03/02 and 03/03 but thinks he forgot to take warfarin over the weekend. Asked pt if he uses a pillbox and he said yes but he wakes up and can't remember if he took his meds and doesn't check the pillbox. Medications and supplements reviewed Patient status: feels well Medications or supplements: per pt no changes Diet: usual diet for pt Denies any signs and symptoms of bleeding or clotting or unusual bruising Bleeding, bruising, clotting discussed Nutritional guidance given: to avoid greens until INR therapeutic Dose: increase today's dose to 6mg (2mg) and increase tomorrow's dose to 6mg (4mg) then 2mg and then return to [facility] for retest F/U INR Date: 03/09/25?? Patient verbalizing understanding of instructions given. T/C to Hior Tesfaye PA-C. Spoke to [facility] and INR 1.5 reported to her with dosing plan and next retest day. Composed note also sent to Hiro Tesfaye PA-C. Nurse from provider's office to check with pt today to be sure he took the warfarin. Anti-Coag Initial Assessment Social Hx Patient Tobacco Use Status: Current everyday Tobacco user Coding Level of Care Code Est Patient Level 1 Diagnoses Current use of anticoagulant therapy Z79.01 Results AMB INR Fingerstick AMB INR Fingerstick 1.5 Last Edit by Yaneth Baugh, RN on 03/06/25 15:11 interface delay Assessment & Plan Assessment & Plan (1) Current use of anticoagulant therapy: Code(s): Z79.01 - halfway (current) use of anticoagulants Category: Medical
--- OUTSIDE RECORDS SUMMARY | 2025-03-06 17:12 | XMS_ITS | Clinical Summary ---
Author Organization [facility] Address [address] [place] [address] Care Team Providers Care Government Services Professional Name Role Phone Unavailable Primary Care Provider Unavailabl e Social History Tobacco Use Types Packs/Day Years Used Date Smoking Tobacco: Never Assessed Sex and Gender Information Value Date Recorded Sex Assigned at Not on file Gender Identity Not on file Sexual Orientation Not on file Plan of Treatment Not on file
--- OUTSIDE RECORDS SUMMARY | 2025-03-06 17:13 | XMS_ITS | Clinical Summary ---
Author Organization 175 [facility] Address [address] [place] [address] Phone Care Team Providers Care Fire Hydrant Mechanic Name Role Phone Connor Tesfaye Primary Care Provider +1- [phone] Allergies Active Allergy Reactions Criticality Noted Date [...] PM EDT Office Visit Orthopedic Surgery - [address] [phone] Leonardo Solo, ASHLYN Controlled type 2 diabetes mellitus with diabetic polyneuropathy, without long-term current use of insulin ([facility] V24, [facility] V28); Ulcer of right heel, with fat layer exposed ([facility] V24, [facility] V28); Neuropathy; Callus; Localized edema; Onychomycosis 01/11/2025 2:30 PM EST Office Visit Orthopedic Surgery [place] [phone] [phone] Leonardo Solo DPM Type 2 diabetes mellitus with diabetic neuropathy, with long-term current use of insulin ([facility] V24, [facility] V28) (Primary Dx); Difficulty walking; Ulcer of left heel, with fat layer exposed ([facility] V24, [facility] V28) 01/03/2025 3:00 PM EST Consult Orthopedic Surgery [facility] [address] [phone] Leonardo Solo DPM Type 2 diabetes mellitus with diabetic neuropathy, with long-term current use of insulin ([facility] V24, [facility] V28) (Primary Dx); Arthritis of both feet; Difficulty walking; Ulcer of midfoot, right, with necrosis of muscle ([facility] V24, [facility] V28); Ulcer of left heel, with fat layer exposed ([facility] V24, [facility] V28) from Last 3 Months Immunizations Name Administration Dates Next Due Influenza trivalent, 0.5mL ( Fluzone High-dose) 65yo and older 10/15/2020,08/25/2018 Influenza trivalent, with pr eservative (Fluzone; Afluria) 6mo and older 10/09/2022 Pneumococcal polysaccharide 23 valent (Pneumovax 23) 2yo and older 02/25/2016 Surgical History Surgery Date Site/Laterality Comments OTHER SURGICAL HISTORY 2010 PROCEDURE: HISTORY OTHER; COMMENT: left knee arthroscopic surgery with postop infection, [facility] AORTIC VALVE REPLACEMENT PROCEDURE: HISTORICAL AORTIC VALVE REPL; COMMENT: on coumadin OTHER SURGICAL HISTORY 2002 PROCEDURE: [place] ARTHRD ANT INTERDY CERVCL BELW C2 EA ADDL NTRSPC; COMMENT: [facility] Medical History Medical History Date Comments CAD (coronary artery disease) DX :CAD (coronary artery disease) HTN (hypertension) DX:HTN (hyper tension) Type 2 diabetes mellitus wit hout complications ([facility] V24, [facility] V28) DX:Type 2 ally betes mellitus without [...] age to complete this topic Insurance MEDICARE [facility] Care Teams Fire Hydrant Mechanic Relationship Specialty Start Date End Date Connor Tesfaye PA PCP - General 01/23/23
== END 2025-03-06 16:02 | disposition home or self-care (01) ==
LOC: HO.ACS 14:24
PROVIDERS: PCP Physician Assistant; Visit Provider Internal Medicine Medical Oncology
DX: Z79.01 Long term (current) use of anticoagulants (principal)

== ENCOUNTER → 2025-03-06 14:24 | Outpatient (BNVA) | payer MEDICARE, OTHER, SELFPAY | PROVIDERS: PCP Physician Assistant; Visit Provider Internal Medicine Medical Oncology | DX: Z95.2 Presence of prosthetic heart valve (principal); Z79.01 Long term (current) use of anticoagulants; Z51.81 Encounter for therapeutic drug level monitoring | CPT/HCPCS: 85610; 99211 ==

== ENCOUNTER 2025-03-09 14:10 | Outpatient (AMB) | payer MEDICARE, OTHER, SELFPAY ==
[2025-03-09 14:53] LABS: Prothrombin Time Whole Bld POC 20.6 sec (11.1-13.5); ~PT, ~INR - Anti Coag Clinic 1.7 (0.9-1.1)
--- NOTE | 2025-03-09 15:06 | MHC.OFFVISCO ---
Intake Intake Visit Reasons: Anticoagulation Allergies penicillin V Allergy (Unknown, Verified 03/09/25 14:45) hives, rash/tounge edema bupropion [From Wellbutrin] Adverse Reaction (Intermediate, Verified 03/09/25 14:45) GI upset Vicodin Allergy (Unknown, Uncoded 03/09/25 14:45) dizziness Medication List - Last Reconciled 03/09/25 by Carol Obrien RN acetaminophen 1,000 mg PO .q hs PRN albuterol sulfate 90 mcg/actuation 2 puffs inhalation Q6H PRN atorvastatin 40 mg PO DAILY back brace As directed blood sugar diagnostic (DuckHook Mediauch Ultra Test strips) TEST 3 TIMES DAILY cetirizine 10 mg PO DAILY duloxetine 120 mg (2 x 60 mg) PO DAILY 30 days flash glucose scanning reader (QuadROIStyle Reid 2 [place]) 4 times per day flash glucose sensor (FreeStyle Reid 2 Sensor kit) test 4 times per day fluticasone propionate 50 mcg/actuation (Flonase Allergy Relief) 1 spray intranasal DAILY 30 days furosemide 20 mg PO BID PRN hydrochlorothiazide 12.5 mg PO DAILY insulin aspart U-100 subcut insulin degludec (Tresiba FlexTouch U-200 insulin) 120 units (0.6 mL) subcut DAILY 30 days insulin lispro (Admelog SoloStar U-100 Insulin lispro) 15 units (0.15 mL) subcut TID 30 days losartan 50 mg PO DAILY 90 days miscellaneous medical supply (Blood Pressure Cuff) As directed omeprazole 20 mg PO DAILY warfarin 2 - 4 mg See Protocol PO DAILY Nursing Note INR 1.7 still out of therapeutic range Medications and supplements reviewed Patient status: for the past 2weeks pt using CBD 5mg Gummie in pm for pain with relief Medications or supplements: RX no changes Diet: good Denies any signs and symptoms of bleeding or clotting or unusual bruising Bleeding, bruising, clotting discussed Nutritional guidance given: avoid greens today and tomorrow - try to eat foods that can raise the INR today Dose: complete this week doseing then 28 mg the next week =4mg daily=28mg F/U INR Date: 1 week ?? Patient verbalizing understanding of instructions given. Anti-Coag Initial Assessment Social Hx Patient Tobacco Use Status: Current everyday Tobacco user Coding Level of Care Code Est Patient Level 1 Diagnoses Current use of anticoagulant therapy Z79.01 Results AMB INR Fingerstick AMB INR Fingerstick 1.7 Last Edit by Carol Obrien RN on 03/09/25 14:54 MANUAL ENTRY Assessment & Plan Assessment & Plan (1) Current use of anticoagulant therapy: Code(s): Z79.01 - intermediate accountant (current) use of anticoagulants Category: Medical
--- OUTSIDE RECORDS SUMMARY | 2025-03-09 16:20 | XMS_ITS | Clinical Summary ---
Author Organization 175 [facility] Address [address] [place] [address] Phone Care Team Providers Care Assistant Football Coach Name Role Phone Connor Tesfaye Primary Care Provider +1- [phone] Allergies Active Allergy Reactions Criticality Noted Date [...] PM EDT Office Visit Orthopedic Surgery - [address] [phone] Leonardo Solo, ASHLYN Controlled type 2 diabetes mellitus with diabetic polyneuropathy, without long-term current use of insulin ([facility] V24, [facility] V28); Ulcer of right heel, with fat layer exposed ([facility] V24, [facility] V28); Neuropathy; Callus; Localized edema; Onychomycosis 01/11/2025 2:30 PM EST Office Visit Orthopedic Surgery [place] [phone] [phone] Leonardo Solo DPM Type 2 diabetes mellitus with diabetic neuropathy, with long-term current use of insulin ([facility] V24, [facility] V28) (Primary Dx); Difficulty walking; Ulcer of left heel, with fat layer exposed ([facility] V24, [facility] V28) 01/03/2025 3:00 PM EST Consult Orthopedic Surgery [facility] [address] [phone] Leonardo Solo DPM Type 2 diabetes mellitus with diabetic neuropathy, with long-term current use of insulin ([facility] V24, [facility] V28) (Primary Dx); Arthritis of both feet; Difficulty walking; Ulcer of midfoot, right, with necrosis of muscle ([facility] V24, [facility] V28); Ulcer of left heel, with fat layer exposed ([facility] V24, [facility] V28) from Last 3 Months Immunizations Name Administration Dates Next Due Influenza trivalent, 0.5mL ( Fluzone High-dose) 65yo and older 10/15/2020,08/25/2018 Influenza trivalent, with pr eservative (Fluzone; Afluria) 6mo and older 10/09/2022 Pneumococcal polysaccharide 23 valent (Pneumovax 23) 2yo and older 02/25/2016 Surgical History Surgery Date Site/Laterality Comments OTHER SURGICAL HISTORY 2010 PROCEDURE: HISTORY OTHER; COMMENT: left knee arthroscopic surgery with postop infection, [facility] AORTIC VALVE REPLACEMENT PROCEDURE: HISTORICAL AORTIC VALVE REPL; COMMENT: on coumadin OTHER SURGICAL HISTORY 2002 PROCEDURE: [place] ARTHRD ANT INTERDY CERVCL BELW C2 EA ADDL NTRSPC; COMMENT: [facility] Medical History Medical History Date Comments CAD (coronary artery disease) DX :CAD (coronary artery disease) HTN (hypertension) DX:HTN (hyper tension) Type 2 diabetes mellitus wit hout complications ([facility] V24, [facility] V28) DX:Type 2 ally betes mellitus without [...] age to complete this topic Insurance MEDICARE [facility] Care Teams Assistant Football Coach Relationship Specialty Start Date End Date Connor Tesfaye PA PCP - General 01/23/23
--- OUTSIDE RECORDS SUMMARY | 2025-03-09 16:20 | XMS_ITS | Clinical Summary ---
Author Organization [facility] Address [address] [place] [address] Care Team Providers Care Manager Category Name Role Phone Unavailable Primary Care Provider Unavailabl e Social History Tobacco Use Types Packs/Day Years Used Date Smoking Tobacco: Never Assessed Sex and Gender Information Value Date Recorded Sex Assigned at Not on file Gender Identity Not on file Sexual Orientation Not on file Plan of Treatment Not on file
== END 2025-03-09 15:11 | disposition home or self-care (01) ==
LOC: HO.ACS 14:10
PROVIDERS: PCP Physician Assistant; Visit Provider Internal Medicine Medical Oncology
DX: Z79.01 Long term (current) use of anticoagulants (principal)

== ENCOUNTER → 2025-03-09 14:10 | Outpatient (BNVA) | payer MEDICARE, OTHER, SELFPAY | PROVIDERS: PCP Physician Assistant; Visit Provider Internal Medicine Medical Oncology | DX: Z95.2 Presence of prosthetic heart valve (principal); Z79.01 Long term (current) use of anticoagulants; Z51.81 Encounter for therapeutic drug level monitoring | CPT/HCPCS: 85610; 99211 ==

== ENCOUNTER 2025-03-16 14:02 | Outpatient (AMB) | payer MEDICARE, OTHER, SELFPAY ==
[2025-03-16 14:39] LABS: Prothrombin Time Whole Bld POC 23.4 sec (11.1-13.5)
--- NOTE | 2025-03-16 14:44 | MHC.OFFVISCO ---
Intake Intake Visit Reasons: Anticoagulation Allergies penicillin V Allergy (Unknown, Verified 03/16/25 14:32) hives, rash/tounge edema bupropion [From Wellbutrin] Adverse Reaction (Intermediate, Verified 03/16/25 14:32) GI upset Vicodin Allergy (Unknown, Uncoded 03/16/25 14:32) dizziness Medication List - Last Reconciled 03/16/25 by Carol Obrien RN acetaminophen 1,000 mg PO .q hs PRN albuterol sulfate 90 mcg/actuation 2 puffs inhalation Q6H PRN atorvastatin 40 mg PO DAILY back brace As directed blood sugar diagnostic (ClearhausTouch Ultra Test strips) TEST 3 TIMES DAILY [CBD PO] cetirizine 10 mg PO DAILY duloxetine 120 mg (2 x 60 mg) PO DAILY 30 days flash glucose scanning reader (Calient TechnologiesStyle Reid 2 [place]) 4 times per day flash glucose sensor (FreeStyle Reid 2 Sensor kit) test 4 times per day fluticasone propionate 50 mcg/actuation (Flonase Allergy Relief) 1 spray intranasal DAILY 30 days furosemide 20 mg PO BID PRN hydrochlorothiazide 12.5 mg PO DAILY insulin aspart U-100 subcut insulin degludec (Tresiba FlexTouch U-200 insulin) 120 units (0.6 mL) subcut DAILY 30 days insulin lispro (Admelog SoloStar U-100 Insulin lispro) 15 units (0.15 mL) subcut TID 30 days losartan 50 mg PO DAILY 90 days miscellaneous medical supply (Blood Pressure Cuff) As directed omeprazole 20 mg PO DAILY warfarin 2 - 4 mg See Protocol PO DAILY Nursing Note INR: 2.0 in therapeutic range Medications and supplements reviewed No changes in health, diet, medications, or supplements, Denies any signs and symptoms of bleeding or bruising or clotting. Bleeding, bruising, clotting discussed Nutritional guidance given Dose: 4mg daily F/U INR: 11 days- pt would like to a week off Patient verbalizes understanding of instructions given with read back- dates put on dosing instructions Anti-Coag Initial Assessment Social Hx Patient Tobacco Use Status: Current everyday Tobacco user Coding Level of Care Code Est Patient Level 1 Diagnoses Current use of anticoagulant therapy Z79.01 Results AMB INR Fingerstick AMB INR Fingerstick 2.0 Last Edit by Carol Obrien RN on 03/16/25 14:39 manual entry Assessment & Plan Assessment & Plan (1) Current use of anticoagulant therapy: Code(s): Z79.01 - terminologist (current) use of anticoagulants Category: Medical
--- OUTSIDE RECORDS SUMMARY | 2025-03-16 14:57 | XMS_ITS | Clinical Summary ---
Author Organization 175 [facility] Address [address] [place] [address] Phone Care Team Providers Care Mailroom Courier Name Role Phone Connor Tesfaye Primary Care Provider +1- [phone] Allergies Active Allergy Reactions Criticality Noted Date [...] PM EDT Office Visit Orthopedic Surgery - [address] [phone] Leonardo Solo, ASHLYN Controlled type 2 diabetes mellitus with diabetic polyneuropathy, without long-term current use of insulin ([facility] V24, [facility] V28); Ulcer of right heel, with fat layer exposed ([facility] V24, [facility] V28); Neuropathy; Callus; Localized edema; Onychomycosis 01/11/2025 2:30 PM EST Office Visit Orthopedic Surgery [place] [phone] [phone] Leonardo Solo DPM Type 2 diabetes mellitus with diabetic neuropathy, with long-term current use of insulin ([facility] V24, [facility] V28) (Primary Dx); Difficulty walking; Ulcer of left heel, with fat layer exposed ([facility] V24, [facility] V28) 01/03/2025 3:00 PM EST Consult Orthopedic Surgery [facility] [address] [phone] Leonardo Solo DPM Type 2 diabetes mellitus with diabetic neuropathy, with long-term current use of insulin ([facility] V24, [facility] V28) (Primary Dx); Arthritis of both feet; Difficulty walking; Ulcer of midfoot, right, with necrosis of muscle ([facility] V24, [facility] V28); Ulcer of left heel, with fat layer exposed ([facility] V24, [facility] V28) from Last 3 Months [...] left knee arthroscopic surgery with postop infection, [facility] AORTIC VALVE REPLACEMENT PROCEDURE: HISTORICAL AORTIC VALVE REPL; COMMENT: on coumadin OTHER SURGICAL HISTORY 2002 PROCEDURE: [place] ARTHRD ANT INTERDY CERVCL BELW C2 EA ADDL NTRSPC; COMMENT: [facility] Medical History Medical History Date Comments CAD (coronary artery disease) DX :CAD (coronary artery disease) HTN (hypertension) DX:HTN (hyper tension) Type 2 diabetes mellitus wit hout complications ([facility] V24, [facility] V28) DX:Type 2 ally betes [...] age to complete this topic Insurance MEDICARE [facility] Care Teams Mailroom Courier Relationship Specialty Start Date End Date Connor Tesfaye PA PCP - General 01/23/23
--- OUTSIDE RECORDS SUMMARY | 2025-03-16 14:57 | XMS_ITS | Clinical Summary ---
Author Organization [facility] Address [address] [place] [address] Care Team Providers Care Detailer Name Role Phone Unavailable Primary Care Provider Unavailabl e Social History Tobacco Use Types Packs/Day Years Used Date Smoking Tobacco: Never Assessed Sex and Gender Information Value Date Recorded Sex Assigned at Not on file Gender Identity Not on file Sexual Orientation Not on file Plan of Treatment Not on file
== END 2025-03-16 14:47 | disposition home or self-care (01) ==
LOC: HO.ACS 14:02
PROVIDERS: PCP Physician Assistant; Visit Provider Internal Medicine Medical Oncology
DX: Z79.01 Long term (current) use of anticoagulants (principal)

== ENCOUNTER → 2025-03-16 14:02 | Outpatient (BNVA) | payer MEDICARE, OTHER, SELFPAY | PROVIDERS: PCP Physician Assistant; Visit Provider Internal Medicine Medical Oncology | DX: Z95.2 Presence of prosthetic heart valve (principal); Z51.81 Encounter for therapeutic drug level monitoring; Z79.01 Long term (current) use of anticoagulants | CPT/HCPCS: 85610; 99211 ==

== ENCOUNTER 2025-03-27 14:06 | Outpatient (AMB) | payer MEDICARE, OTHER, SELFPAY ==
--- OUTSIDE RECORDS SUMMARY | 2025-03-27 14:10 | XMS_ITS | Clinical Summary ---
Author Organization 175 [facility] Address [address] [place] [address] Phone Care Team Providers Care Busgirl Name Role Phone Connor Tesfaye Primary Care Provider [phone] Allergies Active Allergy Reactions Criticality Noted Date [...] PM EDT Office Visit Orthopedic Surgery - [address] [phone] Leonardo Solo, ASHLYN Controlled type 2 diabetes mellitus with diabetic polyneuropathy, without long-term current use of insulin ([facility] V24, [facility] V28); Ulcer of right heel, with fat layer exposed ([facility] V24, [facility] V28); Neuropathy; Callus; Localized edema; Onychomycosis 01/11/2025 2:30 PM EST Office Visit Orthopedic Surgery [place] [phone] [phone] Leonardo Solo DPM Type 2 diabetes mellitus with diabetic neuropathy, with long-term current use of insulin ([facility] V24, [facility] V28) (Primary Dx); Difficulty walking; Ulcer of left heel, with fat layer exposed ([facility] V24, [facility] V28) 01/03/2025 3:00 PM EST Consult Orthopedic Surgery [facility] [address] [phone] Leonardo Solo DPM Type 2 diabetes mellitus with diabetic neuropathy, with long-term current use of insulin ([facility] V24, [facility] V28) (Primary Dx); Arthritis of both feet; Difficulty walking; Ulcer of midfoot, right, with necrosis of muscle ([facility] V24, [facility] V28); Ulcer of left heel, with fat layer exposed ([facility] V24, [facility] V28) from [...] left knee arthroscopic surgery with postop infection, [facility] AORTIC VALVE REPLACEMENT PROCEDURE: HISTORICAL AORTIC VALVE REPL; COMMENT: on coumadin OTHER SURGICAL HISTORY 2002 PROCEDURE: [place] ARTHRD ANT INTERDY CERVCL BELW C2 EA ADDL NTRSPC; COMMENT: [facility] Medical History Medical History Date Comments CAD (coronary artery disease) DX :CAD (coronary artery disease) HTN (hypertension) DX:HTN (hyper tension) Type 2 diabetes mellitus wit hout complications ([facility] V24, [facility] V28) DX:Type 2 ally betes [...] age to complete this topic Insurance MEDICARE [facility] Care Teams Busgirl Relationship Specialty Start Date End Date Connor Tesfaye PA PCP - General 01/23/23
--- OUTSIDE RECORDS SUMMARY | 2025-03-27 14:10 | XMS_ITS | Clinical Summary ---
Author Organization [facility] Address [address] [place] [address] Care Team Providers Care Coroner Technician Name Role Phone Unavailable Primary Care Provider Unavailabl e Social History Tobacco Use Types Packs/Day Years Used Date Smoking Tobacco: Never Assessed Sex and Gender Information Value Date Recorded Sex Assigned at Not on file Gender Identity Not on file Sexual Orientation Not on file Plan of Treatment Not on file
[2025-03-27 14:38] LABS: Prothrombin Time Whole Bld POC 22.7 sec (11.1-13.5); ~PT, ~INR - Anti Coag Clinic 1.9 (0.9-1.1)
--- NOTE | 2025-03-27 14:50 | MHC.OFFVISCO ---
Intake Intake Visit Reasons: Anticoagulation Allergies penicillin V Allergy (Unknown, Verified 03/27/25 14:30) hives, rash/tounge edema bupropion [From Wellbutrin] Adverse Reaction (Intermediate, Verified 03/27/25 14:30) GI upset Vicodin Allergy (Unknown, Uncoded 03/27/25 14:30) dizziness Medication List - Last Reconciled 03/27/25 by Carol Obrien RN acetaminophen 1,000 mg PO .q hs PRN albuterol sulfate 90 mcg/actuation 2 puffs inhalation Q6H PRN atorvastatin 40 mg PO DAILY back brace As directed blood sugar diagnostic (TheraCoatuch Ultra Test strips) TEST 3 TIMES DAILY [CBD PO] cetirizine 10 mg PO DAILY duloxetine 120 mg (2 x 60 mg) PO DAILY 30 days flash glucose scanning reader (Sure ChillStyle Reid 2 [place]) 4 times per day flash glucose sensor (FreeStyle Reid 2 Sensor kit) test 4 times per day fluticasone propionate 50 mcg/actuation (Flonase Allergy Relief) 1 spray intranasal DAILY 30 days furosemide 20 mg PO BID PRN hydrochlorothiazide 12.5 mg PO DAILY insulin aspart U-100 subcut insulin degludec (Tresiba FlexTouch U-200 insulin) 120 units (0.6 mL) subcut DAILY 30 days insulin lispro (Admelog SoloStar U-100 Insulin lispro) 15 units (0.15 mL) subcut TID 30 days losartan 50 mg PO DAILY 90 days miscellaneous medical supply (Blood Pressure Cuff) As directed omeprazole 20 mg PO DAILY warfarin 2 - 4 mg See Protocol PO DAILY Nursing Note INR 1.9?? out of therapeutic range Medications and supplements reviewed Patient status: possible - may have missed a dose *instructed to keep dosing sheet near pil box and check off days when he takes his warfarin Medications or supplements: states no changes Diet: good Denies any signs and symptoms of bleeding or clotting or unusual bruising Bleeding, bruising, clotting discussed Nutritional guidance given: avoid greens today and eat orange and reds Dose: boost dose today 6mg today then resume 4mg daily F/U INR Date : 2 weeks if therapeutic go 3 weeks - Patient verbalizing understanding of instructions given. Anti-Coag Initial Assessment Social Hx Patient Tobacco Use Status: Current everyday Tobacco user Coding Level of Care Code Est Patient Level 1 Diagnoses Current use of anticoagulant therapy Z79.01 Results AMB INR Fingerstick AMB INR Fingerstick 1.9 Last Edit by Carol Obrien RN on 03/27/25 14:40 manual entry Assessment & Plan Assessment & Plan (1) Current use of anticoagulant therapy: Code(s): Z79.01 - retirement (current) use of anticoagulants Category: Medical
== END 2025-03-27 14:54 | disposition home or self-care (01) ==
LOC: HO.ACS 14:06
PROVIDERS: PCP Physician Assistant; Visit Provider Internal Medicine Medical Oncology
DX: Z79.01 Long term (current) use of anticoagulants (principal)

== ENCOUNTER → 2025-03-27 14:06 | Outpatient (BNVA) | payer MEDICARE, OTHER, SELFPAY | PROVIDERS: PCP Physician Assistant; Visit Provider Internal Medicine Medical Oncology | DX: Z95.2 Presence of prosthetic heart valve (principal); Z79.01 Long term (current) use of anticoagulants; Z51.81 Encounter for therapeutic drug level monitoring | CPT/HCPCS: 85610; 99211 ==

== ENCOUNTER 2025-03-29 15:20 | Outpatient (AMB) | payer MEDICARE, OTHER, SELFPAY ==
--- OUTSIDE RECORDS SUMMARY | 2025-03-29 15:22 | XMS_ITS | Clinical Summary ---
Author Organization 175 [facility] Address [address] [place] [address] Phone Care Team Providers Care Service Writer Advisor Name Role Phone Connor Tesfaye Primary Care Provider [phone] Allergies Active Allergy Reactions Criticality Noted Date [...] PM EDT Office Visit Orthopedic Surgery - [address] [phone] Leonardo Solo, ASHLYN Controlled type 2 diabetes mellitus with diabetic polyneuropathy, without long-term current use of insulin ([facility] V24, [facility] V28); Ulcer of right heel, with fat layer exposed ([facility] V24, [facility] V28); Neuropathy; Callus; Localized edema; Onychomycosis 01/11/2025 2:30 PM EST Office Visit Orthopedic Surgery [place] [phone] [phone] Leonardo Solo DPM Type 2 diabetes mellitus with diabetic neuropathy, with long-term current use of insulin ([facility] V24, [facility] V28) (Primary Dx); Difficulty walking; Ulcer of left heel, with fat layer exposed ([facility] V24, [facility] V28) 01/03/2025 3:00 PM EST Consult Orthopedic Surgery [facility] [address] [phone] Leonardo oSlo DPM Type 2 diabetes mellitus with diabetic neuropathy, with long-term current use of insulin ([facility] V24, [facility] V28) (Primary Dx); Arthritis of both feet; Difficulty walking; Ulcer of midfoot, right, with necrosis of muscle ([facility] V24, [facility] V28); Ulcer of left heel, with fat layer exposed ([facility] V24, [facility] V28) from Last 3 Months [...] left knee arthroscopic surgery with postop infection, [facility] AORTIC VALVE REPLACEMENT PROCEDURE: HISTORICAL AORTIC VALVE REPL; COMMENT: on coumadin OTHER SURGICAL HISTORY 2002 PROCEDURE: [place] [facility] ANT INTERDY CERVCL BELW C2 EA ADDL NTRSPC; COMMENT: [facility] Medical History Medical History Date Comments CAD (coronary artery disease) DX :CAD (coronary artery disease) HTN (hypertension) DX:HTN (hyper tension) Type 2 diabetes mellitus wit hout complications ([facility] V24, [facility] V28) DX:Type 2 ally betes [...] age to complete this topic Insurance MEDICARE [facility] Care Teams Service Writer Advisor Relationship Specialty Start Date End Date Connor Tesfaye PA PCP - General 01/23/23
--- OUTSIDE RECORDS SUMMARY | 2025-03-29 15:22 | XMS_ITS | Clinical Summary ---
Author Organization [facility] Address [address] [place] [address] Care Team Providers Care Steam Drier Operator Name Role Phone Unavailable Primary Care Provider Unavailabl e Social History Tobacco Use Types Packs/Day Years Used Date Smoking Tobacco: Never Assessed Sex and Gender Information Value Date Recorded Sex Assigned at Not on file Gender Identity Not on file Sexual Orientation Not on file Plan of Treatment Not on file
--- NOTE | 2025-03-29 15:39 | MHC.PC.OV ---
Vital Signs 03/29/25 15:49 Height 5 ft 10 in Weight 251 lb 8 oz BMI 36.1 BP 122/76 Blood Pressure Location Lt brachial Position Sitting Pulse 88 Pulse Source Pulse Oximeter Temp Source Temporal Artery Scan Pulse Oximetry (%) 99 Oxygen Delivery Method Room Air Intake Visit Reasons: f/u DMII Length Control Tester Required: No Accompanied by: Self / Same As Patient Allergies penicillin V Allergy (Unknown, Verified 03/29/25 16:04) hives, rash/tounge edema bupropion [From Wellbutrin] Adverse Reaction (Intermediate, Verified 03/29/25 16:04) GI upset Vicodin Allergy (Unknown, Uncoded 03/29/25 16:04) dizziness Medication List - Last Reconciled 03/29/25 by Connor Tesfaye PA-C acetaminophen 1,000 mg PO .q hs PRN albuterol sulfate 90 mcg/actuation 2 puffs inhalation Q6H PRN atorvastatin 40 mg PO DAILY back brace As directed blood sugar diagnostic ([employer] Ultra Test strips) TEST 3 TIMES DAILY [CBD PO] cetirizine 10 mg PO DAILY duloxetine 120 mg (2 x 60 mg) PO DAILY 30 days flash glucose scanning reader ([employer] TrackStyle Reid 2 [place]) 4 times per day flash glucose sensor (FreeStyle Reid 2 Sensor kit) test 4 times per day fluticasone propionate 50 mcg/actuation (Flonase Allergy Relief) 1 spray intranasal DAILY 30 days furosemide 20 mg PO BID PRN hydrochlorothiazide 12.5 mg PO DAILY insulin aspart U-100 subcut insulin degludec (Tresiba FlexTouch U-200 insulin) 120 units (0.6 mL) subcut DAILY 30 days insulin lispro (Admelog SoloStar U-100 Insulin lispro) 15 units (0.15 mL) subcut TID 30 days losartan 50 mg PO DAILY 90 days miscellaneous medical supply (Blood Pressure Cuff) As directed omeprazole 20 mg PO DAILY warfarin 2 - 4 mg See Protocol PO DAILY Tobacco use date assessed: 03/29/25 Fall risk assessment: 2 + Falls in past year Last assessed Fall Risk: 03/29/25 Dental Screening Dental Screen Date: 03/29/25 Did you have a dental visit in the last 12 months?: No Did you have a dental problem in the last 6 months where you did not have access to dental care?: No Was dental information given to patient?: No HPI f/u DMII HPI Details Patient is a 74-year-old male here today for a follow-up visit. Patient's past medical history significant for type 2 diabetes, coronary artery disease, smoker, hypertension, chronic lumbar spine pain. Lumbar disc disease: Report having worsening siatica? down right side.? Denies any acute injuries to his lower back.? Denies any falls.? Has most recent MRI of lumbar spine showing pretty significant lumbar stenosis. He continues to ambulate with walker for assistance. . HTN: Patient's blood pressure acceptable today in office. Continues on losartan 100 mg with good effect on his blood pressure. .. Major depressive disorder: Continues to be fairly depressed. Did use Wellbutrin though felt GI side effects. He is interested in increasing his duloxetine for both his depression and helping him with his diabetic neuropathy pain. He is not interested cognitive behavioral therapy .. ? .. ? Congestive heart failure/history of replaced aortic valve: Patient continues on warfarin has been is stable with his INRs, no overt signs of bleeding. He continues on furosemide and supplemental potassium. He continues to have bilateral edema in his lower extremities. Admits to dietary indiscretion and has not been taking care of his diabetes at all because of his depression. His recent echocardiogram essentially normal, ejection fraction acceptable ,did show some filling impairment ? .. ? DMII:? Today's A1c at 13.1 from 14 . He does admit to dietary indiscretion. Admits to not really monitoring his blood sugars. He reports being noncompliant with his short-acting insulins. Again reports he has not been taking care of his diabetes because of his depression. He continues to have pretty bad neuropathic diabetic pain. Gabapentin was not effective for him.. PLAN: Will try to increase his duloxetine to 120 mg daily to help him with his pain . ? Unfortunately patient does have microalbuminuria. Also found to have slight anemia likely due to chronic disease. He is interested in restarting freestyle Reid to monitor his blood sugars [facility] Medical History Spondylosis of lumbar spine Diabetic neuropathy Lumbar radiculopathy Obesity Hyperlipidemia LDL goal <70 Diabetes mellitus HTN (hypertension) CAD (coronary artery disease) Surgical History Hx of spinal surgery History of arthroscopy of knee Hx of coronary artery bypass graft History of mechanical aortic valve replacement Family History Father CVD (cardiovascular disease) Mother Diabetes Social History Housing: House Patient Tobacco Use Status: Current everyday Tobacco user Tobacco use type: Cigarette Cigarettes Per Day: 20 e-Cigarette/Vaping Use: Never Used service: No Current occupational status: retired Current occupational exposures/hazards: No Cognitive needs: Yes Hearing needs: No Vision needs: No Questionnaire PHQ-9 Over the last 2 weeks, how often have you been bothered by any of the following problems? 1. Little interest or pleasure in doing things: not at all 2. Feeling down, depressed, or hopeless: not at all 3. Trouble falling or staying asleep, or sleeping too much: nearly every day 4. Feeling tired or having little energy: nearly every day 5. Poor appetite or overeating: nearly every day 6. Feeling bad about yourself - or that you are a failure or have let yourself or your family down: nearly every day 7. Trouble concentrating on things, such as reading the newspaper or watching television: several days 8. Moving or speaking so slowly that other people could have noticed. Or the opposite - being so fidgety or restless that you have been moving around a lot more than usual: not at all 9. Thoughts that you would be better off or of hurting yourself in some way: not at all Total score: 13 Depression Screening Interpretation: Positive Depression Screening Follow-up: Existing condition, Change in Medication and Declines treatment Depression Screening Done: Yes 18273 - PHQ-9 Billing: Yes Source: Developed by Drs. Julian Alatorre, Sully Healy, Nitish Moscoso and colleagues, with an educational paula from [employer]. Thrive Questionnaire Date Thrive assessed: 03/29/25 I am a: Patient What is your living situation today?: I have a steady place to live Within the past 12 months, did the food you bought not last and you didn't have the money to get more?: Never true Within the past 12 months, did you worry whether your food would run out before you got money to buy more?: Never true Do you have trouble paying for medicines?: No Do you have trouble getting transportation to medical appointments?: No Do you have trouble paying your heating and electricity bill?: No Do you have trouble taking care of your child, family member or friend?: No Do you have trouble with day-to-day activities such as bathing, preparing meals, shopping, managing finances, etc.?: No Are you currently unemployed and looking for a job?: No Are you interested in more education?: No Please select the resources that you would like help with: None Currently or been in a relationship where the following occur: No concerns reported THRIVE Score: 0 AUDIT C Alcohol Use Questionnaire (AUDIT-C) 1. How often do you have a drink containing alcohol?: Never 3. How often do you have six or more drinks on one occasion?: Never Total Score: 0 RACHEL-7 AMB Questionnaire RACHEL-7 Date RACHEL - 7 assessed: 03/29/25 Feeling nervous, anxious, or on edge: 1 = Several days Not being able to stop or control worryin = Nearly every day Worrying too much about different things: 3 = Nearly every day Trouble relaxin = More than half the days Being so restless that it is hard to sit still: 2 = More than half the days Becoming easily annoyed or irritable: 2 = More than half the days Feeling afraid as if something awful might happen: 0 = Not at all Total RACHEL-7 score (0-4 normal; 5-9 mild; 10-14 moderate; 15-21 severe): 13 Source: Developed by Drs. Julian Alatorre, Sully Healy, Nitish Moscoso and colleagues, with an educational paula from [employer]. RACHEL-7 Assessment Billing RACHEL-7 Assessment Tool: RACHEL-7 Assessment 01492 Physical exam (Primary Care) Vital Signs: Last Vital Signs Pulse 88 03/29/25 15:49 BP 122/76 03/29/25 15:49 Pulse Ox 99 03/29/25 15:49 Oxygen Delivery Method Room Air 03/29/25 15:49 BMI result Body Mass Index 36.1 Tobacco/Smoking Status: Tobacco use Status Tobacco use date assessed 03/29/25 03/29/25 16:01 Patient Tobacco Use Status Current everyday Tobacco 03/29/25 15:39 Tobacco use type Cigarette 03/29/25 16:01 e-Cigarette/Vaping Use Never Used 03/29/25 15:39 PHQ-9: PHQ-9 Score PHQ-9: Total score 13 03/29/25 16:05 Depression Screening Interpretation: Positive Depression Screening Follow-up: Existing condition, Change in Medication and Declines treatment Thrive Assessment: Date of Thrive Assessment Date Thrive assessed 03/29/25 03/29/25 16:01 Currently or been in a relationship where the following occur: No concerns reported Results AMB Hemoglobin A1c AMB Hemoglobin A1c > 14 % Last Edit by LUH Lemos on 03/29/25 16:07 Coding Diagnoses Type 2 diabetes mellitus with stage 3b chronic kidney disease, with long-term current use of insulin E11.22; N18.32; Z79.4 Diabetes mellitus type: type 2 Diabetes mellitus intermediate school teacher insulin use: with intermediate school teacher use Diabetes mellitus complication status: with kidney complications Diabetes mellitus complication detail: with chronic kidney disease Chronic kidney disease stage: stage 3 (moderate) Chronic kidney disease stage 3 subtype: stage 3b (GFR 30-44) Diabetic neuropathic arthropathy E11.610 Coronary artery disease involving nikolski coronary artery of nikolski heart without angina pectoris I25.10 Coronary Disease-Associated Artery/Lesion type: nikolski artery [place] vs. transplanted heart: nikolski heart Associated angina: without angina Essential hypertension I10 Hypertension type: essential hypertension Hyperlipidemia LDL goal <70 E78.5 Tobacco dependence F17.200 Additional Codes RACHEL-7 Assessment Billing - RACHEL-7 Assessment Tool: RACHEL-7 Assessment [id number] ([id number]) PHQ-9 - 27193 - PHQ-9 Billing: Yes ([id number]) Assessment & Plan Assessment & Plan (1) Diabetes mellitus: Comment: Under your care. Target goal hemoglobin A1c less than 7%. Code(s): E11.9 - Type 2 diabetes mellitus without complications Category: Medical Qualifiers: Diabetes mellitus type: type 2 Diabetes mellitus intermediate school teacher insulin use: with intermediate school teacher use Diabetes mellitus complication status: with kidney complications Diabetes mellitus complication detail: with chronic kidney disease Chronic kidney disease stage: stage 3 (moderate) Chronic kidney disease stage 3 subtype: stage 3b (GFR 30-44) Qualified Code(s): E11.22 - Type 2 diabetes mellitus with diabetic chronic kidney disease; N18.32 - Chronic kidney disease, stage 3b; Z79.4 - [facility] (current) use of insulin Plan: Patient's type 2 diabetes not well controlled. He is not do consistent with using his preprandial insulin in promises to start doing so. Most recent A1c of 13 1. Patient has been noted to have microalbuminuria and has developed chronic kidney disease likely secondary to his uncontrolled type 2 diabetes. Will try to set him up with Nephrology for evaluation. Goal A1c is to be below 7.0 (2) Diabetic neuropathic arthropathy: Code(s): E11.610 - Type 2 diabetes mellitus with diabetic neuropathic arthropathy Category: Medical Plan: As per HPI patient reports some worsening lower extremity cramping numbness and burning. Will try to increase his duloxetine to 120 mg daily which is maximal dose for diabetic neuropathy. We hope that the duloxetine also helps his mood as he seems to be somewhat depressed as well. Not interested in speaking with a mental health therapist at this time. (3) CAD (coronary artery disease): Comment: Underwent 2 vessel coronary bypass grafting at the time of aortic valve replacement. No symptoms of angina at current time. Continue lifelong aspirin therapy as above. Blood pressure is well optimized on current therapy. Continue the same. Continue high-intensity statin therapy with target goal LDL less than 70 mg/dL. Advised lipid panel in near future. Complete smoking cessation was advised. Also recommend to continue to participate in aggressive lifestyle modification with weight loss as well as increase activity level. He understands and agrees. Will follow up in 1 year's time. Code(s): I25.10 - Atherosclerotic heart disease of nikolski coronary artery without angina pectoris Category: Medical Qualifiers: Coronary Disease-Associated Artery/Lesion type: nikolski artery [place] vs. transplanted heart: nikolski heart Associated angina: without angina Qualified Code(s): I25.10 - Atherosclerotic heart disease of nikolski coronary artery without angina pectoris Plan: Patient's most recent lipid panel showing good control of his total cholesterol and LDL. Continues to follow cardiology [place]. Most recent echocardiogram showing stable results. Optimal LDL to be below 70. (4) HTN (hypertension): Comment: See above. Continue current medical treatment. Code(s): I10 - Essential (primary) hypertension Category: Medical Qualifiers: Hypertension type: essential hypertension Qualified Code(s): I10 - Essential (primary) hypertension Plan: Patient's blood pressure acceptable today in office. Will continue his current dose of antihypertensive medication with goal blood pressure to remain below 140/90 (5) Hyperlipidemia LDL goal <70: Code(s): E78.5 - Hyperlipidemia, unspecified Category: Medical Plan: As above goal LDL to be below 70. (6) Tobacco dependence: Code(s): F17.200 - Nicotine dependence, unspecified, uncomplicated Category: Medical Plan: Patient does understand he needs to completely quit smoking. He does admit to smoking a few cigarettes per day. Offered him nicotine replacement though he declines my offers at this time Orders: Orders AMB Hemoglobin A1c Today E11.610 - Type 2 diabetes mellitus with diabetic neuropathic arthropathy Medications: New blood-glucose,metallurgical specialist,cont (FreeStyle Reid 3 [place]) As directed 1 ea 1RF E11.22 - Type 2 diabetes mellitus with diabetic chronic kidney disease, N18.32 - Chronic kidney disease, stage 3b, Z79.4 - watermelon harvesting supervisor (current) use of insulin pen needle, diabetic As directed 100 ea 3RF E11.22 - Type 2 diabetes mellitus with diabetic chronic kidney disease, N18.32 - Chronic kidney disease, stage 3b, Z79.4 - watermelon harvesting supervisor (current) use of insulin blood-glucose sensor (FreeStyle Reid 3 Sensor device) As directed 1 ea 3RF E11.22 - Type 2 diabetes mellitus with diabetic chronic kidney disease, N18.32 - Chronic kidney disease, stage 3b, Z79.4 - [facility] (current) use of insulin pioglitazone (Actos) 30 mg PO DAILY 90 days 90 tabs 1RF E11.22 - Type 2 diabetes mellitus with diabetic chronic kidney disease, N18.32 - Chronic kidney disease, stage 3b, Z79.4 - watermelon harvesting supervisor (current) use of insulin
[2025-03-29 15:49] VITALS: BP 122/76; PULSE 88; O2SAT 99; BMI 36.1
== END 2025-03-29 16:28 | disposition home or self-care (01) ==
PROVIDERS: PCP Physician Assistant; Visit Provider Physician Assistant
DX: E11.610 Type 2 diabetes mellitus with diabetic neuropathic arthropathy (principal)

== ENCOUNTER → 2025-03-29 15:20 | Outpatient (BNVA) | payer MEDICARE, OTHER, SELFPAY | PROVIDERS: PCP Physician Assistant; Visit Provider Physician Assistant | DX: I12.9 Hypertensive chronic kidney disease with stage 1 through stage 4 chronic kidney disease, or unspecified chronic kidney disease (principal); E11.22 Type 2 diabetes mellitus with diabetic chronic kidney disease; N18.32 Chronic kidney disease, stage 3b; Z79.4 Long term (current) use of insulin; I25.10 Atherosclerotic heart disease of native coronary artery without angina pectoris; E78.5 Hyperlipidemia, unspecified; F33.1 Major depressive disorder, recurrent, moderate; F41.1 Generalized anxiety disorder; F17.200 Nicotine dependence, unspecified, uncomplicated; Z71.6 Tobacco abuse counseling | CPT/HCPCS: 83036; 96127; 99212 ==

== ENCOUNTER 2025-04-10 14:41 | Outpatient (AMB) | payer MEDICARE, OTHER, SELFPAY ==
[2025-04-10 14:57] LABS: Prothrombin Time Whole Bld POC 27.8 sec (11.1-13.5); ~PT, ~INR - Anti Coag Clinic 2.3 (0.9-1.1)
--- NOTE | 2025-04-10 15:06 | MHC.OFFVISCO ---
Intake Intake Visit Reasons: Anticoagulation Allergies penicillin V Allergy (Unknown, Verified 04/10/25 14:49) hives, rash/tounge edema bupropion [From Wellbutrin] Adverse Reaction (Intermediate, Verified 04/10/25 14:49) GI upset Vicodin Allergy (Unknown, Uncoded 04/10/25 14:49) dizziness Medication List - Last Reconciled 04/10/25 by Carol Obrien RN acetaminophen 1,000 mg PO .q hs PRN albuterol sulfate 90 mcg/actuation 2 puffs inhalation Q6H PRN atorvastatin 40 mg PO DAILY back brace As directed blood sugar diagnostic ([place] Ultra Test strips) TEST 3 TIMES DAILY blood-glucose sensor (InfectiousStyle Reid 3 Sensor device) As directed blood-glucose,congressional assistant,cont (FreeStyle Reid 3 [place]) As directed [CBD PO] cetirizine 10 mg PO DAILY duloxetine 120 mg (2 x 60 mg) PO DAILY 30 days flash glucose scanning reader (InfectiousStyle Reid 2 [place]) 4 times per day flash glucose sensor (FreeStyle Reid 2 Sensor kit) test 4 times per day fluticasone propionate 50 mcg/actuation (Flonase Allergy Relief) 1 spray intranasal DAILY 30 days furosemide 20 mg PO BID PRN hydrochlorothiazide 12.5 mg PO DAILY insulin aspart U-100 subcut insulin degludec (Tresiba FlexTouch U-200 insulin) 120 units (0.6 mL) subcut DAILY 30 days insulin lispro (Admelog SoloStar U-100 Insulin lispro) 15 units (0.15 mL) subcut TID 30 days losartan 50 mg PO DAILY 90 days miscellaneous medical supply (Blood Pressure Cuff) As directed omeprazole 20 mg PO DAILY pen needle, diabetic As directed pioglitazone (Actos) 30 mg PO DAILY 90 days warfarin 2 - 4 mg See Protocol PO DAILY Nursing Note INR: 2.3 in therapeutic range Medications and supplements reviewed Pt started Acots 04/03/25 - which can lower his INR - warfarin dose was increased 2 weeks ago because running low Denies any signs and symptoms of bleeding or bruising or clotting. Bleeding, bruising, clotting discussed Nutritional guidance given follow diabetic diet Dose: keep same for now 4mg daily F/U INR: 2 weeks Patient verbalizes understanding of instructions given Anti-Coag Initial Assessment Social Hx Patient Tobacco Use Status: Current everyday Tobacco user Tobacco use type: Cigarette Coding Level of Care Code Est Patient Level 1 Diagnoses Current use of anticoagulant therapy Z79.01 Assessment & Plan Assessment & Plan (1) Current use of anticoagulant therapy: Code(s): Z79.01 - manager terminal (current) use of anticoagulants Category: Medical
--- OUTSIDE RECORDS SUMMARY | 2025-04-10 15:57 | XMS_ITS | Clinical Summary ---
[facility] Address [address] [place] [address] Care Team Providers Care Bunch Trimmer Mold Name Role Phone Unavailable Primary Care Provider Unavailabl e Social History Tobacco Use Types Packs/Day Years Used Date Smoking Tobacco: Never Assessed Sex and Gender Information Value Date Recorded Sex Assigned at Not on file Gender Identity Not on file Sexual Orientation Not on file Plan of Treatment Not on file
== END 2025-04-10 15:09 | disposition home or self-care (01) ==
LOC: HO.ACS 14:41
PROVIDERS: PCP Physician Assistant; Visit Provider Internal Medicine Medical Oncology
DX: Z79.01 Long term (current) use of anticoagulants (principal)

== ENCOUNTER → 2025-04-10 14:41 | Outpatient (BNVA) | payer MEDICARE, OTHER, SELFPAY | PROVIDERS: PCP Physician Assistant; Visit Provider Internal Medicine Medical Oncology | DX: Z95.2 Presence of prosthetic heart valve (principal); Z79.01 Long term (current) use of anticoagulants; Z51.81 Encounter for therapeutic drug level monitoring | CPT/HCPCS: 85610; 99211 ==

== ENCOUNTER 2025-04-24 14:20 | Outpatient (AMB) | payer MEDICARE, OTHER, SELFPAY ==
[2025-04-24 14:29] LABS: Prothrombin Time Whole Bld POC 29.4 sec (11.1-13.5); ~PT, ~INR - Anti Coag Clinic 2.5 (0.9-1.1)
--- NOTE | 2025-04-24 14:32 | MHC.OFFVISCO ---
Intake Intake Visit Reasons: Anticoagulation Allergies penicillin V Allergy (Unknown, Verified 04/24/25 14:24) hives, rash/tounge edema bupropion [From Wellbutrin] Adverse Reaction (Intermediate, Verified 04/24/25 14:24) GI upset Vicodin Allergy (Unknown, Uncoded 04/24/25 14:24) dizziness Medication List - Last Reconciled 04/24/25 by Yaneth Baugh, CALEB acetaminophen 1,000 mg PO .q hs PRN albuterol sulfate 90 mcg/actuation 2 puffs inhalation Q6H PRN atorvastatin 40 mg PO DAILY back brace As directed blood sugar diagnostic ([employer] Ultra Test strips) TEST 3 TIMES DAILY blood-glucose sensor ([employer]inelStyle Reid 3 Sensor device) As directed blood-glucose,film technician,cont (FreeStyle Reid 3 [place]) As directed [CBD PO] cetirizine 10 mg PO DAILY duloxetine 120 mg (2 x 60 mg) PO DAILY 30 days flash glucose scanning reader ([employer] SentinelStyle Reid 2 [place]) 4 times per day flash glucose sensor (FreeStyle Reid 2 Sensor kit) test 4 times per day fluticasone propionate 50 mcg/actuation (Flonase Allergy Relief) 1 spray intranasal DAILY 30 days furosemide 20 mg PO BID PRN hydrochlorothiazide 12.5 mg PO DAILY insulin aspart U-100 subcut insulin degludec (Tresiba FlexTouch U-200 insulin) 120 units (0.6 mL) subcut DAILY 30 days insulin lispro (Admelog SoloStar U-100 Insulin lispro) 15 units (0.15 mL) subcut TID 30 days losartan 50 mg PO DAILY 90 days miscellaneous medical supply (Blood Pressure Cuff) As directed omeprazole 20 mg PO DAILY pen needle, diabetic As directed pioglitazone (Actos) 30 mg PO DAILY 90 days warfarin 2 - 4 mg See Protocol PO DAILY Nursing Note INR: 2.5 in therapeutic range of 2-3 Medications and supplements reviewed No changes in health, diet, medications, or supplements, Denies any signs and symptoms of bleeding or bruising or clotting. Bleeding, bruising, clotting discussed Nutritional guidance given Dose: 4mg daily F/U INR: 3 weeks Patient verbalizes understanding of instructions given Anti-Coag Initial Assessment Social Hx Patient Tobacco Use Status: Current everyday Tobacco user Tobacco use type: Cigarette Coding Level of Care Code Est Patient Level 1 Diagnoses Current use of anticoagulant therapy Z79.01 Assessment & Plan Assessment & Plan (1) Current use of anticoagulant therapy: Code(s): Z79.01 - [facility] (current) use of anticoagulants Category: Medical
--- OUTSIDE RECORDS SUMMARY | 2025-04-24 16:02 | XMS_ITS | Clinical Summary ---
[facility] Organization [facility] Address [address] [place] [address] Care Team Providers Care Boot Turner Name Role Phone Unavailable Primary Care Provider Unavailabl e Social History Tobacco Use Types Packs/Day Years Used Date Smoking Tobacco: Never Assessed Sex and Gender Information Value Date Recorded Sex Assigned at Not on file Gender Identity Not on file Sexual Orientation Not on file Plan of Treatment Not on file
== END 2025-04-24 14:35 | disposition home or self-care (01) ==
LOC: HO.ACS 14:20
PROVIDERS: PCP Physician Assistant; Visit Provider Internal Medicine Medical Oncology
DX: Z79.01 Long term (current) use of anticoagulants (principal)

== ENCOUNTER → 2025-04-24 14:20 | Outpatient (BNVA) | payer MEDICARE, OTHER, SELFPAY | PROVIDERS: PCP Physician Assistant; Visit Provider Internal Medicine Medical Oncology | DX: Z95.2 Presence of prosthetic heart valve (principal); Z79.01 Long term (current) use of anticoagulants; Z51.81 Encounter for therapeutic drug level monitoring | CPT/HCPCS: 85610; 99211 ==

== ENCOUNTER 2025-06-08 13:15 | Outpatient (AMB) | payer MEDICARE, OTHER, SELFPAY ==
--- OUTSIDE RECORDS SUMMARY | 2025-06-08 13:25 | XMS_ITS | Clinical Summary ---
Author Organization [facility] Address [address] [place] [address] Phone Care Team Providers Care Sifter And Miller Name Role Phone Connor Tesfaye Primary Care Provider [phone] Allergies Active Allergy Reactions Criticality Noted Date [...] Encounters Date Type Department Care Team Description 05/16/2025 Telephone Orthopedic Surgery - [address] [id number] Leonardo Solo DPM from Last 3 Months Immunizations Name Administration Dates Next Due Influenza trivalent, 0.5mL ( Fluzone High-dose) 65yo and older 10/15/2020,08/25/2018 Influenza trivalent, with pr eservative (Fluzone; Afluria) 6mo and older 10/09/2022 Pneumococcal polysaccharide 23 valent (Pneumovax 23) 2yo and older 02/25/2016 Surgical History Surgery Date Site/Laterality Comments OTHER SURGICAL HISTORY 2010 PROCEDURE: HISTORY OTHER; COMMENT: left knee arthroscopic surgery with postop infection, [facility] AORTIC VALVE REPLACEMENT PROCEDURE: HISTORICAL AORTIC VALVE REPL; COMMENT: on coumadin OTHER SURGICAL HISTORY 2002 PROCEDURE: [place] ARTHRD ANT INTERDY CERVCL BELW C2 EA ADDL NTRSPC; COMMENT: [facility] Medical History Medical History Date Comments CAD (coronary artery disease) DX :CAD (coronary artery disease) HTN (hypertension) DX:HTN (hyper tension) Type 2 diabetes mellitus wit hout complications (CMS/HCC V24, CMS/HCC V28) DX:Type 2 ally betes mellitus without complications ([facility]) Mixed hyperlipidemia DX:Mixed hy perlipidemia Lumbar radiculopathy [...] Care Team (Late st Contact Info) Description 07/05/2025 2:45 PM EDT Office Visit Orthopedic Surgery - [place] [address] [facility] [address] [place] [phone] Leonardo Solo DPM [address] [facility] [place] [address] [place] [id number] Health Maintenance Due Date Last Done Comments Zoster Vaccines (1 of 2) 2001 RSV Immunization Adult Patients (1 - Risk 60-74 years 1-dose series) 2011 Pneumococcal Vaccine: 50+ Years (2 of 2 - PCV) 02/24/2017 02/25/2016, 10/29/2011 Abdominal Aortic Aneurysm (AAA) Screen 12/09/2023 Cholesterol Screening (Lipid Panel) 12/09/2023 Colorectal Cancer Screening: Colonoscopy 12/09/2023 Falls Risk Assessment 12/09/2023 Hepatitis C Screening 12/09/2023 Medicare Annual Wellness Visit 12/09/2023 Social Influencers of Health Screening 12/09/2023 COVID-19 Vaccine ( season) 2024 11/20/2021, 05/08/2021, 04/09/2021 Depression Screening 11/09/2024 Influenza Vaccine (#1) 2025 , 10/15/2020, 08/25/2018, Additional history exists DTaP,Tdap,and Td [...] age to complete this topic Insurance MEDICARE [facility] Care Teams Sifter And Miller Relationship Specialty Start Date End Date Connor Tesfaye PA PCP - General 01/23/23
--- OUTSIDE RECORDS SUMMARY | 2025-06-08 13:25 | XMS_ITS | Clinical Summary ---
Author Organization [facility] Address [address] [place] [address] Care Team Providers Care Marketing Programs Manager Name Role Phone Unavailable Primary Care Provider Unavailabl e Social History Tobacco Use Types Packs/Day Years Used Date Smoking Tobacco: Never Assessed Sex and Gender Information Value Date Recorded Sex Assigned at Not on file Gender Identity Not on file Sexual Orientation Not on file Plan of Treatment Not on file
[2025-06-08 13:47] LABS: Prothrombin Time Whole Bld POC 24.9 sec (11.1-13.5); ~PT, ~INR - Anti Coag Clinic 2.1 (0.9-1.1)
--- NOTE | 2025-06-08 14:01 | MHC.OFFVISCO ---
Intake Intake Visit Reasons: Anticoagulation Allergies penicillin V Allergy (Unknown, Verified 06/08/25 13:40) hives, rash/tounge edema bupropion (From Wellbutrin) Adverse Reaction (Intermediate, Verified 06/08/25 13:40) GI upset Vicodin Allergy (Unknown, Uncoded 04/24/25 14:24) dizziness Medication List - Last Reconciled 06/08/25 by Meghan Bueno RN acetaminophen 1,000 mg PO .q hs PRN albuterol sulfate 90 mcg/actuation 2 puffs inhalation Q6H PRN atorvastatin 40 mg PO DAILY back brace As directed blood sugar diagnostic (Aircuityuch Ultra Test strips) TEST 3 TIMES DAILY blood-glucose sensor (Spacious AppStyle Reid 3 Sensor device) As directed blood-glucose,supervisor machine setter,cont (FreeStyle Reid 3 [place]) As directed [CBD PO] cetirizine 10 mg PO DAILY duloxetine 120 mg (2 x 60 mg) PO DAILY 30 days flash glucose scanning reader (Spacious AppStyle Reid 2 [place]) 4 times per day flash glucose sensor (FreeStyle Reid 2 Sensor kit) test 4 times per day fluticasone propionate 50 mcg/actuation (Flonase Allergy Relief) 1 spray intranasal DAILY 30 days furosemide 20 mg PO BID PRN hydrochlorothiazide 12.5 mg PO DAILY insulin aspart U-100 subcut insulin degludec (Tresiba FlexTouch U-200 insulin) 120 units (0.6 mL) subcut DAILY 30 days insulin lispro (Admelog SoloStar U-100 Insulin lispro) 15 units (0.15 mL) subcut TID 30 days losartan 50 mg PO DAILY 90 days miscellaneous medical supply (Blood Pressure Cuff) As directed omeprazole 20 mg PO DAILY pen needle, diabetic As directed pioglitazone (Actos) 30 mg PO DAILY 90 days warfarin 2 - 4 mg See Protocol PO DAILY Nursing Note NO CP,SOB,DIET/MED CHANGES,FALLS OR SX OF BLEEDING. CONTINUE PRESENT DOSING AND FOLLOW-UP IN 4 WEEKS GOOD UNDERSTANDING OF INSTR. Anti-Coag Initial Assessment Social Hx Patient Tobacco Use Status: Current everyday Tobacco user Tobacco use type: Cigarette Coding Level of Care Code Est Patient Level 1 Diagnoses Current use of anticoagulant therapy Z79.01 Assessment & Plan Assessment & Plan (1) Current use of anticoagulant therapy: Code(s): Z79.01 - exterminator termite (current) use of anticoagulants Category: Medical
== END 2025-06-08 14:18 | disposition home or self-care (01) ==
LOC: HO.ACS 13:15
PROVIDERS: PCP Physician Assistant; Visit Provider Internal Medicine Medical Oncology
DX: Z79.01 Long term (current) use of anticoagulants (principal)

== ENCOUNTER → 2025-06-08 13:15 | Outpatient (BNVA) | payer MEDICARE, OTHER, SELFPAY | PROVIDERS: PCP Physician Assistant; Visit Provider Internal Medicine Medical Oncology | DX: Z95.2 Presence of prosthetic heart valve (principal); Z79.01 Long term (current) use of anticoagulants; Z51.81 Encounter for therapeutic drug level monitoring | CPT/HCPCS: 85610; 99211 ==

== ENCOUNTER 2025-06-17 13:42 | Inpatient (IN) | payer MEDICARE, OTHER, SELFPAY ==
--- NOTE | ~2025-06-17 | XR_ITS ---
CLINICAL HISTORY: left foot wound 3 view left foot Comparison: None provided Findings: No fractures or dislocations. Small plantar calcaneal spur. Calcification along the Achilles tendon. No ankle effusion. No radiopaque foreign body. Soft tissue swelling over the metatarsals. IMPRESSION: 1. No acute osseous injury. Soft tissue swelling over the metatarsals. This document has been electronically signed by: Avril Alston MD on 06/19/2025 19:10:40
--- NOTE | ~2025-06-17 | XR_ITS ---
CLINICAL HISTORY: SOB 2 view chest x-ray Comparison: CR/SR - XR CHEST 2 VIEWS - 08/10/23 15:03 EDT Findings: Median sternotomy. Cervical fusion hardware. Mild awve-ayizyvs-ofxb-right bibasilar airspace opacity. Heart size is normal. No acute fracture. IMPRESSION: Mild bibasilar pneumonia. Continued plain film follow-up is recommended to ensure resolution, and to exclude underlying neoplasm. This document has been electronically signed by: Diana Segovia MD on 06/17/2025 15:53:00
--- NOTE | ~2025-06-17 | CT_ITS ---
CLINICAL HISTORY: SOB --- Additional Notes or Special Instructions: ?mass CT chest without contrast Comparison: None provided Findings: The heart is normal size. Calcification of the coronary vasculature. The visualized thyroid and mediastinum are unremarkable. Small bilateral pleural effusions are present. Moderate bibasilar airspace opacity. Masslike density within the right lower lobe posteriorly measuring 70 mm. 7 mm nodule within the right upper lobe posteriorly (image 55). The upper abdomen is unremarkable. No acute fractures. Multilevel disc space narrowing and endplate osteophyte formation, as well as facet hypertrophy. Median sternotomy. IMPRESSION: 1. Bibasilar atelectasis versus pneumonia. There is an associated masslike density within the right lower lobe as well as a right upper lobe nodule. Follow up chest CT in 3 months is recommended to assess for stability/resolution. 2. Small bilateral pleural effusions. 3. Coronary artery disease. This document has been electronically signed by: Diana Segovia MD on 06/17/2025 17:53:06
[2025-06-17 13:52] VITALS: BP 182/88; PULSE 95; RESP 18; TEMP 37.2; O2SAT 95; BMI 37.7
--- NOTE | 2025-06-17 14:19 | ECG_ITS ---
Test Reason : DYSPENIA Blood Pressure : */* mmHG Vent. Rate : 82 BPM Atrial Rate : * BPM P-R Int : * ms QRS Dur : 120 ms QT Int : 442 ms P-R-T Axes : * -11 25 degrees QTcB Int : 516 ms Atrial fibrillation Right bundle branch block Possible Inferior infarct , age undetermined Abnormal ECG No previous ECGs available Referred By: Elicia Bella Electronically Signed By: MARIO TIRADO
[2025-06-17 15:17] VITALS: BP 138/73; PULSE 89; RESP 20; O2SAT 96
[2025-06-17 15:19] LABS: MANUAL DIFF FLAG NO
--- NOTE | 2025-06-17 15:19 | PC.NURSE ---
74 M presents to ED with SOB for a couple of days, swelling in BLE. A+OX4, ambulates with a walker. RR even and unlabored, breath sounds clear bilat. +2 pitting edema on bilat extremities. Pt denies any pain at this time. Pt is calm, cooperative.
[2025-06-17 15:21] LABS: Hematocrit 37.3 % (42.0-52.0); Hemoglobin 12.8 g/dl (14.0-18.0); Imm Gran Abs Auto 0.01 X10*3/uL (0.00-0.03); Imm Gran Pct Auto 0.2 % (0.0-0.4); Lymphocytes Absolute Auto 1.5 X10*3/uL (1.2-4.9); Mean Corpuscular HGB Conc 34.3 g/dl (31.0-36.0); Mean Corpuscular Hemoglobin 29.8 pg (27.0-33.0); Mean Corpuscular Volume 86.7 fL (80.0-98.0); NRBC Abs Auto 0.000 X10*3/uL (0.0-0.012); NRBC Pct Auto 0.0 /100WBC (0.0-0.2); Platelet Count 191 X10*3/uL (160-400); Red Blood Count 4.30 X10*6/uL (4.60-5.80); White Blood Count 5.8 X10*3/uL (4.8-10.8)
[2025-06-17 15:27] LABS: INTERNATIONAL NORM RATIO 2.8 (0.9-1.1); Prothrombin Time 31.6 SEC (10.9-12.4)
[2025-06-17 15:40] LABS: Alanine Aminotransferase 12 U/L (0-40); Albumin Level 3.6 g/dL (3.5-5.0); Alkaline Phosphatase 126 U/L (39-117); Anion Gap 13 (12-20); Aspartate Amino Transferase 25 U/L (5-37); Blood Urea Nitrogen 13 mg/dL (9-16); Calcium 8.7 mg/dL (8.4-10.2); Carbon Dioxide 22 mmol/L (22-29); Chloride 107 mmol/L (96-108); Creatinine Clr Calc Pharmacy 71.5; Estimated Glomerular Filt Rate 60; Magnesium 1.9 mg/dL (1.6-2.6); Potassium 3.9 mmol/L (3.3-5.1); Sodium 138 mmol/L (135-145); Total Protein 6.8 g/dL (6.5-8.0)
[2025-06-17 15:51] LABS: B Type Natriuretic Peptide 272 pg/mL (<100)
[2025-06-17 15:57] LABS: Resp Syncy Virus RNA Qual PCR NEGATIVE (Negative); SARS COV2 PCR INHOUSE NEGATIVE (Negative)
--- NOTE | 2025-06-17 16:22 | ED_ITS ---
HPI - SOB/Dyspnea General Chief Complaint: Dyspnea Stated Complaint: SOB Time Seen by Provider: 06/17/25 15:17 Source: patient Mode of arrival: ambulatory History of Present Illness ED Provider: Christopher PRYOR Narrative: 74-year-old male with extensive past medical history of CAD, diabetes, known at the very least paroxysmal atrial fibrillation, currently on warfarin, denies any falls but states he has had shortness of breath for quite a while and reports chills but denies any increased sputum production/fever/chills, does report that he requires pillows, he was evaluated at [facility] previously for the possibility of pacemaker placement but he states that they did not feel that he needed to have it. He denies any subjective fevers and denies any GI or symptoms. He denies any worsening of bilateral lower extremity swelling and is currently followed by Dr. Miller and states he has a follow-up echocardiogram in 3 months. Patient is a current everyday heavy smoker Related Data Home Medications ?Medication ?Instructions ?Recorded ?Confirmed insulin aspart U-100 100 unit/mL subcut 12/21/2004/24 subcutaneous solution acetaminophen 500 mg capsule 1,000 mg PO .q hs PRN 04/24/25 furosemide 20 mg tablet 20 mg PO BID PRN 11/21/24 CBD PO 03/09/25 04/24/25 Previous Rx's ?Medication ?Instructions ?Recorded back brace #1 ea 04/09/22 miscellaneous medical supply #1 ea 09/22/22 (Blood Pressure Cuff) flash glucose scanning reader #1 ea 03/02/23 (FreeStyle Reid 2 [place]) blood sugar diagnostic (GPB Scientificuch #100 strips 10/04/23 Ultra Test strips) albuterol sulfate 90 mcg/actuation 2 puff inhalation Q 6H PRN for 11/05/23 aerosol inhaler wheezing #8.5 ea atorvastatin 40 mg tablet 40 mg PO DAILY #90 tabs 07/11 05/02 cetirizine 10 mg tablet 10 mg PO DAILY #90 tabs 07/11 06/01 omeprazole 20 mg capsule,delayed 20 mg PO DAILY #90 ca ps 09/06/24 release flash glucose sensor (FreeStyle #1 ea 10/27/24 Reid 2 Sensor kit) losartan 50 mg tablet 50 mg PO DAILY 90 days #90 t abs 11/21/24 hydrochlorothiazide 12.5 mg tablet 12.5 mg PO DAILY #9 0 tabs 12/03/24 warfarin 2 mg tablet 2 - 4 mg PO DAILY #180 tabs 12/03/24 insulin degludec 200 unit/mL (3 120 unit (0.6 mL) subc ut DAILY 30 01/02/25 mL) subcutaneous pen (Tresiba days #9 mL FlexTouch U-200 insulin) blood-glucose sensor (FreeStyle #1 ea 03/29/25 Reid 3 Sensor device) blood-glucose,clerical stock inspector,cont #1 ea 03/29/25 (FreeStyle Reid 3 [place]) pen needle, diabetic 32 gauge x #100 ea 03/29/25 pioglitazone 30 mg tablet (Actos) 30 mg PO DAILY 90 da ys #90 tabs 03/29/25 fluticasone propionate 50 1 spray intranasal DAILY 30 days 04/29/25 mcg/actuation nasal #16 grams spray,suspension (Flonase Allergy Relief) insulin lispro 100 unit/mL 15 unit (0.15 mL) subcut TI D 30 05/01/25 subcutaneous pen (Admelog SoloStar days #15 mL U-100 Insulin lispro) duloxetine 60 mg capsule,delayed 120 mg (2 x 60 mg) PO DAILY 30 06/01/25 release days #60 caps Allergies Allergy/AdvReac Type Severity Reaction Status Date / Time penicillin V Allergy Unknown hives, Verified 06/17/25 13:55 rash/tounge edema bupropion (From Wellbutrin) AdvReac Intermediate GI upset Verified 06/17/25 13:55 Vicodin Allergy Unknown dizziness Uncoded 06/17/25 13:55 Review of Systems 2 Review of Systems: Pertinent positives and negatives as stated in HPI [facility] Past Medical History Source: nursing notes reviewed Medical History Spondylosis of lumbar spine Diabetic neuropathy Lumbar radiculopathy Obesity Hyperlipidemia LDL goal <70 Diabetes mellitus HTN (hypertension) CAD (coronary artery disease) Surgical History Hx of spinal surgery History of arthroscopy of knee Hx of coronary artery bypass graft History of mechanical aortic valve replacement Family History Family History Father CVD (cardiovascular disease) Mother Diabetes Social History Social History Housing: House Patient Tobacco Use Status: Current everyday Tobacco user Tobacco use type: Cigarette Cigarettes Per Day: 20 Smoked in Last 30 Days: No e-Cigarette/Vaping Use: Never Used Use of substances other than those prescribed or required for medical reasons: No Advance Directives: No Advance Directives Information Provided: Yes service: No Current occupational status: retired Current occupational exposures/hazards: No Cognitive needs: Yes Hearing needs: No Vision needs: No Physical Exam 2 Exam: Exam: VITAL SIGNS: Reviewed. GENERAL: Elevated BMI, Well developed, well nourished, in no acute distress. HEAD: Normocephalic/atraumatic EYES: PERRLA, EOMI EARS: Ext canals without abnormality NOSE: Nares patent bilateral OROPHARYNX: no oral lesions noted, posterior pharynx clear NECK: Supple, no adenopathy LUNGS: Good inspiratory effort, no increased work of breathing/tachypnea, decreased breath sounds on the left greater than right SpO2<95> CARDIOVASCULAR: Regular rate and rhythm without noted murmurs, no JVD bilateral lower extremity edema 2 to 3+ ABDOMEN: Soft, non-tender, non-distended with bowel sounds. MUSCULOSKELETAL: No tenderness, deformities, or effusions noted on gross inspection. EXTREMITIES: No cyanosis, clubbing or edema. SKIN: Inspection of the skin reveals no rashes NEUROLOGIC: Alert and oriented x 4. Strength and sensation to light touch were grossly intact x 4. Vital Signs: Vital Signs: Last Vital Signs Temp 97.3 F 06/17/25 18:02 Pulse 75 06/17/25 18:02 Resp 12 06/17/25 18:02 BP 137/74 06/17/25 18:02 Pulse Ox 97 06/17/25 18:02 O2 Del Method Room Air 06/17/25 18:02 BMI result Body Mass Index 37.7 Medications Administered Discontinued Medications Generic Name Dose Route Start Last Admin Trade Name Freq PRN Reason Stop Dose Admin Furosemide 40 mg 06/17/25 16:36 06/17/25 17:20 Furosemide 40 Mg/4 Ml Vial IVPUSH 06/17/25 16:37 40 mg STAT STA Administration Protocol Medical Decision Making Medical Decision Making MDM Narrative: 1600: 74-year-old male with history and clinical presentation, DD DX: Patient arrives in atrial fibrillation with complaints of shortness of breath, will evaluate for CHF exacerbation, patient is also a heavy smoker, will evaluate for presence of pneumonia/COPD, however patient is not febrile and he is also not hypoxic. Patient endorses that he is on chronic warfarin therapy, denies any missed medication. EKG: Atrial fibrillation, HR-82, right bundle branch block, no STEMI Interpreted the chest x-ray and there is a obvious mass versus pneumonia in the left lower lobe, concerns for possible mass instead of pneumonia is that patient has had no infectious symptoms though he does describe some chills and night. Official read is pending. 1632: Interpreted reviewed the lab work and there is no leukocytosis, mild normocytic anemia without thrombocytopenia. INR is therapeutic at 2.8 and otherwise there is no evidence of IRASEMA/electrolyte/liver enzyme derangements. There is hyperglycemia without DKA or evidence of HHS. BNP is mildly elevated at 242 and taken into consideration with clinical findings patient will also receive Lasix. Viral testing is negative for COVID-19/RSV/influenza. Given the chest x-ray findings will pursue CT scan of the chest for better characterization of the infiltrate within the left lower lobe. Will also pursue lactic acid/blood cultures but will hold antibiotics as there are no clinical findings to suggest underlying infection at this time, also no evidence to suggest a COPD exacerbation at this time. INTERVENTION: 40mg lasix Shortness of breath secondary to CHF though patient is not hypoxic, also likely secondary to underlying infiltrate within the left lower lobe which is felt to be more consistent with mass versus infectious process. 1820: My interpretation is in agreement with radiology's impression that there is evidence of bilateral pleural effusion, left greater than right, underlying mass versus infiltrate though mass is favored given patient's history and clinical presentation. All discussed the case with inpatient hospitalist for admission given patient's evidence of CHF, pleural effusions and dyspnea. Differential Diagnosis Differential Diagnoses: The differential diagnosis associated with the presentation includes See above Admission/Observation Consideration of admission/observation: Escalation of care including admission/observation considered After consideration of multiple features I do feel that patient would benefit from inpatient admission for shortness of breath/CHF Consult Healthcare Provider Management of the patient was discussed with: Hospitalist See above Lab Data [facility] Lab Attestation statement: I reviewed the patient's lab results. See above 06/17/25 15:14 06/17/25 15:14 Labs: Lab Results 06/17/25 06/17/25 06/17/25 Range/Units 15:14 15:16 16:40 WBC 5.8 (4.8-10.8) X10*3/uL RBC 4.30 L (4.60-5.80) X10*6/uL Hgb 12.8 L (14.0-18.0) g/dl Hct 37.3 L (42.0-52.0) % MCV 86.7 (80.0-98.0) fL MCH 29.8 (27.0-33.0) pg MCHC 34.3 (31.0-36.0) g/dl RDW 13.1 (11.0-16.0) % Plt Count 191 (160-400) X10*3/uL MPV 9.5 (9.4-12.4) fL Immature Gran % (Auto) 0.2 (0.0-0.4) % Neut % (Auto) 63.3 (45-73) % Lymph % (Auto) 26.5 (20-40) % Harvey % (Auto) 8.8 (2-11) % Eos % (Auto) 0.9 (0-4) % Baso % (Auto) 0.3 (0-2) % Lymph # (Auto) 1.5 (1.2-4.9) X10*3/uL Harvey # (Auto) 0.5 (0.1-1.2) X10*3/uL Eos # (Auto) 0.1 (0.0-0.4) X10*3/uL Baso # (Auto) 0.0 (0.0-0.2) X10*3/uL Abs Immat Gran (auto) 0.01 (0.00-0.03) X10*3/uL Absolute Neuts (auto) 3.7 (2.0-8.3) x10*3/uL Absolute Nucleated RBC 0.000 (0.0-0.012) X10*3/uL Nucleated RBC % (auto) 0.0 (0.0-0.2) /100WBC PT 31.6 H (10.9-12.4) SEC INR 2.8 H (0.9-1.1) Sodium 138 (135-145) mmol/L Potassium 3.9 (3.3-5.1) mmol/L Chloride 107 (96-108) mmol/L Carbon Dioxide 22 (22-29) mmol/L Anion Gap 13 (12-20) BUN 13 (9-16) mg/dL Creatinine 1.19 (0.5-1.4) mg/dL Estim Creat Clear Calc 71.5 Estimated GFR 60 Random Glucose 317 H (60-115) mg/dL Lactic Acid 1.5 (0.5-2.0) mmol/L Calcium 8.7 D (8.4-10.2) mg/dL Magnesium 1.9 (1.6-2.6) mg/dL Total Bilirubin 0.6 (0.0-1.0) mg/dL Direct Bilirubin 0.3 (0.0-0.5) mg/dL AST 25 (5-37) U/L ALT 12 (0-40) U/L Alkaline Phosphatase 126 H (39-117) U/L B-Natriuretic Peptide 272 H (<100) pg/mL Total Protein 6.8 (6.5-8.0) g/dL Albumin 3.6 (3.5-5.0) g/dL Influenza Type A (PCR) NEGATIVE (Negative) Influenza Type B (PCR) NEGATIVE (Negative) RSV RNA Qual (PCR) NEGATIVE (Negative) SARS-CoV-2 RNA (RT-PCR) NEGATIVE (Negative) Independent Interpretation I performed an independent interpretation of an: EKG, Plain X-Ray and CT Scan Interpretation: See above Radiology Impression Discussion of test interpretation with radiology: I have reviewed the radiologist's reading. Radiologist Impression: See above External Record Review External record reviewed: Prior outpatient labs and Prior outpatient radiology Chronic Conditions Patient?s care impacted by: Diabetes, Hypertension and Other COPD, everyday smoker Critical Care Time Critical Care Time Critical Care Time: Yes Total Critical Care Time: 30 Attestation: I personally attest to this time spent taking care of the patient. Discharge Plan Discharge Clinical Impression: CHF exacerbation, Dyspnea Patient Disposition: Admitted As Inpatient Print Language: Togolese
[2025-06-17 17:20] VITALS: BP 138/73
[2025-06-17] MEDS: Furosemide 40 MG/4 ML VIAL IVPUSH (17:20)
[2025-06-17 18:02] VITALS: BP 137/74; PULSE 75; RESP 12; TEMP 36.3; O2SAT 97
--- NOTE | 2025-06-17 19:13 | PM.IMHP ---
History of Present Illness Date of Service: 06/17/25 Attending physician on admission: Veronica Quach Chief Complaint: SOB Pt is a 74 yo male with PMH Tobacco dependence, COPD not on home O2 only uses rescue inhaler, IDDM, HTN, HLD, allergic rhinitis, Anxiety, GERD, MDD, obesity, OA, recent closed C2 fracture s/p fall wore cervical collar for 2 months, diabetic neurpathy, second degree AVB Mobitz type 1, 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 Pt denies any near syncope or syncopal episodes. Work up in the ED included CT scan that identified atelectasis vs PNA, sm B pleural effusions and masses in RLL and RUL that will require follow up CT chest in 3 months. BNP elevated at 272. Pt does have BLE edema , nonpitting and pt believes he has gained at least 20 pounds in fluid wt alone. Pt does smoke 1PPD of cigaretts per day and does not use daily inhalers, nebs or oxygen at home. Pt is on coumadin and INR today is 1.8. Pt also has B closed ulcers on botth of both feet, chronic but pt failed with follow up with custom leather products maker. Do not suspect OM as there is no warmth, swelling or drainage. Incidentally, pt offers that his mother passed with dementia and pt feels he is having minor signs of dementia to include STM loss. Education provided on outpatient follow up plan. Pt lives with chronic anxiety as well but denies any SI, HI issues. Review of Systems Review of Systems: Pt denies chest pain, is having profound SOB with exertion that has worsened over the last 3 weeks. Pt feels he has gained at least 20 pound of fluid wt. Pt has not notified his PCP or cardioogist but has upcoming appt with cardiology. Pt denies constipation or diarrhea, abdominal pain, N/V. Pt has chronic pain issues but denies any profound cervial pain noting recent C2 closed fracutre from fall. Yes all other systems are reviewed and are negative [facility] Medical History Spondylosis of lumbar spine Diabetic neuropathy Lumbar radiculopathy Obesity Hyperlipidemia LDL goal <70 Diabetes mellitus HTN (hypertension) CAD (coronary artery disease) Cognitive capacity: A/O X3 Family History Father CVD (cardiovascular disease) Mother Diabetes Surgical History Hx of spinal surgery History of arthroscopy of knee Hx of coronary artery bypass graft History of mechanical aortic valve replacement Social History Housing: House Patient Tobacco Use Status: Current everyday Tobacco user Tobacco use type: Cigarette Cigarettes Per Day: 20 Smoked in Last 30 Days: No e-Cigarette/Vaping Use: Never Used Use of substances other than those prescribed or required for medical reasons: No Advance Directives: No Advance Directives Information Provided: Yes service: No Current occupational status: retired Current occupational exposures/hazards: No Cognitive needs: Yes Hearing needs: No Vision needs: No Ebola Risk: Travel/Contact With Anyone From Affected Area/s: No Has Patient Experienced Ebola Symptoms: No Meds Allergies Allergy/AdvReac Type Severity Reaction Status Date / Time penicillin V Allergy Unknown hives, Verified 06/17/25 13:55 rash/tounge edema bupropion (From Wellbutrin) AdvReac Intermediate GI upset Verified 06/17/25 13:55 Vicodin Allergy Unknown dizziness Uncoded 06/17/25 13:55 Home Medications ?Medication ?Instructions ?Recorded ?Confirmed ?Last Taken ?Type insulin aspart U-100 100 unit/mL subcut 12/21/20 04/24/25 Unknown History subcutaneous solution acetaminophen 500 mg capsule 1,000 mg PO .q hs PRN 07/08/24 04/24/25 Unknown History furosemide 20 mg tablet 20 mg PO BID PRN 11/21/24 04/24/25 Unknown History CBD PO 03/09/25 04/24/25 Unknown History Physical Exam Vital Signs and Narrative: Vital Signs: Last Vital Signs Temp 97.3 F 06/17/25 18:02 Pulse 75 06/17/25 18:02 Resp 12 06/17/25 18:02 BP 137/74 06/17/25 18:02 Pulse Ox 97 06/17/25 18:02 O2 Del Method Room Air 06/17/25 18:02 BMI result Body Mass Index 37.7 Alert and orientated X3, able to give good history. Neuro: CN II-X11 intact, no deficits, visual acuity intact EYES: PERRLA, EOM intact, sclera nonicteric, conjunctiva pink ENT: hearing intact, no issues with swallowing, uvula midline, lips moist, nares patent no epistaxis Cardiac: S1 S2 RRR, no murmur, no JVD, moderate edema in Lower ext's Pulmonary: lungs diminished right greater than left, no wheezing noted Abdominal: BS active in all 4 quadrants, no guarding, tenderness, rebounding, obesity MSK: strength 4/5 upper and lower extremities : no CVA tenderness no bladder distension Extremities: Moderate nonpitting edema in lower extremities, PT and DP pulses palpable +2 Psych: mood stable, judgement and insight good Skin: Bilateral malleolar ulcerations, left worse than right Results Labs 06/17/25 15:14 06/17/25 15:14 Labs: Laboratory Results - last 24 hr 06/17/25 06/17/25 06/17/25 15:14 15:16 16:40 MCV 86.7 MCH 29.8 MCHC 34.3 RDW 13.1 Plt Count 191 MPV 9.5 Immature Gran % (Auto) 0.2 Neut % (Auto) 63.3 Lymph % (Auto) 26.5 [place] % (Auto) 8.8 Eos % (Auto) 0.9 Baso % (Auto) 0.3 Lymph # (Auto) 1.5 [place] # (Auto) 0.5 Eos # (Auto) 0.1 Baso # (Auto) 0.0 Abs Immat Gran (auto) 0.01 Absolute Neuts (auto) 3.7 Absolute Nucleated RBC 0.000 Nucleated RBC % (auto) 0.0 PT 31.6 H INR 2.8 H Anion Gap 13 Estim Creat Clear Calc 71.5 Estimated GFR 60 Random Glucose 317 H Lactic Acid 1.5 Calcium 8.7 D Magnesium 1.9 Total Bilirubin 0.6 Direct Bilirubin 0.3 AST 25 ALT 12 Alkaline Phosphatase 126 H B-Natriuretic Peptide 272 H Total Protein 6.8 Albumin 3.6 Influenza Type A (PCR) NEGATIVE Influenza Type B (PCR) NEGATIVE RSV RNA Qual (PCR) NEGATIVE SARS-CoV-2 RNA (RT-PCR) NEGATIVE Assessment and Plan (1) Pneumonia: Qualifiers: Laterality: unspecified laterality Lung location: unspecified part of lung Pneumonia type: due to unspecified organism Qualified Code(s): J18.9 - Pneumonia, unspecified organism Status: Acute Plan Pt is a 74 yo male with PMH Tobacco dependence, COPD not on home O2 only uses rescue inhaler, IDDM, HTN, HLD, allergic rhinitis, Anxiety, GERD, MDD, obesity, OA, recent closed C2 fracture s/p fall wore cervical collar for 2 months, diabetic neurpathy, second degree AVB Mobitz type 1, 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 Pt denies any near syncope or syncopal episodes. PNA vs Atelectasis with acute respiratory distress no hypoxia Empiric tx of PNA started, Ceftrixone and Doxycyline as pt cannot take Azithromycin due to coumadin Incentive spirometer DUO NEBS Q4 prn Mass seen on CT RUL, RML (pt is an active smoker) Pt will require repeat CT scan as an outpatient in 3 months per guidelines Pulmonary referral as an outpatient New onset AFIB noted on ECG Repeat ECG in AM Telemetry MG WNL, check TSH Pt already on coumadin ECho ordered Pt has upcoming appt with Dr. Mandel, follow up as an outpatient as rate is currently controlled CHf exacerbation with small B Pleural Effusions BNP 372 Echo ordered (last echo 2018) Lasix 40 IV BID, renal fx stable Daily wts, strict I/Os Low Na diet Fluid allowance 1500mls Continue ARB, HCTZ B malleolar ulcers, closed and chronic Wound care consulted Pt advised that he will need to follow up with custom leather products maker as an outpatient Recommend pt wear diabetic shoes (insurance will cover) COPD/ tobacco dependence Currently on RA, does not use oxygen at home DUO NEBS PRN, cpuld benefit from nebs at home and would need med and nebulizer machine for home Nicotine patch ordered Pulmonary consult as an outpatient to optimize tx and investiage abnormal CT scan Hx of mechanical AVR, CABG On coumadin, current INR 2.8 Await medication reconcilliation INR in AM No issues with spontaneous bleeding DMII SSI Pioglitazone No issues with hypoglycemia Pt wears CGM OA, chronic pain issues Tyelnol prn Pt was following with instructor painting No NSAIDS as pt is on coumadin Pt is on Cymbalta HX C2 closed fracture (01/2024) s/p fall Chronic neck pain Tylenol prn Fall prevention, pt uses walker to ambulate MDD/Anxiety No issues with acute findings to include SI, HI Continue Cymbalta HLD Continue Statin LFTs WNL DVT prophylaxis: coumadin MED REC PENDING FULL CODE Quality Stroke Does the patient have a stroke diagnosis?: No Reason for No Anti-thrombotic by Day Two: N/A - Med Ordered VTE Prior VTE?: No VTE Risk Level:: Medical - moderate - high VTE Device Contraindication: N/A - Device Ordered VTE Drug Contraindication: N/A - Med Ordered
[2025-06-17 20:26] VITALS: BP 140/72; PULSE 70; RESP 13; TEMP 36.8; O2SAT 93
[2025-06-17 21:13] LABS: Glucose, Whole Blood 181 mg/dL (60-115)
[2025-06-17 21:31] LABS: Free T4 (Free Thyroxine) 1.12 ng/dL (0.71-1.85); Thyroid Stimulating Hormone 1.78 uIU/mL (0.32-4.0)
[2025-06-17 23:05] VITALS: BP 150/65; PULSE 60; RESP 18; O2SAT 97
[2025-06-17 23:07] LABS: Glucose, Whole Blood 260 mg/dL (60-115)
[2025-06-17 23:22] VITALS: BMI 37.7
[2025-06-17] MEDS: 0.9 % Sodium Chloride Flush 3 ML SYRINGE IVFLUSH (23:48)
[2025-06-18] VITALS (8 sets, daily range): BP systolic 140–164; BP diastolic 68–74; PULSE 63–78; RESP 16–20; TEMP 36–36.7; O2SAT 92–96
--- NOTE | 2025-06-18 00:38 | PC.NURSE ---
Patient to unit at 2300, pleasant and cooperative. Denies pain or discomfort. Oriented to unit. All needs in reach. Patient placed on telepack.
[2025-06-18 06:24] LABS: MANUAL DIFF FLAG NO
[2025-06-18 06:36] LABS: Hematocrit 35.3 % (42.0-52.0); Hemoglobin 12.1 g/dl (14.0-18.0); Imm Gran Abs Auto 0.02 X10*3/uL (0.00-0.03); Imm Gran Pct Auto 0.4 % (0.0-0.4); Lymphocytes Absolute Auto 1.5 X10*3/uL (1.2-4.9); Mean Corpuscular HGB Conc 34.3 g/dl (31.0-36.0); Mean Corpuscular Hemoglobin 29.9 pg (27.0-33.0); Mean Corpuscular Volume 87.2 fL (80.0-98.0); NRBC Abs Auto 0.000 X10*3/uL (0.0-0.012); NRBC Pct Auto 0.0 /100WBC (0.0-0.2); Platelet Count 180 X10*3/uL (160-400); Red Blood Count 4.05 X10*6/uL (4.60-5.80); White Blood Count 5.4 X10*3/uL (4.8-10.8)
[2025-06-18 06:37] LABS: Anion Gap 11 (12-20); Blood Urea Nitrogen 16 mg/dL (9-16); Calcium 8.6 mg/dL (8.4-10.2); Carbon Dioxide 26 mmol/L (22-29); Chloride 109 mmol/L (96-108); Creatinine Clr Calc Pharmacy 73.3; Estimated Glomerular Filt Rate > 60; Potassium 4.0 mmol/L (3.3-5.1); Sodium 142 mmol/L (135-145)
[2025-06-18 06:42] LABS: INTERNATIONAL NORM RATIO 2.5 (0.9-1.1); Prothrombin Time 28.7 SEC (10.9-12.4)
--- OUTSIDE RECORDS SUMMARY | 2025-06-18 06:52 | XMS_ITS | Clinical Summary ---
Author Organization 175 [facility] Address [address] [place] [address] Phone Care Team Providers Care Speech And Language Assistant Name Role Phone Connor Tesfaye Primary Care Provider [phone] Allergies Active Allergy Reactions Criticality Noted Date [...] Team Description 05/16/2025 Telephone Orthopedic Surgery - [address] [address] Leonardo Solo DPM from Last [...] left knee arthroscopic surgery with postop infection, [facility] AORTIC VALVE REPLACEMENT PROCEDURE: HISTORICAL AORTIC VALVE [...] DX:Type 2 ally betes mellitus without complications ([facility]) Mixed hyperlipidemia DX:Mixed hy perlipidemia Lumbar radiculopathy [...] PM EDT Office Visit Orthopedic Surgery - [place] [address] [facility] [address] [place] [phone] Leonardo Solo DPM [address] [facility] [address] [place] [id number] Health Maintenance Due Date Last Done Comments [...] age to complete this topic Insurance MEDICARE [facility] Care Teams Speech And Language Assistant Relationship Specialty Start Date End Date Connor Tesfaye PA PCP - General 01/23/23
[2025-06-18 07:14] LABS: Glucose, Whole Blood 123 mg/dL (60-115)
[2025-06-18] MEDS: Furosemide 40 MG/4 ML VIAL IVPUSH (07:43)
[2025-06-18] MEDS: 0.9 % Sodium Chloride Flush 3 ML SYRINGE IVFLUSH ×3 (07:49→23:44)
--- NOTE | 2025-06-18 08:33 | PHA.MEDREC ---
Addendum entered by Santiago Dutta PharmD 06/18/25 08:47: reviewed Original Note: Pharmacy Consult ? Medication Reconciliation Pharmacy has completed the medication reconciliation. Spoke to patient to confirm med list. Patient states he is no longer taking Duloxetine 60 mg, HCTZ 12.5 mg. Patient confirmed Warfarin 4 mg (2x 2mg) daily. Patient last had his medications yesterday.
--- NOTE | 2025-06-18 09:53 | MHC.CM.PN ---
PT LIVES ALONE IS INDEPENDENT DID NOT HAVE SERVICES PRIOR TO DC PTS CAR IS IN PARKING LOT DC PLAN HOME N/S
--- NOTE | 2025-06-18 10:26 | HO.PM.IMPN ---
Subjective Subjective Date of Service: 06/18/25 Interval History: COPD Review of Systems sob seems improving no fever or chills Review of Systems: Yes all other systems are reviewed and are negative Physical Exam Exam: Exam: Appearance: Alert.? Oriented X3. cvs: [id number], [id number]. res: air entry diminshed ,has b/l exp wheezing abd: no rebound or guarding ,nt, bs present. ext pulses present , no cyanosis . neuro: axo3 , nonfocal. Vital Signs: Vital Signs: Last Vital Signs Temp 96.8 F 06/18/25 07:49 Pulse 68 06/18/25 07:49 Resp 16 06/18/25 07:49 BP 154/74 H 06/18/25 07:49 Pulse Ox 93 06/18/25 07:49 O2 Del Method Room Air 06/18/25 07:49 BMI result Body Mass Index 37.7 Objective Data Active Medications Acetaminophen (Acetaminophen 325 Mg Tablet) 650 mg PO Q6H PRN PRN Reason: Pain, Mild 1-3,fever,headache Last Admin: 06/18/25 07:45 Dose: 650 mg Documented By: AMBROSE Albuterol/Ipratropium (Albuterol/Iprat 2.5/0.5mg 3 Ml Ampul.Neb) 3 ml INHALE Q4H PRN PRN Reason: Shortness of Breath/Wheezing Calcium Carbonate (Calcium Carbonate 750 Mg Tab.Chew) 750 mg PO Q4H PRN PRN Reason: Heartburn Ceftriaxone Sodium (Ceftriaxone Sodium 1 Gm Vial) 1 gm IVPUSH Q24H KALEY Last Admin: 06/17/25 21:23 Dose: 1 gm Documented By: PALLAVI Dextrose (Dextrose 50 % 25 Gm/50 Ml Syringe) 25 gm IVPUSH Q15M PRN; Protocol PRN Reason: per Hypoglycemia Standing Ord. Doxycycline Monohydrate (Doxycycline Monohydrate 100 Mg Capsule) 100 mg PO Q12H KALEY Stop: 06/24/25 09:01 Last Admin: 06/18/25 07:45 Dose: 100 mg Documented By: AMBROSE Furosemide (Furosemide 40 Mg/4 Ml Vial) 40 mg IVPUSH DAILY KALEY; Protocol Last Admin: 06/18/25 07:43 Dose: 40 mg Documented By: AMBROSE Glucose (Glucose Gel 15 Gm Gel..Gram.) 15 gm PO Q15M PRN; Protocol PRN Reason: per Hypoglycemia Standing Ord. Insulin Human Lispro (Insulin Lispro 100 Unit/Ml 3 Ml Vial) 0 unit SUBCUT QIDACHS [facility]; Protocol Last Admin: 06/18/25 07:33 Dose: Not Given Documented By: AMBROSE Non-Admin Reason: No Insulin Coverage Magnesium Hydroxide (Milk Of Magnesia 30 Ml Oral.Susp) 30 ml PO DAILY PRN PRN Reason: Constipation Melatonin (Melatonin 3 Mg Tablet) 6 mg PO BEDTIME PRN PRN Reason: Insomnia Ondansetron HCl (Ondansetron Hcl 4 Mg/2 Ml Vial) 4 mg IVPUSH Q8H PRN PRN Reason: Nausea and Vomiting Polyethylene Glycol (Polyethylene Glycol 3350 17 Gm Powd.Pack) 17 gm PO DAILY PRN PRN Reason: Constipation Senna (Sennosides 8.6 Mg Tablet) 17.2 mg PO BEDTIME [facility] Last Admin: 06/17/25 21:22 Dose: 17.2 mg Documented By: PALLAVI Sodium Chloride (0.9 % Sodium Chloride Flush 3 Ml Syringe) [facility] Last Admin: 06/18/25 07:49 Dose: 3 ml Documented By: AMBROSE Labs 06/18/25 06:18 06/18/25 06:18 Labs: Laboratory Results - last 24 hr 06/17/25 06/17/25 06/17/25 15:14 15:16 16:40 MCV 86.7 MCH 29.8 MCHC 34.3 RDW 13.1 Plt Count 191 MPV 9.5 Immature Gran % (Auto) 0.2 Neut % (Auto) 63.3 Lymph % (Auto) 26.5 Wake % (Auto) 8.8 Eos % (Auto) 0.9 Baso % (Auto) 0.3 Lymph # (Auto) 1.5 Wake # (Auto) 0.5 Eos # (Auto) 0.1 Baso # (Auto) 0.0 Abs Immat Gran (auto) 0.01 Absolute Neuts (auto) 3.7 Absolute Nucleated RBC 0.000 Nucleated RBC % (auto) 0.0 PT 31.6 H INR 2.8 H Anion Gap 13 Estim Creat Clear Calc 71.5 Estimated GFR 60 POC Glucose Random Glucose 317 H Lactic Acid 1.5 Calcium 8.7 D Magnesium 1.9 Total Bilirubin 0.6 Direct Bilirubin 0.3 AST 25 ALT 12 Alkaline Phosphatase 126 H B-Natriuretic Peptide 272 H Total Protein 6.8 Albumin 3.6 TSH 1.78 Free T4 1.12 Influenza Type A (PCR) NEGATIVE Influenza Type B (PCR) NEGATIVE RSV RNA Qual (PCR) NEGATIVE SARS-CoV-2 RNA (RT-PCR) NEGATIVE 06/17/25 06/17/25 06/18/25 21:10 22:57 06:18 MCV 87.2 MCH 29.9 MCHC 34.3 RDW 13.1 Plt Count 180 MPV 9.6 Immature Gran % (Auto) 0.4 Neut % (Auto) 60.0 Lymph % (Auto) 28.7 Wake % (Auto) 8.6 Eos % (Auto) 1.7 Baso % (Auto) 0.6 Lymph # (Auto) 1.5 Wake # (Auto) 0.5 Eos # (Auto) 0.1 Baso # (Auto) 0.0 Abs Immat Gran (auto) 0.02 Absolute Neuts (auto) 3.2 Absolute Nucleated RBC 0.000 Nucleated RBC % (auto) 0.0 PT 28.7 H INR 2.5 H Anion Gap 11 L Estim Creat Clear Calc 73.3 Estimated GFR > 60 POC Glucose 181 H 260 H Random Glucose 114 Lactic Acid Calcium 8.6 Magnesium Total Bilirubin Direct Bilirubin AST ALT Alkaline Phosphatase B-Natriuretic Peptide Total Protein Albumin TSH Free T4 Influenza Type A (PCR) Influenza Type B (PCR) RSV RNA Qual (PCR) SARS-CoV-2 RNA (RT-PCR) 06/18/25 07:11 MCV MCH MCHC RDW Plt Count MPV Immature Gran % (Auto) Neut % (Auto) Lymph % (Auto) Wake % (Auto) Eos % (Auto) Baso % (Auto) Lymph # (Auto) Wake # (Auto) Eos # (Auto) Baso # (Auto) Abs Immat Gran (auto) Absolute Neuts (auto) Absolute Nucleated RBC Nucleated RBC % (auto) PT INR Anion Gap Estim Creat Clear Calc Estimated GFR POC Glucose 123 H Random Glucose Lactic Acid Calcium Magnesium Total Bilirubin Direct Bilirubin AST ALT Alkaline Phosphatase B-Natriuretic Peptide Total Protein Albumin TSH Free T4 Influenza Type A (PCR) Influenza Type B (PCR) RSV RNA Qual (PCR) SARS-CoV-2 RNA (RT-PCR) Assessment and Plan (1) COPD (chronic obstructive pulmonary disease): Status: Acute Assessment and Plan: 74 yo male with PMH Tobacco dependence, COPD not on home O2 only uses rescue inhaler, IDDM, HTN, HLD, allergic rhinitis, Anxiety, GERD, MDD, obesity, OA, recent closed C2 fracture s/p fall wore cervical collar for 2 months, diabetic neurpathy, second degree AVB Mobitz type 1, 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 Pt denies any near syncope or syncopal episodes. PNA vs Atelectasis with acute respiratory distress no hypoxia continue Ceftrixone and Doxycyline as pt cannot take Azithromycin due to coumadin ,nebs,Incentive spirometer Mass seen on CT RUL, RML (pt is an active smoker) repeat CT scan as an outpatient in 3 months per guidelines Pulmonary referral as an outpatient New onset AFIB noted on ECG Repeat ECG in AM Telemetry MG WNL, check TSH Pt already on coumadin ECho ordered Pt has upcoming appt with Dr. Miller, follow up as an outpatient as rate is currently controlled CHf exacerbation with small B Pleural Effusions BNP 372 Echo ordered (last echo 2018) Lasix 40 IV BID, renal fx stable Daily wts, strict I/Os Low Na diet Fluid allowance 1500mls Continue ARB, HCTZ B malleolar ulcers, closed and chronic Wound care consulted Pt advised that he will need to follow up with machine bookkeeper as an outpatient Recommend pt wear diabetic shoes (insurance will cover) COPD/ tobacco dependence Currently on RA, does not use oxygen at home DUO NEBS PRN, cpuld benefit from nebs at home and would need med and nebulizer machine for home Nicotine patch ordered Pulmonary consult as an outpatient to optimize tx and investiage abnormal CT scan Hx of mechanical AVR, CABG On coumadin, current INR 2.5 Await medication reconcilliation No issues with spontaneous bleeding DMII SSI,Pioglitazone No issues with hypoglycemia Pt wears CGM OA, chronic pain issues Tyelnol prn Pt 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 No NSAIDS as pt is on coumadin Pt is on Cymbalta HX C2 closed fracture (01/2024) s/p fall Chronic neck pain Tylenol prn Fall prevention, pt uses walker to ambulate MDD/Anxiety No issues with acute findings to include SI, HI Continue Cymbalta HLD Continue Statin LFTs WNL DVT prophylaxis: coumadin ongoing need for stay:pneumonia -need iv antibiotics , chf excerebation-need iv lasix ,renal function/electrolytic monitering Quality Stroke Does the patient have a stroke diagnosis?: No Reason for No Anti-thrombotic by Day Two: N/A - Med Ordered VTE Prior VTE?: No VTE Risk Level:: Medical - moderate - high VTE Device Contraindication: N/A - Device Ordered VTE Drug Contraindication: N/A - Med Ordered
[2025-06-18 10:59] LABS: Glucose, Whole Blood 242 mg/dL (60-115)
[2025-06-18] MEDS: Albuterol/Iprat 2.5/0.5MG 3 ML AMPUL.NEB INHALE (15:23)
[2025-06-18 16:19] LABS: Glucose, Whole Blood 226 mg/dL (60-115)
[2025-06-18 20:35] LABS: Glucose, Whole Blood 302 mg/dL (60-115)
[2025-06-19] VITALS (8 sets, daily range): BP systolic 117–177; BP diastolic 66–94; PULSE 53–79; RESP 16–19; TEMP 36–36.7; O2SAT 94–97
--- NOTE | 2025-06-19 | ECG_ITS ---
Test Reason : type2 wenkebach Blood Pressure : */* mmHG Vent. Rate : 75 BPM Atrial Rate : 81 BPM P-R Int : * ms QRS Dur : 116 ms QT Int : 468 ms P-R-T Axes : * 53 44 degrees QTcB Int : 522 ms Junctional rhythm alternating with sinus rhythm with AV Wenckebach. Right bundle branch block Abnormal ECG When compared with ECG of 17-Jun-2025 14:37, No significant changes seen Referred By: Evita Saleem Electronically Signed By: Anuel Paul
--- NOTE | 2025-06-19 05:23 | PC.NURSE ---
Patient with occasional cough, chest tightness during day. Lungs dim, room air. No c/o SOB. Mr. Adames states he feels his chest congestion is not easily expectorated. Patient encouraged to use incentive spirometer.
--- NOTE | 2025-06-19 07:00 | CA_ITS ---
Transthoracic Echocardiogram Patient (Last, First, Middle): Benigno Adames C Gender: Male Date of : 1950 Age: 74 Procedure Date: 06/19/2025 Procedure Type: Transthoracic Echocardiogram Location: S3E Height: 177.8 cm Weight: 118.84 kg BSA: 2.34 m2 Heart Rate: 77 bpm BP: 177 / 94 mmHg [employer] Manager: JASON Referring MD: Sadie Howard CUSTOMS COMPLIANCE DIRECTOR-BC Symptoms: increasing SOB, elevated BNP, hx of [facility] AVR, CABG Study Quality: Technically Difficult w/Contrast ECG Rhythm: Atrial Fibrillation Conclusions: - Normal left ventricular size and systolic function. There is severely increased left ventricular wall thickness. The visually estimated ejection fraction is between 60-65%. - Normal right ventricular cavity size. There is mildly decreased right ventricular systolic function. - A mechanical prosthetic aortic valve is present. The prosthetic aortic valve appears to be functioning normally. There is no aortic valve stenosis. - There is mild dilatation of the ascending aorta measuring 4.00 cm. Findings Procedure Information Contrast agent, definity, is being given per protocol without apparent complications. Left Ventricle Normal left ventricular size and systolic function. There is severely increased left ventricular wall thickness. The visually estimated ejection fraction is between 60-65%. There is no evidence of regional wall motion abnormalities. Diastolic function is indeterminate on the basis of available data. E/E prime ratio is between 8 and 15 consistent with indeterminate filling pressures. Right Ventricle Normal right ventricular cavity size. There is mildly decreased right ventricular systolic function. Atria The left atrium is moderately dilated. The right atrium is moderately dilated. Aortic Valve A mechanical prosthetic aortic valve is present. The prosthetic aortic valve appears to be functioning normally. There is no aortic valve stenosis. Mitral Valve The mitral valve appears normal. There is no mitral valve regurgitation. There is trace mitral valve stenosis. Pulmonic Valve The pulmonic valve is likely normal. Tricuspid Valve Normal tricuspid valve structure. There is no tricuspid valve regurgitation. Tricuspid regurgitation envelope is inadequate for calculation of right ventricular systolic pressure. Normal right atrial pressure. Great Vessels There is mild dilatation of the ascending aorta measuring 4.00 cm. The visualized portions of the pulmonary artery and branches are normal. Venous The inferior vena cava is normal in size and collapses greater than 50% with inspiration. Pericardium/Pleural There is no evidence of pericardial effusion. Prior Study Comparison No significant change compared to prior study dated: 07/21/2024. Measurements 2D Linear Measurements IVSd: 1.51 0.6-0.9/0.6-1.0 cm LVIDd: 3.72 3.9-5.3/4.2-5.9 cm LVIDd Index: 1.59 2.4-3.2/2.2-3.1 cm/m2 LVIDs: 2.74 2.0-3.6 cm LVPWd: 1.50 0.7-1.1 cm LA Diam: 4.20 2.7-3.8/3.0-4.0 cm LAIDs Index: 1.79 1.5-2.3 cm/m2 LV Mass: 263.48 67-162/88-224 g LV Mass Index: 112.60 43-95/49-115 g/m2 LVOT Diam: 2.20 3.0+(-)1.3 cm 2D Systolic Function EF 4C: 69.50 >55% EF 2C: 67.10 >55% EF BiP: 67.30 >55% Mitral Valve MV VTI: 0.33 MV Pk Abhinav: 1.65 MV Mn Abhinav: 0.75 MV Pk Grad: 11.00 MV Mn Grad: 3.00 MV Pk E: 1.66 MV Decel Time: 151.00 E'Lateral: 16.90 E'Medial: 12.50 E/E' Med: 13.30 E/E' Lat: 9.80 PHT: 44.00 MVA PHT: 5.00 MVA Continuity: 3.20 Decel [place]: 11.00 Aortic Valve AoV Pk Abhinav: 2.68 AoV Mn Abhinav: 1.78 AoV VTI: 0.54 AoV Pk Grad: 29.00 Aov Mn Grad: 15.00 JULIETA Cont.VTI: 1.97 LVOT LVOT Pk Abhinav: 1.12 LVOT Mn Abhinav: 0.82 LVOT VTI: 0.28 LVOT Pk Grad: 5.00 LVOT Mn Grad: 3.00 LVOT Diam: 2.20 LVOT Area: 3.80 Diastolic Function MV Pk E: 1.66 E'Medial: 12.50 E/E' Med: 13.30 E' Laterial: 16.90 E/E' Lat: 9.80 Right Ventricle TAPSE (mm): 22.90 TVS' Abhinav: 7.29 Tricuspid Valve TR Pk Abhinav: 1.58 TR Pk Grad: 10.00 Great Vessels Aorta Sinus of Valsalva: 3.30 2.0-3.5 cm Ao Asc: 4.00 2.1-3.4 cm Pulmonary Valve PV Pk Abhinav: 1.14 Peak PV Grad: 5.00 Updated in Other Vendor System with Status of Final Anuel Paul MD electronically signed on 06/19/2025 3:21:45 PM with status of Final
[2025-06-19 07:22] LABS: Glucose, Whole Blood 246 mg/dL (60-115)
[2025-06-19] MEDS: Furosemide 40 MG/4 ML VIAL IVPUSH (09:16)
[2025-06-19 09:20] LABS: Anion Gap 10 (12-20); Blood Urea Nitrogen 18 mg/dL (9-16); Calcium 8.5 mg/dL (8.4-10.2); Carbon Dioxide 27 mmol/L (22-29); Chloride 108 mmol/L (96-108); Creatinine Clr Calc Pharmacy 81.0; Estimated Glomerular Filt Rate > 60; Potassium 3.9 mmol/L (3.3-5.1); Sodium 141 mmol/L (135-145)
[2025-06-19] MEDS: 0.9 % Sodium Chloride Flush 3 ML SYRINGE IVFLUSH ×3 (09:31→19:54)
--- NOTE | 2025-06-19 10:57 | MHC.CM.PN ---
Per MD rounds patient not medically cleared for dc. CM will continue to follow.
--- NOTE | 2025-06-19 11:16 | HO.PM.IMPN ---
Subjective Subjective Date of Service: 06/19/25 Interval History: chf /copd Review of Systems patient is sob with minimal excersion no cough Physical Exam Exam: Exam: Appearance: Alert.? Oriented X3. cvs: rrr, [id number]. res: air entry diminshed ,has b/l exp wheezing abd: no rebound or guarding ,nt, bs present. ext pulses present , no cyanosis . neuro: axo3 , nonfocal. Vital Signs: Vital Signs: Last Vital Signs Temp 97.4 F 06/19/25 07:26 Pulse 65 06/19/25 07:26 Resp 16 06/19/25 07:26 BP 144/76 H 06/19/25 07:26 Pulse Ox 94 06/19/25 07:26 O2 Del Method Room Air 06/19/25 07:26 BMI result Body Mass Index 37.7 Objective Data Active Medications Acetaminophen (Acetaminophen 325 Mg Tablet) 650 mg PO Q6H PRN PRN Reason: Pain, Mild 1-3,fever,headache Last Admin: 06/18/25 23:42 Dose: 650 mg Documented By: FREDERIC Albuterol/Ipratropium (Albuterol/Iprat 2.5/0.5mg 3 Ml Ampul.Neb) 3 ml INHALE Q4H PRN PRN Reason: Shortness of Breath/Wheezing Last Admin: 06/18/25 15:23 Dose: 3 ml Documented By: HILDA Calcium Carbonate (Calcium Carbonate 750 Mg Tab.Chew) 750 mg PO Q4H PRN PRN Reason: Heartburn Ceftriaxone Sodium (Ceftriaxone Sodium 1 Gm Vial) 1 gm IVPUSH Q24H KALEY Last Admin: 06/18/25 20:19 Dose: 1 gm Documented By: YIFAN Dextrose (Dextrose 50 % 25 Gm/50 Ml Syringe) 25 gm IVPUSH Q15M PRN; Protocol PRN Reason: per Hypoglycemia Standing Ord. Doxycycline Monohydrate (Doxycycline Monohydrate 100 Mg Capsule) 100 mg PO Q12H KALEY Stop: 06/24/25 09:01 Last Admin: 06/19/25 09:16 Dose: 100 mg Documented By: NUSRAT Furosemide (Furosemide 40 Mg/4 Ml Vial) 40 mg IVPUSH DAILY KALEY; Protocol Last Admin: 06/19/25 09:16 Dose: 40 mg Documented By: NUSRAT Glucose (Glucose Gel 15 Gm Gel..Gram.) 15 gm PO Q15M PRN; Protocol PRN Reason: per Hypoglycemia Standing Ord. Insulin Human Lispro (Insulin Lispro 100 Unit/Ml 3 Ml Vial) 0 unit SUBCUT QIDACHS [facility]; Protocol Last Admin: 06/19/25 07:41 Dose: 4 unit Documented By: NUSRAT Magnesium Hydroxide (Milk Of Magnesia 30 Ml Oral.Susp) 30 ml PO DAILY PRN PRN Reason: Constipation Melatonin (Melatonin 3 Mg Tablet) 6 mg PO BEDTIME PRN PRN Reason: Insomnia Ondansetron HCl (Ondansetron Hcl 4 Mg/2 Ml Vial) 4 mg IVPUSH Q8H PRN PRN Reason: Nausea and Vomiting Polyethylene Glycol (Polyethylene Glycol 3350 17 Gm Powd.Pack) 17 gm PO DAILY PRN PRN Reason: Constipation Senna (Sennosides 8.6 Mg Tablet) 17.2 mg PO BEDTIME [facility] Last Admin: 06/18/25 20:19 Dose: Not Given Documented By: YIFAN Non-Admin Reason: Patient Refused Sodium Chloride (0.9 % Sodium Chloride Flush 3 Ml Syringe) 3 ml IVFLUSH QSHIFT [facility] Last Admin: 06/19/25 09:31 Dose: 3 ml Documented By: NUSRAT Labs 06/18/25 06:18 06/19/25 08:25 Labs: Laboratory Results - last 24 hr 06/18/25 06/18/25 06/19/25 16:12 20:22 07:00 Anion Gap Estim Creat Clear Calc Estimated GFR POC Glucose 226 H 302 H 246 H Random Glucose Calcium 06/19/25 08:25 Anion Gap 10 L Estim Creat Clear Calc 81.0 Estimated GFR > 60 POC Glucose Random Glucose 278 H Calcium 8.5 Microbiology Microbiology Results: Microbiology 06/17/25 16:51 Blood Culture - Preliminary Blood - Venous No growth after 24 hours. 06/17/25 16:40 Blood Culture - Preliminary Blood - Venous No growth after 24 hours. Assessment and Plan (1) COPD (chronic obstructive pulmonary disease): Status: Acute Assessment and Plan: 74 yo male with PMH Tobacco dependence, COPD not on home O2 only uses rescue inhaler, IDDM, HTN, HLD, allergic rhinitis, Anxiety, GERD, MDD, obesity, OA, recent closed C2 fracture s/p fall wore cervical collar for 2 months, diabetic neurpathy, second degree AVB Mobitz type 1, 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 Pt denies any near syncope or syncopal episodes. PNA vs Atelectasis with acute respiratory distress no hypoxia sob seems similar with minimum excersion. blood culture @24neg continue Ceftrixone and Doxycyline as pt cannot take Azithromycin due to coumadin ,nebs,Incentive spirometer Mass seen on CT RUL, RML (pt is an active smoker) repeat CT scan as an outpatient in 3 months per guidelines Pulmonary referral as an outpatient New onset AFIB noted on ECG Telemetry MG WNL, TSH normal. Pt already on coumadin ECho Pending Pt has upcoming appt with Dr. Miller, follow up as an outpatient as rate is currently controlled CHf exacerbation with small B Pleural Effusions BNP 372 Echo ordered (last echo 2018) Lasix 40 IV daily, renal fx stable Daily wts, strict I/Os Low Na diet Fluid allowance 1500mls Continue ARB, HCTZ B malleolar ulcers, closed and chronic Wound care consulted Pt advised that he will need to follow up with cost reduction engineer as an outpatient Recommend pt wear diabetic shoes (insurance will cover) COPD/ tobacco dependence Currently on RA, does not use oxygen at home DUO NEBS PRN, cpuld benefit from nebs at home and would need med and nebulizer machine for home Nicotine patch ordered Pulmonary consult as an outpatient to optimize tx and investiage abnormal CT scan Hx of mechanical AVR, CABG On coumadin, inr pending Await medication reconcilliation No issues with spontaneous bleeding DMII SSI,Pioglitazone No issues with hypoglycemia Pt wears CGM OA, chronic pain issues Tyelnol prn Pt was following with interior painter No NSAIDS as pt is on coumadin Pt is on Cymbalta HX C2 closed fracture (01/2024) s/p fall Chronic neck pain Tylenol prn Fall prevention, pt uses walker to ambulate MDD/Anxiety No issues with acute findings to include SI, HI Continue Cymbalta HLD Continue Statin LFTs WNL DVT prophylaxis: coumadin ongoing need for stay:pneumonia -need iv antibiotics , chf excerebation-need iv lasix ,renal function/electrolytic monitering Quality Stroke Does the patient have a stroke diagnosis?: No Reason for No Anti-thrombotic by Day Two: N/A - Med Ordered VTE Prior VTE?: No VTE Risk Level:: Medical - moderate - high VTE Device Contraindication: N/A - Device Ordered VTE Drug Contraindication: N/A - Med Ordered
[2025-06-19 11:29] LABS: Glucose, Whole Blood 260 mg/dL (60-115)
[2025-06-19] MEDS: Insulin Glargine,Hum.rec.anlog 100 UNIT/ML 10 ML VIAL 20 UNIT SUBCUT (11:46)
[2025-06-19 12:05] LABS: INTERNATIONAL NORM RATIO 1.5 (0.9-1.1); Prothrombin Time 16.7 SEC (10.9-12.4)
--- NOTE | 2025-06-19 14:25 | P.CONCA_ITS ---
History of Present Illness History of Present Illness Date of Service: 06/19/25 Requesting physician: Evita Saleem Chief complaint: Dyspnea Narrative: [age] year gentleman with background history of tobacco abuse, previous aortic valve replacement with mechanical aortic valve currently on chronic Coumadin therapy, hyperlipidemia and diabetes who is presenting with shortness of breath and peripheral edema. He was noticed to be in congestive heart failure and has been on IV diuretics. Chest CTA has shown bibasilar atelectasis versus pneumonia. There is an associated masslike density within the right lower lobe as well as right upper lobe nodule. He has been on IV diuretics and overall has been feeling better. He is denying any chest discomfort. He actually gained weight and has normal appetite currently. [facility] Past Medical History Medical History Spondylosis of lumbar spine Diabetic neuropathy Lumbar radiculopathy Obesity Hyperlipidemia LDL goal <70 Diabetes mellitus HTN (hypertension) CAD (coronary artery disease) Family History Family History Father CVD (cardiovascular disease) Mother Diabetes Surgical History Surgical History Hx of spinal surgery History of arthroscopy of knee Hx of coronary artery bypass graft History of mechanical aortic valve replacement Social History Social History Household Members: None Housing: House Do you presently have visiting nurse or other home services: No Patient Tobacco Use Status: Current everyday Tobacco user Tobacco use type: Cigarette Cigarettes Per Day: 20 e-Cigarette/Vaping Use: Never Used Second Hand Smoke Exposure: No service: No Current occupational status: retired Current occupational exposures/hazards: No Cognitive needs: Yes Hearing needs: No Vision needs: No Travel History Ebola Risk: Travel/Contact With Anyone From Affected Area/s: No Has Patient Experienced Ebola Symptoms: No Meds Allergies Allergy/AdvReac Type Severity Reaction Status Date / Time penicillin V Allergy Unknown hives, Verified 06/17/25 13:55 rash/tounge edema bupropion (From Wellbutrin) AdvReac Intermediate GI upset Verified 06/17/25 13:55 Vicodin Allergy Unknown dizziness Uncoded 08/09/25 13:55 Active Medications: Current Medications Acetaminophen (Acetaminophen 325 Mg Tablet) 650 mg PO Q6H PRN PRN Reason: Pain, Mild 1-3,fever,headache Last Admin: 06/18/25 23:42 Dose: 650 mg Albuterol/Ipratropium (Albuterol/Iprat 2.5/0.5mg 3 Ml Ampul.Neb) 3 ml INHALE Q4H PRN PRN Reason: Shortness of Breath/Wheezing Last Admin: 06/18/25 15:23 Dose: 3 ml Atorvastatin Calcium (Atorvastatin Calcium 40 Mg Tablet) 40 mg PO DAILY [facility] Calcium Carbonate (Calcium Carbonate 750 Mg Tab.Chew) 750 mg PO Q4H PRN PRN Reason: Heartburn Ceftriaxone Sodium (Ceftriaxone Sodium 1 Gm Vial) 1 gm IVPUSH Q24H [facility] Last Admin: 06/18/25 20:19 Dose: 1 gm Dextrose (Dextrose 50 % 25 Gm/50 Ml Syringe) 25 gm IVPUSH Q15M PRN; Protocol PRN Reason: per Hypoglycemia Standing Ord. Doxycycline Monohydrate (Doxycycline Monohydrate 100 Mg Capsule) 100 mg PO Q12H [facility] Stop: 06/24/25 09:01 Last Admin: 06/19/25 09:16 Dose: 100 mg Enoxaparin Sodium (Enoxaparin Sodium 120 Mg/0.8 Ml Syringe) 110 mg SUBCUT Q12H [facility] Last Admin: 06/19/25 13:16 Dose: 110 mg Fluticasone Propionate (Fluticasone Propionate Nasal 16 Gm [place]) 1 spray NOSTRIL-B DAILY [facility] Furosemide (Furosemide 40 Mg/4 Ml Vial) 40 mg IVPUSH DAILY [facility]; Protocol Last Admin: 06/19/25 09:16 Dose: 40 mg Glucose (Glucose Gel 15 Gm Gel..Gram.) 15 gm PO Q15M PRN; Protocol PRN Reason: per Hypoglycemia Standing Ord. Insulin Glargine (Insulin Glargine,Hum.Rec.Anlog 100 Unit/Ml 10 Ml Vial) 20 unit SUBCUT DAILY [facility] Last Admin: 06/19/25 11:46 Dose: 20 unit Insulin Human Lispro (Insulin Lispro 100 Unit/Ml 3 Ml Vial) 0 unit SUBCUT QIDACHS [facility]; Protocol Last Admin: 06/19/25 11:45 Dose: 6 unit Loratadine (Loratadine 10 Mg Tablet) 10 mg PO DAILY [facility] Losartan Potassium (Losartan Potassium 50 Mg Tablet) 50 mg PO DAILY [facility]; Protocol Magnesium Hydroxide (Milk Of Magnesia 30 Ml Oral.Susp) 30 ml PO DAILY PRN PRN Reason: Constipation Melatonin (Melatonin 3 Mg Tablet) 6 mg PO BEDTIME PRN PRN Reason: Insomnia Omeprazole (Omeprazole 20 Mg Capsule.Dr) 20 mg PO DAILY@0630 [facility] Ondansetron HCl (Ondansetron Hcl 4 Mg/2 Ml Vial) 4 mg IVPUSH Q8H PRN PRN Reason: Nausea and Vomiting Pioglitazone HCl (Pioglitazone Hcl 30 Mg Tablet) 30 mg PO DAILY [facility] Polyethylene Glycol (Polyethylene Glycol 3350 17 Gm Powd.Pack) 17 gm PO DAILY PRN PRN Reason: Constipation Senna (Sennosides 8.6 Mg Tablet) 17.2 mg PO BEDTIME [facility] Last Admin: 06/18/25 20:19 Dose: Not Given Sodium Chloride (0.9 % Sodium Chloride Flush 3 Ml Syringe) 3 ml IVFLUSH QSHIFT [facility] Last Admin: 06/19/25 09:31 Dose: 3 ml Warfarin Sodium (Warfarin Sodium 4 Mg Tablet) 4 mg PO DAILY@1800 [facility] Home Medications ?Medication ?Instructions ?Recorded ?Confirmed ?Last Taken ?Type acetaminophen 500 mg capsule 1,000 mg PO BEDTIME PRN F ever Or 07/08/24 06/18/25 Unknown History Pain furosemide 20 mg tablet 20 mg PO BID 11/21/24 Unknown History insulin degludec 200 unit/mL (3 60 unit subcut DAILY 0 06/18/25 06/18/25 06/17/25 History mL) subcutaneous pen (Tresiba FlexTouch U-200 insulin) insulin lispro 100 unit/mL 15 unit subcut TID 06/18/25 06/18/25 06/17/25 History subcutaneous pen (Admelog SoloStar U-100 Insulin lispro) omeprazole 20 mg capsule,delayed 20 mg PO DAILY@0630 0 06/18/25 06/18/25 06/17/25 History release warfarin 2 mg tablet 4 mg PO DAILY@1800 06/18/25 06/18/25 06/17/25 History Physical Exam 2 Vital Signs: Vital Signs: Last Vital Signs Temp 97.8 F 06/19/25 11:50 Pulse 79 06/19/25 11:50 Resp 16 06/19/25 11:50 BP 139/79 06/19/25 11:50 Pulse Ox 96 06/19/25 11:50 O2 Del Method Room Air 06/19/25 11:50 BMI result Body Mass Index 37.7 GENERAL APPEARANCE: in no acute distress, pleasant. NECK: no carotid bruit, no jugular venous distention. Positive hepatojugular reflux. SKIN: no suspicious lesions, warm and dry. HEART: no murmurs, regular rate and rhythm. Mechanical 2nd heart sound. LUNGS: clear to auscultation bilaterally. ABDOMEN: soft, nontender. EXTREMITIES: Mild edema. PERIPHERAL PULSES: equal. NEUROLOGIC: No gross deficits, AAO X 3 Objective Labs and Meds 06/18/25 06:18 06/19/25 08:25 Lab results: Laboratory Results - last 24 hr 06/18/25 06/18/25 06/19/25 16:12 20:22 07:00 PT INR Sodium Potassium Chloride Carbon Dioxide Anion Gap BUN Creatinine Estim Creat Clear Calc Estimated GFR POC Glucose 226 H 302 H 246 H Random Glucose Calcium 06/19/25 06/19/25 06/19/25 08: 11:21 11:48 PT 16.7 H D INR 1.5 H Sodium 141 Potassium 3.9 Chloride 108 Carbon Dioxide 27 Anion Gap 10 L BUN 18 H Creatinine 1.05 Estim Creat Clear Calc 81.0 Estimated GFR > 60 POC Glucose 260 H Random Glucose 278 H Calcium 8.5 Assessment and Plan (1) CHF exacerbation: Status: Acute Plan Pleasant 74 year gentleman presenting with shortness of breath and peripheral edema. Clinically he was noted to be in heart failure and has been on IV diuretics. I think we continue IV diuretics today and potentially transition him to oral diuretics tomorrow. Continue losartan as before. Blood pressure control is good. His EKG has shown concern for junctional rhythm alternating with AV Wenckebach. He also had two-to-one block noted but in the setting of AV Wenckebach I think that is a benign finding. He also has no dizziness or lightheadedness and never had syncope before. He has concern for lung mass and this will be worked up as outpatient. Overall he is feeling better with diuretics and he is improving clinically. No convincing evidence of atrial fibrillation noted on telemetry. Thank you for allowing me to participate in the care of your patient. Please feel free to contact me if you have any questions. Procedures Date of Service Date of Service: 06/19/25
--- NOTE | 2025-06-19 16:37 | HO.WOUND ---
Wound Consult: Initial 74yr old? male admitted to [facility] on 06/17/25- See progress notes and H&P for detailed history.? Wound consult placed for Left foot.? Patient agreeable to assessment and photo documentation.? Left Plantar Foot Etiology: ?Diabetic Wound ?Present on Admission Measurements: 2cm x 2cm x 1cm Wound Bed: central open area with slough and mal odor noted Drainage / Odor: Foul odor with serosang drainage Edges: ? unattached and callused Gabrielle wound: callused No Induration, Fluctuance or Warmth noted Pain: denies reports neuropathy Goals of Treatment: ? TT to provider for imaging given odor and Durafiber Ag packing for moisture management TT to Dr. Saleem. Recommendations: 1. Monitor for incontinence and moisture control, use barrier creams when needed for prevention and treatment. 2. Provide adequate and supplemental nutrition.? 3. When applicable maintain blood glucose levels per Providers order. Left Plantar Foot - Off Load Pressure with limited standing and walking. Cleanse and irrigate with NS, Pat dry.? Apply barrier to periwound, lightly pack with Durafiber AG, be sure to leave a wick to easy removal.? Cover with gauze, Abd pad and wrap dressing.? Change every other day. Patient will benefit from VNA services to aid in care for the wound. Recommend outpt follow up with Podiatry and or Outpt wound clinic. Recommend follow up out patient Wound Clinic at [address] [place] [id number] and to call for an appointment at time of discharge. [phone].? Re-consult wound care Nurse for wound deterioration or wound changes.
[2025-06-19 16:44] LABS: Glucose, Whole Blood 222 mg/dL (60-115)
[2025-06-19 20:23] LABS: Glucose, Whole Blood 264 mg/dL (60-115)
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
[2025-06-20] VITALS (8 sets, daily range): BP systolic 117–179; BP diastolic 59–85; PULSE 60–98; RESP 15–18; TEMP 36.4–37.3; O2SAT 93–97
--- NOTE | 2025-06-20 05:49 | PC.NURSE ---
Pt seen alert and oriented, able to make needs known, denies any CP nor lightheadedness, Accelerated JR at 77 on the monitor, vitals WNL. Around midnight, CMT called as pt is frequently lawrence at 30s-40 , lowest 38, now on [place]. pt is asymptomatic, BP 179/78, Dr. Quach was updated, no further orders.
[2025-06-20 06:24] LABS: INTERNATIONAL NORM RATIO 1.3 (0.9-1.1); Prothrombin Time 15.2 SEC (10.9-12.4)
[2025-06-20 07:37] LABS: Glucose, Whole Blood 144 mg/dL (60-115)
[2025-06-20] MEDS: Furosemide 40 MG/4 ML VIAL IVPUSH (08:07)
[2025-06-20] MEDS: Insulin Glargine,Hum.rec.anlog 100 UNIT/ML 10 ML VIAL 20 UNIT SUBCUT (08:07)
[2025-06-20] MEDS: 0.9 % Sodium Chloride Flush 3 ML SYRINGE IVFLUSH ×3 (08:08→21:48)
[2025-06-20 09:13] LABS: Anion Gap 14 (12-20); Blood Urea Nitrogen 22 mg/dL (9-16); Calcium 8.9 mg/dL (8.4-10.2); Carbon Dioxide 23 mmol/L (22-29); Chloride 108 mmol/L (96-108); Creatinine Clr Calc Pharmacy 70.3; Estimated Glomerular Filt Rate 59; Potassium 3.9 mmol/L (3.3-5.1); Sodium 141 mmol/L (135-145)
[2025-06-20 09:20] LABS: B Type Natriuretic Peptide 94 pg/mL (<100)
[2025-06-20 11:40] LABS: Glucose, Whole Blood 269 mg/dL (60-115)
--- NOTE | 2025-06-20 13:29 | P.PNIM_ITS ---
Subjective Subjective Date of Service: 06/20/25 Interval History: chf ,lumg mass Review of Systems sob seems improving no chest pain Review of Systems: Yes all other systems are reviewed and are negative Physical Exam 2 Exam: Exam: Appearance: Alert.? Oriented X3. cvs: rrr, [id number]. res: air entry diminshed ,has b/l exp wheezing abd: no rebound or guarding ,nt, bs present. ext pulses present , no cyanosis . neuro: axo3 , nonfocal. Vital Signs: Vital Signs: Last Vital Signs Temp 97.9 F 06/20/25 11:46 Pulse 98 06/20/25 11:46 Resp 18 06/20/25 11:46 BP 141/70 H 06/20/25 11:46 Pulse Ox 97 06/20/25 12:58 O2 Del Method Room Air 06/20/25 12:58 BMI result Body Mass Index 37.7 Objective Data Active Medications Acetaminophen (Acetaminophen 325 Mg Tablet) 650 mg PO Q6H PRN PRN Reason: Pain, Mild 1-3,fever,headache Last Admin: 06/19/25 20:09 Dose: 650 mg Documented By: ELOY Albuterol/Ipratropium (Albuterol/Iprat 2.5/0.5mg 3 Ml Ampul.Neb) 3 ml INHALE Q4H PRN PRN Reason: Shortness of Breath/Wheezing Last Admin: 06/18/25 15:23 Dose: 3 ml Documented By: HILDA Atorvastatin Calcium (Atorvastatin Calcium 40 Mg Tablet) 40 mg PO DAILY [facility] Last Admin: 06/20/25 08:06 Dose: 40 mg Documented By: NIVIA Calcium Carbonate (Calcium Carbonate 750 Mg Tab.Chew) 750 mg PO Q4H PRN PRN Reason: Heartburn Ceftriaxone Sodium (Ceftriaxone Sodium 1 Gm Vial) 1 gm IVPUSH Q24H [facility] Last Admin: 06/19/25 19:54 Dose: 1 gm Documented By: ELOY Dextrose (Dextrose 50 % 25 Gm/50 Ml Syringe) 25 gm IVPUSH Q15M PRN; Protocol PRN Reason: per Hypoglycemia Standing Ord. Doxycycline Monohydrate (Doxycycline Monohydrate 100 Mg Capsule) 100 mg PO Q12H [facility] Stop: 06/24/25 09:01 Last Admin: 06/20/25 08:06 Dose: 100 mg Documented By: NIVIA Enoxaparin Sodium (Enoxaparin Sodium 120 Mg/0.8 Ml Syringe) 110 mg SUBCUT Q12H [facility] Last Admin: 06/20/25 13:25 Dose: 110 mg Documented By: NIVIA Fluticasone Propionate (Fluticasone Propionate Nasal 16 Gm [place]) 1 spray NOSTRIL-B DAILY [facility] Last Admin: 06/20/25 13:19 Dose: 1 spray Documented By: NIVIA Furosemide (Furosemide 40 Mg/4 Ml Vial) 40 mg IVPUSH DAILY [facility]; Protocol Last Admin: 06/20/25 08:07 Dose: 40 mg Documented By: NIVIA Glucose (Glucose Gel 15 Gm Gel..Gram.) 15 gm PO Q15M PRN; Protocol PRN Reason: per Hypoglycemia Standing Ord. Insulin Glargine (Insulin Glargine,Hum.Rec.Anlog 100 Unit/Ml 10 Ml Vial) 20 unit SUBCUT DAILY [facility] Last Admin: 06/20/25 08:07 Dose: 20 unit Documented By: NIVIA Insulin Human Lispro (Insulin Lispro 100 Unit/Ml 3 Ml Vial) 0 unit SUBCUT QIDACHS [facility]; Protocol Last Admin: 06/20/25 11:52 Dose: 6 unit Documented By: NIVIA Loratadine (Loratadine 10 Mg Tablet) 10 mg PO DAILY [facility] Last Admin: 06/20/25 08:07 Dose: 10 mg Documented By: NIVIA Losartan Potassium (Losartan Potassium 50 Mg Tablet) 50 mg PO DAILY [facility]; Protocol Last Admin: 06/20/25 08:06 Dose: 50 mg Documented By: NIVIA Magnesium Hydroxide (Milk Of Magnesia 30 Ml Oral.Susp) 30 ml PO DAILY PRN PRN Reason: Constipation Melatonin (Melatonin 3 Mg Tablet) 6 mg PO BEDTIME PRN PRN Reason: Insomnia Omeprazole (Omeprazole 20 Mg Capsule.Dr) 20 mg PO DAILY@0630 [facility] Last Admin: 06/20/25 05:58 Dose: 20 mg Documented By: ELOY Ondansetron HCl (Ondansetron Hcl 4 Mg/2 Ml Vial) 4 mg IVPUSH Q8H PRN PRN Reason: Nausea and Vomiting Pioglitazone HCl (Pioglitazone Hcl 30 Mg Tablet) 30 mg PO DAILY [facility] Last Admin: 06/20/25 08:06 Dose: 30 mg Documented By: NIVIA Polyethylene Glycol (Polyethylene Glycol 3350 17 Gm Powd.Pack) 17 gm PO DAILY PRN PRN Reason: Constipation Senna (Sennosides 8.6 Mg Tablet) 17.2 mg PO BEDTIME [facility] Last Admin: 06/19/25 19:55 Dose: Not Given Documented By: ELOY Non-Admin Reason: Patient Refused Sodium Chloride (0.9 % Sodium Chloride Flush 3 Ml Syringe) 3 ml IVFLUSH QSHIFT [facility] Last Admin: 06/20/25 08:08 Dose: 3 ml Documented By: NIVIA Warfarin Sodium 4 mg/ Warfarin (Sodium 3 mg) 7 mg PO DAILY@1800 [facility] Labs 06/18/25 06:18 06/20/25 08:19 Labs: Laboratory Results - last 24 hr 06/19/25 06/19/25 06/19/25 16:39 17:42 19:59 ESR 42 H PT INR Anion Gap Estim Creat Clear Calc Estimated GFR POC Glucose 222 H 264 H Random Glucose Calcium C-Reactive Protein 0.60 H B-Natriuretic Peptide 06/20/25 06/20/25 06/20/25 05:55 07:19 08:19 ESR PT 15.2 H INR 1.3 H Anion Gap 14 Estim Creat Clear Calc 70.3 Estimated GFR 59 POC Glucose 144 H Random Glucose 167 H Calcium 8.9 C-Reactive Protein B-Natriuretic Peptide 94 06/20/25 11:35 ESR PT INR Anion Gap Estim Creat Clear Calc Estimated GFR POC Glucose 269 H Random Glucose Calcium C-Reactive Protein B-Natriuretic Peptide Microbiology Microbiology Results: Microbiology 06/17/25 16:51 Blood Culture - Preliminary Blood - Venous No growth after 48 hours. 06/17/25 16:40 Blood Culture - Preliminary Blood - Venous No growth after 48 hours. Assessment and Plan (1) COPD (chronic obstructive pulmonary disease): Status: Acute Assessment and Plan: 74 yo male with PMH Tobacco dependence, COPD not on home O2 only uses rescue inhaler, IDDM, HTN, HLD, allergic rhinitis, Anxiety, GERD, MDD, obesity, OA, recent closed C2 fracture s/p fall wore cervical collar for 2 months, diabetic neurpathy, second degree AVB Mobitz type 1, 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 Pt denies any near syncope or syncopal episodes. PNA vs Atelectasis with acute respiratory distress no hypoxia sob seems similar with minimum excersion. blood culture @24neg continue Ceftrixone and Doxycyline as pt cannot take Azithromycin due to coumadin ,nebs,Incentive spirometer Mass seen on CT RUL, RML (pt is an active smoker) repeat CT scan as an outpatient in 3 months per guidelines Pulmonary referral as an outpatient New onset AFIB noted on ECG Telemetry MG WNL, TSH normal. Pt already on coumadin ECho Pending Pt has upcoming appt with Dr. Miller, follow up as an outpatient as rate is currently controlled CHf exacerbation with small B Pleural Effusions BNP 372 Echo ordered (last echo 2018) Lasix 40 IV daily, renal fx stable Daily wts, strict I/Os Low Na diet Fluid allowance 1500mls Continue ARB, HCTZ B malleolar ulcers, closed and chronic Wound care consulted Pt advised that he will need to follow up with seed potato cutter as an outpatient Recommend pt wear diabetic shoes (insurance will cover) COPD/ tobacco dependence Currently on RA, does not use oxygen at home DUO NEBS PRN, cpuld benefit from nebs at home and would need med and nebulizer machine for home Nicotine patch ordered Pulmonary consult as an outpatient to optimize tx and investiage abnormal CT scan Hx of mechanical AVR, CABG On coumadin, inr pending Await medication reconcilliation No issues with spontaneous bleeding DMII SSI,Pioglitazone No issues with hypoglycemia Pt wears CGM OA, chronic pain issues Tyelnol prn Pt was following with senior painter No NSAIDS as pt is on coumadin Pt is on Cymbalta HX C2 closed fracture (01/2024) s/p fall Chronic neck pain Tylenol prn Fall prevention, pt uses walker to ambulate MDD/Anxiety No issues with acute findings to include SI, HI Continue Cymbalta HLD Continue Statin LFTs WNL DVT prophylaxis: coumadin ongoing need for stay:pneumonia -need iv antibiotics , chf excerebation-need iv lasix ,renal function/electrolytic monitering Quality Stroke Does the patient have a stroke diagnosis?: No Reason for No Anti-thrombotic by Day Two: N/A - Med Ordered VTE Prior VTE?: No VTE Risk Level:: Medical - moderate - high VTE Device Contraindication: N/A - Device Ordered VTE Drug Contraindication: N/A - Med Ordered
--- NOTE | 2025-06-20 14:39 | P.CONPL_ITS ---
History of Present Illness History of Present Illness Consult date: 06/20/25 Chief complaint: Dyspnea, abnormal CT chest Narrative: 74-year-old gentleman recent 40+ pack-year smoker, with underlying COPD, mechanical AVR on Coumadin, CABG X 4, diabetic neuropathy, obesity admitted on 06/17/2025 with slowly progressive dyspnea. Patient noted to have exacerbation of underlying congestive heart failure in treated with diuresis with slow improvement. His CT chest demonstrated bilateral pleural effusions [id number] with what appears to be right basilar compressive atelectasis, but with inability to rule out an underlying mass. Thus, Pulmonary consultation is obtained. Review of Systems 2 Constitutional: Constitutional: Denies daytime sleepiness, Denies excessive sweating, Denies fatigue, Denies fever(s), Denies lethargy, Denies malaise, Denies night sweats, Denies snoring and Denies weight loss Eyes: Eyes: Denies blurry vision and Denies itchy eyes ENT: Denies nasal congestion, Denies post nasal drip, Denies sinus pain, Denies sinus pressure and Denies other ( Thrush) Cardiovascular: Cardiovascular: Denies chest pain, Reports pedal edema, Reports dyspnea, Reports dyspnea on exertion, Reports orthopnea and Denies paroxysmal nocturnal dyspnea Respiratory: Respiratory: Denies cough, Denies hemoptysis, Denies excessive phlegm production, Reports dyspnea, Reports dyspnea on exertion, Denies snoring and Denies wheezing Gastrointestinal: Gastrointestinal: Denies abdominal pain and Denies heartburn Musculoskeletal: Musculoskeletal: Denies myalgias, Denies arthralgias and Denies joint swelling Integumentary/Breasts: Skin/Breast: Denies rash Neurologic: Denies memory loss and Denies seizure-like activity Psychiatric: Psychiatric: Denies abnormal sleep pattern, Denies anxiety and Denies memory loss Endocrine: Endocrine: Denies excessive sweating, Denies fatigue and Denies heat intolerance Hematologic/Lymphatic: Hematologic/Lymphatic: Denies easy bruising Allergic/Immunologic: Allergic/Immunologic: Denies itchy eyes, Denies seasonal rhinorrhea and Denies wheezing PMFSH Past Medical History Medical History Spondylosis of lumbar spine Diabetic neuropathy Lumbar radiculopathy Obesity Hyperlipidemia LDL goal <70 Diabetes mellitus HTN (hypertension) CAD (coronary artery disease) Family History Family History Father CVD (cardiovascular disease) Mother Diabetes Surgical History Surgical History Hx of spinal surgery History of arthroscopy of knee Hx of coronary artery bypass graft History of mechanical aortic valve replacement Social History Social History Household Members: None Housing: House Do you presently have visiting nurse or other home services: No Patient Tobacco Use Status: Current everyday Tobacco user Tobacco use type: Cigarette Cigarettes Per Day: 20 e-Cigarette/Vaping Use: Never Used Second Hand Smoke Exposure: No service: No Current occupational status: retired Current occupational exposures/hazards: No Cognitive needs: Yes Hearing needs: No Vision needs: No Travel History Ebola Risk: Travel/Contact With Anyone From Affected Area/s: No Has Patient Experienced Ebola Symptoms: No Meds Allergies Allergy/AdvReac Type Severity Reaction Status Date / Time penicillin V Allergy Unknown hives, Verified 06/17/25 13:55 rash/tounge edema bupropion (From Wellbutrin) AdvReac Intermediate GI upset Verified 06/17/25 13:55 Vicodin Allergy Unknown dizziness Uncoded 06/17/25 13:55 Active Medications: Current Medications Acetaminophen (Acetaminophen 325 Mg Tablet) 650 mg PO Q6H PRN PRN Reason: Pain, Mild 1-3,fever,headache Last Admin: 06/19/25 20:09 Dose: 650 mg Albuterol/Ipratropium (Albuterol/Iprat 2.5/0.5mg 3 Ml Ampul.Neb) 3 ml INHALE Q4H PRN PRN Reason: Shortness of Breath/Wheezing Last Admin: 06/18/25 15:23 Dose: 3 ml Atorvastatin Calcium (Atorvastatin Calcium 40 Mg Tablet) 40 mg PO DAILY [facility] Last Admin: 06/20/25 08:06 Dose: 40 mg Calcium Carbonate (Calcium Carbonate 750 Mg Tab.Chew) 750 mg PO Q4H PRN PRN Reason: Heartburn Ceftriaxone Sodium (Ceftriaxone Sodium 1 Gm Vial) 1 gm IVPUSH Q24H [facility] Last Admin: 06/19/25 19:54 Dose: 1 gm Dextrose (Dextrose 50 % 25 Gm/50 Ml Syringe) 25 gm IVPUSH Q15M PRN; Protocol PRN Reason: per Hypoglycemia Standing Ord. Doxycycline Monohydrate (Doxycycline Monohydrate 100 Mg Capsule) 100 mg PO Q12H [facility] Stop: 06/24/25 09:01 Last Admin: 06/20/25 08:06 Dose: 100 mg Enoxaparin Sodium (Enoxaparin Sodium 120 Mg/0.8 Ml Syringe) 110 mg SUBCUT Q12H [facility] Last Admin: 06/20/25 13:25 Dose: 110 mg Fluticasone Propionate (Fluticasone Propionate Nasal 16 Gm [place]) 1 spray NOSTRIL-B DAILY [facility] Last Admin: 06/20/25 13:19 Dose: 1 spray Furosemide (Furosemide 40 Mg/4 Ml Vial) 40 mg IVPUSH DAILY [facility]; Protocol Last Admin: 06/20/25 08:07 Dose: 40 mg Glucose (Glucose Gel 15 Gm Gel..Gram.) 15 gm PO Q15M PRN; Protocol PRN Reason: per Hypoglycemia Standing Ord. Insulin Glargine (Insulin Glargine,Hum.Rec.Anlog 100 Unit/Ml 10 Ml Vial) 20 unit SUBCUT DAILY [facility] Last Admin: 06/20/25 08:07 Dose: 20 unit Insulin Human Lispro (Insulin Lispro 100 Unit/Ml 3 Ml Vial) 0 unit SUBCUT QIDACHS [facility]; Protocol Last Admin: 06/20/25 11:52 Dose: 6 unit Loratadine (Loratadine 10 Mg Tablet) 10 mg PO DAILY [facility] Last Admin: 06/20/25 08:07 Dose: 10 mg Losartan Potassium (Losartan Potassium 50 Mg Tablet) 50 mg PO DAILY [facility]; Protocol Last Admin: 06/20/25 08:06 Dose: 50 mg Magnesium Hydroxide (Milk Of Magnesia 30 Ml Oral.Susp) 30 ml PO DAILY PRN PRN Reason: Constipation Melatonin (Melatonin 3 Mg Tablet) 6 mg PO BEDTIME PRN PRN Reason: Insomnia Omeprazole (Omeprazole 20 Mg Capsule.Dr) 20 mg PO DAILY@0630 [facility] Last Admin: 06/20/25 05:58 Dose: 20 mg Ondansetron HCl (Ondansetron Hcl 4 Mg/2 Ml Vial) 4 mg IVPUSH Q8H PRN PRN Reason: Nausea and Vomiting Pioglitazone HCl (Pioglitazone Hcl 30 Mg Tablet) 30 mg PO DAILY [facility] Last Admin: 06/20/25 08:06 Dose: 30 mg Polyethylene Glycol (Polyethylene Glycol 3350 17 Gm Powd.Pack) 17 gm PO DAILY PRN PRN Reason: Constipation Senna (Sennosides 8.6 Mg Tablet) 17.2 mg PO BEDTIME [facility] Last Admin: 06/19/25 19:55 Dose: Not Given Sodium Chloride (0.9 % Sodium Chloride Flush 3 Ml Syringe) 3 ml IVFLUSH QSHIFT [facility] Last Admin: 06/20/25 08:08 Dose: 3 ml Warfarin Sodium 4 mg/ Warfarin (Sodium 3 mg) 7 mg PO DAILY@1800 [facility] Home Medications ?Medication ?Instructions ?Recorded ?Confirmed ?Last Taken ?Type acetaminophen 500 mg capsule 1,000 mg PO BEDTIME PRN F ever Or 07/08/24 06/18/25 Unknown History Pain furosemide 20 mg tablet 20 mg PO BID 11/21/24 Unknown History insulin degludec 200 unit/mL (3 60 unit subcut DAILY 0 06/18/25 06/18/25 06/17/25 History mL) subcutaneous pen (Tresiba FlexTouch U-200 insulin) insulin lispro 100 unit/mL 15 unit subcut TID 06/18/25 06/18/25 06/17/25 History subcutaneous pen (Admelog SoloStar U-100 Insulin lispro) omeprazole 20 mg capsule,delayed 20 mg PO DAILY@0630 0 06/18/25 06/18/25 06/17/25 History release warfarin 2 mg tablet 4 mg PO DAILY@1800 06/18/25 06/18/25 06/17/25 History Physical Exam 2 Vital Signs: Vital Signs: Last Vital Signs Temp 97.9 F 06/20/25 11:46 Pulse 98 06/20/25 11:46 Resp 18 06/20/25 11:46 BP 141/70 H 06/20/25 11:46 Pulse Ox 97 06/20/25 12:58 O2 Del Method Room Air 06/20/25 12:58 BMI result Body Mass Index 37.7 Const: General: no acute distress and alert Nutritional Appearance: obese Orientation/consciousness: Other orientation findings ( oriented) HEENT: Head: Yes atraumatic Eyes: General: appearance normal, both eyes and all related structures S clerae: sclerae normal EOM: EOMs intact bilaterally Neck: Neck: Yes supple Lymphatic: no lymphadenopathy noted Resp: Effort & Inspection: normal respiratory effort and no use of accessory muscles Auscultation: crackles (Mild bilateral) Cardio: Rate: regular rate Rhythm: regular rhythm Heart sounds: no gallops, no murmurs and no rubs Skin: General skin exam: other ( warm) Extrem: General: No clubbing, No cyanosis and Yes edema (1+ bilateral) Results Laboratory Findings 06/18/25 06:18 06/20/25 08:19 ABG, PT/INR, D-dimer: PT/INR, D-dimer PT 15.2 SEC (10.9-12.4) H 06/20/25 05:55 INR 1.3 (0.9-1.1) H 06/20/25 05:55 Abnormal lab findings: Abnormal Labs 06/17/25 06/17/25 06/17/25 15:14 21:10 22:57 RBC 4.30 L Hgb 12.8 L Hct 37.3 L ESR PT 31.6 H INR 2.8 H Chloride Anion Gap BUN POC Glucose 181 H 260 H Random Glucose 317 H Alkaline Phosphatase 126 H C-Reactive Protein B-Natriuretic Peptide 272 H 06/18/25 06/18/25 06/18/25 06:18 07:11 10:55 RBC 4.05 L Hgb 12.1 L Hct 35.3 L ESR PT 28.7 H INR 2.5 H Chloride 109 H Anion Gap 11 L BUN POC Glucose 123 H 242 H Random Glucose Alkaline Phosphatase C-Reactive Protein B-Natriuretic Peptide 06/18/25 06/18/25 06/19/25 16:12 20:22 07:00 RBC Hgb Hct ESR PT INR Chloride Anion Gap BUN POC Glucose 226 H 302 H 246 H Random Glucose Alkaline Phosphatase C-Reactive Protein B-Natriuretic Peptide 06/19/25 06/19/25 06/19/25 08:25 11:21 11:48 RBC Hgb Hct ESR PT 16.7 H D INR 1.5 H Chloride Anion Gap 10 L BUN 18 H POC Glucose 260 H Random Glucose 278 H Alkaline Phosphatase C-Reactive Protein B-Natriuretic Peptide 06/19/25 06/19/25 06/19/25 16:39 17:42 19:59 RBC Hgb Hct ESR 42 H PT INR Chloride Anion Gap BUN POC Glucose 222 H 264 H Random Glucose Alkaline Phosphatase C-Reactive Protein 0.60 H B-Natriuretic Peptide 06/20/25 06/20/25 06/20/25 05:55 07:19 08:19 RBC Hgb Hct ESR PT 15.2 H INR 1.3 H Chloride Anion Gap BUN 22 H POC Glucose 144 H Random Glucose 167 H Alkaline Phosphatase C-Reactive Protein B-Natriuretic Peptide 06/20/25 11:35 RBC Hgb Hct ESR PT INR Chloride Anion Gap BUN POC Glucose 269 H Random Glucose Alkaline Phosphatase C-Reactive Protein B-Natriuretic Peptide Microbiology: Microbiology 06/17/25 16:51 Blood - Venous Blood Culture - Preliminary No growth after 48 hours. 06/17/25 16:40 Blood - Venous Blood Culture - Preliminary No growth after 48 hours. Assessment and Plan (1) Obesity: Qualifiers: Obesity type: due to excess calories Obesity classification: adult class 1 (BMI 30 - 34.9) Serious obesity comorbidity presence: with serious comorbidity Body mass index: BMI 33.0-33.9 Qualified Code(s): E66.09 - Other obesity due to excess calories; Z68.33 - Body mass index [BMI] 33.0-33.9, adult Status: Acute (2) COPD (chronic obstructive pulmonary disease): Qualifiers: COPD type: chronic bronchitis Chronic bronchitis type: simple Q ualified Code(s): J41.0 - Simple chronic bronchitis Status: Acute (3) Pulmonary edema: Status: Acute (4) Bilateral pleural effusion: Status: Acute (5) Atelectasis: Status: Acute Plan Impression: 74-year-old gentleman admitted with dyspnea and hypoxia secondary exacerbation of underlying congestive heart failure improving with diuresis with CT chest demonstrating bilateral pleural effusions likely secondary to underlying congestive heart failure, and also compressive atelectasis, though with inability to rule out an underlying mass. Recommendation: Agree with increased diuresis. Would suggest outpatient pulmonary follow-up and repeating CT chest in 6 weeks. Procedures Date of Service Date of Service: 06/20/25
--- NOTE | 2025-06-20 15:07 | P.CDIM_ITS ---
PROVIDER RESPONSE TEXT: To clarify, the appropriate diagnosis supported by the clinical indicators: Diabetic ulcer: possibel dm foot ulcer QUERY TEXT: PHYSICIAN'S DOCUMENTATION REQUEST Date of Query: 06/20/2025 02:09 PM EDT Patient Name: Benigno Adames Admit Date: 06/17/2025 Dear Evita Saleem MD, A review of the medical record indicates additional documentation may be needed. Please review below and update the documentation accordingly. Clinical Indicators: bilateral malleolar ulcers, closed and chronic per wound consult 06/19/25: left plantar foot diabetic wound Based on the above, could you please provide further information regarding the type and stage of the ulcer/wound: Diabetic ulcer Please specify the location and laterality of the ulcer/wound Venous stasis ulcer Please specify the location and laterality of the ulcer/wound Arterial (ischemic) ulcer Please specify the location and laterality of the ulcer/wound Pressure (decubitus) ulcer Please include the stage of the ulcer and specify the location and laterality of the ulcer/wound Traumatic wound Please specify the location and laterality of the ulcer/wound Non-healing surgical wound Please specify the location and laterality of the ulcer/wound Other (explain) Clinically unable to determine (explain) Thank you, Olga Lidia Clemente RN Use of terms such as suspected, likely, concern for, or probable (associated with a specific diagnosis that is being evaluated, monitored, or treated as if it exists) are acceptable and can be coded in the inpatient setting, when documented at the time of discharge. Please use your independent medical judgment in providing your response. THIS QUERY IS PART OF THE PERMANENT MEDICAL RECORD
[2025-06-20 16:30] LABS: Glucose, Whole Blood 218 mg/dL (60-115)
[2025-06-20] MEDS: Warfarin Sodium 4 MG, Warfarin Sodium 3 MG 7 MG PO (18:04)
[2025-06-20 20:51] LABS: Glucose, Whole Blood 174 mg/dL (60-115)
[2025-06-21] VITALS (7 sets, daily range): BP systolic 119–143; BP diastolic 55–76; PULSE 54–84; RESP 12–18; TEMP 36–36.7; O2SAT 93–98; BMI 36.5
[2025-06-21 06:56] LABS: INTERNATIONAL NORM RATIO 1.4 (0.9-1.1); Prothrombin Time 15.5 SEC (10.9-12.4)
[2025-06-21 07:38] LABS: Glucose, Whole Blood 160 mg/dL (60-115)
[2025-06-21] MEDS: Furosemide 40 MG/4 ML VIAL IVPUSH (08:07)
[2025-06-21] MEDS: Insulin Glargine,Hum.rec.anlog 100 UNIT/ML 10 ML VIAL 20 UNIT SUBCUT (08:07)
[2025-06-21] MEDS: 0.9 % Sodium Chloride Flush 3 ML SYRINGE IVFLUSH ×3 (08:09→20:54)
--- NOTE | 2025-06-21 11:11 | MHC.CM.PN ---
Addendum entered by Lee Ann Delgado RN 06/21/25 13:16: Attempted to call wound clinic x2 to discuss/schedule appt. No answer. Faxed request to schedule. Addendum entered by Lee Ann Delgado RN 06/21/25 11:16: Discussed dc plan with patient who is declining VNA services. Also reports he is unable to change his dressing independently and does not have anyone to assist. Is willing to go to [facility] wound clinic, but is aware he will be seen there every other day. Patient became upset during dc planning conversation. Will re-approach tomorrow. Original Note: Per MD rounds patient not medically cleared for dc. [facility] following to provide SN/wound care on dc. CM will continue to follow.
[2025-06-21 11:23] LABS: Glucose, Whole Blood 259 mg/dL (60-115)
--- NOTE | 2025-06-21 12:57 | HO.PM.IMPN ---
Subjective Subjective Date of Service: 06/21/25 Interval History: chf ,lumg mass dm foot ulcer Review of Systems sob seems improving no chest pain Review of Systems: Yes all other systems are reviewed and are negative Physical Exam Exam: Exam: Appearance: Alert.? Oriented X3. cvs: rrr, [id number]. res: air entry diminshed ,has b/l exp wheezing abd: no rebound or guarding ,nt, bs present. ext pulses present , no cyanosis . neuro: axo3 , nonfocal. Vital Signs: Vital Signs: Last Vital Signs Temp 97.1 F 06/21/25 11:38 Pulse 75 06/21/25 11:38 Resp 18 06/21/25 11:38 BP 122/70 06/21/25 11:38 Pulse Ox 95 06/21/25 11:38 O2 Del Method Room Air 06/21/25 11:38 BMI result Body Mass Index 36.5 Objective Data Active Medications Acetaminophen (Acetaminophen 325 Mg Tablet) 650 mg PO Q6H PRN PRN Reason: Pain, Mild 1-3,fever,headache Last Admin: 06/20/25 21:52 Dose: 650 mg Documented By: JAY Albuterol/Ipratropium (Albuterol/Iprat 2.5/0.5mg 3 Ml Ampul.Neb) 3 ml INHALE Q4H PRN PRN Reason: Shortness of Breath/Wheezing Last Admin: 06/18/25 15:23 Dose: 3 ml Documented By: HILDA Atorvastatin Calcium (Atorvastatin Calcium 40 Mg Tablet) 40 mg PO DAILY [facility] Last Admin: 06/21/25 08:06 Dose: 40 mg Documented By: MARLENI Calcium Carbonate (Calcium Carbonate 750 Mg Tab.Chew) 750 mg PO Q4H PRN PRN Reason: Heartburn Ceftriaxone Sodium (Ceftriaxone Sodium 1 Gm Vial) 1 gm IVPUSH Q24H [facility] Last Admin: 06/20/25 21:47 Dose: 1 gm Documented By: JAY Dextrose (Dextrose 50 % 25 Gm/50 Ml Syringe) 25 gm IVPUSH Q15M PRN; Protocol PRN Reason: per Hypoglycemia Standing Ord. Doxycycline Monohydrate (Doxycycline Monohydrate 100 Mg Capsule) 100 mg PO Q12H [facility] Stop: 06/24/25 09:01 Last Admin: 06/21/25 08:06 Dose: 100 mg Documented By: MRALENI Enoxaparin Sodium (Enoxaparin Sodium 120 Mg/0.8 Ml Syringe) 110 mg SUBCUT Q12H [facility] Last Admin: 06/21/25 12:55 Dose: 110 mg Documented By: MARLENI Fluticasone Propionate (Fluticasone Propionate Nasal 16 Gm [place]) 1 spray NOSTRIL-B DAILY [facility] Last Admin: 06/21/25 08:14 Dose: 1 spray Documented By: MARLENI Furosemide (Furosemide 40 Mg/4 Ml Vial) 40 mg IVPUSH DAILY [facility]; Protocol Last Admin: 06/21/25 08:07 Dose: 40 mg Documented By: MARLENI Glucose (Glucose Gel 15 Gm Gel..Gram.) 15 gm PO Q15M PRN; Protocol PRN Reason: per Hypoglycemia Standing Ord. Insulin Glargine (Insulin Glargine,Hum.Rec.Anlog 100 Unit/Ml 10 Ml Vial) 20 unit SUBCUT DAILY [facility] Last Admin: 06/21/25 08:07 Dose: 20 unit Documented By: MARLENI Insulin Human Lispro (Insulin Lispro 100 Unit/Ml 3 Ml Vial) 0 unit SUBCUT QIDACHS [facility]; Protocol Last Admin: 06/21/25 11:30 Dose: 6 unit Documented By: MARLENI Loratadine (Loratadine 10 Mg Tablet) 10 mg PO DAILY [facility] Last Admin: 06/21/25 08:06 Dose: 10 mg Documented By: MARLENI Losartan Potassium (Losartan Potassium 50 Mg Tablet) 50 mg PO DAILY [facility]; Protocol Last Admin: 06/21/25 08:06 Dose: 50 mg Documented By: MARLENI Magnesium Hydroxide (Milk Of Magnesia 30 Ml Oral.Susp) 30 ml PO DAILY PRN PRN Reason: Constipation Melatonin (Melatonin 3 Mg Tablet) 6 mg PO BEDTIME PRN PRN Reason: Insomnia Omeprazole (Omeprazole 20 Mg Capsule.Dr) 20 mg PO DAILY@0630 [facility] Last Admin: 06/21/25 06:01 Dose: 20 mg Documented By: JAY Ondansetron HCl (Ondansetron Hcl 4 Mg/2 Ml Vial) 4 mg IVPUSH Q8H PRN PRN Reason: Nausea and Vomiting Pioglitazone HCl (Pioglitazone Hcl 30 Mg Tablet) 30 mg PO DAILY [facility] Last Admin: 06/21/25 08:06 Dose: 30 mg Documented By: MARLENI Polyethylene Glycol (Polyethylene Glycol 3350 17 Gm Powd.Pack) 17 gm PO DAILY PRN PRN Reason: Constipation Senna (Sennosides 8.6 Mg Tablet) 17.2 mg PO BEDTIME [facility] Last Admin: 06/20/25 21:48 Dose: Not Given Documented By: JAY Non-Admin Reason: Patient Refused Sodium Chloride (0.9 % Sodium Chloride Flush 3 Ml Syringe) 3 ml IVFLUSH QSHIFT [facility] Last Admin: 06/21/25 08:09 Dose: 3 ml Documented By: MRALENI Warfarin Sodium 4 mg/ Warfarin (Sodium 3 mg) 7 mg PO DAILY@1800 [facility] Last Admin: 06/20/25 18:04 Dose: 7 mg Documented By: NIVIA Labs 06/18/25 06:18 06/20/25 08:19 Labs: Laboratory Results - last 24 hr 06/20/25 06/20/25 06/21/25 16:22 20:43 05:49 PT 15.5 H INR 1.4 H POC Glucose 218 H 174 H 06/21/25 06/21/25 07:26 11:08 PT INR POC Glucose 160 H 259 H Assessment and Plan (1) COPD (chronic obstructive pulmonary disease): Status: Acute Assessment and Plan: 74 yo male with PMH Tobacco dependence, COPD not on home O2 only uses rescue inhaler, IDDM, HTN, HLD, allergic rhinitis, Anxiety, GERD, MDD, obesity, OA, recent closed C2 fracture s/p fall wore cervical collar for 2 months, diabetic neurpathy, second degree AVB Mobitz type 1, 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 Pt denies any near syncope or syncopal episodes. PNA vs Atelectasis with acute respiratory distress no hypoxia sob seems similar with minimum excersion. blood culture @48hr neg continue Ceftrixone and Doxycyline as pt cannot take Azithromycin due to coumadin ,nebs,Incentive spirometer Mass seen on CT RUL, RML (pt is an active smoker) repeat CT scan as an outpatient in 3 months per guidelines Pulmonary referral as an outpatient ekg -no afib,EKG has shown concern for junctional rhythm alternating with AV Wenckebach. He also had two-to-one block noted but in the setting of AV Wenckebach. Telemetry MG WNL, TSH normal. Pt already on coumadin ECho- Normal left ventricular size and systolic function. There is severely increased left ventricular wall thickness. The visually estimated ejection fraction is between 60-65%. Normal right ventricular cavity size. There is mildly decreased right ventricular systolic function. A mechanical prosthetic aortic valve is present. The prosthetic aortic valve appears to be functioning normally. There is no aortic valve stenosis. There is mild dilatation of the ascending aorta measuring 4.00 cm. seen by cardiology:EKG has shown concern for junctional rhythm alternating with AV Wenckebach. He also had two-to-one block noted but in the setting of AV Wenckebach I think that is a benign finding. He also has no dizziness or lightheadedness and never had syncope before. He has concern for lung mass and this will be worked up as outpatient. Overall he is feeling better with diuretics and he is improving clinically. No convincing evidence of atrial fibrillation noted on telemetry. Pt has upcoming appt with Dr. Miller, follow up as an outpatient as rate is currently controlled CHf exacerbation with small B Pleural Effusions(hfpef) BNP 372 Echo ordered (last echo 2018) Lasix 40 IV daily, renal fx stable Daily wts, strict I/Os Low Na diet Fluid allowance 1500mls Continue ARB, HCTZ B malleolar ulcers, closed and chronic Wound care consulted Pt advised that he will need to follow up with calender operator helper as an outpatient Recommend pt wear diabetic shoes (insurance will cover) COPD/ tobacco dependence Currently on RA, does not use oxygen at home DUO NEBS PRN, cpuld benefit from nebs at home and would need med and nebulizer machine for home Nicotine patch ordered Pulmonary consult as an outpatient to optimize tx and investiage abnormal CT scan Hx of mechanical AVR, CABG INR subtherapeutic, warfarin adjusted to 7 mg/continue subQ Lovenox Monitor INR closely. 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 No NSAIDS as pt is on coumadin Pt is on Cymbalta HX C2 closed fracture (01/2024) s/p fall Chronic neck pain Tylenol prn Fall prevention, pt uses walker to ambulate MDD/Anxiety No issues with acute findings to include SI, HI Continue Cymbalta HLD Continue Statin LFTs WNL DVT prophylaxis: coumadin ongoing need for stay:pneumonia -need iv antibiotics , chf excerebation-need iv lasix ,renal function/electrolytic monitering Quality Stroke Does the patient have a stroke diagnosis?: No Reason for No Anti-thrombotic by Day Two: N/A - Med Ordered VTE Prior VTE?: No VTE Risk Level:: Medical - moderate - high VTE Device Contraindication: N/A - Device Ordered VTE Drug Contraindication: N/A - Med Ordered
[2025-06-21 16:03] LABS: Glucose, Whole Blood 205 mg/dL (60-115)
--- NOTE | 2025-06-21 16:22 | HO.WOUND ---
Wound Consult: Follow up 74yr old? male admitted to [facility] on 06/17/25- See progress notes and H&P for detailed history.? Wound consult follow up for Left foot. Discussed d/c plan with supervisor case loading and patient refused VNA services. Concern for lack of follow up plan. arrival to bedside direct care nurse reports dressing recently changed - remains with mild foul odor but minimal drainage. Given odor remains present would not recommend extending dressing changes beyond the 3 day corinne. The patient continues to refuse VNA services, He reports he does have a neighbor who is willing to help him perform the dressing changes if needed. We went through a dressing change demonstration and surprisingly the patient was able to reach his plantar foot and performed a mock dressing change, the challenging part would be wrapping his foot with gauze dressing. We agreed on foam dressing to the area - he was able to perform this much better. Direct care team should provide patient supplies to start at home until follow up with outpt wound clinic. Spoke to Dr. Rich and she is working to get patient into outpt clinic mid week next week. Case Mgt aware and patient is agreeable to plan at this time. No new topical recommendation made expect for pushing wound dressing change out to every 3 days. Left Plantar Foot - Off Load Pressure with limited standing and walking. Cleanse with normal saline moistened gauze, Pat dry.? Lightly pack with Durafiber AG, be sure to leave a wick to easy removal.? Cover with gauze, Abd pad and wrap dressing OR Foam dressing.? Change every 3 days. Recommend outpt follow up with Podiatry and or Outpt wound clinic. Recommend follow up out patient Wound Clinic at [address] [place] [phone] and to call for an appointment at time of discharge. [phone].? Details from prior assessment: Left Plantar Foot Etiology: ?Diabetic Wound ?Present on Admission Measurements: 2cm x 2cm x 1cm Wound Bed: central open area with slough and mal odor noted Drainage / Odor: Foul odor with serosang drainage Edges: ? unattached and callused Gabrielle wound: callused No Induration, Fluctuance or Warmth noted Pain: denies reports neuropathy Goals of Treatment: ? TT to provider for imaging given odor and Durafiber Ag packing for moisture management TT to Dr. Saleem. Recommendations: 1. Monitor for incontinence and moisture control, use barrier creams when needed for prevention and treatment. 2. Provide adequate and supplemental nutrition.? 3. When applicable maintain blood glucose levels per Providers order. Left Plantar Foot - Off Load Pressure with limited standing and walking. Cleanse and irrigate with NS, Pat dry.? Apply barrier to periwound, lightly pack with Durafiber AG, be sure to leave a wick to easy removal.? Cover with gauze, Abd pad and wrap dressing.? Change every other day. Patient will benefit from VNA services to aid in care for the wound. Recommend outpt follow up with Podiatry and or Outpt wound clinic. Recommend follow up out patient Wound Clinic at [address] [place] [phone] and to call for an appointment at time of discharge. [phone].? Re-consult wound care Nurse for wound deterioration or wound changes.
[2025-06-21 16:47] LABS: Glucose, Whole Blood 198 mg/dL (60-115)
[2025-06-21] MEDS: Warfarin Sodium 4 MG, Warfarin Sodium 3 MG 7 MG PO (18:05)
--- NOTE | 2025-06-21 19:09 | P.CDIM_ITS ---
PROVIDER RESPONSE TEXT: To clarify, the appropriate diagnosis supported by the clinical indicators: Other (explain): HfpEF QUERY TEXT: PHYSICIAN'S DOCUMENTATION REQUEST Date of Query: 06/21/2025 02:06 PM EDT Patient Name: Benigno Adames Admit Date: 06/17/2025 Dear Evita Saleem MD, A review of the medical record indicates additional documentation may be needed. Please review below and update the documentation accordingly. Clinical Indicators: exacerbation of underlying CHF BNP 372 IV Lasix Daily wts, strict I/Os Low Na diet Please provide further specificity regarding the most likely type and acuity of CHF you are evaluating, treating, or monitoring. Systolic Please specify if Acute, Chronic, or Acute on chronic, or Unable to determine Diastolic Please specify if Acute, Chronic, or Acute on chronic, or Unable to determine Combined Systolic/Diastolic Please specify if Acute, Chronic, or Acute on chronic, or Unable to determine Other (explain) Clinically unable to determine (explain) Thank you, Olga Lidia Clemente RN Use of terms such as suspected, likely, concern for, or probable (associated with a specific diagnosis that is being evaluated, monitored, or treated as if it exists) are acceptable and can be coded in the inpatient setting, when documented at the time of discharge. Please use your independent medical judgment in providing your response. THIS QUERY IS PART OF THE PERMANENT MEDICAL RECORD
[2025-06-21 20:35] LABS: Glucose, Whole Blood 240 mg/dL (60-115)
--- NOTE | 2025-06-21 23:12 | P.CNID_ITS ---
History of Present Illness Data of Consult Service Date: 06/21/25 Requesting physician: Evita Saleem Primary Care Provider: NATHALIE Fried Reason for consult: dyspnea,right lung density He presents with shortness of breath for two weeks. He has CT chest right mass like area and nodule. He has no fever sputum or pleuritic chest pain. Review of Systems 2 Review of Systems: Yes all other systems are reviewed and are negative PMFSH Past Medical History Medical History Spondylosis of lumbar spine Diabetic neuropathy Lumbar radiculopathy Obesity Hyperlipidemia LDL goal <70 Diabetes mellitus HTN (hypertension) CAD (coronary artery disease) Family History Family History Father CVD (cardiovascular disease) Mother Diabetes Family history: reviewed and not pertinent Surgical History Surgical History Hx of spinal surgery History of arthroscopy of knee Hx of coronary artery bypass graft History of mechanical aortic valve replacement Social History Social History Household Members: None Housing: House Do you presently have visiting nurse or other home services: No Patient Tobacco Use Status: Current everyday Tobacco user Tobacco use type: Cigarette Cigarettes Per Day: 20 e-Cigarette/Vaping Use: Never Used Second Hand Smoke Exposure: No service: No Current occupational status: retired Current occupational exposures/hazards: No Cognitive needs: Yes Hearing needs: No Vision needs: No Travel History Ebola Risk: Travel/Contact With Anyone From Affected Area/s: No Has Patient Experienced Ebola Symptoms: No Meds Allergies Allergy/AdvReac Type Severity Reaction Status Date / Time penicillin V Allergy Unknown hives, Verified 06/17/25 13:55 rash/tounge edema bupropion (From Wellbutrin) AdvReac Intermediate GI upset Verified 06/17/25 13:55 Vicodin Allergy Unknown dizziness Uncoded 06/17/25 13:55 Active Medications: Current Medications Acetaminophen (Acetaminophen 325 Mg Tablet) 650 mg PO Q6H PRN PRN Reason: Pain, Mild 1-3,fever,headache Last Admin: 06/21/25 21:00 Dose: 650 mg Albuterol/Ipratropium (Albuterol/Iprat 2.5/0.5mg 3 Ml Ampul.Neb) 3 ml INHALE Q4H PRN PRN Reason: Shortness of Breath/Wheezing Last Admin: 06/18/25 15:23 Dose: 3 ml Atorvastatin Calcium (Atorvastatin Calcium 40 Mg Tablet) 40 mg PO DAILY [facility] Last Admin: 06/21/25 08:06 Dose: 40 mg Calcium Carbonate (Calcium Carbonate 750 Mg Tab.Chew) 750 mg PO Q4H PRN PRN Reason: Heartburn Ceftriaxone Sodium (Ceftriaxone Sodium 1 Gm Vial) 1 gm IVPUSH Q24H [facility] Last Admin: 06/21/25 20:54 Dose: 1 gm Dextrose (Dextrose 50 % 25 Gm/50 Ml Syringe) 25 gm IVPUSH Q15M PRN; Protocol PRN Reason: per Hypoglycemia Standing Ord. Doxycycline Monohydrate (Doxycycline Monohydrate 100 Mg Capsule) 100 mg PO Q12H [facility] Stop: 06/24/25 09:01 Last Admin: 06/21/25 20:53 Dose: 100 mg Enoxaparin Sodium (Enoxaparin Sodium 120 Mg/0.8 Ml Syringe) 110 mg SUBCUT Q12H [facility] Last Admin: 06/21/25 12:55 Dose: 110 mg Fluticasone Propionate (Fluticasone Propionate Nasal 16 Gm [place]) 1 spray NOSTRIL-B DAILY [facility] Last Admin: 06/21/25 08:14 Dose: 1 spray Furosemide (Furosemide 40 Mg Tablet) 40 mg PO DAILY [facility]; Protocol Glucose (Glucose Gel 15 Gm Gel..Gram.) 15 gm PO Q15M PRN; Protocol PRN Reason: per Hypoglycemia Standing Ord. Insulin Glargine (Insulin Glargine,Hum.Rec.Anlog 100 Unit/Ml 10 Ml Vial) 20 unit SUBCUT DAILY [facility] Last Admin: 06/21/25 08:07 Dose: 20 unit Insulin Human Lispro (Insulin Lispro 100 Unit/Ml 3 Ml Vial) 0 unit SUBCUT QIDACHS [facility]; Protocol Last Admin: 06/21/25 20:53 Dose: 4 unit Loratadine (Loratadine 10 Mg Tablet) 10 mg PO DAILY [facility] Last Admin: 06/21/25 08:06 Dose: 10 mg Losartan Potassium (Losartan Potassium 50 Mg Tablet) 50 mg PO DAILY [facility]; Protocol Last Admin: 06/21/25 08:06 Dose: 50 mg Magnesium Hydroxide (Milk Of Magnesia 30 Ml Oral.Susp) 30 ml PO DAILY PRN PRN Reason: Constipation Melatonin (Melatonin 3 Mg Tablet) 6 mg PO BEDTIME PRN PRN Reason: Insomnia Omeprazole (Omeprazole 20 Mg Capsule.Dr) 20 mg PO DAILY@0630 [facility] Last Admin: 06/21/25 06:01 Dose: 20 mg Ondansetron HCl (Ondansetron Hcl 4 Mg/2 Ml Vial) 4 mg IVPUSH Q8H PRN PRN Reason: Nausea and Vomiting Pioglitazone HCl (Pioglitazone Hcl 30 Mg Tablet) 30 mg PO DAILY [facility] Last Admin: 06/21/25 08:06 Dose: 30 mg Polyethylene Glycol (Polyethylene Glycol 3350 17 Gm Powd.Pack) 17 gm PO DAILY PRN PRN Reason: Constipation Senna (Sennosides 8.6 Mg Tablet) 17.2 mg PO BEDTIME [facility] Last Admin: 06/21/25 20:53 Dose: 17.2 mg Sodium Chloride (0.9 % Sodium Chloride Flush 3 Ml Syringe) [facility] Last Admin: 06/21/25 20:54 Dose: 3 ml Warfarin Sodium 4 mg/ Warfarin (Sodium 3 mg) 7 mg PO DAILY@1800 [facility] Last Admin: 06/21/25 18:05 Dose: 7 mg Home Medications ?Medication ?Instructions ?Recorded ?Confirmed ?Last Taken ?Type acetaminophen 500 mg capsule 1,000 mg PO BEDTIME PRN F ever Or 07/08/24 06/18/25 Unknown History Pain furosemide 20 mg tablet 20 mg PO BID 11/21/24 Unknown History insulin degludec 200 unit/mL (3 60 unit subcut DAILY 0 06/18/25 06/18/25 06/17/25 History mL) subcutaneous pen (Tresiba FlexTouch U-200 insulin) insulin lispro 100 unit/mL 15 unit subcut TID 06/18/25 06/18/25 06/17/25 History subcutaneous pen (Admelog SoloStar U-100 Insulin lispro) omeprazole 20 mg capsule,delayed 20 mg PO DAILY@0630 0 06/18/25 06/18/25 06/17/25 History release warfarin 2 mg tablet 4 mg PO DAILY@1800 06/18/25 06/18/25 06/17/25 History Physical Exam 2 Vital Signs: Vital Signs: Last Vital Signs Temp 97.2 F 06/21/25 19:11 Pulse 65 06/21/25 19:11 Resp 18 06/21/25 19:11 BP 130/72 06/21/25 19:11 Pulse Ox 98 06/21/25 19:11 O2 Del Method Room Air 06/21/25 19:11 BMI result Body Mass Index 36.5 Const: General: cooperative HEENT: Head: Yes normal to inspection Face and sinus: Yes normal facial exam Mouth: Normal oral and palatal mucosa present Teeth and gingiva: d entition normal Eyes: General: appearance normal, both eyes and all related structures P upils: Equal, round and reactive pupils present Resp: Effort & Inspection: normal respiratory effort Cardio: Rate: regular rate Rhythm: regular rhythm GI: Palpation (GI): Soft to palpation and nontender : General: Yes no CVA tenderness Back/Spine/Pelvis: Back: no CVA tenderness Skin: General skin exam: no rashes or lesions noted Neuro: General: moves all extremities Cranial nerves: Yes Equal, round and reactive pupils present Extrem: General: Yes normal to inspection Psych: Appearance: grossly normal Results Labs 06/18/25 06:18 06/20/25 08:19 Microbiology Microbiology Results: Microbiology 06/17/25 16:51 Blood - Venous Blood Culture - Preliminary No growth after 48 hours. 06/17/25 16:40 Blood - Venous Blood Culture - Preliminary No growth after 48 hours. Assessment and Plan (1) Dyspnea: Status: Acute (2) COPD (chronic obstructive pulmonary disease): Qualifiers: COPD type: chronic bronchitis Chronic bronchitis type: simple Q ualified Code(s): J41.0 - Simple chronic bronchitis Status: Acute Plan Dyspnea likely related to COPD and/or cardiac disease. Nodule and mass like area probably incidental as no evidence of sputum production,pleuritic chest pain,fever or chills or hypoxia so doesnt fit criteria for pneumonia On anticoagulation so less likely PE. Would stop IV antibiotics in am, and po Doxycycline for 3-4 days.
[2025-06-22 03:03] VITALS: BP 170/78; PULSE 71; RESP 16; TEMP 36.3; O2SAT 96
[2025-06-22 06:42] LABS: Anion Gap 11 (12-20); Blood Urea Nitrogen 30 mg/dL (9-16); Calcium 8.5 mg/dL (8.4-10.2); Carbon Dioxide 25 mmol/L (22-29); Chloride 108 mmol/L (96-108); Creatinine Clr Calc Pharmacy 64.8; Estimated Glomerular Filt Rate 55; Potassium 3.9 mmol/L (3.3-5.1); Sodium 140 mmol/L (135-145)
[2025-06-22 06:43] LABS: INTERNATIONAL NORM RATIO 1.8 (0.9-1.1); Prothrombin Time 21.1 SEC (10.9-12.4)
[2025-06-22 07:32] LABS: Glucose, Whole Blood 178 mg/dL (60-115)
[2025-06-22 07:35] VITALS: BP 167/74; PULSE 55; RESP 18; TEMP 36.3; O2SAT 93
[2025-06-22] MEDS: Insulin Glargine,Hum.rec.anlog 100 UNIT/ML 10 ML VIAL 20 UNIT SUBCUT (07:52)
[2025-06-22] MEDS: 0.9 % Sodium Chloride Flush 3 ML SYRINGE IVFLUSH (07:54)
--- NOTE | 2025-06-22 10:18 | P.DS_ITS ---
DS: Providers Provider Date of Service: 06/22/25 Date of admission: 06/17/25 18:47 Date of discharge: 06/22/25 Primary care physician: Connor Tesfaye PA-C Consults: 06/17/25 19:42 Consult to Wound Care Routine Reason for consultation: B lower feet ulcers appear chronic no F/u in community 06/19/25 14:25 Consult to Cardiology Routine Consulting Provider: [facility] Reason for consultation: afib/wenkebach 06/19/25 14:32 Consult to Pulmonology Routine Consulting Provider: [facility] Reason for consultation: lumg mass Has provider been notified: No 06/19/25 16:57 Consult to Infectious Diseases Routine Consulting Provider: [facility] Reason for consultation: diabetic foot infection Has provider been notified: No 06/20/25 17:13 Consult to Vascular Surgery Routine Consulting Provider: [facility] Reason for consultation: dm foot ulcer Has provider been notified: No DS: Diagnosis Discharge Diagnosis (1) Dyspnea: Status: Acute (2) COPD (chronic obstructive pulmonary disease): Status: Acute DS: Summary Hospital Course Hospital Course: Pt is a 74 yo male with PMH Tobacco dependence, COPD not on home O2 only uses rescue inhaler, IDDM, HTN, HLD, allergic rhinitis, Anxiety, GERD, MDD, obesity, OA, recent closed C2 fracture s/p fall wore cervical collar for 2 months, diabetic neurpathy, second degree AVB Mobitz type 1, 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 Pt denies any near syncope or syncopal episodes. Hospital course PNA vs Atelectasis with acute respiratory distress no hypoxia--clincally no evidence of pneumonia but has been treated with pneumonia and ID recommends finishing course of Doxycyline. Patient is doing much better and seems to be at baseline . More likely had bronchitis related to COPD COPD/ tobacco dependence, continue inhalers PRN Mass seen on CT RUL, RML (pt is an active smoker)--no weight loss, no hemoptysis, repeat CT in 6 months ? ECG after careful review the ECG finding was not deemed to be AFIB by cardiology with the following concrn His EKG has shown concern for junctional rhythm alternating with AV Wenckebach. He also had two-to-one block noted but in the setting of AV Wenckebach I think that is a benign finding. He also has no dizziness or lightheadedness and never had syncope before. He has concern for lung mass and this will be worked up as outpatient. Overall he is feeling better with diuretics and he is improving clinically. No convincing evidence of atrial fibrillation noted on telemetry. CHf exacerbation with small B Pleural Effusions initially treated with IV Lasix, compensated and no longer need lasix at this time B malleolar ulcers, closed and chronic Hx of mechanical AVR, CABG continue coumadin as before IRN was low in hospital so was on Lovenox, INR is 1.8, coumadin was increased, presently on 7 mg with INR 1. 4 yesteday to 1.8 today, change back to home dose of 4 mg daily DMII resume home regimen OA, chronic pain issues Tyelnol prn HX C2 closed fracture (01/2024) s/p fall Chronic neck pain MDD/Anxiety No issues with acute findings to include SI, HI Continue Cymbalta HLD Continue Statin LFTs WNL Home with VNA Time Attestation Discharge Coordination Time (in mins): 45 Quality: Safe Use of Opioids Does Pt have an Active Cancer Diagnosis on the Problem List?: No Quality: Stroke Does the patient have a stroke diagnosis?: No Physical Exam Vital Signs: Vital Signs: Last Vital Signs Temp 97.4 F 06/22/25 07:35 Pulse 55 06/22/25 07:35 Resp 18 06/22/25 07:35 BP 167/74 H 06/22/25 07:35 Pulse Ox 93 06/22/25 07:35 O2 Del Method Room Air 06/22/25 07:35 BMI result Body Mass Index 36.5 DS: Data Data Completed and Pending Labs on day of discharge: Laboratory Results - last 24 hr 06/21/25 06/21/25 06/21/25 11:08 15:58 16:38 Hold Purple Top PT INR Sodium Potassium Chloride Carbon Dioxide Anion Gap BUN Creatinine Estim Creat Clear Calc Estimated GFR POC Glucose 259 H 205 H 198 H Random Glucose Calcium 06/21/25 06/22/25 06/22/25 20:28 06:00 07:10 Hold Purple Top SEE NOTE PT 21.1 H D INR 1.8 H Sodium 140 Potassium 3.9 Chloride 108 Carbon Dioxide 25 Anion Gap 11 L BUN 30 H Creatinine 1.29 Estim Creat Clear Calc 64.8 Estimated GFR 55 POC Glucose 240 H 178 H Random Glucose 197 H Calcium 8.5 Preliminary micro results at discharge 06/17/25 16:51 Blood Culture - Preliminary Blood - Venous No growth after 48 hours. 06/17/25 16:40 Blood Culture - Preliminary Blood - Venous No growth after 48 hours. Discharge Plan Discharge Anticipated Discharge Date/Time: 06/22/25 10:40 Patient Disposition: Home Health Service Discharge Diagnosis: COPD, shortness of breath Referrals: Connor Tesfaye PA-C [Primary Care Provider, Internal Medicine] - 1 Week Antonella Rajan MD [Physician, Wound Care] - 1 Week Discharge Medications: New doxycycline monohydrate 100 mg Capsule 100 mg PO Q12H Qty: 6 0RF Continued (DME) FreeStyle Reid 2 [place] Misc See Rx Instructions .Route Qty: 1 0RF Rx Instructions: 4 times per day (DME) OneTouch Ultra Test Strip See Rx Instructions .ROUTE .COMPLEX Qty: 100 3RF Dose Instruction: TEST 3 TIMES DAILY Rx Instructions: TEST 3 TIMES DAILY albuterol sulfate 90 mcg/actuation HFA aerosol inhaler 2 puff inhalation Q6H PRN (Reason: for wheezing) Qty: 8.5 3RF atorvastatin 40 mg tablet 40 mg PO DAILY Qty: 90 2RF cetirizine 10 mg tablet 10 mg PO DAILY Qty: 90 1RF warfarin 2 mg tablet 2 - 4 mg PO DAILY Qty: 180 3RF Protocol: Dose Management Condition: Thursday (Week One) Dose/Route: 4 mg Instruction: 2 x 2 mg tablets Condition: Thursday Dose/Route: 4 mg Instruction: 2 x 2 mg tablets Condition: Thursday Dose/Route: 4 mg Instruction: 2 x 2 mg tablets Condition: Thursday Dose/Route: 4 mg Instruction: 2 x 2 mg tablets Condition: Dose/Route: 4 mg Instruction: 2 x 2 mg tablets Condition: Thursday Dose/Route: 4 mg Instruction: 2 x 2 mg tablets Condition: Thursday Dose/Route: 4 mg Instruction: 2 x 2 mg tablets Condition: Thursday (Week Two) Dose/Route: 4 mg Instruction: 2 x 2 mg tablets Condition: Thursday Dose/Route: 4 mg Instruction: 2 x 2 mg tablets Condition: Thursday Dose/Route: 4 mg Instruction: 2 x 2 mg tablets Condition: Thursday Dose/Route: 4 mg Instruction: 2 x 2 mg tablets Condition: Dose/Route: 4 mg Instruction: 2 x 2 mg tablets Condition: Thursday Dose/Route: 4 mg Instruction: 2 x 2 mg tablets Condition: Thursday Dose/Route: 4 mg Instruction: 2 x 2 mg tablets Protocol Text: Adjustment Start Date: 06/08/25 INR Value: 2.1 INR Date: 06/08/25 Recheck Date: 07/06/25 fluticasone propionate [Flonase Allergy Relief] 50 mcg/actuation spray,suspension 1 spray intranasal DAILY 30 Days Qty: 16 1RF Rx Instructions: administer into each nostril insulin lispro [Admelog SoloStar U-100 Insulin] 100 unit/mL insulin pen 15 unit subcut TID insulin degludec [Tresiba FlexTouch U-200] 200 unit/mL (3 mL) insulin pen 60 unit subcut DAILY warfarin 2 mg tablet 4 mg PO DAILY@1800 omeprazole 20 mg capsule,delayed release(DR/EC) 20 mg PO DAILY@0630 (DME) Blood Pressure Cuff Misc See Rx Instructions .ROUTE .MEDSUPPLY Qty: 1 0RF Rx Instructions: As directed (DME) back brace Misc See Rx Instructions .Route Qty: 1 0RF Rx Instructions: As directed acetaminophen 500 mg capsule 1,000 mg PO BEDTIME PRN (Reason: Fever Or Pain) (DME) FreeStyle Reid 3 Sensor Device See Rx Instructions .Route Qty: 1 3RF Rx Instructions: As directed (DME) FreeStyle Reid 3 [place] Misc See Rx Instructions .Route Qty: 1 1RF Rx Instructions: As directed (DME) pen needle, diabetic 32 gauge x 5/32 needle See Rx Instructions .ROUTE .MEDSUPPLY Qty: 100 3RF Rx Instructions: As directed pioglitazone [Actos] 30 mg tablet 30 mg PO DAILY 90 Days Qty: 90 1RF (DME) FreeStyle Reid 2 Sensor Kit See Rx Instructions .Route Qty: 1 6RF Rx Instructions: test 4 times per day furosemide 20 mg tablet 20 mg PO BID losartan 50 mg tablet 50 mg PO DAILY 90 Days Qty: 90 1RF Diet: Advance to usual diet Activity on Discharge: As tolerated Stand Alone Forms: Patient Portal Discharge page Print Language: [place] Activity Restrictions/Additional Instructions: Direct Care Nurse Please Send Patient With Foam Dressing Supplies for Home Use. Topical Wound Care Recommendations: Left Plantar Foot - Off Load Pressure with limited standing and walking. Cleanse with normal saline moistened gauze, Pat dry.? Lightly pack with Durafiber AG, be sure to leave a wick to easy removal.? Cover with gauze, Abd pad and wrap dressing OR Foam dressing.? Change every 3 days. Recommend outpt follow up with Podiatry and or Outpt wound clinic. Recommend follow up out patient Wound Clinic at [address] [place] [phone] and to call for an appointment at time of discharge. [phone].? ? Care Plan Goals: recovery from copd, possible bronchitis, and heart failure Health Concerns: copd, heart failure, lung mass Plan of Treatment: resume medication as before follow up with your primary care provider in a week, call for appointment Assessment: see above
--- NOTE | 2025-06-22 10:55 | P.F2F_ITS ---
Service Date Service Date: 06/22/25 Encounter Date of encounter: 06/22/25 Reasons for Services Signs and symptoms assessed: shortness of breath Reason for group home: monitoring of PT/INR and medication management Reason for physical therapy: therapeutic exercises and energy conservation Homebound: Leaving the home is medically contraindicated at this time without the asist of a device and/or another person due th the listed conditions above and below. Reason homebound: shortness of breath with minimal effort Homebound supporting statement: homebound due to weakness from hospitalization and therefore needs th assistance of another pwer Certification: Based on the above findings, I certify that this patient is confined to the home and needs intermittent group home care, physical therapy and/or speech therapy, or continues to need occupational therapy. The patient is under my care, and I have initiated the establishment of the plan of care. The patient will be followed by a physician who will periodically review the plan of care. Time Spent With Patient Time: Total time managing care of this patient today ____ minutes.
[2025-06-22 11:12] LABS: Glucose, Whole Blood 303 mg/dL (60-115)
[2025-06-22 11:23] VITALS: BP 116/57; PULSE 77; RESP 18; TEMP 36.4; O2SAT 96
--- NOTE | 2025-06-22 11:40 | MHC.CM.PN ---
Second IMM given 06/22. Pt is medically cleared for discharge home with outpatient wound clinic services. He will transport himself home today.
--- NOTE | 2025-06-22 12:29 | PM.CNGS ---
History of Present Illness Consult details Consult date: 06/22/25 Reason for consult: wound care Narrative: Very pleasant 74-year-old gentleman seen earlier today. Has a nonhealing left plantar surface ulceration. Reports he has been doing fairly well no issues since admission. This plantar ulceration began several months ago. He has actually been following podiatry for this. He has been seeing Dr. Sergey campbell regarding this. He actually was scheduled for follow-up and because of the pain and discomfort he was subsequently admitted. It appears to be doing relatively well. He is now for vascular evaluation. Review of Systems Review of Systems: Yes all other systems are reviewed and are negative Constitutional: Constitutional: Reports no additional constitutional complaints ENT: Reports Normal hearing present Cardiovascular: Cardiovascular: Denies chest pain, Denies chest pain at rest, Denies chest pain with activity and Denies pedal edema Respiratory: Respiratory: Denies cough Gastrointestinal: Gastrointestinal: Denies abdominal pain Musculoskeletal: Musculoskeletal: Denies abnormal gait, Denies muscle cramps and Denies radiating pain into limb Integumentary/Breasts: Skin/Breast: Denies skin ulcer and Denies wounds Neurologic: Reports Normal hearing present and Denies abnormal gait Psychiatric: Psychiatric: Reports no additional psychiatric complaints PMFSH Past Medical History Medical History Spondylosis of lumbar spine Diabetic neuropathy Lumbar radiculopathy Obesity Hyperlipidemia LDL goal <70 Diabetes mellitus HTN (hypertension) CAD (coronary artery disease) Family History Family History Father CVD (cardiovascular disease) Mother Diabetes Family history: reviewed and not pertinent Surgical History Surgical History Hx of spinal surgery History of arthroscopy of knee Hx of coronary artery bypass graft History of mechanical aortic valve replacement Social History Social History Household Members: None Housing: House Do you presently have visiting nurse or other home services: No Patient Tobacco Use Status: Current everyday Tobacco user Tobacco use type: Cigarette Cigarettes Per Day: 20 e-Cigarette/Vaping Use: Never Used Second Hand Smoke Exposure: No service: No Current occupational status: retired Current occupational exposures/hazards: No Cognitive needs: Yes Hearing needs: No Vision needs: No Travel History Ebola Risk: Travel/Contact With Anyone From Affected Area/s: No Has Patient Experienced Ebola Symptoms: No Meds Allergies Allergy/AdvReac Type Severity Reaction Status Date / Time penicillin V Allergy Unknown hives, Verified 06/17/25 13:55 rash/tounge edema bupropion (From Wellbutrin) AdvReac Intermediate GI upset Verified 06/17/25 13:55 Vicodin Allergy Unknown dizziness Uncoded 06/17/25 13:55 Home Medications ?Medication ?Instructions ?Recorded ?Confirmed ?Last Taken ?Type acetaminophen 500 mg capsule 1,000 mg PO BEDTIME PRN Fever Or 07/08/24 06/18/25 Unknown History Pain furosemide 20 mg tablet 20 mg PO BID 11/21/24 06/18/25 Unknown History insulin degludec 200 unit/mL (3 60 unit subcut DAILY 06/18/25 06/18/25 06/17/25 History mL) subcutaneous pen (Tresiba FlexTouch U-200 insulin) insulin lispro 100 unit/mL 15 unit subcut TID 06/18/25 06/18/25 06/17/25 History subcutaneous pen (Admelog SoloStar U-100 Insulin lispro) omeprazole 20 mg capsule,delayed 20 mg PO DAILY@0630 06/18/25 06/18/25 06/17/25 History release warfarin 2 mg tablet 4 mg PO DAILY@1800 06/18/25 06/18/25 06/17/25 History Physical Exam Vital Signs: Vital Signs: Last Vital Signs Temp 97.5 F 06/22/25 11:23 Pulse 77 06/22/25 11:23 Resp 18 06/22/25 11:23 BP 116/57 L 06/22/25 11:23 Pulse Ox 96 06/22/25 11:23 O2 Del Method Room Air 06/22/25 11:23 BMI result Body Mass Index 36.5 Const: General: cooperative, healthy appearing and comfortable Orientation/consciousness: oriented to person, oriented to place and oriented to time HEENT: Head: Yes normal to inspection Neck: Neck: Yes normal visual inspection Carotids: no bruits Chest: Chest palpation & inspection: normal inspection of the chest Resp: Effort & Inspection: normal respiratory effort and able to speak in complete sentences Auscultation: clear to auscultation bilaterally, no crackles, no rales, no rhonchi and no wheezes Cardio: Other: Bilateral palpable dorsalis pedis pulses Rate: regular rate Rhythm: regular rhythm Heart sounds: S1 normal heart sound present and S2 normal heart sound present Bruits: no carotid bruits Peripheral pulses: Peripheral pulses 2+ throughout GI: Inspection: Yes normal to inspection Skin: Other: Left plantar callus proximally 2.5 cm in diameter once unroofed underlying open ulcer is about 0.5 cm in diameter. Wounds: no wounds Hair: normal Neuro: General: oriented to person, oriented to place and oriented to time Cranial nerves: Yes CN's II-XII intact bilaterally and Yes Normal hearing present Cognition (Neuro): normal cognition Motor exam (neuro): 5/5 motor strength present throughout Extrem: Other: venous exam: No significant superficial varicosities or spider telangiectasias, minimal edema General: No clubbing, No cyanosis and No edema Psych: Appearance: grossly normal Mental Status: mental status grossly normal Speech and movement: Normal speech and movement present Results Labs 06/18/25 06:18 06/22/25 06:00 Labs: Abnormal lab results 06/21/25 06/21/25 06/21/25 Range/Units 15:58 16:38 20:28 PT (10.9-12.4) SEC INR (0.9-1.1) Anion Gap (12-20) BUN (9-16) mg/dL POC Glucose 205 H 198 H 240 H (60-115) mg/dL Random Glucose (60-115) mg/dL 06/22/25 06/22/25 06/22/25 Range/Units 06:00 07:10 11:06 PT 21.1 H D (10.9-12.4) SEC INR 1.8 H (0.9-1.1) Anion Gap 11 L (12-20) BUN 30 H (9-16) mg/dL POC Glucose 178 H 303 H (60-115) mg/dL Random Glucose 197 H (60-115) mg/dL [facility] 06/22/25 06:00 Sodium 140 Potassium 3.9 Chloride 108 Carbon Dioxide 25 BUN 30 H Creatinine 1.29 Calcium 8.5 All other labs normal. Assessment and Plan (1) Foot ulcer, left: Qualifiers: Non-pressure ulcer stage: unspecified non-pressure ulcer stage Qualified Code(s): L97.529 - Non-pressure chronic ulcer of other part of left foot with unspecified severity Status: Acute Plan In short patient has nonhealing left foot ulcer. It does not appear he has vascular compromise as he does have a palpable dorsalis pedis pulse. We unroof the callus and it appears to be a fairly superficial wound. Would recommend outpatient podiatry follow-up for treatment of his callus. We did discuss offloading. He will follow up with us on an as-needed basis. Thank you for allowing us to assist in his care. Procedures Date of Service Date of Service: 06/22/25
== END 2025-06-22 12:18 | disposition home health service (06) | DRG 292 ==
LOC: HO.ED 18:23 → HO.S3 21:49 → HO.EDOVER 06-18 06:50
PROVIDERS: Internal Medicine; Nurse Practitioner Family; Physician Assistant Medical; Admitting Provider Student in an Organized Health Care Education/Training Program; Emergency Provider Student in an Organized Health Care Education/Training Program; PCP Physician Assistant; Visit Provider Internal Medicine
DX: I50.33 Acute on chronic diastolic (congestive) heart failure (principal); J98.11 Atelectasis; L97.329 Non-pressure chronic ulcer of left ankle with unspecified severity; L97.319 Non-pressure chronic ulcer of right ankle with unspecified severity; L97.429 Non-pressure chronic ulcer of left heel and midfoot with unspecified severity; I25.10 Atherosclerotic heart disease of native coronary artery without angina pectoris; M19.90 Unspecified osteoarthritis, unspecified site; E11.622 Type 2 diabetes mellitus with other skin ulcer; G89.29 Other chronic pain; E11.40 Type 2 diabetes mellitus with diabetic neuropathy, unspecified; Z95.1 Presence of aortocoronary bypass graft; Z95.2 Presence of prosthetic heart valve; F41.9 Anxiety disorder, unspecified; R91.8 Other nonspecific abnormal finding of lung field; E78.5 Hyperlipidemia, unspecified; R79.1 Abnormal coagulation profile; F32.9 Major depressive disorder, single episode, unspecified; F17.210 Nicotine dependence, cigarettes, uncomplicated; Z20.822 Contact with and (suspected) exposure to COVID-19; E11.621 Type 2 diabetes mellitus with foot ulcer; J44.9 Chronic obstructive pulmonary disease, unspecified; R06.03 Acute respiratory distress; Z71.6 Tobacco abuse counseling; Z79.4 Long term (current) use of insulin; Z79.01 Long term (current) use of anticoagulants; Z79.51 Long term (current) use of inhaled steroids; Z79.899 Other long term (current) drug therapy
CPT/HCPCS: 36415; 71046; 71250; 73620; 80048; 80076; 82947; 83605; 83735; 83880; 84439; 84443; 85025; 85610; 85652; 86140; 87040; 87637; 93005; 93306; 94640; 97162; 99221; 99285; J0696; J1650; J1938

== ENCOUNTER → 2025-06-17 14:19 | Outpatient (BNV) | payer MEDICARE, OTHER, SELFPAY | PROVIDERS: Emergency Provider Student in an Organized Health Care Education/Training Program; PCP Physician Assistant; Visit Provider Radiology Diagnostic Radiology | DX: J90 Pleural effusion, not elsewhere classified (principal); R91.1 Solitary pulmonary nodule; R06.02 Shortness of breath; I25.10 Atherosclerotic heart disease of native coronary artery without angina pectoris | CPT/HCPCS: 71046; 71250 ==

== ENCOUNTER → 2025-06-17 14:19 | Outpatient (BNV) | payer MEDICARE, OTHER, SELFPAY | PROVIDERS: Admitting Provider Student in an Organized Health Care Education/Training Program; Emergency Provider Student in an Organized Health Care Education/Training Program; PCP Physician Assistant; Visit Provider Internal Medicine | DX: I48.91 Unspecified atrial fibrillation (principal); I45.10 Unspecified right bundle-branch block | CPT/HCPCS: 93010 ==

== ENCOUNTER 2025-06-17 18:47 | Outpatient (BNV) | payer MEDICARE, OTHER, SELFPAY | END 2025-06-19 18:35 | PROVIDERS: Admitting Provider Student in an Organized Health Care Education/Training Program; Emergency Provider Student in an Organized Health Care Education/Training Program; PCP Physician Assistant; Visit Provider Radiology Diagnostic Radiology | DX: R22.42 Localized swelling, mass and lump, left lower limb (principal) | CPT/HCPCS: 73620 ==

== ENCOUNTER 2025-06-17 18:47 | Outpatient (BNV) | payer MEDICARE, OTHER, SELFPAY | END 2025-06-19 13:20 | PROVIDERS: Admitting Provider Student in an Organized Health Care Education/Training Program; Emergency Provider Student in an Organized Health Care Education/Training Program; PCP Physician Assistant; Visit Provider Internal Medicine Cardiovascular Disease | DX: I51.7 Cardiomegaly (principal); Z95.2 Presence of prosthetic heart valve; I48.91 Unspecified atrial fibrillation; I49.2 Junctional premature depolarization; I49.8 Other specified cardiac arrhythmias; I45.10 Unspecified right bundle-branch block | CPT/HCPCS: 93010; 93306 ==

== ENCOUNTER → 2025-06-17 18:47 | Outpatient (BNV) | payer MEDICARE, OTHER, SELFPAY | PROVIDERS: Admitting Provider Student in an Organized Health Care Education/Training Program; Emergency Provider Student in an Organized Health Care Education/Training Program; PCP Physician Assistant; Visit Provider Internal Medicine Pulmonary Disease | DX: E66.09 Other obesity due to excess calories (principal); Z68.33 Body mass index [BMI] 33.0-33.9, adult; J41.0 Simple chronic bronchitis; J81.1 Chronic pulmonary edema; J90 Pleural effusion, not elsewhere classified; J98.11 Atelectasis | CPT/HCPCS: 99222 ==

== ENCOUNTER → 2025-06-17 18:47 | Outpatient (BNV) | payer MEDICARE, OTHER, SELFPAY | PROVIDERS: Admitting Provider Student in an Organized Health Care Education/Training Program; Emergency Provider Student in an Organized Health Care Education/Training Program; PCP Physician Assistant; Visit Provider Surgery Vascular Surgery | DX: L97.529 Non-pressure chronic ulcer of other part of left foot with unspecified severity (principal) | CPT/HCPCS: 99222 ==

== ENCOUNTER → 2025-06-17 18:47 | Outpatient (BNV) | payer MEDICARE, OTHER, SELFPAY | PROVIDERS: Admitting Provider Student in an Organized Health Care Education/Training Program; Emergency Provider Student in an Organized Health Care Education/Training Program; PCP Physician Assistant; Visit Provider Internal Medicine Cardiovascular Disease | DX: I50.9 Heart failure, unspecified (principal) | CPT/HCPCS: 99223 ==

== ENCOUNTER → 2025-06-17 18:47 | Outpatient (BNV) | payer MEDICARE, OTHER, SELFPAY | PROVIDERS: Admitting Provider Student in an Organized Health Care Education/Training Program; Emergency Provider Student in an Organized Health Care Education/Training Program; PCP Physician Assistant; Visit Provider Internal Medicine | DX: J41.0 Simple chronic bronchitis (principal); R06.00 Dyspnea, unspecified | CPT/HCPCS: 99232 ==

== ENCOUNTER → 2025-06-17 18:47 | Outpatient (BNV) | payer MEDICARE, OTHER, SELFPAY | PROVIDERS: Admitting Provider Student in an Organized Health Care Education/Training Program; Emergency Provider Student in an Organized Health Care Education/Training Program; PCP Physician Assistant; Visit Provider Nurse Practitioner Family | DX: J41.0 Simple chronic bronchitis (principal) | CPT/HCPCS: 99223; 99231; 99232 ==

== ENCOUNTER 2025-06-30 14:59 | Outpatient (AMB) | payer MEDICARE, OTHER, SELFPAY ==
--- NOTE | 2025-06-30 15:03 | MHC.PC.OV ---
Vital Signs 06/30/25 15:06 Height 5 ft 10 in Weight 253 lb 6 oz BMI 36.4 BP 146/74 H Blood Pressure Location Rt brachial Position Sitting Pulse 92 Pulse Source Pulse Oximeter Temp 97.1 F Temp Source Temporal Artery Scan Pulse Oximetry (%) 96 Oxygen Delivery Method Room Air Int[place] [facility] [place] Intake Note: Patient is here for hospital discharge follow up. Patient was [place] [facility]. Assistant Accounting Manager Required: No Data Processing Auditor: Not Required per policy Accompanied by: Self / Same As Patient Allergies penicillin V Allergy (Unknown, Verified 06/30/25 15:05) hives, rash/tounge edema bupropion (From Wellbutrin) Adverse Reaction (Intermediate, Verified 06/30/25 15:05) GI upset Vicodin Allergy (Unknown, Uncoded 06/30/25 15:05) dizziness Tobacco use date assessed: 06/30/25 Fall risk assessment: No Falls in past year Last assessed Fall Risk: 06/30/25 Dental Screening Dental Screen Date: 03/29/25 HPI HPI Comments History of Present Illness Details 74 y/o Male patient who presents to the clinic today for HDF. He was [place] [facility] [place] for an evaluation and treatment of Dsypnea. He had CT chest that showed: Mass like density within the right lower lobe posteriorly measuring 70 mm. 7 mm nodule within the right upper lobe posteriorly. Follow up chest CT in 3 months is recommended to assess for stability/resolution. Pt was treated with Abx for Pneumonia. Today feels better; denies wheezing, cough or SOB. Reports diminished hearing in both ears like he has water inside ears. Denies pain, just a feel of fullness. [facility] Medical History (Updated 06/30/25 @ 15:47 by Nancy Arana NP) Lung mass Cerumen impaction COPD (chronic obstructive pulmonary disease) Spondylosis of lumbar spine Diabetic neuropathy Lumbar radiculopathy Obesity Hyperlipidemia LDL goal <70 Diabetes mellitus HTN (hypertension) CAD (coronary artery disease) Surgical History Hx of spinal surgery History of arthroscopy of knee Hx of coronary artery bypass graft History of mechanical aortic valve replacement Family History (Updated 06/30/25 @ 15:12 by THOM George) Father CVD (cardiovascular disease) Mother Diabetes Mental health disorder Social History Household Members: None Housing: House Do you presently have visiting nurse or other home services: No Patient Tobacco Use Status: Current everyday Tobacco user Tobacco use type: Cigarette Cigarette Packs Per Day: 1 Cigarettes Per Day: 20 e-Cigarette/Vaping Use: Never Used Second Hand Smoke Exposure: Yes service: No Current occupational status: retired Current occupational exposures/hazards: No Cognitive needs: Yes (Walker, cane, wheelchair) Hearing needs: No Vision needs: Yes (Reading glasses) Questionnaire PHQ-9 Over the last 2 weeks, how often have you been bothered by any of the following problems? 1. Little interest or pleasure in doing things: nearly every day 2. Feeling down, depressed, or hopeless: several days 3. Trouble falling or staying asleep, or sleeping too much: not at all 4. Feeling tired or having little energy: nearly every day 5. Poor appetite or overeating: not at all 6. Feeling bad about yourself - or that you are a failure or have let yourself or your family down: more than half the days 7. Trouble concentrating on things, such as reading the newspaper or watching television: not at all 8. Moving or speaking so slowly that other people could have noticed. Or the opposite - being so fidgety or restless that you have been moving around a lot more than usual: not at all 9. Thoughts that you would be better off or of hurting yourself in some way: not at all Total score: 9 Depression Screening Interpretation: Positive Depression Screening Done: Yes Source: Developed by Drs. Julian Alatorre, Sully Healy, Nitish Moscoso and colleagues, with an educational paula from [employer]. Thrive Questionnaire Date Thrive assessed: 06/18/25 I am a: Patient What is your living situation today?: I have a steady place to live Within the past 12 months, did the food you bought not last and you didn't have the money to get more?: Never true Within the past 12 months, did you worry whether your food would run out before you got money to buy more?: Never true Do you have trouble paying for medicines?: No Do you have trouble getting transportation to medical appointments?: No Do you have trouble paying your heating and electricity bill?: No Do you have trouble taking care of your child, family member or friend?: No Do you have trouble with day-to-day activities such as bathing, preparing meals, shopping, managing finances, etc.?: No Are you currently unemployed and looking for a job?: No Are you interested in more education?: No Please select the resources that you would like help with: None Currently or been in a relationship where the following occur: I choose not to answer THRIVE Score: 0 AUDIT C Alcohol Use Questionnaire (AUDIT-C) 1. How often do you have a drink containing alcohol?: Never Total Score: 0 RACHEL-7 AMB Questionnaire RACHEL-7 Date RACHEL - 7 assessed: 03/29/25 Feeling nervous, anxious, or on edge: 3 = Nearly every day Not being able to stop or control worryin = Nearly every day Worrying too much about different things: 3 = Nearly every day Trouble relaxin = More than half the days Source: Developed by Drs. Julian Alatorre, Sully Healy, Nitish Moscoso and colleagues, with an educational paula from [employer]. Review of Systems Const All systems reviewed & are unremarkable except as noted in HPI and below Physical exam (Primary Care) Vital Signs: Last Vital Signs Temp 97.1 F 06/30/25 15:06 Pulse 92 06/30/25 15:06 BP 146/74 H 06/30/25 15:06 Pulse Ox 96 06/30/25 15:06 Oxygen Delivery Method Room Air 06/30/25 15:06 BMI result Body Mass Index 36.4 Tobacco/Smoking Status: Tobacco use Status Tobacco use date assessed 06/30/25 06/30/25 15:15 Patient Tobacco Use Status Current everyday Tobacco 06/30/25 15:15 Tobacco use type Cigarette 06/30/25 15:15 e-Cigarette/Vaping Use Never Used 06/30/25 15:15 PHQ-9: PHQ-9 Score PHQ-9: Total score 9 06/30/25 15:15 Depression Screening Interpretation: Positive Thrive Assessment: Date of Thrive Assessment Date Thrive assessed 06/18/25 06/30/25 15:15 Currently or been in a relationship where the following occur: I choose not to answer Const General: no acute distress Nutritional Appearance: obese Orientation/consciousness: patient oriented x3 HENMT Head: Yes normocephalic Ears: external ears normal and TM abnormal obstructed by cerumen bilateral Resp Effort & Inspection: normal respiratory effort Auscultation: clear to auscultation bilaterally Cardio Heart sounds: S1 normal heart sound present and S2 normal heart sound present Neuro General: patient oriented x3 Results AMB Hemoglobin A1c AMB Hemoglobin A1c 10.6 % Last Edit by THOM George on 06/30/25 15:26 Results Reviewed Results Reviewed: Laboratory Last Values Hgb A1c (Clinic) 10.6 % (4.0-6.0) H 06/30/25 15:03 Coding Level of Care Code Est Pt Level 4 (14604) Diagnoses Dyspnea R06.00 Cerumen impaction H61.20 Lung mass R91.8 Time Spent (min) 20 Assessment & Plan Assessment & Plan (1) Dyspnea: Code(s): R06.00 - Dyspnea, unspecified Category: Medical Plan: Resolved He completed his Abx (2) Cerumen impaction: Code(s): H61.20 - Impacted cerumen, unspecified ear Category: Medical Plan: Ordered Debrox Otic drops (3) Lung mass: Code(s): R91.8 - Other nonspecific abnormal finding of lung field Category: Medical Plan: Incidental finding of Mass like density right lower lobe PCP to order CT Chest in 3 months. Orders: Orders AMB Hemoglobin A1c Today E11.22 - Type 2 diabetes mellitus with diabetic chronic kidney disease, N18.32 - Chronic kidney disease, stage 3b, Z79.4 - half-way (current) use of insulin Medications: New carbamide peroxide 6.5% (Debrox) 5 drps otic (ears) BID 15 mL 0RF 7 days H61.20 - Impacted cerumen, unspecified ear
--- OUTSIDE RECORDS SUMMARY | 2025-06-30 15:03 | XMS_ITS | Clinical Summary ---
Author Organization [facility] Address [address] [place] [address] Care Team Providers Care Ground Crew Linesman Name Role Phone Unavailable Primary Care Provider Unavailabl e Social History Tobacco Use Types Packs/Day Years Used Date Smoking Tobacco: Never Assessed Sex and Gender Information Value Date Recorded Sex Assigned at Not on file Gender Identity Not on file Sexual Orientation Not on file Plan of Treatment Not on file
--- OUTSIDE RECORDS SUMMARY | 2025-06-30 15:03 | XMS_ITS | Clinical Summary ---
Author Organization [facility] Address [address] [place] [address] Phone Care Team Providers Care Database Analyst Name Role Phone Connor Tesfaye Primary Care Provider [phone]- [phone] Allergies Active Allergy Reactions Criticality Noted Date [...] Team Description 05/16/2025 Telephone Orthopedic Surgery - [address] [phone] Leonardo Solo DPM from Last [...] arthroscopic surgery with postop infection, [facility] AORTIC VALVE REPLACEMENT PROCEDURE: HISTORICAL AORTIC VALVE REPL; COMMENT: on coumadin OTHER SURGICAL HISTORY 2002 PROCEDURE: AR ARTHRD ANT INTERDY CERVCL BELW C2 EA ADDL NTRSPC; COMMENT: [facility] Medical History Medical History Date Comments CAD (coronary artery disease) DX :CAD (coronary artery disease) HTN (hypertension) DX:HTN (hyper tension) Type 2 diabetes mellitus wit hout complications (CMS/HCC V24, CMS/HCC V28) DX:Type 2 ally [place] mellitus without complications ([facility]) Mixed hyperlipidemia DX:Mixed hy perlipidemia Lumbar radiculopathy [...] PM EDT Office Visit Orthopedic Surgery - [place] [address] [facility] [address] [place] [phone] Leonardo Solo DPM [address] [facility] [place] [address] [place] [id number] Health Maintenance Due Date Last Done Comments [...] this topic Insurance MEDICARE [facility] Care Teams Database Analyst Relationship Specialty Start Date End Date Connor Tesfaye PA PCP - General 01/23/23
[2025-06-30 15:06] VITALS: BP 146/74; PULSE 92; TEMP 36.2; O2SAT 96; BMI 36.4
== END 2025-06-30 16:02 | disposition home or self-care (01) ==
LOC: HO.HMCH 15:00
PROVIDERS: PCP Physician Assistant; Visit Provider Nurse Practitioner Family
DX: E11.22 Type 2 diabetes mellitus with diabetic chronic kidney disease (principal); N18.32 Chronic kidney disease, stage 3b; Z79.4 Long term (current) use of insulin; R06.00 Dyspnea, unspecified; H61.23 Impacted cerumen, bilateral; R91.8 Other nonspecific abnormal finding of lung field

== ENCOUNTER → 2025-06-30 14:59 | Outpatient (BNVA) | payer MEDICARE, OTHER, SELFPAY | PROVIDERS: PCP Physician Assistant; Visit Provider Nurse Practitioner Family | DX: R06.00 Dyspnea, unspecified (principal); R91.8 Other nonspecific abnormal finding of lung field; I12.9 Hypertensive chronic kidney disease with stage 1 through stage 4 chronic kidney disease, or unspecified chronic kidney disease; E11.22 Type 2 diabetes mellitus with diabetic chronic kidney disease; N18.9 Chronic kidney disease, unspecified; H61.23 Impacted cerumen, bilateral | CPT/HCPCS: 83036; 99212 ==

== ENCOUNTER 2025-07-06 13:51 | Outpatient (AMB) | payer MEDICARE, OTHER, SELFPAY ==
--- OUTSIDE RECORDS SUMMARY | 2025-07-05 14:45 | XMS_ITS | Encounter Summary ---
Author Organization [facility] Address [address] [place] [phone] Care Team Providers Care Milk Collector Name Role Phone Connor Tesfaye Primary Care Provider [phone]- [phone] Reason for Visit * Reason Comments DM Foot Care Type 2 diabetes titi itus with diabetic neuropathy, with long-term current use of insulin (CMS/HCC)Difficulty walkingUlcer of left heel, with fat layer exposed (CMS/HCC) Encounter Details Date Type Department Care Team (Late st Contact Info) Description 07/05/2025 2:45 PM EDT Office Visit Orthopedic Surgery - [address] [phone] Leonardo Solo DPM [address] [place] [phone] Controlled type 2 diabetes mellitus with diabetic polyneuropathy, without long-term current use of insulin (CMS/HCC V24, CMS/HCC V28) (Primary Dx); Localized edema; Difficulty walking; Arthritis of both feet; Ulcer of left heel, with fat layer exposed (CMS/HCC V24, CMS/HCC V28) Social History Tobacco Use Types Packs/Day Years Used Date Smoking Tobacco: Every Day Cigarettes Smokeless Tobacco: Never Sex and Gender Information Value Date Recorded Sex Assigned at Not on file Legal Sex Male 3:10 AM EST Gender Identity Not on file Sexual Orientation Not on file documented as of this encounter Progress Notes * Leonardo Solo DPM - 07/05/2025 2:45 PM EDT Referring MD: No ref. provider found Last PCP visit: 12/01/2024 IDENTIFIER: @TITLE@ Zacarias [...] denies fever nausea vomit shortness of breath 07/05/2025: 74-year-old diabetic male returns to office for left foot wound. Patient has been following with wound care center and receiving offloading pads. Patient notes that his wound has progressively gotten better. Patient is having his bandages changed by urgent care. Patient notes his nails continue be thickened and he has been having some callus ration splinters but the feet ROS: GENERAL: Pt denies nausea, fever, vomiting, [...] Outpatient Medications Marked as Taking for the 07/05/25 encounter (Office Visit) with Leonardo Solo DPM [...] change dietary habits. ALLERGIES: @ALL@ PHYSICAL EXAM: There were no [...] Sharp/dull sensation diminished, protective sensation diminished on [place]. Peripheral neuropathy throughout the feet bilaterally ORTHOPEDIC: [...] malodor or deep tracking. No bony involvement The ulceration to the plantar aspect of the right foot Callus tissue to the submetatarsal 5 position on the left foot BIOMECHANICS: STJ ROM wnl, MTJ ROM wnl, 1st MPJ ROM wnl. IMPRESSION: 1. Controlled type 2 diabetes mellitus with diabetic polyneuropathy, without long-term current use of insulin ([facility] V24, [facility] V28) 2. Localized edema 3. Difficulty walking 4. Arthritis of both feet 5. Ulcer of left heel, with fat layer exposed ([facility] V24, [facility] V28) PLAN: Pt was seen and examined, history reviewed. Patient instructed to continue with tight glucose control to limit continuation of wounds to the feet Patient is doing well with using offloading pad daily using quarter inch felt. Patient instructed to continue doing so in order to further decrease wound size to the left foot Patient was encouraged to continue with dressing [...] tissue was not sent to pathology. Patient is still waiting for his diabetic shoes to be created Leonardo Solo DPM documented in this encounter Plan of Treatment Upcoming Encounters Date Type Department Care Team (Late st Contact Info) Description 09/06/2025 2:45 PM EDT Office Visit Orthopedic Surgery - [address] [phone] Leonardo Solo DPM [address] [place] [phone] documented as of this encounter Visit Diagnoses Diagnosis Controlled type 2 diabetes mellitus with diabetic polyneuropathy, without long- term current use of insulin ([facility] V24, [facility] V28)- Primary Localized edema Edema Difficulty walking Difficulty in walking Arthritis of both feet Ulcer of left heel, with fat layer exposed ([facility] V24, [facility] V28) documented in this encounter Care Teams Milk Collector Relationship Specialty Start Date End Date Connor Tesfaye PA [address] [place] [phone] PCP - General 01/23/23 documented as of this encounter
[2025-07-06 14:03] LABS: Prothrombin Time Whole Bld POC 22.1 sec (11.1-13.5); ~PT, ~INR - Anti Coag Clinic 1.8 (0.9-1.1)
--- NOTE | 2025-07-06 14:03 | MHC.OFFVISCO ---
Intake Intake Visit Reasons: Anticoagulation Allergies penicillin V Allergy (Unknown, Verified 07/06/25 13:55) hives, rash/tounge edema bupropion (From Wellbutrin) Adverse Reaction (Intermediate, Verified 07/06/25 13:55) GI upset Vicodin Allergy (Unknown, Uncoded 07/06/25 13:55) dizziness Medication List - Last Reconciled 07/06/25 by Carol Obrien RN acetaminophen 1,000 mg PO BEDTIME PRN albuterol sulfate 90 mcg/actuation 2 puffs inhalation Q6H PRN atorvastatin 40 mg PO DAILY back brace As directed blood sugar diagnostic ([employer] Payments Companyuch Ultra Test strips) TEST 3 TIMES DAILY blood-glucose sensor ([place]yle Reid 3 Sensor device) As directed blood-glucose,oil field roustabout,cont (FreeStyle Reid 3 [place]) As directed carbamide peroxide 6.5% (Debrox) 5 drps otic (ears) BID 7 days cetirizine 10 mg PO DAILY doxycycline monohydrate 100 mg PO BID flash glucose scanning reader (Explara Reid 2 [place]) 4 times per day flash glucose sensor (FreeStyle Reid 2 Sensor kit) test 4 times per day fluticasone propionate 50 mcg/actuation (Flonase Allergy Relief) 1 spray intranasal DAILY 30 days furosemide 20 mg PO BID insulin degludec (Tresiba FlexTouch U-200 insulin) 60 units subcut DAILY insulin lispro (Admelog SoloStar U-100 Insulin lispro) 15 units subcut TID insulin press catcher cart,BT,G6/L2-cntr (Omnipod 5 Intro Kit(G6/Aunzo4Whqu) subcutaneous cartridge) As directed losartan 50 mg PO DAILY 90 days miscellaneous medical supply (Blood Pressure Cuff) As directed omeprazole 20 mg PO DAILY@0630 pen needle, diabetic As directed pioglitazone (Actos) 30 mg PO DAILY 90 days warfarin 4 mg PO DAILY@1800 warfarin 2 - 4 mg See Protocol PO DAILY Nursing Note INR 1.8 out of therapeutic range Medications and supplements reviewed Patient status: going to wound clinic for diabetic foot ulcer behind left big toe on the bottom, Medications or supplements: had doxycycline 3 days Diet: good, eat healthy foods for wound healing Denies any signs and symptoms of bleeding or clotting or unusual bruising Bleeding, bruising, clotting discussed Nutritional guidance given: blueberries and protein for wound healing - eat more orange and reds to help raise the INR *STILL SMOKES CIGARETTS 1 PPD !!!!! ENC TO DECREASE WEEKLY Activity: enc to keep moving legs for circulation and wound healing Dose: 6mg today then 4mg daily F/U INR Date: 2 weeks ?? Patient verbalizing understanding of instructions given. Anti-Coag Initial Assessment Social Hx Patient Tobacco Use Status: Current everyday Tobacco user Tobacco use type: Cigarette Smoking packs per day: 1 Coding Level of Care Code Est Patient Level 1 Diagnoses Current use of anticoagulant therapy Z79.01 Assessment & Plan Assessment & Plan (1) Current use of anticoagulant therapy: Code(s): Z79.01 - alf (current) use of anticoagulants Category: Medical
--- OUTSIDE RECORDS SUMMARY | 2025-07-06 14:39 | XMS_ITS | Clinical Summary ---
Author Organization [address] [facility] Address [address] [place] [address] Phone Care Team Providers Care Conference Coordinator Name Role Phone Connor Tesfaye Primary Care Provider [phone]- [phone] Allergies Active Allergy Reactions Criticality Noted Date [...] Encounters Date Type Department Care Team Description 07/05/2025 2:45 PM EDT Office Visit Orthopedic Surgery - [address] [phone] Leonardo Solo DPM Controlled type 2 diabetes mellitus with diabetic polyneuropathy, without long-term current use of insulin ([facility] V24, [facility] V28) (Primary Dx); Localized edema; Difficulty walking; Arthritis of both feet; Ulcer of left heel, with fat layer exposed ([facility] V24, [facility] V28) 05/16/2025 Telephone Orthopedic Surgery - [address] [phone] Leonardo Solo DPM from Last [...] left knee arthroscopic surgery with postop infection, [facility] AORTIC VALVE REPLACEMENT PROCEDURE: HISTORICAL AORTIC VALVE REPL; COMMENT: on coumadin OTHER SURGICAL HISTORY 2002 PROCEDURE: [place] ARTHRD ANT INTERDY CERVCL BELW C2 EA ADDL NTRSPC; COMMENT: [facility] Medical History Medical History Date Comments CAD (coronary artery disease) DX :CAD (coronary artery disease) HTN (hypertension) DX:HTN (hyper tension) Type 2 diabetes mellitus wit hout complications ([facility] V24, [facility] V28) DX:Type 2 ally betes mellitus without complications ([facility]) Mixed hyperlipidemia DX:Mixed hy perlipidemia Lumbar [...] PM EDT Office Visit Orthopedic Surgery - [place] [address] [place] [address] [place] [phone] Leonardo Solo DPM [address] [place] [phone] Health Maintenance Due Date Last Done Comments [...] 2024 11/20/2021, 05/08/2021, 04/09/2021 Depression Screening 11/09/2024 Diabetes: Annual Urine Albumin-Creatinine Ratio (uACR) 07/05/2025 Diabetes: Blood Sugar Control Test (HGBA1C) 07/05/2025 Influenza Vaccine (#1) 2025 , 10/15/2020, 08/25/2018, [...] Insurance MEDICARE [facility] Care Teams Conference Coordinator Relationship Specialty Start Date End Date Connor Tesfaye PA [address] [place] [phone] PCP - General 01/23/23
--- OUTSIDE RECORDS SUMMARY | 2025-07-06 14:39 | XMS_ITS | Clinical Summary ---
Author Organization [facility] Address [address] [place] [address] Care Team Providers Care Merchandise Buyer Name Role Phone Unavailable Primary Care Provider Unavailabl e Social History Tobacco Use Types Packs/Day Years Used Date Smoking Tobacco: Never Assessed Sex and Gender Information Value Date Recorded Sex Assigned at Not on file Gender Identity Not on file Sexual Orientation Not on file Plan of Treatment Not on file
== END 2025-07-06 14:19 | disposition home or self-care (01) ==
LOC: HO.ACS 13:51
PROVIDERS: PCP Physician Assistant; Visit Provider Internal Medicine Medical Oncology
DX: Z79.01 Long term (current) use of anticoagulants (principal)

== ENCOUNTER → 2025-07-06 13:51 | Outpatient (BNVA) | payer MEDICARE, OTHER, SELFPAY | PROVIDERS: PCP Physician Assistant; Visit Provider Internal Medicine Medical Oncology | DX: Z51.81 Encounter for therapeutic drug level monitoring (principal); Z79.01 Long term (current) use of anticoagulants | CPT/HCPCS: 85610; 99211 ==

== ENCOUNTER 2025-07-21 13:22 | Outpatient (AMB) | payer MEDICARE, OTHER, SELFPAY ==
[2025-07-21 13:29] LABS: Prothrombin Time Whole Bld POC 24.0 sec (11.1-13.5); ~PT, ~INR - Anti Coag Clinic 2.0 (0.9-1.1)
--- NOTE | 2025-07-21 13:34 | MHC.OFFVISCO ---
Intake Intake Visit Reasons: Anticoagulation Allergies penicillin V Allergy (Unknown, Verified 07/21/25 13:24) hives, rash/tounge edema bupropion (From Wellbutrin) Adverse Reaction (Intermediate, Verified 07/21/25 13:24) GI upset Vicodin Allergy (Unknown, Uncoded 07/21/25 13:24) dizziness Medication List - Last Reconciled 07/21/25 by Yaneth Baugh, RN acetaminophen 1,000 mg PO BEDTIME PRN albuterol sulfate 90 mcg/actuation 2 puffs inhalation Q6H PRN atorvastatin 40 mg PO DAILY back brace As directed blood sugar diagnostic (PrintEcoTouch Ultra Test strips) TEST 3 TIMES DAILY blood-glucose sensor (Gourmet Originsyle Reid 3 Sensor device) As directed blood-glucose,jewel inserter,cont (FreeStyle Reid 3 [place]) As directed carbamide peroxide 6.5% (Debrox) 5 drps otic (ears) BID 7 days cetirizine 10 mg PO DAILY flash glucose scanning reader (Gourmet Originsyle Reid 2 [place]) 4 times per day flash glucose sensor (FreeStyle Reid 2 Sensor kit) test 4 times per day fluticasone propionate 50 mcg/actuation (Flonase Allergy Relief) 1 spray intranasal DAILY 30 days furosemide 20 mg PO BID insulin degludec (Tresiba FlexTouch U-200 insulin) 60 units subcut DAILY insulin lispro (Admelog SoloStar U-100 Insulin lispro) 15 units subcut TID insulin lead burner cart,BT,G6/L2-cntr (Omnipod 5 Intro Kit(G6/Acfjp7Ymlf) subcutaneous cartridge) As directed losartan 50 mg PO DAILY 90 days miscellaneous medical supply (Blood Pressure Cuff) As directed omeprazole 20 mg PO DAILY@0630 pen needle, diabetic As directed pioglitazone (Actos) 30 mg PO DAILY 90 days warfarin 4 mg See Protocol PO DAILY@1800 warfarin 2 - 4 mg See Protocol PO DAILY Nursing Note INR: 2.0 in therapeutic range of 2-3 Pt has wound on bottom of left foot and goes to wound clinic weekly. States he takes tylenol 2 tabs daily. Medications and supplements reviewed No changes in health, diet, medications, or supplements, Denies any signs and symptoms of bleeding or bruising or clotting. Bleeding, bruising, clotting discussed Nutritional guidance given to avoid greens today Dose: 4mg daily F/U INR: 2 weeks Patient verbalizes understanding of instructions given Anti-Coag Initial Assessment Social Hx Patient Tobacco Use Status: Current everyday Tobacco user Tobacco use type: Cigarette Smoking packs per day: 1 Coding Level of Care Code Est Patient Level 1 Diagnoses Current use of anticoagulant therapy Z79.01 Assessment & Plan Assessment & Plan (1) Current use of anticoagulant therapy: Code(s): Z79.01 - intermediate (current) use of anticoagulants Category: Medical
--- OUTSIDE RECORDS SUMMARY | 2025-07-21 15:57 | XMS_ITS | Clinical Summary ---
Author Organization 175 [facility] Address [address] [place] [address] Phone Care Team Providers Care Workforce Development Vice President Name Role Phone Connor Tesfaye Primary Care Provider [phone]- [phone] Allergies Active Allergy Reactions Criticality Noted Date [...] EDT Office Visit Orthopedic Surgery - [address] [phone] Leonardo Solo DPM Controlled type 2 diabetes mellitus with diabetic polyneuropathy, without long-term current use of insulin ([facility] V24, [facility] V28) (Primary Dx); Localized edema; Difficulty walking; Arthritis of both feet; Ulcer of left heel, with fat layer exposed ([facility] V24, [facility] V28) 05/16/2025 Telephone Orthopedic Surgery - [address] [phone] Leonardo Solo DPM from [...] left knee arthroscopic surgery with postop infection, [facility] AORTIC VALVE REPLACEMENT PROCEDURE: HISTORICAL AORTIC VALVE REPL; COMMENT: on coumadin OTHER SURGICAL HISTORY 2002 PROCEDURE: [place] ARTHRD ANT INTERDY CERVCL BELW C2 EA ADDL NTRSPC; COMMENT: [facility] Medical History Medical History Date Comments CAD (coronary artery disease) DX :CAD (coronary artery disease) HTN (hypertension) DX:HTN (hyper tension) Type 2 diabetes mellitus wit hout complications ([facility] V24, [facility] V28) DX:Type 2 ally betes mellitus without complications ([facility]) Mixed hyperlipidemia DX:Mixed hy perlipidemia [...] PM EDT Office Visit Orthopedic Surgery - [place] [address] [facility] [address] [place] [phone] Leonardo Solo, DPM [address] [facility] [address] [place] [address] Health Maintenance Due Date Last Done Comments [...] 12/09/2023 Social Influencers of Health Screening 12/09/2023 Depression Screening 11/09/2024 Diabetes: Annual Urine Albumin-Creatinine Ratio (uACR) 07/05/2025 Diabetes: Blood Sugar Control Test (HGBA1C) 07/05/2025 COVID-19 Vaccine ( season) 2025 11/20/2021, 05/08/2021, 04/09/2021 Influenza Vaccine (#1) 2025 , 10/15/2020, 08/25/2018, [...] age to complete this topic Insurance MEDICARE [facility] Care Teams Workforce Development Vice President Relationship Specialty Start Date End Date Connor eTsfaye PA [address] [place] [phone] PCP - General 01/23/23
--- OUTSIDE RECORDS SUMMARY | 2025-07-21 15:57 | XMS_ITS | Clinical Summary ---
Author Organization [facility] Address [address] [place] [address] Care Team Providers Care Front Maker Lockstitch Name Role Phone Unavailable Primary Care Provider Unavailabl e Social History Tobacco Use Types Packs/Day Years Used Date Smoking Tobacco: Never Assessed Sex and Gender Information Value Date Recorded Sex Assigned at Not on file Gender Identity Not on file Sexual Orientation Not on file Plan of Treatment Not on file
== END 2025-07-21 13:37 | disposition home or self-care (01) ==
LOC: HO.ACS 13:22
PROVIDERS: PCP Physician Assistant; Visit Provider Internal Medicine Medical Oncology
DX: Z79.01 Long term (current) use of anticoagulants (principal)

== ENCOUNTER → 2025-07-21 13:22 | Outpatient (BNVA) | payer MEDICARE, OTHER, SELFPAY | PROVIDERS: PCP Physician Assistant; Visit Provider Internal Medicine Medical Oncology | DX: Z51.81 Encounter for therapeutic drug level monitoring (principal); Z79.01 Long term (current) use of anticoagulants | CPT/HCPCS: 85610; 99211 ==

== ENCOUNTER 2025-08-03 11:28 | Outpatient (AMB) | payer MEDICARE, OTHER, SELFPAY ==
--- NOTE | 2025-08-03 11:35 | MHC.OFFVIS ---
Vital Signs 08/03/25 11:36 Height 5 ft 10 in Weight 253 lb 1.451 oz BMI 36.3 BP 132/70 Blood Pressure Location Lt brachial Position Sitting Pulse 93 Pulse Source Monitor Intake Visit Reasons: 1 yr s/p echo Intake Note: 1 year f/u s/p echo Accompanied by: Self / Same As Patient Allergies penicillin V Allergy (Unknown, Verified 08/03/25 11:38) hives, rash/tounge edema bupropion (From Wellbutrin) Adverse Reaction (Intermediate, Verified 08/03/25 11:38) GI upset Vicodin Allergy (Unknown, Uncoded 07/21/25 13:24) dizziness Medication List - Last Reconciled 08/03/25 by Nick Miller MD acetaminophen 1,000 mg PO BEDTIME PRN albuterol sulfate 90 mcg/actuation 2 puffs inhalation Q6H PRN atorvastatin 40 mg PO DAILY back brace As directed blood sugar diagnostic (OpenLogicTouch Ultra Test strips) TEST 3 TIMES DAILY blood-glucose sensor (Wheeler [employer] Estate Investment [employer]yle Reid 3 Sensor device) As directed blood-glucose,wildlife control operator,cont (FreeStyle Reid 3 [place]) As directed carbamide peroxide 6.5% (Debrox) 5 drps otic (ears) BID 7 days cetirizine 10 mg PO DAILY flash glucose scanning reader (NeurotrackStyle Reid 2 [place]) 4 times per day flash glucose sensor (FreeStyle Reid 2 Sensor kit) test 4 times per day fluticasone propionate 50 mcg/actuation (Flonase Allergy Relief) 1 spray intranasal DAILY 30 days furosemide 20 mg PO BID insulin degludec (Tresiba FlexTouch U-200 insulin) 60 units subcut DAILY insulin lispro (Admelog SoloStar U-100 Insulin lispro) 15 units subcut TID insulin guide foreign tour cart,BT,G6/L2-cntr (Omnipod 5 Intro Kit(G6/Omibs8Qtph) subcutaneous cartridge) As directed losartan 50 mg PO DAILY 90 days miscellaneous medical supply (Blood Pressure Cuff) As directed omeprazole 20 mg PO DAILY@0630 pen needle, diabetic As directed warfarin 4 mg See Protocol PO DAILY@1800 warfarin 2 - 4 mg See Protocol PO DAILY HPI Comments Details: Benigno comes for follow-up. He had a fall yesterday, accidental. He has no obvious cardiac symptoms. Recently admitted to the hospital with shortness of breath diagnose with bilateral pleural effusion and atelectasis. He does not recall the admission much. He said he is having issues with memory. However he does not forget to take his medications. Lives alone at home. Unfortunately continues to smoke. No active chest pain or shortness of breath but his activity is pretty curtailed. No orthopnea, PND, leg edema. Has a nonhealing ulcer on the left toe. No prolonged palpitation irregular heartbeat. No lightheadedness, syncope [facility] History Lung mass Cerumen impaction COPD (chronic obstructive pulmonary disease) Spondylosis of lumbar spine Diabetic neuropathy Lumbar radiculopathy Obesity Hyperlipidemia LDL goal <70 Diabetes mellitus HTN (hypertension) CAD (coronary artery disease) Surgical History Hx of spinal surgery History of arthroscopy of knee Hx of coronary artery bypass graft History of mechanical aortic valve replacement Family History Father CVD (cardiovascular disease) Mother Diabetes Mental health disorder Social History Household Members: None Housing: House Do you presently have visiting nurse or other home services: No Patient Tobacco Use Status: Current everyday Tobacco user Tobacco use type: Cigarette Cigarette Packs Per Day: 1 Cigarettes Per Day: 20 e-Cigarette/Vaping Use: Never Used Second Hand Smoke Exposure: Yes service: No Current occupational status: retired Current occupational exposures/hazards: No Cognitive needs: Yes (Walker, cane, wheelchair) Hearing needs: No Vision needs: Yes (Reading glasses) Review of Systems Const Denies daytime sleepiness, Denies difficulty sleeping, Denies snoring, Denies stops breathing during sleep and Denies weakness Card Denies chest pain, Denies rapid heart rate, Denies irregular heart rhythm, Denies claudication, Denies leg edema, Denies lightheadedness, Denies palpitations, Reports dyspnea, Reports dyspnea on exertion, Denies orthopnea, Denies paroxysmal nocturnal dyspnea and Denies slow heart rate Resp Denies cough, Reports dyspnea, Reports dyspnea on exertion and Denies snoring GI Reports no additional complaints, Denies hematochezia, Denies change in stool character and Denies dyspepsia Musc Denies abnormal gait, Denies muscle weakness and Denies numbness Neuro Denies abnormal gait, Denies numbness and Denies weakness Endo Denies palpitations Physical Exam Vital Signs: Last Vital Signs Pulse 93 08/03/25 11:36 BP 132/70 08/03/25 11:36 BMI result Body Mass Index 36.3 Const General: cooperative, no acute distress, alert, awake and poor hygiene Nutritional Appearance: obese Orientation/consciousness: patient oriented x3 HEENT Head: Yes normal to inspection, Yes normocephalic and Yes atraumatic Eyes General: appearance normal, both eyes and all related structures Neck Neck: Yes full ROM, Yes trachea midline and Yes no JVD Chest Chest palpation & inspection: normal inspection of the chest Resp Auscultation: wheezes expiratory wheezes and throughout Cardio Jugular venous distension: no JVD Palpation: normal PMI Rate: tachycardic Rhythm: regular rhythm Heart sounds: S1 normal heart sound present and Other heart sounds present ( Merrick closing click of Saint Efren aortic valve) Peripheral pulses: Peripheral pulses 2+ throughout GI Inspection: Yes normal to inspection Auscultation: normal bowel sounds Skin General skin exam: no rashes or lesions noted and turgor normal Neuro General: patient oriented x3 and no focal motor deficits Extrem General: Yes no clubbing, cyanosis or edema Psych Appearance: disheveled Mental Status: mental status grossly normal Affect: Sad affect present Insight: Good insight present (Psych) Office Procedures EKG Details: EKG shows possible accelerated junctional rhythm with no clear P-waves identified, unlikely that this is represents first-degree AV block, with inferior infarct with right bundle-branch block and left axis deviation [id number], Complete Assessment & Plan Assessment & Plan (1) CAD (coronary artery disease): Comment: Underwent 2 vessel coronary bypass grafting at the time of aortic valve replacement. No symptoms of angina at current time. Continue lifelong aspirin therapy as above. Blood pressure is well optimized on current therapy. Continue the same. Continue high-intensity statin therapy with target goal LDL less than 70 mg/dL. Advised lipid panel in near future. Complete smoking cessation was advised. Also recommend to continue to participate in aggressive lifestyle modification with weight loss as well as increase activity level. He understands and agrees. Will follow up in 1 year's time. Code(s): I25.10 - Atherosclerotic heart disease of [place] coronary artery without angina pectoris Category: Medical Qualifiers: Coronary Disease-Associated Artery/Lesion type: [place] artery [place] vs. transplanted heart: [place] heart Associated angina: without angina Qualified Code(s): I25.10 - Atherosclerotic heart disease of [place] coronary artery without angina pectoris Plan: Patient with prior CAD with urgent coronary artery bypass grafting with no recurrent symptoms suggestive of angina although has reduced functional capacity. Has a nonhealing ulcer of the left toe which most likely could represent peripheral vascular disease. Will suggest a lower extremity duplex. Currently on warfarin therapy for aortic valve replacement and would continue the same avoid aspirin therapy to reduce bleeding risk. Continue high-intensity statin therapy with target goal LDL less than 60 mg/dL. Complete smoking cessation was advised, he is not interested. Blood pressure is currently well optimized. Continue to monitor blood pressure at home maintain a log. Goal blood pressure less than 130/84. Continue aggressive diabetes management goal hemoglobin A1c less than 7%. (2) History of mechanical aortic valve replacement: Comment: 23 mm Saint Efren aortic valve. 2010. for critical aortic stenosis, symptomatic Code(s): Z95.2 - Presence of prosthetic heart valve Category: Surgical Plan: Prior mechanical aortic valve replacement which seemed to working well by recent echocardiogram. Suggest to continue warfarin therapy with target INR between 2 and 3. This is being followed by [facility] Clinic. SBE prophylaxis as per ACC/[facility] guidelines. Follow up in the clinic in 1 year's time, sooner PRN. Thank you for allowing me to partake in his care Orders: Orders US arterial duplex LE BI Today I25.10 - Atherosclerotic heart disease of [place] coronary artery without angina pectoris, L97.529 - Non-pressure chronic ulcer of other part of left foot with unspecified severity Coding Level of Care Code Est Pt Level 4 (99709) Complex EM visit Add On G2211 Diagnoses Coronary artery disease involving [place] coronary artery of [place] heart without angina pectoris I25.10 Coronary Disease-Associated Artery/Lesion type: [place] artery [place] vs. transplanted heart: [place] heart Associated angina: without angina History of mechanical aortic valve replacement Z95.2 CPT Codes EKG - CPT: 95519-[id number], Complete ([id number])
[2025-08-03 11:36] VITALS: BP 132/70; PULSE 93; BMI 36.3
== END 2025-08-03 12:01 | disposition home or self-care (01) ==
LOC: HO.HCS 11:29
PROVIDERS: PCP Physician Assistant; Visit Provider Internal Medicine Cardiovascular Disease
DX: I25.10 Atherosclerotic heart disease of native coronary artery without angina pectoris (principal); Z95.2 Presence of prosthetic heart valve
CPT/HCPCS: 93010; 99214; G2211

== ENCOUNTER → 2025-08-03 11:28 | Outpatient (BNVA) | payer MEDICARE, OTHER, SELFPAY | PROVIDERS: PCP Physician Assistant; Visit Provider Internal Medicine Cardiovascular Disease | DX: I25.10 Atherosclerotic heart disease of native coronary artery without angina pectoris (principal); Z95.2 Presence of prosthetic heart valve; Z72.0 Tobacco use; E78.5 Hyperlipidemia, unspecified; E66.9 Obesity, unspecified; Z68.36 Body mass index [BMI] 36.0-36.9, adult; E11.9 Type 2 diabetes mellitus without complications; Z79.4 Long term (current) use of insulin; I10 Essential (primary) hypertension | CPT/HCPCS: 93005; 99212 ==

== ENCOUNTER 2025-08-04 13:16 | Outpatient (AMB) | payer MEDICARE, OTHER, SELFPAY ==
[2025-08-04 13:22] LABS: Prothrombin Time Whole Bld POC 17.5 sec (11.1-13.5); ~PT, ~INR - Anti Coag Clinic 1.5 (0.9-1.1)
[2025-08-04 13:25] LABS: Prothrombin Time Whole Bld POC 17.6 sec (11.1-13.5); ~PT, ~INR - Anti Coag Clinic 1.5 (0.9-1.1)
--- NOTE | 2025-08-04 13:38 | MHC.OFFVISCO ---
Intake Intake Visit Reasons: Anticoagulation Allergies penicillin V Allergy (Unknown, Verified 08/04/25 13:16) hives, rash/tounge edema bupropion (From Wellbutrin) Adverse Reaction (Intermediate, Verified 08/04/25 13:16) GI upset Vicodin Allergy (Unknown, Uncoded 08/04/25 13:16) dizziness Medication List - Last Reconciled 08/04/25 by Carol Obrien RN acetaminophen 1,000 mg PO BEDTIME PRN albuterol sulfate 90 mcg/actuation 2 puffs inhalation Q6H PRN atorvastatin 40 mg PO DAILY back brace As directed blood sugar diagnostic (Opal LabsTouch Ultra Test strips) TEST 3 TIMES DAILY blood-glucose sensor (Chill.comyle Reid 3 Sensor device) As directed blood-glucose,polyethylene combiner,cont (FreeStyle Reid 3 [place]) As directed carbamide peroxide 6.5% (Debrox) 5 drps otic (ears) BID 7 days cetirizine 10 mg PO DAILY flash glucose scanning reader (Chill.comyle Reid 2 [place]) 4 times per day flash glucose sensor (FreeStyle Reid 2 Sensor kit) test 4 times per day fluticasone propionate 50 mcg/actuation (Flonase Allergy Relief) 1 spray intranasal DAILY 30 days furosemide 20 mg PO BID insulin degludec (Tresiba FlexTouch U-200 insulin) 60 units subcut DAILY insulin lispro (Admelog SoloStar U-100 Insulin lispro) 15 units subcut TID insulin director advertising cart,BT,G6/L2-cntr (Omnipod 5 Intro Kit(G6/Ecbqb0Jeyy) subcutaneous cartridge) As directed losartan 50 mg PO DAILY 90 days miscellaneous medical supply (Blood Pressure Cuff) As directed omeprazole 20 mg PO DAILY@0630 pen needle, diabetic As directed warfarin 4 mg See Protocol PO DAILY@1800 warfarin 2 - 4 mg See Protocol PO DAILY Nursing Note INR 1.5 out of therapeutic range- may have missed a dose - he's not sure. INR have been low end of range Medications and supplements reviewed Patient status: Pt tripped and fell going out of his house has alight abraisson on right knee and hurt shoulder- has ROM of shoulder hurts, going to wound clinic for foot ulcer on bottom of foot Medications or supplements: no changes Diet: good Denies any signs and symptoms of bleeding or clotting or unusual bruising Bleeding, bruising, clotting discussed Nutritional guidance given: avoid greens x 2 days, eat orange and reds to help raise the INR - pt states I have watermelon Dose: increase weekly dose 6mg x 1 day/ 4mg x 6 days F/U INR Date: 08/08/2025 ?? Patient verbalizing understanding of instructions given. This msg will be sent to PCP with f/u call Anti-Coag Initial Assessment Social Hx Patient Tobacco Use Status: Current everyday Tobacco user Tobacco use type: Cigarette Smoking packs per day: 1 Coding Level of Care Code Est Patient Level 1 Diagnoses Current use of anticoagulant therapy Z79.01 Assessment & Plan Assessment & Plan (1) Current use of anticoagulant therapy: Code(s): Z79.01 - senior living (current) use of anticoagulants Category: Medical
--- OUTSIDE RECORDS SUMMARY | 2025-08-04 14:32 | XMS_ITS | Clinical Summary ---
Author Organization [facility] Address [address] [place] [address] Care Team Providers Care Hydroelectric Station Operator Name Role Phone Unavailable Primary Care Provider Unavailabl e Social History Tobacco Use Types Packs/Day Years Used Date Smoking Tobacco: Never Assessed Sex and Gender Information Value Date Recorded Sex Assigned at Not on file Gender Identity Not on file Sexual Orientation Not on file Plan of Treatment Not on file
--- OUTSIDE RECORDS SUMMARY | 2025-08-04 14:32 | XMS_ITS | Clinical Summary ---
Author Organization 175 [facility] Address [address] [place] [address] Phone Care Team Providers Care Expansion Joint Finisher Name Role Phone Connor Tesfaye Primary Care Provider +1- [phone] Allergies Active Allergy Reactions Criticality Noted Date [...] PM EDT Office Visit Orthopedic Surgery - [address] [phone] Leonardo Solo DPM Controlled type 2 diabetes mellitus with diabetic polyneuropathy, without long-term current use of insulin ([facility] V24, [facility] V28) (Primary Dx); Localized edema; Difficulty walking; Arthritis of both feet; Ulcer of left heel, with fat layer exposed ([facility] V24, [facility] V28) 05/16/2025 Telephone Orthopedic Surgery - [address] [phone] Leonardo Solo DPM from Last [...] left knee arthroscopic surgery with postop infection, [facility] AORTIC VALVE REPLACEMENT PROCEDURE: HISTORICAL AORTIC VALVE REPL; COMMENT: on coumadin OTHER SURGICAL HISTORY 2002 PROCEDURE: [place] ARTHRD ANT INTERDY CERVCL BELW C2 EA ADDL NTRSPC; COMMENT: [facility] Medical History Medical History Date Comments CAD (coronary artery disease) DX :CAD (coronary artery disease) HTN (hypertension) DX:HTN (hyper tension) Type 2 diabetes mellitus wit hout complications ([facility] V24, [facility] V28) DX:Type 2 ally [...] PM EDT Office Visit Orthopedic Surgery - [place] [address] [facility] [address] [place] [address] Leonardo Solo, DPM 175 [facility] [address] [place] [address] Health Maintenance Due Date Last Done Comments [...] age to complete this topic Insurance MEDICARE [facility] Care Teams Expansion Joint Finisher Relationship Specialty Start Date End Date Connor Tesfaye PA [address] [place] [phone] PCP - General 01/23/23
== END 2025-08-04 13:57 | disposition home or self-care (01) ==
LOC: HO.ACS 13:16
PROVIDERS: PCP Physician Assistant; Visit Provider Internal Medicine Medical Oncology
DX: Z79.01 Long term (current) use of anticoagulants (principal)

== ENCOUNTER → 2025-08-04 13:16 | Outpatient (BNVA) | payer MEDICARE, OTHER, SELFPAY | PROVIDERS: PCP Physician Assistant; Visit Provider Internal Medicine Medical Oncology | DX: Z95.2 Presence of prosthetic heart valve (principal); Z51.81 Encounter for therapeutic drug level monitoring; Z79.01 Long term (current) use of anticoagulants | CPT/HCPCS: 85610; 99211 ==

== ENCOUNTER 2025-08-25 14:13 | Outpatient (AMB) | payer MEDICARE, OTHER, SELFPAY ==
[2025-08-25 14:43] LABS: Prothrombin Time Whole Bld POC 32.6 sec (11.1-13.5); ~PT, ~INR - Anti Coag Clinic 2.7 (0.9-1.1)
--- NOTE | 2025-08-25 14:53 | MHC.OFFVISCO ---
Intake Intake Visit Reasons: Anticoagulation Allergies penicillin V Allergy (Unknown, Verified 08/25/25 14:37) hives, rash/tounge edema bupropion (From Wellbutrin) Adverse Reaction (Intermediate, Verified 08/25/25 14:37) GI upset Vicodin Allergy (Unknown, Uncoded 08/25/25 14:37) dizziness Medication List - Last Reconciled 08/25/25 by Carol Obrien RN acetaminophen 1,000 mg PO BEDTIME PRN albuterol sulfate 90 mcg/actuation 2 puffs inhalation Q6H PRN atorvastatin 40 mg PO DAILY back brace As directed blood sugar diagnostic (Source4Styleuch Ultra Test strips) TEST 3 TIMES DAILY blood-glucose sensor (AC Immune SAyle Reid 3 Sensor device) As directed blood-glucose,aprn,cont (FreeStyle Reid 3 [place]) As directed carbamide peroxide 6.5% (Debrox) 5 drps otic (ears) BID 7 days cetirizine 10 mg PO DAILY flash glucose scanning reader (AC Immune SAyle Reid 2 [place]) 4 times per day flash glucose sensor (FreeStyle Reid 2 Sensor kit) test 4 times per day fluticasone propionate 50 mcg/actuation (Flonase Allergy Relief) 1 spray intranasal DAILY 30 days furosemide 20 mg PO BID insulin degludec (Tresiba FlexTouch U-200 insulin) 60 units subcut DAILY insulin lispro (Admelog SoloStar U-100 Insulin lispro) 15 units subcut TID insulin precinct police lieutenant cart,BT,G6/L2-cntr (Omnipod 5 Intro Kit(G6/Ouiha1Rldn) subcutaneous cartridge) As directed losartan 50 mg PO DAILY 90 days miscellaneous medical supply (Blood Pressure Cuff) As directed omeprazole 20 mg PO DAILY@0630 pen needle, diabetic As directed warfarin 4 mg See Protocol PO DAILY@1800 warfarin 2 - 4 mg See Protocol PO DAILY Nursing Note INR: 2.7 in therapeutic range Medications and supplements reviewed foot ulcers healed, has been eating blueberries Denies any signs and symptoms of bleeding or bruising or clotting. Bleeding, bruising, clotting discussed Nutritional guidance given - keep up weekly blueberries Dose: 4mg daily ( pt took 6mg wed because he though his INR might be low) F/U INR: []Patient verbalizes understanding of instructions given Anti-Coag Initial Assessment Social Hx Patient Tobacco Use Status: Current everyday Tobacco user Tobacco use type: Cigarette Smoking packs per day: 1 Coding Level of Care Code Est Patient Level 1 Diagnoses Current use of anticoagulant therapy Z79.01 Results AMB INR Fingerstick AMB INR Fingerstick 2.7 Last Edit by Carol Obrien RN on 08/25/25 14:45 manual entry Assessment & Plan Assessment & Plan (1) Current use of anticoagulant therapy: Code(s): Z79.01 - assisted (current) use of anticoagulants Category: Medical
--- OUTSIDE RECORDS SUMMARY | 2025-08-25 16:47 | XMS_ITS | Clinical Summary ---
Author Organization 175 [facility] Address [address] [place] [address] Phone Care Team Providers Care Channel Rebuilder Name Role Phone Connor Tesfaye Primary Care Provider +1- [phone] Allergies Active Allergy Reactions Criticality Noted Date [...] PM EDT Office Visit Orthopedic Surgery - [address] [phone] Leonardo Solo DPM Controlled type 2 diabetes mellitus with diabetic polyneuropathy, without long-term current use of insulin ([facility] V24, [facility] V28) (Primary Dx); Localized edema; Difficulty walking; Arthritis of both feet; Ulcer of left heel, with fat layer exposed ([facility] V24, [facility] V28) from Last 3 Months Immunizations Immunization Administration Dates Next Due Influenza trivalent, 0.5mL ( Fluzone High-dose) 65yo and older 10/15/2020,08/25/2018 Influenza trivalent, with pr eservative (Fluzone; Afluria) 6mo and older 10/09/2022 Pneumococcal polysaccharide 23 valent (Pneumovax 23) 2yo and older 02/25/2016 Surgical History Surgery Date Site/Laterality Comments OTHER SURGICAL HISTORY 2010 PROCEDURE: HISTORY OTHER; COMMENT: left knee arthroscopic surgery with postop infection, [facility] AORTIC VALVE REPLACEMENT PROCEDURE: HISTORICAL AORTIC VALVE REPL; COMMENT: on coumadin OTHER SURGICAL HISTORY 2002 PROCEDURE: [place] ARTHRD ANT INTERDY CERVCL BELW C2 EA ADDL NTRSPC; COMMENT: [facility] Medical History Medical History Date Comments CAD (coronary artery disease) DX :CAD (coronary artery disease) HTN (hypertension) DX:HTN (hyper tension) Type 2 diabetes mellitus wit hout complications ([facility] V24, [facility] V28) DX:Type 2 ally betes mellitus without complications ([facility]) Mixed hyperlipidemia DX:Mixed hy perlipidemia [...] PM EDT Office Visit Orthopedic Surgery - [place] [address] 175 [facility] [address] [place] [phone] Leonardo Solo, DPEvgeny 175 [facility] [address] [place] [address] Health Maintenance Due Date Last Done Comments Colorectal Cancer Screening: Colonoscopy 1951 Diabetes: Annual GFR (Glomerular Filtration Rate) 1951 Diabetes: Annual Foot Exam 1961 Diabetes: Annual Retina Eye Exam 1961 RSV Immunization Adult Patients (1 - Risk 50-74 years 1-dose series) 2001 Zoster Vaccines (1 of 2) 2001 Pneumococcal Vaccine: 50+ Years (2 of 2 - PCV) 02/24/2017 02/25/2016, 10/29/2011 Abdominal Aortic Aneurysm (AAA) Screen 12/09/2023 Cholesterol Screening (Lipid Panel) 12/09/2023 Falls Risk Assessment 12/09/2023 Hepatitis C Screening 12/09/2023 Medicare Annual Wellness Visit 12/09/2023 Social Influencers of Health Screening 12/09/2023 Depression Screening 11/09/2024 Diabetes: Annual Urine Albumin-Creatinine Ratio (uACR) 07/05/2025 Diabetes: Blood Sugar Control Test (HGBA1C) 07/05/2025 COVID-19 Vaccine (4 - season) 2025 11/20/2021, 05/08/2021, 04/09/2021 Influenza Vaccine [...] age to complete this topic Insurance MEDICARE [facility] Care Teams Channel Rebuilder Relationship Specialty Start Date End Date Connor Tesfaye PA [address] [place] [address] PCP - General 01/23/23
--- OUTSIDE RECORDS SUMMARY | 2025-08-25 16:47 | XMS_ITS | Clinical Summary ---
[facility] Organization [facility] Address [address] [place] [address] Care Team Providers Care Tech Intern Name Role Phone Unavailable Primary Care Provider Unavailabl e Social History Tobacco Use Types Packs/Day Years Used Date Smoking Tobacco: Never Assessed Sex and Gender Information Value Date Recorded Sex Assigned at Not on file Gender Identity Not on file Sexual Orientation Not on file Plan of Treatment Not on file
== END 2025-08-25 14:56 | disposition home or self-care (01) ==
LOC: HO.ACS 14:13
PROVIDERS: PCP Physician Assistant; Visit Provider Internal Medicine Medical Oncology
DX: Z79.01 Long term (current) use of anticoagulants (principal)

== ENCOUNTER → 2025-08-25 14:13 | Outpatient (BNVA) | payer MEDICARE, OTHER, SELFPAY | PROVIDERS: PCP Physician Assistant; Visit Provider Internal Medicine Medical Oncology | DX: Z95.2 Presence of prosthetic heart valve (principal); Z51.81 Encounter for therapeutic drug level monitoring; Z79.01 Long term (current) use of anticoagulants | CPT/HCPCS: 85610; 99211 ==

== ENCOUNTER 2025-09-01 14:30 | Outpatient (RCR) | payer MEDICARE, OTHER, SELFPAY | END 2025-09-01 16:48 | disposition home or self-care (01) | LOC: HO.WCC 14:30 | PROVIDERS: PCP Physician Assistant; Visit Provider Surgery Vascular Surgery | DX: E11.40 Type 2 diabetes mellitus with diabetic neuropathy, unspecified (principal); L84 Corns and callosities; D68.32 Hemorrhagic disorder due to extrinsic circulating anticoagulants; R60.9 Edema, unspecified; I11.0 Hypertensive heart disease with heart failure; I50.9 Heart failure, unspecified; F17.210 Nicotine dependence, cigarettes, uncomplicated; Z09 Encounter for follow-up examination after completed treatment for conditions other than malignant neoplasm; Z95.2 Presence of prosthetic heart valve; Z95.1 Presence of aortocoronary bypass graft; Z86.31 Personal history of diabetic foot ulcer | CPT/HCPCS: 11042; 11055; 97597; 99212; 99213 ==

== ENCOUNTER 2025-09-07 13:59 | Outpatient (AMB) | payer MEDICARE, OTHER, SELFPAY ==
--- OUTSIDE RECORDS SUMMARY | 2025-09-06 14:45 | XMS_ITS | Encounter Summary ---
Author Organization [facility] Address [address] [place] [phone] Care Team Providers Care Manager Of Human Resources Name Role Phone Connor Tesfaye Primary Care Provider +1- [phone] Reason for Visit * Reason Comments DM Foot Care Type 2 diabetes titi itus with diabetic neuropathy, with long-term current use of insulin (CMS/[facility])Difficulty walkingUlcer of left heel, with fat layer exposed Encounter Details Date Type Department Care Team (Late st Contact Info) Description 09/06/2025 2:45 PM EDT Office Visit Orthopedic Surgery - [address] [phone] Leonardo Solo DPM [address] [place] [phone] Controlled type 2 diabetes mellitus with diabetic polyneuropathy, without long-term current use of insulin (CMS/HCC V24, CMS/HCC V28) (Primary Dx); Localized edema; Difficulty walking; Arthritis of both feet; Onychomycosis Social History Tobacco Use Types Packs/Day Years Used Date Smoking Tobacco: Every Day Cigarettes Smokeless Tobacco: Never Sex and Gender Information Value Date Recorded Sex Assigned at Not on file Legal Sex Male 3:10 AM EST Gender Identity Not on file Sexual Orientation Not on file documented as of this encounter Progress Notes * Leonardo Solo DPM - 09/06/2025 2:45 PM EDT Referring MD: No ref. [...] denies fever nausea vomit shortness of breath 09/06/2025: 74-year-old diabetic male returns office for chief complaint of bilateral foot pain. Patient has been going to wound care for his left foot wound. Has noticed that he is starting to feel some discomfort to the area of the right foot. Patient does not use his diabetic shoes or Plastizoteinserts for ambulation. Patient does not check his sugar daily. Patient is here for evaluation and treatment ROS: GENERAL: Pt denies nausea, fever, vomiting, [...] have been marked as taking for the 09/06/25 encounter (Office Visit) Madhu Solo DPM. ALLERGIES: @ALL@ PHYSICAL EXAM: There [...] Sharp/dull sensation diminished, protective sensation diminished on [place]. Peripheral neuropathy throughout the feet bilaterally ORTHOPEDIC: Good muscle strength 5/5 of all flexors and extensors. Dorsi flexion of ankle ,10 degrees, plantar flexion WNL. No muscle atrophy. Flexible flatfoot deformity bilaterally. Increased arthritic changes to the midfoot. Contractures of digits 2 through 5. Decreased range of motion of the first MPJ. DERMATOLOGICAL:.Previous ulceration to the left submetatarsal 1 position showing callus formation. No wound underneath the callus formation. Submetatarsal 1 position of the right foot showing preulcerative lesion with color change and bleeding underneath the skin of the tissue. No fluctuance or abscess on palpation. No streaking cellulitis. Nails are elongated dystrophic discolored x 10 with somewhat debris BIOMECHANICS: STJ ROM wnl, MTJ ROM wnl, 1st MPJ ROM wnl. IMPRESSION: 1. Controlled type 2 diabetes mellitus with diabetic polyneuropathy, without long-term current use of insulin (CMS/HCC V24, CMS/HCC V28) 2. Localized edema 3. Difficulty walking 4. Arthritis of both feet 5. Onychomycosis PLAN: Pt was seen and examined, history reviewed. Patient was educated on the use of tight glucose control in order to limit chance for ulceration infection in the future Patient is doing well with using offloading pad daily using quarter inch felt. Patient instructed to continue doing so in order to further decrease wound size to the left foot Patient understands that he has a rigid flatfoot with arthritic changes of the midtarsal joint. Patient encouraged to use proper shoe gear and supportive insoles to put the foot in the proper position and distribute pressure evenly Nail debridement performed to nails 1-5 bilateral as nails were described to be causing pain and difficulty for walking while in shoegear at their previous length. They were debrided in thickness andlength, with no incident. Clinical evidence of mycosis is documented which required active treatment. Patient expressed immediate relief. Patient is to RTC in 9 weeks Patient has his diabetic shoes but is not using them. Patient educated on the importance of using the possibility in certain shoes in order to offload the forefoot Leonardo Solo DPM documented in this encounter Plan of Treatment Upcoming Encounters Date Type Department Care Team (Late st Contact Info) Description 11/08/2025 2:30 PM EST Office Visit Orthopedic Surgery - [place] [address] [phone] Leonardo Solo DPM [address] [place] [phone] documented as of this encounter Visit Diagnoses Diagnosis Controlled type 2 diabetes mellitus with diabetic polyneuropathy, without long- term current use of insulin ([facility] V24, [facility] V28)- Primary Localized edema Edema Difficulty walking Difficulty in walking Arthritis of both feet Onychomycosis Dermatophytosis of nail documented in this encounter Care Teams Manager Of Human Resources Relationship Specialty Start Date End Date Connor Tesfaye PA [address] [place] [phone] PCP - General 01/23/23 documented as of this encounter
[2025-09-07 14:15] LABS: Prothrombin Time Whole Bld POC 39.2 sec (11.1-13.5); ~PT, ~INR - Anti Coag Clinic 3.3 (0.9-1.1)
--- NOTE | 2025-09-07 14:23 | MHC.OFFVISCO ---
Intake Intake Visit Reasons: Anticoagulation Allergies penicillin V Allergy (Unknown, Verified 09/07/25 14:07) hives, rash/tounge edema bupropion (From Wellbutrin) Adverse Reaction (Intermediate, Verified 09/07/25 14:07) GI upset Vicodin Allergy (Unknown, Uncoded 09/07/25 14:07) dizziness Medication List - Last Reconciled 09/07/25 by Yaneth Baugh, CALEB acetaminophen 1,000 mg PO BEDTIME PRN albuterol sulfate 90 mcg/actuation 2 puffs inhalation Q6H PRN atorvastatin 40 mg PO DAILY back brace As directed blood sugar diagnostic (Second Half PlaybookTouch Ultra Test strips) TEST 3 TIMES DAILY blood-glucose sensor (Acopioyle Reid 3 Sensor device) As directed blood-glucose,quality assurance clerk,cont (FreeStyle Reid 3 [place]) As directed carbamide peroxide 6.5% (Debrox) 5 drps otic (ears) BID 7 days cetirizine 10 mg PO DAILY flash glucose scanning reader (Detectent Reid 2 [place]) 4 times per day flash glucose sensor (FreeStyle Reid 2 Sensor kit) test 4 times per day fluticasone propionate 50 mcg/actuation (Flonase Allergy Relief) 1 spray intranasal DAILY 30 days furosemide 20 mg PO BID insulin degludec (Tresiba FlexTouch U-200 insulin) 60 units (0.3 mL) subcut DAILY insulin lispro (Admelog SoloStar U-100 Insulin lispro) 15 units subcut TID insulin grave cleaner cart,BT,G6/L2-cntr (Omnipod 5 Intro Kit(G6/Esfdr4Rhnu) subcutaneous cartridge) As directed losartan 50 mg PO DAILY 90 days miscellaneous medical supply (Blood Pressure Cuff) As directed omeprazole 20 mg PO DAILY@0630 pen needle, diabetic As directed warfarin 4 mg See Protocol PO DAILY@1800 warfarin 2 - 4 mg See Protocol PO DAILY Nursing Note INR: 3.3?out of therapeutic range of 2-3 Medications and supplements reviewed Patient status: feels well other than arthritis pain and stiffness Medications or supplements: no changes Diet: usual diet for pt Denies any signs and symptoms of bleeding or clotting or unusual bruising Bleeding, bruising, clotting discussed Nutritional guidance given: to have a serving of greens today. Pt will have green tea 1 serving today Dose: decrease today's dose from 4mg to 3mg then 4mg daily F/U INR Date: 3 weeks?? Patient verbalizing understanding of instructions given. Anti-Coag Initial Assessment Social Hx Patient Tobacco Use Status: Current everyday Tobacco user Tobacco use type: Cigarette Smoking packs per day: 1 Coding Level of Care Code Est Patient Level 1 Diagnoses Current use of anticoagulant therapy Z79.01 Results AMB INR Fingerstick AMB INR Fingerstick 3.3 Last Edit by Yaneth Baugh RN on 09/07/25 14:17 interface delay Assessment & Plan Assessment & Plan (1) Current use of anticoagulant therapy: Code(s): Z79.01 - shelter (current) use of anticoagulants Category: Medical
--- OUTSIDE RECORDS SUMMARY | 2025-09-07 16:58 | XMS_ITS | Clinical Summary ---
Author Organization [facility] Address [address] [place] [address] Care Team Providers Care Kitchen Bath Designer Name Role Phone Unavailable Primary Care Provider Unavailabl e Social History Tobacco Use Types Packs/Day Years Used Date Smoking Tobacco: Never Assessed Sex and Gender Information Value Date Recorded Sex Assigned at Not on file Gender Identity Not on file Sexual Orientation Not on file Plan of Treatment Not on file
--- OUTSIDE RECORDS SUMMARY | 2025-09-07 16:58 | XMS_ITS | Clinical Summary ---
Author Organization 175 [facility] Address [address] [place] [address] Phone Care Team Providers Care End Touching Machine Operator Name Role Phone Connor Tesfaye Primary Care Provider +1- [phone] Allergies Active Allergy Reactions Criticality Noted Date [...] Encounters Date Type Department Care Team Description 09/06/2025 2:45 PM EDT Office Visit Orthopedic Surgery - [address] [phone] Leonardo Solo DPM Controlled type 2 diabetes mellitus with diabetic polyneuropathy, without long-term current use of insulin ([facility] V24, [facility] V28) (Primary Dx); Localized edema; Difficulty walking; Arthritis of both feet; Onychomycosis 07/05/2025 2:45 PM EDT Office Visit Orthopedic Surgery - [address] [phone] Leonardo Solo, ASHLYN Controlled type 2 diabetes mellitus with diabetic polyneuropathy, without long-term current use of insulin ([facility] V24, [facility] V28) (Primary Dx); Localized edema; Difficulty walking; Arthritis of both feet; Ulcer of left heel, with fat layer exposed ([facility] V24, [facility] V28) from Last 3 Months Immunizations Immunization Administration Dates Next Due Influenza trivalent, 0.5mL ( Fluzone High-dose) 65yo and older 10/15/2020,08/25/2018 Influenza trivalent, with pr eservative (Fluzone; Afluria) 6mo and older 10/09/2022 Pneumococcal polysaccharide 23 valent (Pneumovax 23) 2yo and older 02/25/2016 Surgical History Surgery Date Site/Laterality Comments OTHER SURGICAL HISTORY 2010 PROCEDURE: HISTORY OTHER; COMMENT: left knee arthroscopic surgery with postop infection, [facility] AORTIC VALVE REPLACEMENT PROCEDURE: HISTORICAL AORTIC VALVE REPL; COMMENT: on coumadin OTHER SURGICAL HISTORY 2002 PROCEDURE: [place] ARTHRD ANT INTERDY CERVCL BELW C2 EA ADDL NTRSP; COMMENT: [facility] Medical History Medical History Date Comments CAD (coronary artery disease) DX :CAD (coronary artery disease) HTN (hypertension) DX:HTN (hyper tension) Type 2 diabetes mellitus wit hout complications ([facility] V24, [facility] V28) DX:Type 2 ally betes mellitus without complications ([facility]) Mixed hyperlipidemia DX:Mixed hy perlipidemia Lumbar radiculopathy [...] PM EST Office Visit Orthopedic Surgery - [place] [address] [place] [phone] Leonardo Solo, ASHLYN [address] [place] [address] Health Maintenance Due Date Last Done Comments [...] Control Test (HGBA1C) 07/05/2025 COVID-19 Vaccine ( - season) 2025 11/20/2021, 05/08/2021, 04/09/2021 Influenza [...] age to complete this topic Insurance MEDICARE [facility] Care Teams End Touching Machine Operator Relationship Specialty Start Date End Date Connor Tesfaye PA [address] [place] [phone] PCP - General 01/23/23
== END 2025-09-07 14:27 | disposition home or self-care (01) ==
LOC: HO.ACS 13:59
PROVIDERS: PCP Physician Assistant; Visit Provider Internal Medicine Medical Oncology
DX: Z79.01 Long term (current) use of anticoagulants (principal)

== ENCOUNTER → 2025-09-07 13:59 | Outpatient (BNVA) | payer MEDICARE, OTHER, SELFPAY | PROVIDERS: PCP Physician Assistant; Visit Provider Internal Medicine Medical Oncology | DX: Z95.2 Presence of prosthetic heart valve (principal); Z79.01 Long term (current) use of anticoagulants; Z51.81 Encounter for therapeutic drug level monitoring | CPT/HCPCS: 85610; 99211 ==

== ENCOUNTER 2025-09-28 14:06 | Outpatient (AMB) | payer MEDICARE, OTHER, SELFPAY ==
[2025-09-28 14:14] LABS: Prothrombin Time Whole Bld POC 11.7 sec (11.1-13.5); ~PT, ~INR - Anti Coag Clinic 1.0 (0.9-1.1)
--- NOTE | 2025-09-28 14:21 | MHC.OFFVISCO ---
Intake Intake Visit Reasons: Anticoagulation Allergies penicillin V Allergy (Unknown, Verified 09/28/25 14:44) hives, rash/tounge edema bupropion (From Wellbutrin) Adverse Reaction (Intermediate, Verified 09/28/25 14:44) GI upset Vicodin Allergy (Unknown, Uncoded 09/28/25 14:17) dizziness Medication List - Last Reconciled 09/28/25 by Yaneth Baugh, CALEB acetaminophen 1,000 mg PO BEDTIME PRN albuterol sulfate 90 mcg/actuation 2 puffs inhalation Q6H PRN atorvastatin 40 mg PO DAILY back brace As directed blood sugar diagnostic (CydcorTouch Ultra Test strips) TEST 3 TIMES DAILY blood-glucose sensor (PixelSteamyle Reid 3 Sensor device) As directed blood-glucose,casino cage supervisor,cont (FreeStyle Reid 3 [place]) As directed carbamide peroxide 6.5% (Debrox) 5 drps otic (ears) BID 7 days cetirizine 10 mg PO DAILY flash glucose scanning reader (ClearFit Reid 2 [place]) 4 times per day flash glucose sensor (FreeStyle Reid 2 Sensor kit) test 4 times per day fluticasone propionate 50 mcg/actuation (Flonase Allergy Relief) 1 spray intranasal DAILY 30 days furosemide 20 mg PO BID insulin degludec (Tresiba FlexTouch U-200 insulin) 60 units (0.3 mL) subcut DAILY insulin lispro (Admelog SoloStar U-100 Insulin lispro) 15 units subcut TID insulin store host cart,BT,G6/L2-cntr (Omnipod 5 Intro Kit(G6/Xxfup1Hklp) subcutaneous cartridge) As directed losartan 50 mg PO DAILY 90 days miscellaneous medical supply (Blood Pressure Cuff) As directed omeprazole 20 mg PO DAILY@0630 pen needle, diabetic As directed warfarin 4 mg See Protocol PO DAILY@1800 warfarin 2 - 4 mg See Protocol PO DAILY Nursing Note INR: 1.0, test repeated and result was still 1.0 out of therapeutic range of 2-3. Medications and supplements reviewed. Pt denies any changes in medications. Pt states he might have missed a dose. ASked pt when the last time he took the warfarin was and he could not remember. He can't remember if he took any of his other meds including insulin. In speaking with him further, he does not know the year, month or day. He does not know the president. States he didn't sleep well last night. No weakness on either side noted. Pt lives alone and drove himself to [facility]. He remembered he had an appointment. He parked his car and walked in. Gait slow but steady. Pt presentation concerning for stroke with his history of mechanical aortic valve replacement and subtherapeutic INR of 1.0. Informed pt he needed to go to the ER for further testing and evaluation. Asked pt if he wanted me to call his son and he said not at this time. Tigertext sent to ER monorail charger operator Ebony and no response. Er called and spoke to Roxane Dos Santos Pt brought to ER by W/C. Report given to plant operations worker. To be determined by ED Patient verbalizing consent to go to the ER. Anti-Coag Initial Assessment Social Hx Patient Tobacco Use Status: Current everyday Tobacco user Tobacco use type: Cigarette Smoking packs per day: 1 Coding Level of Care Code Est Patient Level 1 Diagnoses Current use of anticoagulant therapy Z79.01 Assessment & Plan Assessment & Plan (1) Current use of anticoagulant therapy: Code(s): Z79.01 - local company intermodal truck driver (current) use of anticoagulants Category: Medical
--- OUTSIDE RECORDS SUMMARY | 2025-09-28 19:30 | XMS_ITS | Clinical Summary ---
Author Organization [facility] Address [address] [place] [address] Care Team Providers Care Merchandise Associate Name Role Phone Unavailable Primary Care Provider Unavailabl e Social History Tobacco Use Types Packs/Day Years Used Date Smoking Tobacco: Never Assessed Sex and Gender Information Value Date Recorded Sex Assigned at Not on file Gender Identity Not on file Sexual Orientation Not on file Plan of Treatment Not on file
--- OUTSIDE RECORDS SUMMARY | 2025-09-28 19:30 | XMS_ITS | Clinical Summary ---
Author Organization 175 [facility] Address [address] [place] [address] Phone Care Team Providers Care Plant Protection Supervisor Name Role Phone Connor Tesfaye Primary Care Provider [phone] Allergies Active Allergy Reactions Criticality Noted Date [...] PM EDT Office Visit Orthopedic Surgery - [address] [phone] Leonardo Solo DPM Controlled type 2 diabetes mellitus with diabetic polyneuropathy, without long-term current use of insulin ([facility] V24, [facility] V28) (Primary Dx); Localized edema; Difficulty walking; Arthritis of both feet; Onychomycosis 07/05/2025 2:45 PM EDT Office Visit Orthopedic Surgery - [address] [phone] Leonardo Solo, ASHLYN Controlled type 2 diabetes mellitus with diabetic polyneuropathy, without long-term current use of insulin ([facility] V24, [facility] V28) (Primary Dx); Localized edema; Difficulty walking; Arthritis of both feet; Ulcer of left heel, with fat layer exposed ([facility] V24, [facility] V28) from Last 3 Months Immunizations Immunization Administration Dates Next Due Influenza trivalent, 0.5mL ( Fluzone High-dose) 65yo and older 10/15/2020,08/25/2018 Influenza trivalent, with pr eservative (Fluzone; Afluria) 6mo and older 10/09/2022 Pneumococcal polysaccharide 23 valent (Pneumovax 23) 2yo and older 02/25/2016 Surgical History Surgery Date Site/Laterality Comments OTHER SURGICAL HISTORY 2010 PROCEDURE: HISTORY OTHER; COMMENT: left knee arthroscopic surgery with postop infection, [facility] AORTIC VALVE REPLACEMENT PROCEDURE: HISTORICAL AORTIC VALVE REPL; COMMENT: on coumadin OTHER SURGICAL HISTORY 2002 PROCEDURE: [place] ARTHRD ANT INTERDY CERVCL BELW C2 EA ADDL NTRSP; COMMENT: [facility] Medical History Medical History Date Comments CAD (coronary artery disease) DX :CAD (coronary artery disease) HTN (hypertension) DX:HTN (hyper tension) Type 2 diabetes mellitus wit hout complications ([facility] V24, [facility] V28) DX:Type 2 ally betes mellitus without complications ([facility]) Mixed hyperlipidemia DX:Mixed hy perlipidemia Lumbar radiculopathy [...] PM EST Office Visit Orthopedic Surgery - [place] [id number] [address] [facility] [address] [place] [phone] Leonardo Solo, ASHLYN [address] [facility] [address] [place] [address] Health Maintenance Due Date Last Done Comments [...] age to complete this topic Insurance MEDICARE [facility] Care Teams Plant Protection Supervisor Relationship Specialty Start Date End Date Connor Tesfaye PA [address] [place] [address] PCP - General 01/23/23
== END 2025-09-28 15:08 | disposition home or self-care (01) ==
LOC: HO.ACS 14:06
PROVIDERS: PCP Physician Assistant; Visit Provider Internal Medicine Medical Oncology
DX: Z79.01 Long term (current) use of anticoagulants (principal)

== ENCOUNTER 2025-09-28 14:33 | Emergency (ER) | payer MEDICARE, OTHER, SELFPAY ==
--- NOTE | ~2025-09-28 | CT_ITS ---
CLINICAL HISTORY: resolved confusion? CT head without contrast Comparison: CT/SR - CT HEAD WITHOUT IV CONTRAST - 01/07/24 15:00 EST Findings: No intra-axial mass, midline shift, hydrocephalus, or acute hemorrhage. Age appropriate cerebral volume loss. Patchy low-density within the periventricular and subcortical white matter. There is no sinus or mastoid fluid. The orbits are unremarkable. There is no acute fracture. IMPRESSION: 1. No acute intracranial findings. This document has been electronically signed by: Diana Segovia MD on 09/28/2025 18:20:41
[2025-09-28 14:42] VITALS: BP 158/71; PULSE 74; RESP 16; TEMP 36.3; O2SAT 95; BMI 34.1
--- NOTE | 2025-09-28 14:57 | ECG_ITS ---
Test Reason : neuro symptoms Blood Pressure : */* mmHG Vent. Rate : 59 BPM Atrial Rate : 78 BPM P-R Int : * ms QRS Dur : 138 ms QT Int : 448 ms P-R-T Axes : 63 -2 30 degrees QTcB Int : 443 ms Sinus rhythm with 2nd degree A-V block (Mobitz I) with Premature supraventricular complexes Right bundle branch block Abnormal ECG When compared with ECG of 19-Jun-2025 13:20, No significant changes seen Referred By: Josh Ge Electronically Signed By: MARIO TIRADO
--- NOTE | 2025-09-28 15:01 | ED_ITS ---
HPI - Neuro Symptoms/Deficit General Chief Complaint: Neuro Symptoms/Deficit Stated Complaint: ? Stroke Time Seen by Provider: 09/28/25 16:28 Source: patient, RN notes reviewed and old records reviewed Mode of arrival: wheelchair Limitations: no limitations History of Present Illness HPI Narrative: 74 year-old male with chronic kidney disease, insulin-dependent diabetes mellitus, and a mechanical aortic valve on warfarin. He drove himself to his anticoagulation (Coumadin) clinic earlier today, where staff noted confusion and a reported sub-therapeutic INR and sent him to the ED for evaluation. Patient lives alone. He recalls attending his INR appointment but does not remember why he was sent to the ED. He woke at ~11:30 AM and ate a ham & cheese sandwich with orange juice (late breakfast/early lunch). He has not yet taken his usual nightly insulin dose. Denies sick contacts and rarely goes out. At interview he is alert, oriented to location and month but not to year or current president. He has no physical complaints at this time. Per RN, he was confused more than usual, accompanied by the subtherapeutic INR, concern for potential organic illness. Related Data Home Medications ?Medication ?Instructions ?Recorded ?Confirmed acetaminophen 500 mg capsule 1,000 mg PO BEDTIME PRN F ever Or 07/08/24 09/28/25 Pain furosemide 20 mg tablet 20 mg PO BID 11/21/24 insulin lispro 100 unit/mL 15 unit subcut TID 06/18/25 09/28/25 subcutaneous pen (Admelog SoloStar U-100 Insulin lispro) warfarin 2 mg tablet 4 mg PO DAILY@1800 06/18/25 09/28/25 insulin pump cartridge,auto #1 ea 07/06/25 09/28/25 dose,BT,G6/L2 with controller subcutaneous (Omnipod 5 Intro Kit(G6/[id number]) subcutaneous cartridge) Previous Rx's ?Medication ?Instructions ?Recorded back brace #1 ea 04/09/22 miscellaneous medical supply #1 ea 09/22/22 (Blood Pressure Cuff) flash glucose scanning reader #1 ea 03/02/23 (FreeStyle Reid 2 [place]) blood sugar diagnostic (OneTouch #100 strips 10/04/23 Ultra Test strips) albuterol sulfate 90 mcg/actuation 2 puff inhalation Q 6H PRN for 11/05/23 aerosol inhaler wheezing #8.5 ea cetirizine 10 mg tablet 10 mg PO DAILY #90 tabs 07/11 06/01 flash glucose sensor (FreeStyle #1 ea 10/27/24 Reid 2 Sensor kit) warfarin 2 mg tablet 2 - 4 mg PO DAILY #180 tabs 12/03/24 blood-glucose sensor (FreeStyle #1 ea 03/29/25 Reid 3 Sensor device) blood-glucose,train planner,cont #1 ea 03/29/25 (FreeStyle Reid 3 [place]) pen needle, diabetic 32 gauge x #100 ea 03/29/25 fluticasone propionate 50 1 spray intranasal DAILY 30 days 04/29/25 mcg/actuation nasal #16 grams spray,suspension (Flonase Allergy Relief) carbamide peroxide 6.5 % ear drops 5 drp otic (ears) B ID 7 days #15 mL 06/30/25 (Debrox) atorvastatin 40 mg tablet 40 mg PO DAILY #90 tabs 08/10 04/02 insulin degludec 200 unit/mL (3 60 unit (0.3 mL) subcu t DAILY #9 mL 09/02/25 mL) subcutaneous pen (Tresiba FlexTouch U-200 insulin) omeprazole 20 mg capsule,delayed 20 mg PO DAILY@0630 # 90 caps 09/02/25 release losartan 50 mg tablet 50 mg PO DAILY 90 days #90 t abs 09/04/25 Allergies Allergy/AdvReac Type Severity Reaction Status Date / Time penicillin V Allergy Unknown hives, Verified 09/28/25 14:44 rash/tounge edema bupropion (From Wellbutrin) AdvReac Intermediate GI upset Verified 09/28/25 14:44 Vicodin Allergy Unknown dizziness Uncoded 09/28/25 14:17 Review of Systems 2 Review of Systems: as per HPI, full review of systems performed and negative but for the above mentioned pertinent positives and negatives. * General: Denies recent illness, fevers. * HEENT: Denies headache; denies visual changes (no blurry or double vision). * Cardiovascular: Denies chest pain. * Respiratory: Denies cough or cold symptoms. * Gastrointestinal: Denies nausea, vomiting, abdominal pain; had bowel movement (#2) in waiting room without issue. * Genitourinary: Denies dysuria or hematuria. * Neurologic: Reports confusion about date/president; no focal weakness per patient. [facility] Past Medical History Medical History Lung mass Cerumen impaction COPD (chronic obstructive pulmonary disease) Spondylosis of lumbar spine Diabetic neuropathy Lumbar radiculopathy Obesity Hyperlipidemia LDL goal <70 Diabetes mellitus HTN (hypertension) CAD (coronary artery disease) Surgical History Hx of spinal surgery History of arthroscopy of knee Hx of coronary artery bypass graft History of mechanical aortic valve replacement Family History Family History Father CVD (cardiovascular disease) Mother Diabetes Mental health disorder Social History Social History Household Members: None Housing: House Do you presently have visiting nurse or other home services: No Patient Tobacco Use Status: Current everyday Tobacco user Tobacco use type: Cigarette Cigarette Packs Per Day: 1 Cigarettes Per Day: 20 e-Cigarette/Vaping Use: Never Used Second Hand Smoke Exposure: Yes service: No Current occupational status: retired Current occupational exposures/hazards: No Cognitive needs: Yes (Walker, cane, wheelchair) Hearing needs: No Vision needs: Yes (Reading glasses) Physical Exam 2 Exam: Exam: GENERAL: Chronically ill-appearing, conversant, no acute distress. SKIN: Normal skin color for ethnicity, warm, dry, no rashes noted. HEENT: Normocephalic, atraumatic, no stridor, posterior oropharynx nonerythematous, EOMI. NECK: Soft, supple, full ROM, midline structures nontender, no step-offs, no deformities, no lymphadenopathy. CHEST: Heart regular rate and rhythm, no murmurs, symmetric chest rise and fall. PULMONARY: Clear to auscultation bilaterally, no labored breathing, no wheezes/rhales/ rhonchi. ABDOMINAL: Soft, nondistended, nontender, positive bowel sounds in all quadrants. : Deferred. MUSCULOSKELETAL: Normal tone, full range of motion, no deformities, no peripheral edema. NEURO: Alert and oriented to person, CN II through XII intact, no focal neurologic deficits. PSYCHIATRIC: Flat affect, fluid speech, appropriate demeanor. Vital Signs: Vital Signs: Last Vital Signs Temp 98.4 F 09/28/25 16:27 Pulse 60 09/28/25 16:27 Resp 15 09/28/25 16:27 BP 136/57 L 09/28/25 16:27 Pulse Ox 96 09/28/25 16:27 O2 Del Method Room Air 09/28/25 16:27 BMI result Body Mass Index 34.1 Course Course Course Narrative: RME; 74 yold brought to the ED for INR of 1 and conufsion from coumadin clinic. Unknown last known well. Patient presently NIH Score 0. Patient present memory is intact. Patient know home address,childrens names, place, what he had for breakfast, why he came to the hopsital, car, medical history, and name of nurse. Patient is presently vital signs stable. Patient is presently not confused. Case discussed with Dr. Renee recommends patient have chest head CT scan ordered, but no need to call stroke. Medical Decision Making Medical Decision Making MDM Narrative: 74-year-old male with mild disorientation (year, president) after anticoagulation clinic noted confusion. No focal neurologic deficit on exam; blood glucose elevated; awaiting CT head interpretation. Differential diagnosis for AMS is incredibly broad and includes infection, intracranial process such as hemorrhage, stroke or mass, electrolyte abnormality, hypercarbia, hypoxia, toxic encephalopathy, among many others. Broad-based workup was initiated to further evaluate the etiology of patient's symptoms based on the above exam and history. Problem #1: Altered Mental Status / Mild Disorientation Assessment: 74 year old male Alert, oriented ?2 (place, month), disoriented to year/president. Neurologic exam otherwise non-focal. Etiology unclear; hypoglycemia ruled out; hyperglycemia present but patient asymptomatic. CT head obtained; results pending review. Plan: * Review CT head results when finalized. * Discuss presentation with Coumadin clinic staff to clarify initial concerns. * Reassess gait prior to discharge; if stable and CT negative, anticipate safe discharge home. * Provide strict return precautions for worsening confusion or new neurologic symptoms. Problem #2: Mechanical Aortic Valve on Warfarin (sub-therapeutic INR) Assessment: Patient routinely follows Coumadin clinic; today?s INR sub- therapeutic (exact value unknown). Plan: * Coordinate with Coumadin clinic regarding dosing adjustments. * Ensure patient has transportation and understanding of follow-up plan. Problem #3: Diabetes Mellitus (insulin-dependent) Assessment: Elevated random blood glucose; patient has not yet taken nightly insulin. Plan: * Encourage routine insulin administration tonight as prescribed. * Advise monitoring of blood glucose at home. * Patient is now ambulatory without assistance. States he feels well and is requesting discharge. I feel he has capacity to make decisions though it is concerning that he was confused to the president and year when he 1st arrived in the emergency department. That being said, he is alert, oriented to person and place, normal vital signs, eating and drinking, ambulatory in the emergency department without assistance. I feel he is stable for discharge but would require close outpatient follow up. Encouraged him to follow up with the Coumadin clinic as soon as possible. Discharged in stable and improved condition. Differential Diagnosis Differential Diagnoses: The differential diagnosis associated with the presentation includes (As above) Admission/Observation Consideration of admission/observation: Escalation of care including admission/observation considered Lab Data MDM Lab Attestation statement: I reviewed the patient's lab results. 09/28/25 15:04 09/28/25 15:04 Labs: Lab Results 09/28/25 09/28/25 09/28/25 Range/Units 14:58 15:04 16:35 WBC 7.4 (4.8-10.8) X10*3/uL RBC 5.05 D (4.60-5.80) X10*6/uL Hgb 14.6 D (14.0-18.0) g/dl Hct 42.9 D (42.0-52.0) % MCV 85.0 (80.0-98.0) fL MCH 28.9 (27.0-33.0) pg MCHC 34.0 (31.0-36.0) g/dl RDW 12.8 (11.0-16.0) % Plt Count 193 (160-400) X10*3/uL MPV 10.0 (9.4-12.4) fL Immature Gran % (Auto) 0.5 H (0.0-0.4) % Neut % (Auto) 74.7 H (45-73) % Lymph % (Auto) 15.7 L (20-40) % [place] % (Auto) 7.3 (2-11) % Eos % (Auto) 1.1 (0-4) % Baso % (Auto) 0.7 (0-2) % Lymph # (Auto) 1.2 (1.2-4.9) X10*3/uL [place] # (Auto) 0.5 (0.1-1.2) X10*3/uL Eos # (Auto) 0.1 (0.0-0.4) X10*3/uL Baso # (Auto) 0.1 (0.0-0.2) X10*3/uL Abs Immat Gran (auto) 0.04 H (0.00-0.03) X10*3/uL Absolute Neuts (auto) 5.5 (2.0-8.3) x10*3/uL Absolute Nucleated RBC 0.000 (0.0-0.012) X10*3/uL Nucleated RBC % (auto) 0.0 (0.0-0.2) /100WBC PT 11.5 (11.2-13.5) SEC INR 0.9 (0.9-1.1) APTT 25.8 L (26.7-34.1) SEC VBG pH (7.32-7.43) VBG pCO2 mmHg VBG pO2 mmHg VBG HCO3 (22-26) mmol/L VBG O2 Saturation % VBG Base Excess mmol/L Sodium 134 L (135-145) mmol/L Potassium 5.2 H D (3.3-5.1) mmol/L Chloride 101 (96-108) mmol/L Carbon Dioxide 27 (22-29) mmol/L Anion Gap 11 L (12-20) BUN 21 H (9-16) mg/dL Creatinine 1.29 (0.5-1.4) mg/dL Estim Creat Clear Calc 64.5 Estimated GFR 55 POC Glucose 420 H* (60-115) mg/dL Random Glucose 435 H* (60-115) mg/dL Calcium 9.2 D (8.4-10.2) mg/dL Total Bilirubin 0.4 (0.0-1.0) mg/dL AST 16 (5-37) U/L ALT 15 (0-40) U/L Alkaline Phosphatase 150 H (39-117) U/L Troponin I High Sens 70.3 H (<3.5-35.0) ng/L Total Protein 6.7 (6.5-8.0) g/dL Albumin 3.7 (3.5-5.0) g/dL Beta-Hydroxybutyrate (0.02-0.27) mmol/L Urine Color Yellow Urine Appearance Clear Urine pH 5.5 (5.0-9.0) Ur Specific [place] >= 1.030 H (1.005-1.025) Urine Protein 300 (3+) H (Neg-Trace) mg/dL Urine Glucose (UA) >=1000 H (Negative) mg/dL Urine Ketones Negative (Negative) mg/dL Urine Blood Trace H (Negative) Urine Nitrite Negative (Negative) Ur Leukocyte Esterase Negative (Negative) Urine RBC 0-2 (0-2) /HPF Urine WBC 0-5 (0-5) /HPF Ur Squamous Epith Cells 0-2 (0-2) /HPF Urine Bacteria None Seen (None Seen) Hyaline Casts 0-2 (0-2) /LPF 09/28/25 09/28/25 Range/Units 17:13 17:22 WBC (4.8-10.8) X10*3/uL RBC (4.60-5.80) X10*6/uL Hgb (14.0-18.0) g/dl Hct (42.0-52.0) % MCV (80.0-98.0) fL MCH (27.0-33.0) pg MCHC (31.0-36.0) g/dl RDW (11.0-16.0) % Plt Count (160-400) X10*3/uL MPV (9.4-12.4) fL Immature Gran % (Auto) (0.0-0.4) % Neut % (Auto) (45-73) % Lymph % (Auto) (20-40) % [place] % (Auto) (2-11) % Eos % (Auto) (0-4) % Baso % (Auto) (0-2) % Lymph # (Auto) (1.2-4.9) X10*3/uL [place] # (Auto) (0.1-1.2) X10*3/uL Eos # (Auto) (0.0-0.4) X10*3/uL Baso # (Auto) (0.0-0.2) X10*3/uL Abs Immat Gran (auto) (0.00-0.03) X10*3/uL Absolute Neuts (auto) (2.0-8.3) x10*3/uL Absolute Nucleated RBC (0.0-0.012) X10*3/uL Nucleated RBC % (auto) (0.0-0.2) /100WBC PT (11.2-13.5) SEC INR (0.9-1.1) APTT (26.7-34.1) SEC VBG pH 7.40 (7.32-7.43) VBG pCO2 38 mmHg VBG pO2 53 mmHg VBG HCO3 24 (22-26) mmol/L VBG O2 Saturation 83.0 % VBG Base Excess -0.3 mmol/L Sodium (135-145) mmol/L Potassium (3.3-5.1) mmol/L Chloride (96-108) mmol/L Carbon Dioxide (22-29) mmol/L Anion Gap (12-20) BUN (9-16) mg/dL Creatinine (0.5-1.4) mg/dL Estim Creat Clear Calc Estimated GFR POC Glucose (60-115) mg/dL Random Glucose (60-115) mg/dL Calcium (8.4-10.2) mg/dL Total Bilirubin (0.0-1.0) mg/dL AST (5-37) U/L ALT (0-40) U/L Alkaline Phosphatase (39-117) U/L Troponin I High Sens 67.7 H (<3.5-35.0) ng/L Total Protein (6.5-8.0) g/dL Albumin (3.5-5.0) g/dL Beta-Hydroxybutyrate 0.21 (0.02-0.27) mmol/L Urine Color Urine Appearance Urine pH (5.0-9.0) Ur Specific [place] (1.005-1.025) Urine Protein (Neg-Trace) mg/dL Urine Glucose (UA) (Negative) mg/dL Urine Ketones (Negative) mg/dL Urine Blood (Negative) Urine Nitrite (Negative) Ur Leukocyte Esterase (Negative) Urine RBC (0-2) /HPF Urine WBC (0-5) /HPF Ur Squamous Epith Cells (0-2) /HPF Urine Bacteria (None Seen) Hyaline Casts (0-2) /LPF Radiology Impression Discussion of test interpretation with radiology: I have reviewed the radiologist's reading. Independent Historian Clinical information obtained from an independent historian. History obtained from or confirmed by: Other (Coumadin clinic staff) External Record Review External record reviewed: Inpatient record and Outpatient record Chronic Conditions Patient?s care impacted by: Other (Valve replacement on Coumadin, CKD) Social Determinants Patient?s care significantly limited by Social Determinants of Health including: Problems related to primary support group and Other Social Determinant of Health NIH Stroke Scale Internal: Initial- Upon Arrival Level of Consciousness: Alert Level of Consciousness Questions: Answers both questions correctly Level of Consciousness Commands: Performs both tasks correctly Best Gaze: Normal Visual: No visual loss Facial Palsy: Normal Motor Arm (Right): No drift Motor Arm (Left): No drift Motor Leg (Right): No drift Motor Leg (Left): No drift Limb Ataxia: Absent Sensory: Normal Best Language: No aphasia Dysarthia: Normal Extinction and Inattention: No abnormality Score: 0 Discharge Plan Discharge Clinical Impression: Subtherapeutic international normalized ratio (INR), Acute confusion Patient Disposition: Home, Self-Care Additional Instructions: Please follow up at the Coumadin Clinic as soon as possible. You INR is too low and you need to take a higher dose. You can return to the emergency department for any reason and at any time. Call 911 with any medical emergency. Prescriptions: No Action (DME) FreeElimi Reid 2 [place] Misc See Rx Instructions .Route Qty: 1 0RF Rx Instructions: 4 times per day (DME) OneTouch Ultra Test Strip See Rx Instructions .ROUTE .COMPLEX Qty: 100 3RF Dose Instruction: TEST 3 TIMES DAILY Rx Instructions: TEST 3 TIMES DAILY albuterol sulfate 90 mcg/actuation HFA aerosol inhaler 2 puff inhalation Q6H PRN (Reason: for wheezing) Qty: 8.5 3RF cetirizine 10 mg tablet 10 mg PO DAILY Qty: 90 1RF warfarin 2 mg tablet 2 - 4 mg PO DAILY Qty: 180 3RF Protocol: Dose Management Condition: Thursday (Week One) Dose/Route: 4 mg Instruction: 2 x 2 mg tablets Condition: Thursday Dose/Route: 4 mg Instruction: 2 x 2 mg tablets Condition: Thursday Dose/Route: 4 mg Instruction: 2 x 2 mg tablets Condition: Thursday Dose/Route: 4 mg Instruction: 2 x 2 mg tablets Condition: Dose/Route: 6 mg Instruction: 3 x 2 mg tablets Condition: Thursday Dose/Route: 6 mg Instruction: 3 x 2 mg tablets Condition: Thursday Dose/Route: 6 mg Instruction: 3 x 2 mg tablets Condition: Thursday (Week Two) Dose/Route: 4 mg Instruction: 2 x 2 mg tablets Condition: Thursday Dose/Route: 4 mg Instruction: 2 x 2 mg tablets Condition: Thursday Dose/Route: 4 mg Instruction: 2 x 2 mg tablets Condition: Thursday Dose/Route: 4 mg Instruction: 2 x 2 mg tablets Condition: Dose/Route: 4 mg Instruction: 2 x 2 mg tablets Condition: Thursday Dose/Route: 4 mg Instruction: 2 x 2 mg tablets Condition: Thursday Dose/Route: 4 mg Instruction: 2 x 2 mg tablets Protocol Text: Adjustment Start Date: 09/28/25 INR Value: 1.0 INR Date: 09/28/25 Recheck Date: 10/05/25 fluticasone propionate [Flonase Allergy Relief] 50 mcg/actuation spray,suspension 1 spray intranasal DAILY 30 Days Qty: 16 1RF Rx Instructions: administer into each nostril insulin degludec [Tresiba FlexTouch U-200] 200 unit/mL (3 mL) insulin pen 60 unit subcut DAILY Qty: 9 0RF omeprazole 20 mg capsule,delayed release(DR/EC) 20 mg PO DAILY@0630 Qty: 90 0RF atorvastatin 40 mg tablet 40 mg PO DAILY Qty: 90 2RF losartan 50 mg tablet 50 mg PO DAILY 90 Days Qty: 90 1RF insulin lispro [Admelog SoloStar U-100 Insulin] 100 unit/mL insulin pen 15 unit subcut TID warfarin 2 mg tablet 4 mg PO DAILY@1800 Protocol: Dose Management Condition: Thursday (Week One) Dose/Route: 4 mg Instruction: 2 x 2 mg tablets Condition: Thursday Dose/Route: 4 mg Instruction: 2 x 2 mg tablets Condition: Thursday Dose/Route: 4 mg Instruction: 2 x 2 mg tablets Condition: Thursday Dose/Route: 4 mg Instruction: 2 x 2 mg tablets Condition: Dose/Route: 6 mg Instruction: 3 x 2 mg tablets Condition: Thursday Dose/Route: 6 mg Instruction: 3 x 2 mg tablets Condition: Thursday Dose/Route: 6 mg Instruction: 3 x 2 mg tablets Condition: Thursday (Week Two) Dose/Route: 4 mg Instruction: 2 x 2 mg tablets Condition: Thursday Dose/Route: 4 mg Instruction: 2 x 2 mg tablets Condition: Thursday Dose/Route: 4 mg Instruction: 2 x 2 mg tablets Condition: Thursday Dose/Route: 4 mg Instruction: 2 x 2 mg tablets Condition: Dose/Route: 4 mg Instruction: 2 x 2 mg tablets Condition: Thursday Dose/Route: 4 mg Instruction: 2 x 2 mg tablets Condition: Thursday Dose/Route: 4 mg Instruction: 2 x 2 mg tablets Protocol Text: Adjustment Start Date: 09/28/25 INR Value: 1.0 INR Date: 09/28/25 Recheck Date: 10/05/25 (DME) Blood Pressure Cuff Misc See Rx Instructions .ROUTE .MEDSUPPLY Qty: 1 0RF Rx Instructions: As directed (DME) back brace Misc See Rx Instructions .Route Qty: 1 0RF Rx Instructions: As directed acetaminophen 500 mg capsule 1,000 mg PO BEDTIME PRN (Reason: Fever Or Pain) (DME) FreeStyle Reid 3 Sensor Device See Rx Instructions .Route Qty: 1 3RF Rx Instructions: As directed (DME) FreeStyle Reid 3 [place] Misc See Rx Instructions .Route Qty: 1 1RF Rx Instructions: As directed (DME) pen needle, diabetic 32 gauge x 5/32 needle See Rx Instructions .ROUTE .MEDSUPPLY Qty: 100 3RF Rx Instructions: As directed (DME) FreeStyle Reid 2 Sensor Kit See Rx Instructions .Route Qty: 1 6RF Rx Instructions: test 4 times per day furosemide 20 mg tablet 20 mg PO BID (DME) Omnipod 5 Intro(G6/[id number]) Cartridge See Rx Instructions subcut .MEDSUPPLY Qty: 1 Rx Instructions: As directed Debrox 6.5 % drops 5 drp otic (ears) BID 7 Days Qty: 15 0RF Stand Alone Forms: Against Medical Advice Discharge Date/Time: 09/28/25 19:13 Print Language: [place]
[2025-09-28 15:08] LABS: Glucose, Whole Blood 420 mg/dL (60-115)
[2025-09-28 15:09] LABS: MANUAL DIFF FLAG NO
[2025-09-28 15:12] LABS: Hematocrit 42.9 % (42.0-52.0); Hemoglobin 14.6 g/dl (14.0-18.0); Imm Gran Abs Auto 0.04 X10*3/uL (0.00-0.03); Imm Gran Pct Auto 0.5 % (0.0-0.4); Lymphocytes Absolute Auto 1.2 X10*3/uL (1.2-4.9); Mean Corpuscular HGB Conc 34.0 g/dl (31.0-36.0); Mean Corpuscular Hemoglobin 28.9 pg (27.0-33.0); Mean Corpuscular Volume 85.0 fL (80.0-98.0); NRBC Abs Auto 0.000 X10*3/uL (0.0-0.012); NRBC Pct Auto 0.0 /100WBC (0.0-0.2); Platelet Count 193 X10*3/uL (160-400); Red Blood Count 5.05 X10*6/uL (4.60-5.80); White Blood Count 7.4 X10*3/uL (4.8-10.8)
[2025-09-28 15:32] LABS: INTERNATIONAL NORM RATIO 0.9 (0.9-1.1); Prothrombin Time 11.5 SEC (11.2-13.5); Troponin-I High Sensitivity 70.3 ng/L (<3.5-35.0)
[2025-09-28 15:35] LABS: Partial Thromboplastin Time 25.8 SEC (26.7-34.1)
[2025-09-28 15:38] LABS: Alanine Aminotransferase 15 U/L (0-40); Albumin Level 3.7 g/dL (3.5-5.0); Alkaline Phosphatase 150 U/L (39-117); Anion Gap 11 (12-20); Aspartate Amino Transferase 16 U/L (5-37); Blood Urea Nitrogen 21 mg/dL (9-16); Calcium 9.2 mg/dL (8.4-10.2); Carbon Dioxide 27 mmol/L (22-29); Chloride 101 mmol/L (96-108); Creatinine Clr Calc Pharmacy 64.5; Estimated Glomerular Filt Rate 55; Potassium 5.2 mmol/L (3.3-5.1); Sodium 134 mmol/L (135-145); Total Protein 6.7 g/dL (6.5-8.0)
[2025-09-28 16:27] VITALS: BP 136/57; PULSE 60; RESP 15; TEMP 36.9; O2SAT 96
[2025-09-28 16:49] LABS: Appearance Urine Clear; Glucose Urine UA >=1000 mg/dL (Negative); PH 5.5 (5.0-9.0); Specific Gravity - Urine >= 1.030 (1.005-1.025); UMIC TRIGGER UACC YES
[2025-09-28 17:27] LABS: VBG HCO3 24 mmol/L (22-26); VBG O2 % Saturation 83.0 %
[2025-09-28 17:29] LABS: Venous Blood Gas Refer to POC result
[2025-09-28 17:46] LABS: Troponin-I High Sensitivity 67.7 ng/L (<3.5-35.0)
== END 2025-09-28 19:13 | disposition home or self-care (01) ==
PROVIDERS: Physician Assistant; Emergency Provider Emergency Medicine; PCP Physician Assistant
DX: R79.1 Abnormal coagulation profile (principal); R41.0 Disorientation, unspecified; E11.22 Type 2 diabetes mellitus with diabetic chronic kidney disease; I12.9 Hypertensive chronic kidney disease with stage 1 through stage 4 chronic kidney disease, or unspecified chronic kidney disease; N18.9 Chronic kidney disease, unspecified; Z95.2 Presence of prosthetic heart valve; Z79.4 Long term (current) use of insulin; Z79.899 Other long term (current) drug therapy; Z79.01 Long term (current) use of anticoagulants
CPT/HCPCS: 36415; 70450; 80053; 81001; 82010; 82803; 82947; 84484; 85025; 85610; 85730; 93005; 99211; 99285

== ENCOUNTER → 2025-09-28 14:57 | Outpatient (BNV) | payer MEDICARE, OTHER, SELFPAY | PROVIDERS: Emergency Provider Emergency Medicine; PCP Physician Assistant; Visit Provider Internal Medicine | DX: I44.1 Atrioventricular block, second degree (principal); I49.3 Ventricular premature depolarization; I45.10 Unspecified right bundle-branch block | CPT/HCPCS: 93010 ==

== ENCOUNTER → 2025-09-28 15:27 | Outpatient (BNV) | payer MEDICARE, OTHER, SELFPAY | PROVIDERS: Emergency Provider Emergency Medicine; PCP Physician Assistant; Visit Provider Radiology Diagnostic Radiology | DX: Z03.89 Encounter for observation for other suspected diseases and conditions ruled out (principal) | CPT/HCPCS: 70450 ==

== ENCOUNTER 2025-10-18 09:49 | Inpatient (IN) | payer MEDICARE, OTHER, SELFPAY ==
--- NOTE | 2025-10-18 | ECG_ITS ---
Test Reason : Heart block Blood Pressure : */* mmHG Vent. Rate : 68 BPM Atrial Rate : * BPM P-R Int : * ms QRS Dur : 142 ms QT Int : 436 ms P-R-T Axes : * -22 20 degrees QTcB Int : 463 ms Normal sinus rhythm with with 2nd degree A-V block (Mobitz I) Right bundle branch block Abnormal ECG When compared with ECG of 18-Oct-2025 18:25, AV dissociation is not seen Referred By: Bonny Al Electronically Signed By: FLORES MARTINS MD
--- NOTE | ~2025-10-18 | CT_ITS ---
EXAMINATION: CT HEAD WITHOUT CONTRAST CLINICAL INFORMATION: confusion COMPARISON: September 28, 2025 TECHNIQUE: Contiguous axial imaging was performed from the skull base to vertex without intravenous administration of contrast. This CT examination was performed using dose optimization techniques as appropriate, variously including the following: *Automated exposure control *Adjustment of mA and/or kV according to patient size (this includes techniques or standardized protocols for targeted exams where dose is matched to indication/reason for exam; i.e. extremities or head) *Use of iterative reconstruction technique DLP: 782 mGy-cm FINDINGS: No acute intracranial hemorrhage, mass effect, midline shift, hydrocephalus or herniation. Zhang-white matter differentiation is normal. Prominence of the extra-axial CSF spaces cerebral sulci and ventricles. Sellar/suprasellar region demonstrated no gross masses. Posterior cranial fossa contents demonstrated no acute hemorrhage or mass effect. Normal position of the cerebellar tonsils. No air-fluid levels in the paranasal sinuses. Tympanic cavities and mastoid cells are aerated. Calcified plaques in the cavernous supracavernous segments both ICAs. CT/CT head/brain wo IV con IMPRESSION: No acute intracranial hemorrhage. Bifrontal parietal lobe atrophy. Electronically signed by: Kris Oneill MD 10/18/2025 11:11 AM EST
--- NOTE | ~2025-10-18 | XR_ITS ---
EXAMINATION: XR CHEST CLINICAL INFORMATION: confusion, dizziness COMPARISON: June 27, 2025. TECHNIQUE: PA view of the chest was obtained. FINDINGS: Pulmonary reticular pattern. No gross consolidation pleural effusion or pneumothorax. No hyperinflation. Sternal wires. Metallic heart valve prosthesis. Metallic plate lower cervical spine no fully evaluated. Level thoracolumbar lumbar spondylosis. XR/XR chest 1V IMPRESSION: Chronic interstitial lung disease. Electronically signed by: Kris Oneill MD 10/18/2025 10:09 AM KARTHIK FU
[2025-10-18 09:55] VITALS: BP 166/80; PULSE 89; RESP 20; TEMP 35.9; O2SAT 97; BMI 32.8
--- NOTE | 2025-10-18 09:57 | ED_ITS ---
HPI - General Adult General Chief complaint: Dizziness Stated complaint: Dizziness Time Seen by Provider: 10/18/25 10:52 History of Present Illness ED Provider: Cleve Yarbrough MD HPI narrative: [age] male with aortic valve replacement diabetes unclear medication adherence with greater than 72 hours of feeling subjectively as a fall unsteady gait. Patient does not appear to reliably report medication adherence no falls but he has had near falls due to feeling unsteady. Denies headache or focal deficits poor historian overall Related Data Home Medications ?Medication ?Instructions ?Recorded ?Confirmed warfarin 2 mg tablet 2 mg PO DAILY@1800 06/18/25 10/18/25 insulin pump cartridge,auto #1 ea 07/06/25 09/28/25 dose,BT,G6/L2 with controller subcutaneous (Omnipod 5 Intro Kit(G6/[id number]) subcutaneous cartridge) Previous Rx's ?Medication ?Instructions ?Recorded back brace #1 ea 04/09/22 miscellaneous medical supply #1 ea 09/22/22 (Blood Pressure Cuff) flash glucose scanning reader #1 ea 03/02/23 (FreeStyle Reid 2 Irving) blood sugar diagnostic (OneTouch #100 strips 10/04/23 Ultra Test strips) flash glucose sensor (FreeStyle #1 ea 10/27/24 Reid 2 Sensor kit) blood-glucose sensor (FreeStyle #1 ea 03/29/25 Reid 3 Sensor device) blood-glucose,gravel hauler,cont #1 ea 03/29/25 (FreeStyle Reid 3 Irving) pen needle, diabetic 32 gauge x #100 ea 03/29/25 omeprazole 20 mg capsule,delayed 20 mg PO DAILY@0630 # 90 caps 09/02/25 release Allergies Allergy/AdvReac Type Severity Reaction Status Date / Time penicillin V Allergy Unknown hives, Verified 10/18/25 10:00 rash/tounge edema bupropion (From Wellbutrin) AdvReac Intermediate GI upset Verified 10/18/25 10:00 Vicodin Allergy Unknown dizziness Uncoded 09/28/25 14:17 [facility] Past Medical History Medical History Lung mass Cerumen impaction COPD (chronic obstructive pulmonary disease) Spondylosis of lumbar spine Diabetic neuropathy Lumbar radiculopathy Obesity Hyperlipidemia LDL goal <70 Diabetes mellitus HTN (hypertension) CAD (coronary artery disease) Surgical History Hx of spinal surgery History of arthroscopy of knee Hx of coronary artery bypass graft History of mechanical aortic valve replacement Family History Family History Father CVD (cardiovascular disease) Mother Diabetes Mental health disorder Social History Social History Household Members: None Housing: House Do you presently have visiting nurse or other home services: No Patient Tobacco Use Status: Never used Tobacco Tobacco use type: Cigarette Cigarette Packs Per Day: 1 Cigarettes Per Day: 20 Smoked in Last 30 Days: Yes e-Cigarette/Vaping Use: Never Used Second Hand Smoke Exposure: Yes Currently Displaying Signs/Symptoms of Drug Intoxication Withdrawal: No Are you made to feel afraid or neglected: No Advance Directives: No Advance Directives Information Provided: Yes Do you have a plan to hurt others: No Plan Recently lost weight without trying: No How much weight loss: Not applicable Eating poorly because of decreased appetite: No Nutrition screen score: 0 Nutrition Risks: No Nutritional Risk Poor oral hygiene: No service: No Current occupational status: retired Current occupational exposures/hazards: No Cognitive needs: Yes (Walker, cane, wheelchair) Hearing needs: No Vision needs: Yes (Reading glasses) Physical Exam ED Exam Exam: GENERAL: Well appearing. No apparent distress. Alert. HEAD/NECK: Normal to inspection. Neck supple. No cervical lymphadenopathy. EYES: Normal to inspection. Sclera non-icteric. ENMT: External nose normal. RESPIRATORY: Respiratory effort normal. Lungs clear to auscultation bilaterally. CARDIOVASCULAR: Regular rate. Normal rhythm. No murmur. No rubs. Sternotomy scar murmur present GI: Soft, non-tender, non-distended. No rebound or guarding. No masses palpable. No hepatosplenomegaly. SKIN: No jaundice. NEUROLOGICAL: Alert. PSYCHIATRIC: Alert. Appearance appropriate for situation. Attitude cooperative. OTHER: Comprehensive Neuro exam: Face symmetric, tongue midline, strong symmetric eye closure, pupils symmetric and reactive to light, intact sensation to the face throughout, intact strong face deviation and shoulder shrug. Sensation intact to light touch throughout * 5 out of 5 strength in bilateral upper extremities, 5 and 5 strength in lower extremities * Patient's gait assessment suggests occasional ataxia leaning to the right side near fall on 1 or 2 occasions Vital Signs: Vital Signs - 24 hr 10/18/25 09:55 10/18/25 14:35 10/18/25 15:23 Temperature 96.7 F L 97.7 F 97.6 F Pulse Rate 89 63 60 Respiratory Rate 20 16 18 Blood Pressure 166/80 H 126/68 124/78 Pulse Oximetry 97 98 97 Oxygen Delivery Method Room Air Room Air Room Air 10/18/25 19:54 10/18/25 21:12 10/18/25 23:22 Temperature 96.9 F 97.7 F 98.0 F Pulse Rate 74 67 65 Respiratory Rate 17 17 17 Blood Pressure 117/68 108/56 L 99/57 L Pulse Oximetry 95 97 94 Oxygen Delivery Method Room Air Room Air Room Air 10/19/25 00:48 10/19/25 03:22 10/19/25 07:39 Temperature 98.5 F 97.9 F Pulse Rate 69 68 Respiratory Rate 18 20 Blood Pressure 108/62 150/70 H 137/64 Pulse Oximetry 97 94 Oxygen Delivery Method Room Air Room Air BMI result Body Mass Index 32.8 NIH Stroke Scale Internal: Initial- Upon Arrival Time: 11:37 Level of Consciousness: Alert Level of Consciousness Questions: Answers both questions correctly Level of Consciousness Commands: Performs both tasks correctly Best Gaze: Normal Visual: No visual loss Facial Palsy: Normal Motor Arm (Right): No drift Motor Arm (Left): No drift Motor Leg (Right): No drift Motor Leg (Left): No drift Limb Ataxia: Present in one limb Sensory: Normal Best Language: No aphasia Dysarthia: Normal Extinction and Inattention: No abnormality Score: 1 Course Course Course Narrative: Rapid medical examination performed in triage by Beatriz Romero PA-C: Patient is a 74 year old assigned male at presenting to the emergency department with confusion and dizziness. Detailed physical exam and review of systems are deferred to the machine hose cutter. EKG, labs, imaging ordered. Patient placed back in the waiting room pending room availability and results. Medications Administered Generic Name Dose Route Start Last Admin Trade Name Freq PRN Reason Stop Dose Admin Acetaminophen 650 mg 10/18/25 12:34 10/19/25 10:37 Acetaminophen 325 Mg Tablet PO 650 mg Q6H PRN Administration Pain, Mild 1-3,fever,headache Enoxaparin Sodium 100 mg 10/19/25 10:30 10/22/25 11:22 Enoxaparin Sodium 100 Mg/Ml Syringe SUBCUT 100 mg Q12H KALEY Administration Insulin Human Lispro 0 unit 10/20/25 11:30 10/22/25 11:23 Insulin Lispro 100 Unit/Ml 3 Ml Vial SUBCUT 10 unit QIDACHS [facility] Administration Protocol Omeprazole 20 mg 10/19/25 06:30 10/22/25 05:28 Omeprazole 20 Mg Capsule.Dr PO 20 mg DAILY@0630 [facility] Administration Sodium Chloride 3 ml 10/18/25 16:00 10/22/25 08:44 0.9 % Sodium Chloride Flush 3 Ml Syringe IVFLUSH 3 ml QSHIFT [facility] Administration Discontinued Medications Generic Name Dose Route Start Last Admin Trade Name Freq PRN Reason Stop Dose Admin Enoxaparin Sodium 160 mg 10/18/25 11:52 10/18/25 13:25 Enoxaparin Sodium 80 Mg/0.8 Ml Syringe 1.5 mg/kg (160 mg) 10/18/25 11:53 160 mg SUBCUT Administration ONCE ONE Heparin Sodium/Sodium Chloride 25,000 unit in 250 mls @ 0 mls/hr 10/19/25 00:00 10/19/25 10:43 Heparin Sodium,Porcine/1/2ns IVCONT Infused .Q0M [facility] Titration Protocol Per Protocol Insulin Glargine 6 unit 10/18/25 21:00 10/21/25 21:13 Insulin Glargine,Hum.Rec.Anlog 100 Unit/Ml 10 Ml Vial SUBCUT 6 unit BEDTIME [facility] Administration Insulin Human Lispro 0 unit 10/18/25 16:30 10/19/25 17:19 Insulin Lispro 100 Unit/Ml 3 Ml Vial SUBCUT 10/19/25 16:31 4 unit QIDACHS [facility] Administration Protocol Warfarin Sodium 2 mg 10/18/25 18:00 10/18/25 17:25 Warfarin Sodium 2 Mg Tablet PO 2 mg DAILY@1800 [facility] Administration Warfarin Sodium 3 mg 10/19/25 18:00 10/21/25 16:43 Warfarin Sodium 3 Mg Tablet PO 3 mg DAILY@1800 [facility] Administration Medical Decision Making Medical Decision Making MDM Narrative: Medical Decision Making: [age] aortic valve replacement, on warfarin but poor historian unlikely adherent warfarin. He has had greater than 72 hours of poorly characterized unsteady gait subjective dizziness. Denies headache no head strike chest pain difficulty breathing cough or fever. Patient does have some subtle ataxia leaning to the right on ambulation test. Otherwise reassuring neuro exam. You got a 1 on the stroke scale for this. Plain head CT non actionable. Given the low stroke scale and at least 3 days out from symptom onset no indication for emergent CT angiographic imaging. Patient would benefit from telemetry, anticoagulation bridging until warfarin/INR is therapeutic. And complete stroke rule out with MR as this could be posterior circulation CVA Preliminary Favored Differential Diagnosis: CVA, deconditioning, dysrhythmia, a deepak additional considered etiologies Testing Interpreted Independently: ?ECG: Right bundle-branch block, sinus rhythm. No ischemic changes Radiology or Lab testing Results Reviewed: ?See below for details Consults: ?See below for details Independent Historians/External Chart Reviews: ?See below for details Social Determinants of Health Impacting MDM/Planning: ?See below for details Lab Data 10/19/25 06:37 10/19/25 06:37 Labs: Lab Results 10/18/25 10/18/25 10/18/25 Range/Units 10:32 11:04 17:06 WBC 7.1 (4.8-10.8) X10*3/uL RBC 4.99 (4.60-5.80) X10*6/uL Hgb 14.7 (14.0-18.0) g/dl Hct 42.3 (42.0-52.0) % MCV 84.8 (80.0-98.0) fL MCH 29.5 (27.0-33.0) pg MCHC 34.8 (31.0-36.0) g/dl RDW 12.7 (11.0-16.0) % Plt Count 146 L (160-400) X10*3/uL MPV 10.9 (9.4-12.4) fL Immature Gran % (Auto) 0.3 (0.0-0.4) % Neut % (Auto) 79.7 H (45-73) % Lymph % (Auto) 12.6 L (20-40) % [place] % (Auto) 5.8 (2-11) % Eos % (Auto) 1.0 (0-4) % Baso % (Auto) 0.6 (0-2) % Lymph # (Auto) 0.9 L (1.2-4.9) X10*3/uL [place] # (Auto) 0.4 (0.1-1.2) X10*3/uL Eos # (Auto) 0.1 (0.0-0.4) X10*3/uL Baso # (Auto) 0.0 (0.0-0.2) X10*3/uL Abs Immat Gran (auto) 0.02 (0.00-0.03) X10*3/uL Absolute Neuts (auto) 5.7 (2.0-8.3) x10*3/uL Absolute Nucleated RBC 0.000 (0.0-0.012) X10*3/uL Nucleated RBC % (auto) 0.0 (0.0-0.2) /100WBC PT 14.7 H D (11.2-13.5) SEC INR 1.2 H (0.9-1.1) aPTT Heparin Protocol (53-77.9) SEC Sodium 135 (135-145) mmol/L Potassium 4.4 (3.3-5.1) mmol/L Chloride 106 (96-108) mmol/L Carbon Dioxide 22 (22-29) mmol/L Anion Gap 11 L (12-20) BUN 15 (9-16) mg/dL Creatinine 1.25 (0.5-1.4) mg/dL Estim Creat Clear Calc 63.4 Estimated GFR 57 POC Glucose 319 H (60-115) mg/dL Random Glucose 339 H (60-115) mg/dL Estimat Average Glucose 306 mg/dL Hemoglobin A1c % 12.3 H (<6.0) % Calcium 8.4 D (8.4-10.2) mg/dL Magnesium 1.9 (1.6-2.6) mg/dL Total Bilirubin 0.7 (0.0-1.0) mg/dL AST 21 (5-37) U/L ALT 9 (0-40) U/L Alkaline Phosphatase 139 H (39-117) U/L Ammonia 24 (13-55) umol/L Troponin I High Sens 58.0 H (<3.5-35.0) ng/L NT-Pro-B Natriuret Pep 465.2 H (<300) pg/mL Total Protein 6.0 L (6.5-8.0) g/dL Albumin 3.6 (3.5-5.0) g/dL Salicylates < 5.0 L (15-30) mg/dL Acetaminophen < 3 (<30) mcg/mL A.phagocytophil DNA PCR NOT DETECTED (NOT DETECTED) Babesia microti DNA PCR NOT DETECTED (NOT DETECTED) Borrelia sp DNA (PCR) NOT DETECTED (NOT DETECTED) Lyme Screen IgG & IgM <0.90 index Lyme Progressive Test TNP Borrelia miyamotoi (PCR) NOT DETECTED (NOT DETECTED) E.chaffeensis DNA (PCR) NOT DETECTED (NOT DETECTED) Influenza Type A (PCR) NEGATIVE (Negative) Influenza Type B (PCR) NEGATIVE (Negative) RSV RNA Qual (PCR) NEGATIVE (Negative) SARS-CoV-2 RNA (RT-PCR) NEGATIVE (Negative) Tick-borne Disease PCR SEE NOTE 10/18/25 10/18/25 10/18/25 Range/Units 20:10 20:13 21:22 WBC (4.8-10.8) X10*3/uL RBC (4.60-5.80) X10*6/uL Hgb (14.0-18.0) g/dl Hct (42.0-52.0) % MCV (80.0-98.0) fL MCH (27.0-33.0) pg MCHC (31.0-36.0) g/dl RDW (11.0-16.0) % Plt Count (160-400) X10*3/uL MPV (9.4-12.4) fL Immature Gran % (Auto) (0.0-0.4) % Neut % (Auto) (45-73) % Lymph % (Auto) (20-40) % [place] % (Auto) (2-11) % Eos % (Auto) (0-4) % Baso % (Auto) (0-2) % Lymph # (Auto) (1.2-4.9) X10*3/uL [place] # (Auto) (0.1-1.2) X10*3/uL Eos # (Auto) (0.0-0.4) X10*3/uL Baso # (Auto) (0.0-0.2) X10*3/uL Abs Immat Gran (auto) (0.00-0.03) X10*3/uL Absolute Neuts (auto) (2.0-8.3) x10*3/uL Absolute Nucleated RBC (0.0-0.012) X10*3/uL Nucleated RBC % (auto) (0.0-0.2) /100WBC PT (11.2-13.5) SEC INR (0.9-1.1) aPTT Heparin Protocol (53-77.9) SEC Sodium (135-145) mmol/L Potassium (3.3-5.1) mmol/L Chloride (96-108) mmol/L Carbon Dioxide (22-29) mmol/L Anion Gap (12-20) BUN (9-16) mg/dL Creatinine (0.5-1.4) mg/dL Estim Creat Clear Calc Estimated GFR POC Glucose 223 H (60-115) mg/dL Random Glucose (60-115) mg/dL Estimat Average Glucose mg/dL Hemoglobin A1c % (<6.0) % Calcium (8.4-10.2) mg/dL Magnesium (1.6-2.6) mg/dL Total Bilirubin (0.0-1.0) mg/dL AST (5-37) U/L ALT (0-40) U/L Alkaline Phosphatase (39-117) U/L Ammonia (13-55) umol/L Troponin I High Sens 59.2 H (<3.5-35.0) ng/L NT-Pro-B Natriuret Pep (<300) pg/mL Total Protein (6.5-8.0) g/dL Albumin (3.5-5.0) g/dL Salicylates (15-30) mg/dL Acetaminophen (<30) mcg/mL A.phagocytophil DNA PCR NOT DETECTED (NOT DETECTED) Babesia microti DNA PCR NOT DETECTED (NOT DETECTED) Borrelia sp DNA (PCR) NOT DETECTED (NOT DETECTED) Lyme Screen IgG & IgM index Lyme Progressive Test Borrelia miyamotoi (PCR) NOT DETECTED (NOT DETECTED) E.chaffeensis DNA (PCR) NOT DETECTED (NOT DETECTED) Influenza Type A (PCR) (Negative) Influenza Type B (PCR) (Negative) RSV RNA Qual (PCR) (Negative) SARS-CoV-2 RNA (RT-PCR) (Negative) Tick-borne Disease PCR SEE NOTE 10/18/25 10/19/25 10/19/25 Range/Units 23:45 06:37 07:17 WBC 6.3 6.1 (4.8-10.8) X10*3/uL RBC 4.70 4.67 (4.60-5.80) X10*6/uL Hgb 13.8 L 13.6 L (14.0-18.0) g/dl Hct 39.5 L 39.4 L (42.0-52.0) % MCV 84.0 84.4 (80.0-98.0) fL MCH 29.4 29.1 (27.0-33.0) pg MCHC 34.9 34.5 (31.0-36.0) g/dl RDW 13.0 13.0 (11.0-16.0) % Plt Count 181 149 L (160-400) X10*3/uL MPV 10.4 10.4 (9.4-12.4) fL Immature Gran % (Auto) (0.0-0.4) % Neut % (Auto) (45-73) % Lymph % (Auto) (20-40) % [place] % (Auto) (2-11) % Eos % (Auto) (0-4) % Baso % (Auto) (0-2) % Lymph # (Auto) (1.2-4.9) X10*3/uL [place] # (Auto) (0.1-1.2) X10*3/uL Eos # (Auto) (0.0-0.4) X10*3/uL Baso # (Auto) (0.0-0.2) X10*3/uL Abs Immat Gran (auto) (0.00-0.03) X10*3/uL Absolute Neuts (auto) (2.0-8.3) x10*3/uL Absolute Nucleated RBC 0.000 0.000 (0.0-0.012) X10*3/uL Nucleated RBC % (auto) 0.0 0.0 (0.0-0.2) /100WBC PT 15.5 H 16.1 H (11.2-13.5) SEC INR 1.3 H 1.3 H (0.9-1.1) aPTT Heparin Protocol 34.1 L 81.3 H D (53-77.9) SEC Sodium 139 (135-145) mmol/L Potassium 3.6 (3.3-5.1) mmol/L Chloride 110 H (96-108) mmol/L Carbon Dioxide 23 (22-29) mmol/L Anion Gap 10 L (12-20) BUN 20 H (9-16) mg/dL Creatinine 1.23 (0.5-1.4) mg/dL Estim Creat Clear Calc 64.4 Estimated GFR 58 POC Glucose 112 (60-115) mg/dL Random Glucose 110 (60-115) mg/dL Estimat Average Glucose mg/dL Hemoglobin A1c % (<6.0) % Calcium 8.5 (8.4-10.2) mg/dL Magnesium (1.6-2.6) mg/dL Total Bilirubin (0.0-1.0) mg/dL AST (5-37) U/L ALT (0-40) U/L Alkaline Phosphatase (39-117) U/L Ammonia (13-55) umol/L Troponin I High Sens (<3.5-35.0) ng/L NT-Pro-B Natriuret Pep (<300) pg/mL Total Protein (6.5-8.0) g/dL Albumin (3.5-5.0) g/dL Salicylates (15-30) mg/dL Acetaminophen (<30) mcg/mL A.phagocytophil DNA PCR (NOT DETECTED) Babesia microti DNA PCR (NOT DETECTED) Borrelia sp DNA (PCR) (NOT DETECTED) Lyme Screen IgG & IgM index Lyme Progressive Test Borrelia miyamotoi (PCR) (NOT DETECTED) E.chaffeensis DNA (PCR) (NOT DETECTED) Influenza Type A (PCR) (Negative) Influenza Type B (PCR) (Negative) RSV RNA Qual (PCR) (Negative) SARS-CoV-2 RNA (RT-PCR) (Negative) Tick-borne Disease PCR Discharge Plan Discharge Clinical Impression: Dizziness Patient Disposition: Admitted As Inpatient Interventions: Admission Worksheet (ED) Last Done: 10/18/25 13:30 Discharge Date/Time: 10/18/25 14:07
--- NOTE | 2025-10-18 09:59 | ECG_ITS ---
Test Reason : sob Blood Pressure : */* mmHG Vent. Rate : 77 BPM Atrial Rate : 90 BPM P-R Int : * ms QRS Dur : 128 ms QT Int : 444 ms P-R-T Axes : 61 -11 18 degrees QTcB Int : 502 ms Normal sinus rhythm with 1st degree A-V block with AV Wenkebach Right bundle branch block Abnormal ECG When compared with ECG of 28-Sep-2025 15:15, QT has lengthened Referred By: Beatriz Romero Electronically Signed By: FLORES MARTINS MD
[2025-10-18 10:46] LABS: MANUAL DIFF FLAG NO
[2025-10-18 10:48] LABS: Hematocrit 42.3 % (42.0-52.0); Hemoglobin 14.7 g/dl (14.0-18.0); Imm Gran Abs Auto 0.02 X10*3/uL (0.00-0.03); Imm Gran Pct Auto 0.3 % (0.0-0.4); Lymphocytes Absolute Auto 0.9 X10*3/uL (1.2-4.9); Mean Corpuscular HGB Conc 34.8 g/dl (31.0-36.0); Mean Corpuscular Hemoglobin 29.5 pg (27.0-33.0); Mean Corpuscular Volume 84.8 fL (80.0-98.0); NRBC Abs Auto 0.000 X10*3/uL (0.0-0.012); NRBC Pct Auto 0.0 /100WBC (0.0-0.2); Platelet Count 146 X10*3/uL (160-400); Red Blood Count 4.99 X10*6/uL (4.60-5.80); White Blood Count 7.1 X10*3/uL (4.8-10.8)
[2025-10-18 10:55] LABS: Ammonia 24 umol/L (13-55)
[2025-10-18 11:03] LABS: Acetaminophen LAB < 3 mcg/mL (<30); Salicylate < 5.0 mg/dL (15-30)
[2025-10-18 11:11] LABS: NT Pro B Type Natriuretic Pept 465.2 pg/mL (<300)
[2025-10-18 11:12] LABS: Troponin-I High Sensitivity 58.0 ng/L (<3.5-35.0)
[2025-10-18 11:22] LABS: INTERNATIONAL NORM RATIO 1.2 (0.9-1.1); Prothrombin Time 14.7 SEC (11.2-13.5)
[2025-10-18 11:23] LABS: Resp Syncy Virus RNA Qual PCR NEGATIVE (Negative); SARS COV2 PCR INHOUSE NEGATIVE (Negative)
[2025-10-18 11:28] LABS: Alanine Aminotransferase 9 U/L (0-40); Albumin Level 3.6 g/dL (3.5-5.0); Alkaline Phosphatase 139 U/L (39-117); Anion Gap 11 (12-20); Aspartate Amino Transferase 21 U/L (5-37); Blood Urea Nitrogen 15 mg/dL (9-16); Calcium 8.4 mg/dL (8.4-10.2); Carbon Dioxide 22 mmol/L (22-29); Chloride 106 mmol/L (96-108); Creatinine Clr Calc Pharmacy 63.4; Estimated Glomerular Filt Rate 57; Magnesium 1.9 mg/dL (1.6-2.6); Potassium 4.4 mmol/L (3.3-5.1); Sodium 135 mmol/L (135-145); Total Protein 6.0 g/dL (6.5-8.0)
[2025-10-18 14:15] VITALS: BMI 33.7
[2025-10-18 14:35] VITALS: BP 126/68; PULSE 63; RESP 16; TEMP 36.5; O2SAT 98
--- NOTE | 2025-10-18 14:57 | PHA.MEDREC ---
Pharmacy Consult ? Medication Reconciliation Pharmacy has completed the medication reconciliation. Pt states he has lost his memory, and cannot remember his medications. Spoke to son, lives in [place], [place], and has no information regarding medications. Pt says he has no taken his medications in at least 1 -2 months. Pt could only verify warfarin 2mg one tablet daily and Prilosec daily. Call warfarin provider, Javed Tesfaye's office at [phone], left a high priority message for the warfarin schedule, will update once office contacts us. Medications removed from med list: Atrovastatin 40mg QD Debrox 1 gtt BID Zyrtec 10mg QD Flonase 1 spray intranasal QD Tresiba 200 units/mL 60 units QD Admelog 15 units TID losartan 50mg QD Pt states they all sound familiar, but has not taken the above in months.
[2025-10-18 15:23] VITALS: BP 124/78; PULSE 60; RESP 18; TEMP 36.4; O2SAT 97
--- NOTE | 2025-10-18 15:30 | HO.SKINPHOTO ---
Location: Location: Location:
[2025-10-18] MEDS: 0.9 % Sodium Chloride Flush 3 ML SYRINGE IVFLUSH ×2 (16:09→22:27)
--- NOTE | 2025-10-18 16:35 | P.HPHOSP_ITS ---
History of Present Illness Date of Service: 10/18/25 Chief Complaint: acute confusion and dizziness Pt with medical history of diabetes, ckd, mechanical valve on coumadin, cad, HTN, diabetic neuropathy, HLD who presented to ED with c/o dizziness per ed note. Upon my encounter with pt, he states that he drove to hospital but can not remember why did he come. He states that he woke up this am, took shower, changed and then he can not remember what happened after that or what made him come to hospital. He lives alone at home. He denies any fever, chills, nausea, vomiting, urinary sx, abd pain, RAYMUNDO, LOC, focal weakness, chest pain or sob. Pt presented to ed with similar complaint last month as well. Review of Systems 2 Review of Systems: Pt denies any headaches, vision changes, N/V/D, abd pain, urinary sx, chest pain, sob, focal weakness. +ve for dizziness intermittent and unste ezra gait at times Constitutional: Constitutional: Reports as per HPI Cardiovascular: Cardiovascular: Reports as per HPI Respiratory: Respiratory: Reports as per HPI Gastrointestinal: Gastrointestinal: Reports as per HPI Neurologic: Reports system reviewed and no additional complaints, except as documented PMFSH Medical History Lung mass Cerumen impaction COPD (chronic obstructive pulmonary disease) Spondylosis of lumbar spine Diabetic neuropathy Lumbar radiculopathy Obesity Hyperlipidemia LDL goal <70 Diabetes mellitus HTN (hypertension) CAD (coronary artery disease) Family History Father CVD (cardiovascular disease) Mother Diabetes Mental health disorder Surgical History Hx of spinal surgery History of arthroscopy of knee Hx of coronary artery bypass graft History of mechanical aortic valve replacement Social History Household Members: None Housing: House Do you presently have visiting nurse or other home services: No Patient Tobacco Use Status: Current everyday Tobacco user Tobacco use type: Cigarette Cigarette Packs Per Day: 1 Cigarettes Per Day: 20 Smoked in Last 30 Days: Yes e-Cigarette/Vaping Use: Never Used Second Hand Smoke Exposure: Yes Advance Directives: No Advance Directives Information Provided: Yes Do you have a plan to hurt others: No Plan service: No Current occupational status: retired Current occupational exposures/hazards: No Cognitive needs: Yes (Walker, cane, wheelchair) Hearing needs: No Vision needs: Yes (Reading glasses) Meds Allergies Allergy/AdvReac Type Severity Reaction Status Date / Time penicillin V Allergy Unknown hives, Verified 10/18/25 10:00 rash/tounge edema bupropion (From Wellbutrin) AdvReac Intermediate GI upset Verified 10/18/25 10:00 Vicodin Allergy Unknown dizziness Uncoded 09/28/25 14:17 Active Medications: Current Medications Acetaminophen (Acetaminophen 325 Mg Tablet) 650 mg PO Q6H PRN PRN Reason: Pain, Mild 1-3,fever,headache Albuterol/Ipratropium (Albuterol/Iprat 2.5/0.5mg 3 Ml Ampul.Neb) 3 ml INHALE Q4H PRN PRN Reason: Shortness of Breath/Wheezing Dextrose (Dextrose 50 % 25 Gm/50 Ml Syringe) 25 gm IVPUSH Q15M PRN; Protocol PRN Reason: per Hypoglycemia Standing Ord. Glucose (Glucose Gel 15 Gm Gel..Gram.) 15 gm PO Q15M PRN; Protocol PRN Reason: per Hypoglycemia Standing Ord. Insulin Human Lispro (Insulin Lispro 100 Unit/Ml 3 Ml Vial) 0 unit SUBCUT QIDAS [facility]; Protocol Stop: 10/19/25 16:31 Melatonin (Melatonin 3 Mg Tablet) 3 mg PO BEDTIME PRN PRN Reason: Insomnia Omeprazole (Omeprazole 20 Mg Capsule.) 20 mg PO DAILY@0630 [facility] Ondansetron HCl (Ondansetron Hcl 4 Mg/2 Ml Vial) 4 mg IVPUSH Q8H PRN PRN Reason: Nausea and Vomiting Polyethylene Glycol (Polyethylene Glycol 3350 17 Gm Powd.Pack) 17 gm PO DAILY PRN PRN Reason: Constipation Sodium Chloride (0.9 % Sodium Chloride Flush 3 Ml Syringe) 3 ml [facility] Last Admin: 10/18/25 16:09 Dose: 3 ml Warfarin Sodium (Warfarin Sodium 2 Mg Tablet) 2 mg PO DAILY@1800 [facility] Home Medications ?Medication ?Instructions ?Recorded ?Confirmed ?Last Taken ?Type warfarin 2 mg tablet 2 mg PO DAILY@1800 06/18/25 10/18/25 06/17/25 History insulin pump cartridge,auto #1 ea 07/06/25 09/28/25 Un known History dose,BT,G6/L2 with controller subcutaneous (Omnipod 5 Intro Kit(G6/Djanv8Rpet) subcutaneous cartridge) Physical Exam 2 Vital Signs and Narrative: Vital Signs: Last Vital Signs Temp 97.6 F 10/18/25 15:23 Pulse 60 10/18/25 15:23 Resp 18 10/18/25 15:23 BP 124/78 10/18/25 15:23 Pulse Ox 97 10/18/25 15:23 O2 Del Method Room Air 10/18/25 15:23 BMI result Body Mass Index 33.7 disheveled somewhat, in NAD, resting in bed comfortably on RA, CTAB, no rales or wheezing heart RRR, abdomen soft non tender no CORA neuro: strength 5/5 throughout, sensations intact, CN1-12 grossly intact, gait not tested, calm and ccoperative, but forgetful no rashes or skin lesions Results Labs 10/18/25 10:32 10/18/25 10:32 Labs: Laboratory Results - last 24 hr 10/18/25 10/18/25 10:32 11:04 MCV 84.8 MCH 29.5 MCHC 34.8 RDW 12.7 Plt Count 146 L MPV 10.9 Immature Gran % (Auto) 0.3 Neut % (Auto) 79.7 H Lymph % (Auto) 12.6 L Preble % (Auto) 5.8 Eos % (Auto) 1.0 Baso % (Auto) 0.6 Lymph # (Auto) 0.9 L Preble # (Auto) 0.4 Eos # (Auto) 0.1 Baso # (Auto) 0.0 Abs Immat Gran (auto) 0.02 Absolute Neuts (auto) 5.7 Absolute Nucleated RBC 0.000 Nucleated RBC % (auto) 0.0 PT 14.7 H D INR 1.2 H Anion Gap 11 L Estim Creat Clear Calc 63.4 Estimated GFR 57 Random Glucose 339 H Calcium 8.4 D Magnesium 1.9 Total Bilirubin 0.7 AST 21 ALT 9 Alkaline Phosphatase 139 H Ammonia 24 Troponin I High Sens 58.0 H NT-Pro-B Natriuret Pep 465.2 H Total Protein 6.0 L Albumin 3.6 Salicylates < 5.0 L Acetaminophen < 3 Influenza Type A (PCR) NEGATIVE Influenza Type B (PCR) NEGATIVE RSV RNA Qual (PCR) NEGATIVE SARS-CoV-2 RNA (RT-PCR) NEGATIVE Imaging Radiologist's Impressions: Impressions Chest X-Ray 10/18/25 10:06 IMPRESSION: Chronic interstitial lung disease. Electronically signed by: Kris Oneill MD 10/18/2025 10:09 AM EST RP Head CT 10/18/25 10:52 IMPRESSION: No acute intracranial hemorrhage. Bifrontal parietal lobe atrophy. Electronically signed by: Kris Oneill MD 10/18/2025 11:11 AM EST RP Assessment and Plan (1) History of mechanical aortic valve replacement: Status: Acute (2) HTN (hypertension): Qualifiers: Hypertension type: essential hypertension Qualified Code(s): I10 - Essential (primary) hypertension Status: Acute (3) Diabetes mellitus: Qualifiers: Diabetes mellitus type: type 2 Diabetes mellitus skilled nursing insulin use: with [employer] use Diabetes mellitus complication status: with kidney complications Diabetes mellitus complication detail: with chronic kidney disease Chronic kidney disease stage: stage 3 (moderate) Chronic kidney disease stage 3 subtype: stage 3b (GFR 30-44) Qualified Code(s): E11.22 - Type 2 diabetes mellitus with diabetic chronic kidney disease; N18.32 - Chronic kidney disease, stage 3b; Z79.4 - [employer] (current) use of insulin Status: Acute (4) Diabetic nephropathy: Status: Acute (5) Confusion state: Status: Acute (6) Encephalopathy acute: Status: Acute Plan Pt presented with dizziness per ed note and acute confusion. Acute encephalopathy acute confusion dizziness unclear etiology of his sx, no leucocytosis, afebrile, vitals stable, CXR non acute, CTH non acute, similar presentation last month also where pt presented to ed with confusion and was found to have sub therapeutic INR, unclear if pt has some underlying progressive cognitive disorder or undiagnosed dementia. will r/o infectious etiology - check UA, - fu on lyme panel, drug screen, - mri brain - neuro consult - PT consult Mechanical heart valve CAD HLD on coumadin, given pt's confusion unsure if he is compliant with his medications at home. INR 1.2 OA, received Lovenox sc therapeutic dose resume home dose of coumadin check INR tomorrow Diabetes: unclear if pt using insulin at home check A1c, insulin ss hypoglycemia protocol dvt px: coumadin diet : cardiac code status full code discussed with pt OMN: brain mri, neuro consult Pt will need 2 MN stay for encephalopathy blair requiring neuro consult and brain mri Quality Stroke Does the patient have a stroke diagnosis?: No VTE Prior VTE?: No VTE Risk Level:: Medical - moderate - high VTE Device Contraindication: N/A - Device Ordered VTE Drug Contraindication: N/A - Med Ordered
[2025-10-18 17:10] LABS: Glucose, Whole Blood 319 mg/dL (60-115)
--- NOTE | 2025-10-18 17:45 | PC.NURSE ---
17:45 - Patient unable to answer questions on MRI screening form, patient gave permission for nurse to call son Anil to help go over form. Son Anil called and went over MRI screening form.
--- NOTE | 2025-10-18 18:20 | ECG_ITS ---
Test Reason : bradycardic and AV block on monitor Blood Pressure : */* mmHG Vent. Rate : 53 BPM Atrial Rate : 53 BPM P-R Int : * ms QRS Dur : 140 ms QT Int : 504 ms P-R-T Axes : * -30 1 degrees QTcB Int : 472 ms NSR with AV dissociation Left axis deviation Right bundle branch block Abnormal ECG When compared with ECG of 18-Oct-2025 10:07, Referred By: Brittney العلي Electronically Signed By: FLORES MARTINS MD
--- NOTE | 2025-10-18 18:33 | PC.NURSE ---
17:20- Reached out to provider Ronel via [employer] to see if she wanted patient on lunchroom monitor due to admission c/o dizziness. Provider verbalized to order lunchroom monitor. 17:40- night monitor placed on patient, quality assurance monitor final called to verify rhythm, quality assurance monitor final reported Miriam. 18:14- Provider Zohra notified via [employer] [facility] [place], provider verbalized to order 12 lead ekg, 12 lead ekg ordered and performed. Patient denies dizziness or chest pain at this time.
--- NOTE | 2025-10-18 19:10 | PC.NURSE ---
19:07 - Provider Zohra came to nurses station and looked at 12 lead EKG. Verbalized to this nurse and oncoming nurse concern for cardiac rhythm and plan to transfer to telemetry unit.
[2025-10-18 19:54] VITALS: BP 117/68; PULSE 74; RESP 17; TEMP 36.1; O2SAT 95
[2025-10-18 20:39] LABS: Troponin-I High Sensitivity 59.2 ng/L (<3.5-35.0)
--- NOTE | 2025-10-18 20:43 | HE.NUR.EV ---
Status Change: Assumed care at 1900. Pt found to have change in Heart Rhythm on monitor. 12 lead EKG obtained reviewed by Dr. العلي and Dr. Jacques and thought to be in CHB vs Afib. Pt is not presently symptomatic but came to ER for experiencing dizziness and forgetfulness at home. VSS. MRI to be done in am per Dr. Jacques. Immediate Actions Taken: Patient to be transferred to Room 446-1 Med/Tele cardiac unit for observation and treatment. Notifications:2014 Report provided to Greta Anthony RN. Patient is alert oriented x3 pleasant. BARNEY. No obvious neuro deficits noted at this time while patient sitting in bed. Patient ambulates at home but not assessed at this time. RA. LS CTA. Last BM 10/17. Left FA #[address] Further Monitoring and Treatment: Continuous EKG to be obtained, POC, UA, Urine tox, Lab work pending, Medications as ordered by provider.
[2025-10-18 21:12] VITALS: BP 108/56; PULSE 67; RESP 17; TEMP 36.5; O2SAT 97
[2025-10-18 21:26] LABS: Glucose, Whole Blood 223 mg/dL (60-115)
[2025-10-18 22:00] VITALS: BMI 33.6
[2025-10-18] MEDS: Insulin Glargine,Hum.rec.anlog 100 UNIT/ML 10 ML VIAL 6 UNIT SUBCUT (22:27)
[2025-10-18 23:22] VITALS: BP 99/57; PULSE 65; RESP 17; TEMP 36.7; O2SAT 94
[2025-10-19] VITALS (7 sets, daily range): BP systolic 108–150; BP diastolic 59–70; PULSE 52–72; RESP 12–20; TEMP 36.2–36.9; O2SAT 93–97; BMI 32.8
[2025-10-19] LABS: Hematocrit 39.5 % (42.0-52.0); Hemoglobin 13.8 g/dl (14.0-18.0); Mean Corpuscular HGB Conc 34.9 g/dl (31.0-36.0); Mean Corpuscular Hemoglobin 29.4 pg (27.0-33.0); Mean Corpuscular Volume 84.0 fL (80.0-98.0); NRBC Abs Auto 0.000 X10*3/uL (0.0-0.012); NRBC Pct Auto 0.0 /100WBC (0.0-0.2); Platelet Count 181 X10*3/uL (160-400); Red Blood Count 4.70 X10*6/uL (4.60-5.80); White Blood Count 6.3 X10*3/uL (4.8-10.8)
--- NOTE | 2025-10-19 | EEG_ITS ---
History: 74 years old man for some reason decided to come to emergency room yesterday but then had forgotten what had happened. His examination was nonfocal. His blood pressure was not that high and there was no obvious explanation for confusion. Medications: Acetaminophen, Albuterol/Ipratropium, Dextrose, Glucose, Heparin Sodium, Melatonin, Omeprazole, Ondansetron HCl, Polyethylene Glycol, Sodium Chloride, Warfarin Sodium Technical Description Photic Stimulation: completed Hyperventilation: omitted Behavioral State: pleasant State of Consciousness: awake and sleep Skull Defect: none Sedation: none Handedness: right Duration: 24 min 47 sec Description: This is a 16 channel EEG with an EKG lead. Patient is reported awake and asleep during the tracing. Background EEG rhythm is 7-8 hertz 5-50 microvolt posteriorly lower amplitude fast anteriorly. Photic stimulation does not produce any significant abnormality. Hyperventilation is not performed. Cardiac lead did not reveal any significant abnormality. Impression: Generalized slowing with no obvious epileptic discharges. If no other cause of his symptom was found, I recommend longer EEG evaluation for 48 hours that could be done as an outpatient. BRIAN
--- NOTE | 2025-10-19 | P.EN_ITS ---
Event Note Date of Service: 10/19/25 Event Note: 7:00 p.m. Notify about ECG changes. Likely consistent with 2nd degree AV block Mobitz 1. There is underlying RBBB. Patient was evaluated who seems to be confused. He denied dizziness, shortness on breath or chest pain. Blood pressure is stable. Patient to be transferred to [facility] for close monitoring. Case has been discussed with orthotic practitioner on-call, Dr. Miller, who recommended NPO after midnight and to start heparin IV infusion as INR is subtherapeutic 1.2 (last dose of Lovenox was around noon) and possible pacemaker implantation in a.m. if appropriate. Time Spent With Patient Time: Total time managing care of this patient today ____ minutes.
[2025-10-19 00:07] LABS: INTERNATIONAL NORM RATIO 1.3 (0.9-1.1); Prothrombin Time 15.5 SEC (11.2-13.5)
[2025-10-19 00:10] LABS: PTT Heparin Drip 34.1 SEC (53-77.9)
[2025-10-19] MEDS: Heparin Sodium,Porcine/1/2NS 25,000 UNIT/250 ML IV.SOLN 14.5 UNIT IVCONT (00:29)
[2025-10-19 06:48] LABS: Lyme Abs Screen <0.90 index
[2025-10-19 06:49] LABS: Hematocrit 39.4 % (42.0-52.0); Hemoglobin 13.6 g/dl (14.0-18.0); Mean Corpuscular HGB Conc 34.5 g/dl (31.0-36.0); Mean Corpuscular Hemoglobin 29.1 pg (27.0-33.0); Mean Corpuscular Volume 84.4 fL (80.0-98.0); NRBC Abs Auto 0.000 X10*3/uL (0.0-0.012); NRBC Pct Auto 0.0 /100WBC (0.0-0.2); Platelet Count 149 X10*3/uL (160-400); Red Blood Count 4.67 X10*6/uL (4.60-5.80); White Blood Count 6.1 X10*3/uL (4.8-10.8)
[2025-10-19 07:00] LABS: INTERNATIONAL NORM RATIO 1.3 (0.9-1.1); Prothrombin Time 16.1 SEC (11.2-13.5)
[2025-10-19 07:03] LABS: PTT Heparin Drip 81.3 SEC (53-77.9)
[2025-10-19 07:21] LABS: Anion Gap 10 (12-20); Blood Urea Nitrogen 20 mg/dL (9-16); Calcium 8.5 mg/dL (8.4-10.2); Carbon Dioxide 23 mmol/L (22-29); Chloride 110 mmol/L (96-108); Creatinine Clr Calc Pharmacy 64.4; Estimated Glomerular Filt Rate 58; Potassium 3.6 mmol/L (3.3-5.1); Sodium 139 mmol/L (135-145)
[2025-10-19 07:25] LABS: Glucose, Whole Blood 112 mg/dL (60-115)
--- NOTE | 2025-10-19 09:14 | MHC.CM.PN ---
IMM 10/19/25, Pt. lives alone, he does not use home health services, he uses a cane. PCP is DIMITRI Fried. No HCP on file, CM to address at a later time, pt. presently AMS. DCP; likely home with services, CM to follow for DC needs.
--- NOTE | 2025-10-19 09:29 | PM.NEUROCN ---
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 When I talked to him, he could not remember what had happened. He was not sure if it has happened before. He denied any pain or any recent medical illness. His initial workup in emergency room did not reveal any obvious explanation. He had moderate hyperglycemia and mild hypertension, which would not explain this symptom. Review of Systems Review of Systems: General: No recent change in weight HEENT: No cold or flu-like illness Cardiovascular: No chest pain or palpitation Respiratory: No shortness of breath or wheezing Gastrointestinal: No nausea or vomiting Genitourinary: No loss of bowel bladder control Neurological: No previous history of seizure disorder Behavioral: Denies alcohol or drug use or significant psychiatric symptoms Skin: No recent lesion PMFSH Past Medical History Medical History Lung mass Cerumen impaction COPD (chronic obstructive pulmonary disease) Spondylosis of lumbar spine Diabetic neuropathy Lumbar radiculopathy Obesity Hyperlipidemia LDL goal <70 Diabetes mellitus HTN (hypertension) CAD (coronary artery disease) Family History Family History Father CVD (cardiovascular disease) Mother Diabetes Mental health disorder Surgical History Surgical History Hx of spinal surgery History of arthroscopy of knee Hx of coronary artery bypass graft History of mechanical aortic valve replacement Social History Social History Household Members: None Housing: House Do you presently have visiting nurse or other home services: No Patient Tobacco Use Status: Never used Tobacco Tobacco use type: Cigarette Cigarette Packs Per Day: 1 Cigarettes Per Day: 20 Smoked in Last 30 Days: Yes e-Cigarette/Vaping Use: Never Used Second Hand Smoke Exposure: Yes Currently Displaying Signs/Symptoms of Drug Intoxication Withdrawal: No Are you made to feel afraid or neglected: No Advance Directives: No Advance Directives Information Provided: Yes Do you have a plan to hurt others: No Plan Recently lost weight without trying: No How much weight loss: Not applicable Eating poorly because of decreased appetite: No Nutrition screen score: 0 Nutrition Risks: No Nutritional Risk Poor oral hygiene: No service: No Current occupational status: retired Current occupational exposures/hazards: No Cognitive needs: Yes (Walker, cane, wheelchair) Hearing needs: No Vision needs: Yes (Reading glasses) Meds Allergies Allergy/AdvReac Type Severity Reaction Status Date / Time penicillin V Allergy Unknown hives, Verified 10/18/25 10:00 rash/tounge edema bupropion (From Wellbutrin) AdvReac Intermediate GI upset Verified 10/18/25 10:00 Vicodin Allergy Unknown dizziness Uncoded 09/28/25 14:17 Active Medications: Current Medications Acetaminophen (Acetaminophen 325 Mg Tablet) 650 mg PO Q6H PRN PRN Reason: Pain, Mild 1-3,fever,headache Last Admin: 10/19/25 00:39 Dose: 650 mg Albuterol/Ipratropium (Albuterol/Iprat 2.5/0.5mg 3 Ml Ampul.Neb) 3 ml INHALE Q4H PRN PRN Reason: Shortness of Breath/Wheezing Dextrose (Dextrose 50 % 25 Gm/50 Ml Syringe) 25 gm IVPUSH Q15M PRN; Protocol PRN Reason: per Hypoglycemia Standing Ord. Glucose (Glucose Gel 15 Gm Gel..Gram.) 15 gm PO Q15M PRN; Protocol PRN Reason: per Hypoglycemia Standing Ord. Heparin Sodium (Porcine) (Heparin Sodium,Porcine 5,000 Unit/Ml Vial) 4,100 unit IVPUSH PROTOCOL BOLUS PRN; Protocol PRN Reason: 40 unit/kg - Heparin Protocol Heparin Sodium (Porcine) (Heparin Sodium,Porcine 5,000 Unit/Ml Vial) 8,200 unit IVPUSH PROTOCOL BOLUS PRN; Protocol PRN Reason: 80 unit/kg - Heparin Protocol Heparin Sodium/Sodium Chloride (Heparin Sodium,Porcine/1/2ns) 25,000 unit in 250 mls @ 0 mls/hr IVCONT .Q0M [facility]; Protocol Last Titration: 10/19/25 07:33 Dose: 12 units/kg/hr, 12.43 mls/hr Insulin Glargine (Insulin Glargine,Hum.Rec.Anlog 100 Unit/Ml 10 Ml Vial) 6 unit SUBCUT BEDTIME [facility] Last Admin: 10/18/25 22:27 Dose: 6 unit Insulin Human Lispro (Insulin Lispro 100 Unit/Ml 3 Ml Vial) 0 unit SUBCUT QIDACHS [facility]; Protocol Stop: 10/19/25 16:31 Last Admin: 10/19/25 08:18 Dose: Not Given Melatonin (Melatonin 3 Mg Tablet) 3 mg PO BEDTIME PRN PRN Reason: Insomnia Omeprazole (Omeprazole 20 Mg Capsule.) 20 mg PO DAILY@0630 [facility] Last Admin: 10/19/25 05:55 Dose: Not Given Ondansetron HCl (Ondansetron Hcl 4 Mg/2 Ml Vial) 4 mg IVPUSH Q8H PRN PRN Reason: Nausea and Vomiting Polyethylene Glycol (Polyethylene Glycol 3350 17 Gm Powd.Pack) 17 gm PO DAILY PRN PRN Reason: Constipation Sodium Chloride (0.9 % Sodium Chloride Flush 3 Ml Syringe) 3 ml IVFLUSH QSHIFT [facility] Last Admin: 10/18/25 22:27 Dose: 3 ml Warfarin Sodium (Warfarin Sodium 2 Mg Tablet) 2 mg PO DAILY@1800 [facility] Last Admin: 10/18/25 17:25 Dose: 2 mg Home Medications ?Medication ?Instructions ?Recorded ?Confirmed ?Last Taken ?Type warfarin 2 mg tablet 2 mg PO DAILY@1800 06/18/25 10/18/25 06/17/25 History insulin pump cartridge,auto #1 ea 07/06/25 09/28/25 Unknown History dose,BT,G6/L2 with controller subcutaneous (Omnipod 5 Intro Kit(G6/[id number]) subcutaneous cartridge) Physical Exam Vital Signs: Vital Signs: Last Vital Signs Temp 97.9 F 10/19/25 07:39 Pulse 68 10/19/25 07:39 Resp 20 10/19/25 07:39 BP 137/64 10/19/25 07:39 Pulse Ox 94 10/19/25 07:39 O2 Del Method Room Air 10/19/25 07:39 BMI result Body Mass Index 32.8 Neuro: Other: Mental Status: Alert and oriented to person, place, and time. Normal attention. Normal spontaneous speech, fluency, and comprehension. Cranial Nerves: CN II: Visual muñoz full to confrontation, visual acuity intact. CN III, IV, : Pupils equal, round, reactive to light and accommodation. Extraocular movements are normal. CN V: Facial sensation is normal. CN VII: Facial movements symmetrical. CN VIII: Hearing intact to bedside conversation is normal. CN IX, X: Palate elevates symmetrically. CN XI: Shoulder shrug and head turn symmetrical. CN XII: Tongue midline without atrophy or fasciculations. Motor: No obvious focal arm or leg weakness. Reflexes: Deep tendon reflexes are trace to absent with flexor plantars. Coordination: [id number] is okay. Extrapyramidal: Full facial expressions and blinking. No rigidity. Movements are appropriate with no tremor or abnormality. Speech: Normal; no dysarthria or tremor. Results Labs 10/19/25 06:37 10/19/25 06:37 Labs: Short CBC 10/18/25 10/18/25 10/19/25 Range/Units 10:32 23:45 06:37 WBC 7.1 6.3 6.1 (4.8-10.8) X10*3/uL Hgb 14.7 13.8 L 13.6 L (14.0-18.0) g/dl Hct 42.3 39.5 L 39.4 L (42.0-52.0) % Plt Count 146 L 181 149 L (160-400) X10*3/uL BMP 10/18/25 10/19/25 10:32 06:37 Sodium 135 139 Potassium 4.4 3.6 Chloride 106 110 H Carbon Dioxide 22 23 BUN 15 20 H Creatinine 1.25 1.23 Calcium 8.4 D 8.5 Liver Function 10/18/25 Range/Units 10:32 Total Bilirubin 0.7 (0.0-1.0) mg/dL AST 21 (5-37) U/L ALT 9 (0-40) U/L Alkaline Phosphatase 139 H (39-117) U/L Albumin 3.6 (3.5-5.0) g/dL COMPARISON: September 28, 2025 TECHNIQUE: Contiguous axial imaging was performed from the skull base to vertex without intravenous administration of contrast. This CT examination was performed using dose optimization techniques as appropriate, variously including the following: *Automated exposure control *Adjustment of mA and/or kV according to patient size (this includes techniques or standardized protocols for targeted exams where dose is matched to indication/reason for exam; i.e. extremities or head) *Use of iterative reconstruction technique DLP: 782 mGy-cm FINDINGS: No acute intracranial hemorrhage, mass effect, midline shift, hydrocephalus or herniation. Zhang-white matter differentiation is normal. Prominence of the extra-axial CSF spaces cerebral sulci and ventricles. Sellar/suprasellar region demonstrated no gross masses. Posterior cranial fossa contents demonstrated no acute hemorrhage or mass effect. Normal position of the cerebellar tonsils. No air-fluid levels in the paranasal sinuses. Tympanic cavities and mastoid cells are aerated. Calcified plaques in the cavernous supracavernous segments both ICAs. CT/CT head/brain wo IV con IMPRESSION: No acute intracranial hemorrhage. Bifrontal parietal lobe atrophy. Assessment and Plan (1) Encephalopathy acute: Status: Acute 73 years old man for some reason decided to come to emergency room but then had forgotten what had happened. His examination was nonfocal. His blood pressure was not that high and there was no obvious explanation for confusion. My recommendation is to obtain an EEG to rule out tendency for epileptic encephalopathy. In the meantime, he is advised to be careful and avoid driving and activities that could put his life in danger in case he would have similar symptoms again. Procedures Date of Service Date of Service: 10/19/25
[2025-10-19] MEDS: 0.9 % Sodium Chloride Flush 3 ML SYRINGE IVFLUSH ×3 (10:54→20:36)
--- NOTE | 2025-10-19 11:58 | P.CONCA_ITS ---
History of Present Illness History of Present Illness Date of Service: 10/19/25 Requesting physician: Evita Saleem Consult reason: other (AV conduction abnormality) Chief complaint: Dizziness Narrative: I was consulted to see [place] cardiology consultation today for AV conduction abnormality. Patient has longstanding prior cardiac history with prior mechanical aortic valve replacement as well as CAD status post coronary artery bypass grafting, diabetes, hypertension, diuretic neuropathy, chronic kidney disease. Patient does not recall why he came to the hospital. That has mentioned of dizziness in his chart although this is not corroborated by. He has not syncopal episode. Patient said he lives independently and would like to continue do so but he has issues with memory he is at this point time. This is unclear. He denies any focal neurologic deficits. He was noted yesterday to have transient AV dissociation with normal sinus rhythm. He was then admitted to telemetry from regular medical floor and overnight has only been noted to have Mobitz type 1 second-degree AV block. Patient denies any lightheadedness currently. He has no chest pain no shortness of breath. He said he takes all his medications although he does not recall. Last INR in September was subtherapeutic. Review of Systems 2 Review of Systems: Yes Unobtainable due to mental status PMFSH Past Medical History Medical History Lung mass Cerumen impaction COPD (chronic obstructive pulmonary disease) Spondylosis of lumbar spine Diabetic neuropathy Lumbar radiculopathy Obesity Hyperlipidemia LDL goal <70 Diabetes mellitus HTN (hypertension) CAD (coronary artery disease) Family History Family History Father CVD (cardiovascular disease) Mother Diabetes Mental health disorder Surgical History Surgical History Hx of spinal surgery History of arthroscopy of knee Hx of coronary artery bypass graft History of mechanical aortic valve replacement Social History Social History Household Members: None Housing: House Do you presently have visiting nurse or other home services: No Patient Tobacco Use Status: Never used Tobacco Tobacco use type: Cigarette Cigarette Packs Per Day: 1 Cigarettes Per Day: 20 Smoked in Last 30 Days: Yes e-Cigarette/Vaping Use: Never Used Second Hand Smoke Exposure: Yes Currently Displaying Signs/Symptoms of Drug Intoxication Withdrawal: No Are you made to feel afraid or neglected: No Advance Directives: No Advance Directives Information Provided: Yes Do you have a plan to hurt others: No Plan Recently lost weight without trying: No How much weight loss: Not applicable Eating poorly because of decreased appetite: No Nutrition screen score: 0 Nutrition Risks: No Nutritional Risk Poor oral hygiene: No service: No Current occupational status: retired Current occupational exposures/hazards: No Cognitive needs: Yes (Walker, cane, wheelchair) Hearing needs: No Vision needs: Yes (Reading glasses) Meds Allergies Allergy/AdvReac Type Severity Reaction Status Date / Time penicillin V Allergy Unknown hives, Verified 10/18/25 10:00 rash/tounge edema bupropion (From Wellbutrin) AdvReac Intermediate GI upset Verified 10/18/25 10:00 Vicodin Allergy Unknown dizziness Uncoded 09/28/25 14:17 Active Medications: Current Medications Acetaminophen (Acetaminophen 325 Mg Tablet) 650 mg PO Q6H PRN PRN Reason: Pain, Mild 1-3,fever,headache Last Admin: 10/19/25 10:37 Dose: 650 mg Albuterol/Ipratropium (Albuterol/Iprat 2.5/0.5mg 3 Ml Ampul.Neb) 3 ml INHALE Q4H PRN PRN Reason: Shortness of Breath/Wheezing Dextrose (Dextrose 50 % 25 Gm/50 Ml Syringe) 25 gm IVPUSH Q15M PRN; Protocol PRN Reason: per Hypoglycemia Standing Ord. Enoxaparin Sodium (Enoxaparin Sodium 100 Mg/Ml Syringe) 100 mg SUBCUT Q12H [facility] Last Admin: 10/19/25 10:53 Dose: 100 mg Glucose (Glucose Gel 15 Gm Gel..Gram.) 15 gm PO Q15M PRN; Protocol PRN Reason: per Hypoglycemia Standing Ord. Insulin Glargine (Insulin Glargine,Hum.Rec.Anlog 100 Unit/Ml 10 Ml Vial) 6 unit SUBCUT BEDTIME [facility] Last Admin: 10/18/25 22:27 Dose: 6 unit Insulin Human Lispro (Insulin Lispro 100 Unit/Ml 3 Ml Vial) 0 unit SUBCUT QIDACHS [facility]; Protocol Stop: 10/19/25 16:31 Last Admin: 10/19/25 08:18 Dose: Not Given Melatonin (Melatonin 3 Mg Tablet) 3 mg PO BEDTIME PRN PRN Reason: Insomnia Omeprazole (Omeprazole 20 Mg Capsule.) 20 mg PO DAILY@0630 [facility] Last Admin: 10/19/25 05:55 Dose: Not Given Ondansetron HCl (Ondansetron Hcl 4 Mg/2 Ml Vial) 4 mg IVPUSH Q8H PRN PRN Reason: Nausea and Vomiting Polyethylene Glycol (Polyethylene Glycol 3350 17 Gm Powd.Pack) 17 gm PO DAILY PRN PRN Reason: Constipation Sodium Chloride (0.9 % Sodium Chloride Flush 3 Ml Syringe) 3 ml IVFLUSH QSHIFT [facility] Last Admin: 10/19/25 10:54 Dose: 3 ml Warfarin Sodium (Warfarin Sodium 2 Mg Tablet) 2 mg PO DAILY@1800 [facility] Last Admin: 10/18/25 17:25 Dose: 2 mg Home Medications ?Medication ?Instructions ?Recorded ?Confirmed ?Last Taken ?Type warfarin 2 mg tablet 2 mg PO DAILY@1800 06/18/25 10/18/25 06/17/25 History insulin pump cartridge,auto #1 ea 07/06/25 09/28/25 Un known History dose,BT,G6/L2 with controller subcutaneous (Omnipod 5 Intro Kit(G6/[id number]) subcutaneous cartridge) Physical Exam 2 Vital Signs: Vital Signs: Last Vital Signs Temp 97.9 F 10/19/25 07:39 Pulse 68 10/19/25 07:39 Resp 20 10/19/25 07:39 BP 137/64 10/19/25 07:39 Pulse Ox 94 10/19/25 07:39 O2 Del Method Room Air 10/19/25 07:39 BMI result Body Mass Index 32.8 Const: General: cooperative, comfortable, no acute distress, alert and awake Nutritional Appearance: obese Orientation/consciousness: oriented to place Limitations: no limitations HEENT: Head: Yes normocephalic and Yes atraumatic Neck: Neck: Yes trachea midline, Yes supple and Yes no JVD Chest: Chest palpation & inspection: other (Well-healed sternotomy site) Resp: Effort & Inspection: normal respiratory effort Auscultation: clear to auscultation bilaterally Cardio: Jugular venous distension: no JVD Rate: regular rate Rhythm: a bnormal rhythm regularly irregular Heart sounds: S1 normal heart sound present, Clicking heart sound present (Normal closing click of [place] aortic valve), no gallops, no murmurs and no rubs GI: Auscultation: normal bowel sounds Skin: General skin exam: no rashes or lesions noted Neuro: General: oriented to place and no focal motor deficits Extrem: General: Yes no clubbing, cyanosis or edema Objective Labs and Meds 10/19/25 06:37 10/19/25 06:37 Lab results: Laboratory Results - last 24 hr 10/18/25 10/18/25 10/18/25 10:32 17:06 20:10 WBC RBC Hgb Hct MCV MCH MCHC RDW Plt Count MPV Absolute Nucleated RBC Nucleated RBC % (auto) PT INR aPTT Heparin Protocol Sodium Potassium Chloride Carbon Dioxide Anion Gap BUN Creatinine Estim Creat Clear Calc Estimated GFR POC Glucose 319 H Random Glucose Estimat Average Glucose 306 Hemoglobin A1c % 12.3 H Calcium Troponin I High Sens 59.2 H [place] Screen IgG & IgM <0.90 10/18/25 10/18/25 10/19/25 21:22 23:45 06:37 WBC 6.3 6.1 RBC 4.70 4.67 Hgb 13.8 L 13.6 L Hct 39.5 L 39.4 L MCV 84.0 84.4 MCH 29.4 29.1 MCHC 34.9 34.5 RDW 13.0 13.0 Plt Count 181 149 L MPV 10.4 10.4 Absolute Nucleated RBC 0.000 0.000 Nucleated RBC % (auto) 0.0 0.0 PT 15.5 H 16.1 H INR 1.3 H 1.3 H aPTT Heparin Protocol 34.1 L 81.3 H D Sodium 139 Potassium 3.6 Chloride 110 H Carbon Dioxide 23 Anion Gap 10 L BUN 20 H Creatinine 1.23 Estim Creat Clear Calc 64.4 Estimated GFR 58 POC Glucose 223 H Random Glucose 110 Estimat Average Glucose Hemoglobin A1c % Calcium 8.5 Troponin I High Sens [place] Screen IgG & IgM 10/19/25 07:17 WBC RBC Hgb Hct MCV MCH MCHC RDW Plt Count MPV Absolute Nucleated RBC Nucleated RBC % (auto) PT INR aPTT Heparin Protocol Sodium Potassium Chloride Carbon Dioxide Anion Gap BUN Creatinine Estim Creat Clear Calc Estimated GFR POC Glucose 112 Random Glucose Estimat Average Glucose Hemoglobin A1c % Calcium Troponin I High Sens Lyme Screen IgG & IgM Assessment and Plan (1) Second degree atrioventricular block, Mobitz type I: Status: Acute Patient with Mobitz type 1 second-degree AV block which is not unusual inpatient with aortic valve replacement due to scarring extending into the conduction system. There was no clear evidence of persistent advanced AV block. At this point time that has no pacemaker indication. Would follow up with outpatient event monitor to assess for any advanced AV block that may necessitate pacemaker placement. Avoid rate lowering medications. Concern in his significant confusion interfering with his self-care and self medications. Will need case management involvement to assess for safety to home discharge as well as hopefully set up medications at home and follow up with [facility]. He is subtherapeutic at this point time and will require Lovenox bridging. Discussed with the patient and he said he wants to be going home and he will accept help. Continue his usual other medications as in the past. Will obtain echocardiogram as outpatient. Neurologic workup as per the hospitalist team Will sign of the case. Thank you for allowing me to partake in his care Procedures Date of Service Date of Service: 10/19/25
[2025-10-19 12:02] LABS: Glucose, Whole Blood 119 mg/dL (60-115)
--- NOTE | 2025-10-19 12:23 | HO.WOUND ---
Wound Consult: Initial 74 yr old male admitted to [facility] on 10/19/25- See progress notes and H&P for detailed history. Wound consult placed for bilateral plantar feet. Patient agreeable to assessment and photo documentation. Left plantar foot Right plantar foot Etiology: dry stable intact calluses Wound Bed: thickened dry intact calluses - slightly darkened Drainage / Odor: none Gabrielle wound: ? No Induration, Fluctuance or Warmth noted Pain: none Goals of Treatment: ? open to air - recommend outpatient follow up with podiatry for callus paring Recommendations: 1. Turn and Reposition every 2 hours and as needed for patient comfort. Use pillows or wedges to support off loading positions. 2. Off Load all bony prominences with use of pillows and heel boots if needed. Apply Preventative foams where needed. 3. Monitor for incontinence and moisture control, use barrier creams when needed for prevention and treatment. 4. Provide adequate and supplemental nutrition. 5. Order or Continue low air loss mattress. 6. When applicable maintain blood glucose levels per Providers order. Bilateral plantar feet: recommend outpatient follow up with podiatry for callus paring Re-consult wound care Nurse for wound deterioration or wound changes.
[2025-10-19 13:28] LABS: PTT Heparin Drip 41.5 SEC (53-77.9)
--- NOTE | 2025-10-19 14:08 | P.PNIM_ITS ---
Subjective Subjective Date of Service: 10/19/25 Interval History: Encephalopathy Review of Systems Patient mental status seems to be improving Denies new complaints Review of Systems: Yes all other systems are reviewed and are negative Physical Exam 2 Exam: Exam: Appearance: Alert.? Oriented X3.? cvs: [id number] , no murmur res: clear to auscultation ,no rhonchii or wheezing abd: no rebound or guarding ,nt, bs present. ext pulses present , no cyanosis. neuro: nonfocal. Vital Signs: Vital Signs: Last Vital Signs Temp 97.1 F 10/19/25 12:00 Pulse 69 10/19/25 12:00 Resp 20 10/19/25 12:00 BP 118/59 L 10/19/25 12:00 Pulse Ox 95 10/19/25 12:00 O2 Del Method Room Air 10/19/25 12:00 BMI result Body Mass Index 32.8 Objective Data Active Medications Acetaminophen (Acetaminophen 325 Mg Tablet) 650 mg PO Q6H PRN PRN Reason: Pain, Mild 1-3,fever,headache Last Admin: 10/19/25 10:37 Dose: 650 mg Documented By: VENKATESH Albuterol/Ipratropium (Albuterol/Iprat 2.5/0.5mg 3 Ml Ampul.Neb) 3 ml INHALE Q4H PRN PRN Reason: Shortness of Breath/Wheezing Dextrose (Dextrose 50 % 25 Gm/50 Ml Syringe) 25 gm IVPUSH Q15M PRN; Protocol PRN Reason: per Hypoglycemia Standing Ord. Enoxaparin Sodium (Enoxaparin Sodium 100 Mg/Ml Syringe) 100 mg SUBCUT Q12H ON LICENSE OF [facility] Last Admin: 10/19/25 10:53 Dose: 100 mg Documented By: VENKATESH Glucose (Glucose Gel 15 Gm Gel..Gram.) 15 gm PO Q15M PRN; Protocol PRN Reason: per Hypoglycemia Standing Ord. Insulin Glargine (Insulin Glargine,Hum.Rec.Anlog 100 Unit/Ml 10 Ml Vial) 6 unit SUBCUT BEDTIME ON LICENSE OF [facility] Last Admin: 10/18/25 22:27 Dose: 6 unit Documented By: EVANGELISTA Insulin Human Lispro (Insulin Lispro 100 Unit/Ml 3 Ml Vial) 0 unit SUBCUT QIDACHS ON LICENSE OF [facility]; Protocol Stop: 10/19/25 16:31 Last Admin: 10/19/25 12:07 Dose: Not Given Documented By: VENKATESH Non-Admin Reason: No Insulin Coverage Melatonin (Melatonin 3 Mg Tablet) 3 mg PO BEDTIME PRN PRN Reason: Insomnia Omeprazole (Omeprazole 20 Mg Capsule.Dr) 20 mg PO DAILY@0630 ON LICENSE OF [facility] Last Admin: 10/19/25 05:55 Dose: Not Given Documented By: EVANGELISTA Non-Admin Reason: NPO Ondansetron HCl (Ondansetron Hcl 4 Mg/2 Ml Vial) 4 mg IVPUSH Q8H PRN PRN Reason: Nausea and Vomiting Polyethylene Glycol (Polyethylene Glycol 3350 17 Gm Powd.Pack) 17 gm PO DAILY PRN PRN Reason: Constipation Sodium Chloride (0.9 % Sodium Chloride Flush 3 Ml Syringe) 3 ml IVFLUSH QSHIFT ON LICENSE OF [facility] Last Admin: 10/19/25 10:54 Dose: 3 ml Documented By: VENKATESH Warfarin Sodium (Warfarin Sodium 2 Mg Tablet) 2 mg PO DAILY@1800 ON LICENSE OF [facility] Last Admin: 10/18/25 17:25 Dose: 2 mg Documented By: COLBURK Labs 10/19/25 06:37 10/19/25 06:37 Labs: Laboratory Results - last 24 hr 10/18/25 10/18/25 10/18/25 10:32 17:06 20:10 MCV MCH MCHC RDW Plt Count MPV Absolute Nucleated RBC Nucleated RBC % (auto) PT INR aPTT Heparin Protocol Anion Gap Estim Creat Clear Calc Estimated GFR POC Glucose 319 H Random Glucose Estimat Average Glucose 306 Hemoglobin A1c % 12.3 H Calcium Troponin I High Sens 59.2 H Lyme Screen IgG & IgM <0.90 Lyme Progressive Test TNP 10/18/25 10/18/25 10/19/25 21:22 23:45 06:37 MCV 84.0 84.4 MCH 29.4 29.1 MCHC 34.9 34.5 RDW 13.0 13.0 Plt Count 181 149 L MPV 10.4 10.4 Absolute Nucleated RBC 0.000 0.000 Nucleated RBC % (auto) 0.0 0.0 PT 15.5 H 16.1 H INR 1.3 H 1.3 H aPTT Heparin Protocol 34.1 L 81.3 H D Anion Gap 10 L Estim Creat Clear Calc 64.4 Estimated GFR 58 POC Glucose 223 H Random Glucose 110 Estimat Average Glucose Hemoglobin A1c % Calcium 8.5 Troponin I High Sens Lyme Screen IgG & IgM Lyme Progressive Test 10/19/25 10/19/25 10/19/25 07:17 11:52 12:38 MCV MCH MCHC RDW Plt Count MPV Absolute Nucleated RBC Nucleated RBC % (auto) PT INR aPTT Heparin Protocol 41.5 L D Anion Gap Estim Creat Clear Calc Estimated GFR POC Glucose 112 119 H Random Glucose Estimat Average Glucose Hemoglobin A1c % Calcium Troponin I High Sens Lyme Screen IgG & IgM Lyme Progressive Test Assessment and Plan (1) Encephalopathy acute: Status: Acute Plan Acute encephalopathy acute confusion dizziness unclear etiology of his sx, no leucocytosis, afebrile, vitals stable, CXR non acute, CTH non acute, similar presentation last month also where pt presented to ed with confusion and was found to have sub therapeutic INR, unclear if pt has some underlying progressive cognitive disorder or undiagnosed dementia. will r/o infectious etiology UA-negative for pyuria/bacteriuria Tick-borne disease panel pending Seen by Neurology: CTA head:No acute intracranial hemorrhage.Bifrontal parietal lobe atrophy. rec for eeg Mechanical heart valve CAD HLD on coumadin/lovenox bridging for subtherapeutic INR,warfarin dosing adjusted to 3 mg po qd. Monitor INR closely also overnight events noted-Mobitz type 1 second no clear evidence of persistent advanced AV block. d/w cardiologgy-no indication for pacemaker currently, follow up with Cardiology outpatient for above and also consider outpatient echo. Diabetes: unclear if pt using insulin at home check A1c: 12.4 insulin ss,lantus hypoglycemia protocol generalised weak -seen by pt-rec rehab. dvt px: coumadin diet : cardiac code status full code discussed with pt dispo: str Quality Stroke Does the patient have a stroke diagnosis?: No VTE Prior VTE?: No VTE Risk Level:: Medical - moderate - high VTE Device Contraindication: N/A - Device Ordered VTE Drug Contraindication: N/A - Med Ordered
[2025-10-19 15:54] LABS: Appearance Urine Clear; Cannabinoid Screen Urine POSITIVE (Not Detect); Glucose Urine UA 500 mg/dL (Negative); PH 5.5 (5.0-9.0); Specific Gravity - Urine 1.025 (1.005-1.025); UMIC TRIGGER UA YES
[2025-10-19 17:03] LABS: Glucose, Whole Blood 204 mg/dL (60-115)
[2025-10-19 20:23] LABS: Glucose, Whole Blood 210 mg/dL (60-115)
[2025-10-19] MEDS: Insulin Glargine,Hum.rec.anlog 100 UNIT/ML 10 ML VIAL 6 UNIT SUBCUT (20:32)
[2025-10-20 00:58] LABS: A. Phagocytphilium DNA,RT-PCR NOT DETECTED (NOT DETECTED); Babesia Microti DNA, RT-PCR NOT DETECTED (NOT DETECTED); Borrelia Miyamotoi,DNA RT-PCR NOT DETECTED (NOT DETECTED); E.Chaffeensis DNA RT-PCR NOT DETECTED (NOT DETECTED); Lyme(Borrelia ssp)DNA RT-PCR NOT DETECTED (NOT DETECTED)
[2025-10-20 03:21] VITALS: BP 150/82; PULSE 72; RESP 18; TEMP 36.8; O2SAT 96
[2025-10-20 07:20] LABS: INTERNATIONAL NORM RATIO 1.2 (0.9-1.1); Prothrombin Time 14.2 SEC (11.2-13.5)
[2025-10-20 08:00] VITALS: BP 159/86; PULSE 79; RESP 18; TEMP 36.7; O2SAT 92
[2025-10-20 08:06] LABS: Glucose, Whole Blood 186 mg/dL (60-115)
--- NOTE | 2025-10-20 09:06 | HO.PM.IMPN ---
Subjective Subjective Date of Service: 10/20/25 Interval History: ?encephalopathy Review of Systems mental status improving Review of Systems: Yes all other systems are reviewed and are negative Physical Exam Exam: Exam: Appearance: Alert.? Oriented X3.? cvs: [id number] , no murmur res: clear to auscultation ,no rhonchii or wheezing abd: no rebound or guarding ,nt, bs present. ext pulses present , no cyanosis. neuro: nonfocal. Vital Signs: Vital Signs: Last Vital Signs Temp 98.1 F 10/20/25 08:00 Pulse 79 10/20/25 08:00 Resp 18 10/20/25 08:00 BP 159/86 H 10/20/25 08:00 Pulse Ox 92 10/20/25 08:00 O2 Del Method Room Air 10/20/25 08:00 O2 Flow Rate 2 10/19/25 16:00 BMI result Body Mass Index 32.8 Objective Data Active Medications Acetaminophen (Acetaminophen 325 Mg Tablet) 650 mg PO Q6H PRN PRN Reason: Pain, Mild 1-3,fever,headache Last Admin: 10/19/25 10:37 Dose: 650 mg Documented By: COOPKATELIN Albuterol/Ipratropium (Albuterol/Iprat 2.5/0.5mg 3 Ml Ampul.Neb) 3 ml INHALE Q4H PRN PRN Reason: Shortness of Breath/Wheezing Dextrose (Dextrose 50 % 25 Gm/50 Ml Syringe) 25 gm IVPUSH Q15M PRN; Protocol PRN Reason: per Hypoglycemia Standing Ord. Enoxaparin Sodium (Enoxaparin Sodium 100 Mg/Ml Syringe) 100 mg SUBCUT Q12H [facility] Last Admin: 10/19/25 20:35 Dose: 100 mg Documented By: LAKESHIA-DESSK Glucose (Glucose Gel 15 Gm Gel..Gram.) 15 gm PO Q15M PRN; Protocol PRN Reason: per Hypoglycemia Standing Ord. Insulin Glargine (Insulin Glargine,Hum.Rec.Anlog 100 Unit/Ml 10 Ml Vial) 6 unit SUBCUT BEDTIME [facility] Last Admin: 10/19/25 20:32 Dose: 6 unit Documented By: LAKESHIA-DESSK Melatonin (Melatonin 3 Mg Tablet) 3 mg PO BEDTIME PRN PRN Reason: Insomnia Omeprazole (Omeprazole 20 Mg Capsule.) 20 mg PO DAILY@0630 [facility] Last Admin: 10/20/25 06:02 Dose: Not Given Documented By: ALLISON Non-Admin Reason: Patient Refused Ondansetron HCl (Ondansetron Hcl 4 Mg/2 Ml Vial) 4 mg IVPUSH Q8H PRN PRN Reason: Nausea and Vomiting Polyethylene Glycol (Polyethylene Glycol 3350 17 Gm Powd.Pack) 17 gm PO DAILY PRN PRN Reason: Constipation Sodium Chloride (0.9 % Sodium Chloride Flush 3 Ml Syringe) 3 ml IVFLUSH QSHIFT [facility] Last Admin: 10/19/25 20:36 Dose: 3 ml Documented By: ALLISON Warfarin Sodium (Warfarin Sodium 3 Mg Tablet) 3 mg PO DAILY@1800 [facility] Last Admin: 10/19/25 17:18 Dose: 3 mg Documented By: MATTEO Labs 10/19/25 06:37 10/19/25 06:37 Labs: Laboratory Results - last 24 hr 10/18/25 10/19/25 10/19/25 10:32 11:52 12:38 Hold Purple Top PT INR aPTT Heparin Protocol 41.5 L D POC Glucose 119 H Urine Color Urine Appearance Urine pH Ur Specific Rowdy Urine Protein Urine Glucose (UA) Urine Ketones Urine Blood Urine Nitrite Ur Leukocyte Esterase Urine RBC Urine WBC Ur Squamous Epith Cells Urine Bacteria Hyaline Casts Urine Opiates Screen Ur Buprenorphine Scrn Ur Oxycodone Screen Urine Methadone Screen Urine Fentanyl Screen Ur Barbiturates Screen Ur Phencyclidine Scrn Ur Amphetamines Screen U Benzodiazepines Scrn Urine Cocaine Screen U Marijuana (THC) Screen A.phagocytophil DNA PCR NOT DETECTED Babesia microti DNA PCR NOT DETECTED Borrelia sp DNA (PCR) NOT DETECTED Lyme Progressive Test TNP Borrelia miyamotoi (PCR) NOT DETECTED E.chaffeensis DNA (PCR) NOT DETECTED Tick-borne Disease PCR SEE NOTE 10/19/25 10/19/25 10/19/25 15:15 16:54 20:19 Hold Purple Top PT INR aPTT Heparin Protocol POC Glucose 204 H 210 H Urine Color Yellow Urine Appearance Clear Urine pH 5.5 Ur Specific Rowdy 1.025 Urine Protein 300 (3+) H Urine Glucose (UA) 500 H Urine Ketones Trace Urine Blood Negative Urine Nitrite Negative Ur Leukocyte Esterase Negative Urine RBC 0-2 Urine WBC 0-5 Ur Squamous Epith Cells 0-2 Urine Bacteria None Seen Hyaline Casts 0-2 Urine Opiates Screen Not Detected Ur Buprenorphine Scrn Not Detected Ur Oxycodone Screen Not Detected Urine Methadone Screen Not Detected Urine Fentanyl Screen Not Detected Ur Barbiturates Screen Not Detected Ur Phencyclidine Scrn Not Detected Ur Amphetamines Screen Not Detected U Benzodiazepines Scrn Not Detected Urine Cocaine Screen Not Detected U Marijuana (THC) Screen POSITIVE H A.phagocytophil DNA PCR Babesia microti DNA PCR Borrelia sp DNA (PCR) Lyme Progressive Test Borrelia miyamotoi (PCR) E.chaffeensis DNA (PCR) Tick-borne Disease PCR 10/20/25 10/20/25 06:42 08:02 Hold Purple Top SEE NOTE PT 14.2 H INR 1.2 H aPTT Heparin Protocol POC Glucose 186 H Urine Color Urine Appearance Urine pH Ur Specific Rowdy Urine Protein Urine Glucose (UA) Urine Ketones Urine Blood Urine Nitrite Ur Leukocyte Esterase Urine RBC Urine WBC Ur Squamous Epith Cells Urine Bacteria Hyaline Casts Urine Opiates Screen Ur Buprenorphine Scrn Ur Oxycodone Screen Urine Methadone Screen Urine Fentanyl Screen Ur Barbiturates Screen Ur Phencyclidine Scrn Ur Amphetamines Screen U Benzodiazepines Scrn Urine Cocaine Screen U Marijuana (THC) Screen A.phagocytophil DNA PCR Babesia microti DNA PCR Borrelia sp DNA (PCR) Lyme Progressive Test Borrelia miyamotoi (PCR) E.chaffeensis DNA (PCR) Tick-borne Disease PCR Assessment and Plan (1) Encephalopathy acute: Status: Acute Plan Acute encephalopathy acute confusion dizziness unclear etiology of his sx, no leucocytosis, afebrile, vitals stable, CXR non acute, CTH non acute, similar presentation last month also where pt presented to ed with confusion and was found to have sub therapeutic INR, unclear if pt has some underlying progressive cognitive disorder or undiagnosed dementia. will r/o infectious etiology UA-negative for pyuria/bacteriuria Tick-borne disease panel pending Seen by Neurology: CTA head:No acute intracranial hemorrhage.Bifrontal parietal lobe atrophy. rec for eeg Mechanical heart valve CAD HLD on coumadin/lovenox bridging for subtherapeutic INR,warfarin dosing adjusted to 3 mg po qd. Monitor INR closely also overnight events noted-Mobitz type 1 second no clear evidence of persistent advanced AV block. d/w cardiologgy-no indication for pacemaker currently, follow up with Cardiology outpatient for above and also consider outpatient echo. Diabetes: unclear if pt using insulin at home check A1c: 12.4 insulin ss,lantus hypoglycemia protocol generalised weak -seen by pt-rec rehab. dvt px: coumadin diet : cardiac code status full code discussed with pt dispo: [facility] Quality Stroke Does the patient have a stroke diagnosis?: No VTE Prior VTE?: No VTE Risk Level:: Medical - moderate - high VTE Device Contraindication: N/A - Device Ordered VTE Drug Contraindication: N/A - Med Ordered
[2025-10-20 11:42] LABS: Glucose, Whole Blood 328 mg/dL (60-115)
[2025-10-20] MEDS: 0.9 % Sodium Chloride Flush 3 ML SYRINGE IVFLUSH ×2 (11:49→17:27)
[2025-10-20 12:00] VITALS: BP 145/78; PULSE 75; RESP 18; TEMP 36.8; O2SAT 95
--- NOTE | 2025-10-20 15:01 | MHC.CM.PN ---
EMR REVIEWED AND PER MD ROUNDS, PATIENT IS NOT MEDICALLY CLEARED FOR DISCHARGE DUE TO MANAGEMENT OF ENCEPHALOPATHY.
[2025-10-20 15:53] LABS: A. Phagocytphilium DNA,RT-PCR NOT DETECTED (NOT DETECTED); Babesia Microti DNA, RT-PCR NOT DETECTED (NOT DETECTED); Borrelia Miyamotoi,DNA RT-PCR NOT DETECTED (NOT DETECTED); E.Chaffeensis DNA RT-PCR NOT DETECTED (NOT DETECTED); Lyme(Borrelia ssp)DNA RT-PCR NOT DETECTED (NOT DETECTED)
[2025-10-20 15:57] LABS: Glucose, Whole Blood 344 mg/dL (60-115)
[2025-10-20 16:00] VITALS: BP 117/56; PULSE 78; RESP 18; TEMP 36.8; O2SAT 96
[2025-10-20 19:46] VITALS: BP 114/58; PULSE 66; RESP 18; TEMP 36.4; O2SAT 95
[2025-10-20 20:28] LABS: Glucose, Whole Blood 306 mg/dL (60-115)
[2025-10-20] MEDS: Insulin Glargine,Hum.rec.anlog 100 UNIT/ML 10 ML VIAL 6 UNIT SUBCUT (20:33)
[2025-10-21] VITALS: BP 145/69; PULSE 57; RESP 16; TEMP 36.4; O2SAT 95
[2025-10-21 03:04] VITALS: BP 147/68; PULSE 65; RESP 18; TEMP 36.2; O2SAT 97
[2025-10-21 07:11] LABS: INTERNATIONAL NORM RATIO 1.2 (0.9-1.1); Prothrombin Time 14.5 SEC (11.2-13.5)
[2025-10-21 07:18] LABS: Glucose, Whole Blood 241 mg/dL (60-115)
[2025-10-21 07:24] VITALS: BP 146/65; PULSE 52; RESP 18; TEMP 36.1; O2SAT 95
--- NOTE | 2025-10-21 08:13 | HO.PM.IMPN ---
Subjective Subjective Date of Service: 10/21/25 Interval History: awaiting placement Review of Systems no new c/o. Review of Systems: Yes all other systems are reviewed and are negative Physical Exam Exam: Exam: Appearance: Alert.? Oriented X3.? cvs: [id number] , no murmur res: clear to auscultation ,no rhonchii or wheezing abd: no rebound or guarding ,nt, bs present. ext pulses present , no cyanosis. neuro: nonfocal. Vital Signs: Vital Signs: Last Vital Signs Temp 97.0 F 10/21/25 07:24 Pulse 52 10/21/25 07:24 Resp 18 10/21/25 07:24 BP 146/65 H 10/21/25 07:24 Pulse Ox 95 10/21/25 07:24 O2 Del Method Room Air 10/21/25 07:24 O2 Flow Rate 2 10/19/25 16:00 BMI result Body Mass Index 32.8 Objective Data Active Medications Acetaminophen (Acetaminophen 325 Mg Tablet) 650 mg PO Q6H PRN PRN Reason: Pain, Mild 1-3,fever,headache Last Admin: 10/19/25 10:37 Dose: 650 mg Documented By: VENKATESH Albuterol/Ipratropium (Albuterol/Iprat 2.5/0.5mg 3 Ml Ampul.Neb) 3 ml INHALE Q4H PRN PRN Reason: Shortness of Breath/Wheezing Dextrose (Dextrose 50 % 25 Gm/50 Ml Syringe) 25 gm IVPUSH Q15M PRN; Protocol PRN Reason: per Hypoglycemia Standing Ord. Enoxaparin Sodium (Enoxaparin Sodium 100 Mg/Ml Syringe) 100 mg SUBCUT Q12H [facility] Last Admin: 10/20/25 20:33 Dose: 100 mg Documented By: MEGHNA Glucose (Glucose Gel 15 Gm Gel..Gram.) 15 gm PO Q15M PRN; Protocol PRN Reason: per Hypoglycemia Standing Ord. Insulin Glargine (Insulin Glargine,Hum.Rec.Anlog 100 Unit/Ml 10 Ml Vial) 6 unit SUBCUT BEDTIME [facility] Last Admin: 10/20/25 20:33 Dose: 6 unit Documented By: MEGHNA Insulin Human Lispro (Insulin Lispro 100 Unit/Ml 3 Ml Vial) 0 unit SUBCUT QIDACHS [facility]; Protocol Last Admin: 10/20/25 20:33 Dose: 8 unit Documented By: MEGHNA Melatonin (Melatonin 3 Mg Tablet) 3 mg PO BEDTIME PRN PRN Reason: Insomnia Omeprazole (Omeprazole 20 Mg Capsule.) 20 mg PO DAILY@0630 [facility] Last Admin: 10/21/25 05:37 Dose: Not Given Documented By: MAILE Non-Admin Reason: Patient Refused Ondansetron HCl (Ondansetron Hcl 4 Mg/2 Ml Vial) 4 mg IVPUSH Q8H PRN PRN Reason: Nausea and Vomiting Polyethylene Glycol (Polyethylene Glycol 3350 17 Gm Powd.Pack) 17 gm PO DAILY PRN PRN Reason: Constipation Sodium Chloride (0.9 % Sodium Chloride Flush 3 Ml Syringe) 3 ml IVFLUSH QSHIFT [facility] Last Admin: 10/20/25 20:35 Dose: Not Given Documented By: MEGHNA Non-Admin Reason: Previously Administered Warfarin Sodium (Warfarin Sodium 3 Mg Tablet) 3 mg PO DAILY@1800 [facility] Last Admin: 10/20/25 19:23 Dose: 3 mg Documented By: MATTEO Labs 10/19/25 06:37 10/19/25 06:37 Labs: Laboratory Results - last 24 hr 10/18/25 10/20/25 10/20/25 20:13 11:39 15:52 PT INR POC Glucose 328 H 344 H A.phagocytophil DNA PCR NOT DETECTED Babesia microti DNA PCR NOT DETECTED Borrelia sp DNA (PCR) NOT DETECTED Borrelia miyamotoi (PCR) NOT DETECTED E.chaffeensis DNA (PCR) NOT DETECTED Tick-borne Disease PCR SEE NOTE 10/20/25 10/21/25 10/21/25 20:20 06:30 07:13 PT 14.5 H INR 1.2 H POC Glucose 306 H 241 H A.phagocytophil DNA PCR Babesia microti DNA PCR Borrelia sp DNA (PCR) Borrelia miyamotoi (PCR) E.chaffeensis DNA (PCR) Tick-borne Disease PCR Assessment and Plan (1) Encephalopathy acute: Status: Acute Plan Acute encephalopathy acute confusion dizziness unclear etiology of his sx, no leucocytosis, afebrile, vitals stable, CXR non acute, CTH non acute, similar presentation last month also where pt presented to ed with confusion and was found to have sub therapeutic INR, unclear if pt has some underlying progressive cognitive disorder or undiagnosed dementia. will r/o infectious etiology UA-negative for pyuria/bacteriuria Tick-borne disease panel pending Seen by Neurology: CTA head:No acute intracranial hemorrhage.Bifrontal parietal lobe atrophy. rec for eeg Mechanical heart valve CAD HLD on coumadin/lovenox bridging for subtherapeutic INR,warfarin dosing adjusted to 3 mg po qd. Monitor INR closely also overnight events noted-Mobitz type 1 second no clear evidence of persistent advanced AV block. d/w cardiologgy-no indication for pacemaker currently, follow up with Cardiology outpatient for above and also consider outpatient echo. Diabetes: unclear if pt using insulin at home check A1c: 12.4 insulin ss,lantus hypoglycemia protocol generalised weak -seen by pt-rec rehab. dvt px: coumadin diet : cardiac code status full code discussed with pt dispo: str Quality Stroke Does the patient have a stroke diagnosis?: No VTE Prior VTE?: No VTE Risk Level:: Medical - moderate - high VTE Device Contraindication: N/A - Device Ordered VTE Drug Contraindication: N/A - Med Ordered
[2025-10-21] MEDS: 0.9 % Sodium Chloride Flush 3 ML SYRINGE IVFLUSH ×2 (08:35→16:44)
[2025-10-21 10:57] LABS: Glucose, Whole Blood 275 mg/dL (60-115)
[2025-10-21 11:04] VITALS: BP 137/60; PULSE 51; RESP 20; TEMP 36.6; O2SAT 95
[2025-10-21 15:20] VITALS: BP 153/68; PULSE 55; RESP 18; TEMP 37.1; O2SAT 96
[2025-10-21 16:23] LABS: Glucose, Whole Blood 273 mg/dL (60-115)
[2025-10-21 19:31] VITALS: BP 133/63; PULSE 57; RESP 18; TEMP 36.3; O2SAT 96
[2025-10-21 20:20] LABS: Glucose, Whole Blood 417 mg/dL (60-115)
[2025-10-21] MEDS: Insulin Glargine,Hum.rec.anlog 100 UNIT/ML 10 ML VIAL 6 UNIT SUBCUT (21:13)
[2025-10-22] VITALS: BP 140/82; PULSE 77; RESP 18; TEMP 36.3; O2SAT 97
[2025-10-22 00:37] LABS: Glucose, Whole Blood 223 mg/dL (60-115)
[2025-10-22 03:07] VITALS: BP 157/69; PULSE 57; RESP 18; TEMP 36.7; O2SAT 96
[2025-10-22 07:19] LABS: Glucose, Whole Blood 250 mg/dL (60-115)
[2025-10-22 07:20] LABS: INTERNATIONAL NORM RATIO 1.2 (0.9-1.1); Prothrombin Time 15.1 SEC (11.2-13.5)
[2025-10-22 07:33] VITALS: BP 117/68; PULSE 82; RESP 18; TEMP 36.6; O2SAT 98
[2025-10-22] MEDS: 0.9 % Sodium Chloride Flush 3 ML SYRINGE IVFLUSH (08:44)
[2025-10-22 11:00] LABS: Glucose, Whole Blood 327 mg/dL (60-115)
[2025-10-22 11:13] VITALS: BP 174/82; PULSE 64; RESP 18; TEMP 36.6; O2SAT 99
--- NOTE | 2025-10-22 13:05 | P.DS_ITS ---
DS: Providers Provider Date of admission: 10/19/25 09:34 Date of discharge: 10/22/25 Primary care physician: Connor Tesfaye PA-C Consults: 10/18/25 17:01 Consult to Neurology Routine Consulting Provider: [facility] Reason for consultation: acute encephalopathy Has provider been notified: No 10/18/25 20:06 Consult to Cardiology Routine Consulting Provider: [facility] [place] [facility] Reason for consultation: Abnormal ECG Has provider been notified: Yes 10/19/25 10:05 Consult to Wound Care Routine Consulting Provider: [facility] [place] W[facility] Reason for consultation: Bilateral Plantar Feet Attending physician on discharge: Evita Saleem Discharging clinician: Evita Saleem DS: Diagnosis Discharge Diagnosis (1) Encephalopathy acute: Status: Acute DS: Summary Hospital Course Hospital Course: HPI: 75 y/o M medical history of diabetes, ckd, mechanical valve on coumadin, cad, HTN, diabetic neuropathy, HLD who presented to ED with c/o dizziness per ed note. Upon my encounter with pt, he states that he drove to hospital but can not remember why did he come. He states that he woke up this am, took shower, changed and then he can not remember what happened after that or what made him come to hospital. He lives alone at home. He denies any fever, chills, nausea, vomiting, urinary sx, abd pain, RAYMUNDO, LOC, focal weakness, chest pain or sob. Pt presented to ed with similar complaint last month as well. Hospital course: Encephalopathy: Seems to be improving etiology unclear. Workup including CT he ad,eeg neagtive.UA-negative for pyuria/bacteriuria Tick-borne disease panel negative. Patient is seen by Neurology: Patient's CT head negative, EEG was also negative, neuro recommended longer EEG evaluation for 48 hours outpatient. Consider checking B12 level rehab. Mechanical heart valve: INR is subtherapeutic, currently on Lovenox/Coumadin bridging monitor INR closely in rehab. also has Mobitz type 1 second no clear evidence of persistent advanced AV block. d/w cardiologgy-no indication for pacemaker currently, follow up with Cardiology outpatient for above and also consider outpatient echo. Diabetes: Unclear if patient was using insulin at home, hemoglobin A1c 12.4. Started on Lantus, sliding scale coverage. Fluctuating blood pressure: Monitor closely, if persistently high may need to start any antihypertensive. Plan: As above. Monitor INR closely-currently patient is on warfarin/Lovenox bridging. Last INR today was 1.2 Follow up with echo and Cardiology outpatient Better control blood sugar Monitor blood pressure closely if persistently elevated-at antihypertensive medication. Above management discussed with the patient and his son in detail length, total time spent 50 minute. Patient is going to the rehab. Time Attestation Total time managing care of this patient today: 45 mintues. Discharge Coordination Time (in mins): 45 min Quality: Safe Use of Opioids Does Pt have an Active Cancer Diagnosis on the Problem List?: No Quality: Stroke Does the patient have a stroke diagnosis?: No Physical Exam Exam: Exam: Appearance: Alert.? Oriented X3.? cvs: [id number] , no murmur res: clear to auscultation ,no rhonchii or wheezing abd: no rebound or guarding ,nt, bs present. ext pulses present , no cyanosis. neuro: nonfocal. Vital Signs: Vital Signs: Last Vital Signs Temp 97.8 F 10/22/25 11:13 Pulse 64 10/22/25 11:13 Resp 18 10/22/25 11:13 BP 174/82 H 10/22/25 11:13 Pulse Ox 99 10/22/25 11:13 O2 Del Method Room Air 10/22/25 11:13 O2 Flow Rate 2 10/19/25 16:00 BMI result Body Mass Index 32.8 DS: Data Data Completed and Pending Labs on day of discharge: Laboratory Results - last 24 hr 10/21/25 10/21/25 10/22/25 16:19 20:17 00:25 PT INR POC Glucose 273 H 417 H* 223 H 10/22/25 10/22/25 10/22/25 06:25 07:11 10:54 PT 15.1 H INR 1.2 H POC Glucose 250 H 327 H Imaging Chest x-ray: Radiologist's impression: ITS Impressions Chest X-Ray 10/18/25 10:06 IMPRESSION: Chronic interstitial lung disease. Head CT 10/18/25 10:52 IMPRESSION: No acute intracranial hemorrhage. Bifrontal parietal lobe atrophy. Discharge Plan Discharge Anticipated Discharge Date/Time: 10/22/25 12:44 Patient Disposition: Home, Self-Care Discharge Diagnosis: encephalopathy , mobitz type 1 block, subtherapeutic INR Referrals: Connor Tesfaye PA-C [Primary Care Provider, Internal Medicine] - 1 Week Discharge Medications: New enoxaparin 100 mg/mL Syringe 100 mg subcut Q12H Qty: 1 0RF insulin lispro [Admelog U-100 Insulin lispro] 100 unit/mL Solution See Protocol subcut QIDACHS Qty: 3 0RF Protocol: Insulin Normal Sensitivity 1st 24 hrs Less than or equal to 110 ---- Give (units): 0 111 to 150 Give (units): 0 151 to 200 Give (units): 2 201 to 250 Give (units): 4 251 to 300 Give (units): 6 301 to 350 Give (units): 10 Greater than 350 Give (units): 14 Call MD if Blood Glucose > : 350 insulin glargine [Lantus U-100 Insulin] 100 unit/mL Solution 10 unit subcut BEDTIME Qty: 10 0RF Continued (DME) FreeStyle Reid 2 [place] [facility] See Rx Instructions .Route Qty: 1 0RF Rx Instructions: 4 times per day (DME) OneTouch Ultra Test Strip See Rx Instructions .ROUTE .COMPLEX Qty: 100 3RF Dose Instruction: TEST 3 TIMES DAILY Rx Instructions: TEST 3 TIMES DAILY omeprazole 20 mg capsule,delayed release(DR/EC) 20 mg PO DAILY@0630 Qty: 90 0RF warfarin 2 mg tablet 2 mg PO DAILY@1800 Protocol: Dose Management Condition: Thursday (Week One) Dose/Route: 4 mg Instruction: 2 x 2 mg tablets Condition: Thursday Dose/Route: 4 mg Instruction: 2 x 2 mg tablets Condition: Thursday Dose/Route: 4 mg Instruction: 2 x 2 mg tablets Condition: Thursday Dose/Route: 4 mg Instruction: 2 x 2 mg tablets Condition: Dose/Route: 6 mg Instruction: 3 x 2 mg tablets Condition: Thursday Dose/Route: 6 mg Instruction: 3 x 2 mg tablets Condition: Thursday Dose/Route: 6 mg Instruction: 3 x 2 mg tablets Condition: Thursday (Week Two) Dose/Route: 4 mg Instruction: 2 x 2 mg tablets Condition: Thursday Dose/Route: 4 mg Instruction: 2 x 2 mg tablets Condition: Thursday Dose/Route: 4 mg Instruction: 2 x 2 mg tablets Condition: Thursday Dose/Route: 4 mg Instruction: 2 x 2 mg tablets Condition: Dose/Route: 4 mg Instruction: 2 x 2 mg tablets Condition: Thursday Dose/Route: 4 mg Instruction: 2 x 2 mg tablets Condition: Thursday Dose/Route: 4 mg Instruction: 2 x 2 mg tablets Protocol Text: Adjustment Start Date: 09/28/25 INR Value: 1.0 INR Date: 09/28/25 Recheck Date: 10/05/25 (DME) Blood Pressure Cuff Misc See Rx Instructions .ROUTE .MEDSUPPLY Qty: 1 0RF Rx Instructions: As directed (DME) back brace Misc See Rx Instructions .Route Qty: 1 0RF Rx Instructions: As directed (DME) FreeStyle Reid 3 Sensor Device See Rx Instructions .Route Qty: 1 3RF Rx Instructions: As directed (DME) FreeStyle Reid 3 [place] Misc See Rx Instructions .Route Qty: 1 1RF Rx Instructions: As directed (DME) pen needle, diabetic 32 gauge x 5/32 needle See Rx Instructions .ROUTE .MEDSUPPLY Qty: 100 3RF Rx Instructions: As directed (DME) FreeStyle Reid 2 Sensor Kit See Rx Instructions .Route Qty: 1 6RF Rx Instructions: test 4 times per day (DME) Omnipod 5 Intro([id number]) Cartridge See Rx Instructions subcut .MEDSUPPLY Qty: 1 Rx Instructions: As directed Discharge Orders: Discharge Order (Routine); Ordered 10/22/25 Ordered By: Evita Saleem Diet: Advance to usual diet Activity on Discharge: As tolerated Stand Alone Forms: Patient Portal Discharge page Print Language: Spanish Care Plan Goals: Encephalopathy: Seems to be improving etiology unclear. Workup including CT head,eeg neagtive.UA-negative for pyuria/bacteriuria Tick-borne disease panel negative. Patient is seen by Neurology: Patient's CT head negative, EEG was also negative, neuro recommended longer EEG evaluation for 48 hours outpatient. Consider checking B12 level rehab. Mechanical heart valve: INR is subtherapeutic, currently on Lovenox/Coumadin bridging monitor INR closely in rehab. also has Mobitz type 1 second no clear evidence of persistent advanced AV block. d/w cardiologgy-no indication for pacemaker currently, follow up with Cardiology outpatient for above and also consider outpatient echo. Diabetes: Unclear if patient was using insulin at home, hemoglobin A1c 12.4. Started on Lantus, sliding scale coverage. Fluctuating blood pressure: Monitor closely, if persistently high may need to start any antihypertensive. Health Concerns: As above. Plan of Treatment: As above. Assessment: As above
--- NOTE | 2025-10-22 13:18 | MHC.CM.PN ---
Second IMM 10/22/25, Pt. has been medically cleared to DC, he will go to [place] in [facility] for STR via BLS.
[2025-10-22 14:26] LABS: Folate 4.5 ng/mL (> or = 4.0); Vitamin B12 421 pg/mL (200-900)
== END 2025-10-22 15:00 | disposition home or self-care (01) | DRG 309 ==
LOC: HO.ED 10:52 → HO.EDOVER 12:41 → HO.S3 13:01 → HO.IMC 19:33
PROVIDERS: Internal Medicine; Physician Assistant Medical; Admitting Provider Hospitalist; Emergency Provider Emergency Medicine; PCP Physician Assistant; Visit Provider Internal Medicine
DX: I44.1 Atrioventricular block, second degree (principal); G93.40 Encephalopathy, unspecified; I25.10 Atherosclerotic heart disease of native coronary artery without angina pectoris; J44.9 Chronic obstructive pulmonary disease, unspecified; E11.40 Type 2 diabetes mellitus with diabetic neuropathy, unspecified; R79.1 Abnormal coagulation profile; E78.5 Hyperlipidemia, unspecified; Z20.822 Contact with and (suspected) exposure to COVID-19; Z95.1 Presence of aortocoronary bypass graft; Z95.2 Presence of prosthetic heart valve; Z91.148 Patient's other noncompliance with medication regimen for other reason; Z79.01 Long term (current) use of anticoagulants; Z79.899 Other long term (current) drug therapy
CPT/HCPCS: 36415; 70450; 71045; 80048; 80053; 80143; 80179; 80307; 81001; 82140; 82607; 82746; 82947; 83036; 83735; 83880; 84484; 85025; 85027; 85610; 85730; 86617; 86618; 87468; 87469; 87478; 87484; 87637; 87798; 93005; 95819; 97110; 97162; 99222; 99285; J1644; J1650

== ENCOUNTER → 2025-10-18 09:58 | Outpatient (BNV) | payer MEDICARE, OTHER, SELFPAY | PROVIDERS: Emergency Provider Emergency Medicine; PCP Physician Assistant; Visit Provider Radiology Diagnostic Radiology | DX: G31.9 Degenerative disease of nervous system, unspecified (principal); J84.9 Interstitial pulmonary disease, unspecified | CPT/HCPCS: 70450; 71045 ==

== ENCOUNTER → 2025-10-18 09:59 | Outpatient (BNV) | payer MEDICARE, OTHER, SELFPAY | PROVIDERS: Emergency Provider Emergency Medicine; PCP Physician Assistant; Visit Provider Internal Medicine Cardiovascular Disease | DX: I45.10 Unspecified right bundle-branch block (principal) | CPT/HCPCS: 93010 ==

== ENCOUNTER → 2025-10-18 12:34 | Outpatient (BNV) | payer MEDICARE, OTHER, SELFPAY | PROVIDERS: Admitting Provider Hospitalist; Emergency Provider Emergency Medicine; PCP Physician Assistant; Visit Provider Hospitalist | DX: G93.40 Encephalopathy, unspecified (principal) | CPT/HCPCS: 99231; 99499 ==

== ENCOUNTER → 2025-10-19 09:34 | Outpatient (BNV) | payer MEDICARE, OTHER, SELFPAY | PROVIDERS: Admitting Provider Hospitalist; Emergency Provider Emergency Medicine; PCP Physician Assistant; Visit Provider Psychiatry & Neurology Neurology | DX: G93.40 Encephalopathy, unspecified (principal) | CPT/HCPCS: 95819; 99222 ==

== ENCOUNTER → 2025-10-19 09:34 | Outpatient (BNV) | payer MEDICARE, OTHER, SELFPAY | PROVIDERS: Admitting Provider Hospitalist; Emergency Provider Emergency Medicine; PCP Physician Assistant; Visit Provider Internal Medicine Cardiovascular Disease | DX: I44.1 Atrioventricular block, second degree (principal) | CPT/HCPCS: 99222 ==